=== PATIENT | female | born 1970 | race Caucasian/White ===

== ENCOUNTER → 2017-02-05 | Outpatient (CLI) | payer BC ==
[~2017-02-05] MED LIST: ABILIFY; ALPR0.5T PO; AMIT100T2 PO; DEXT1DRO OP; DICL75TA2 PO; FERROUS SULFATE; GEMF600T60 PO; HUMALOG; HYDR-762 PO; IBUP-1542 PO; METF500T4 PO; PROTONIX; ROSU20TA PO
[2017-02-05 17:20] LABS: ADD SCAN DIFF NO
[2017-02-05 17:22] LABS: BASOPHILS % 0.5 % (0.0-2.0); EOSINOPHILS # 0.2 10^3/ul (0.0-0.5); EOSINOPHILS % 2.4 % (0.0-7.0); HEMATOCRIT 28.9 % (37.0-47.0); HEMOGLOBIN 10.2 g/dl (12.0-16.0); LYMPHOCYTES # 2.2 10^3/ul (0.8-2.9); LYMPHOCYTES % 28.5 % (15.0-51.0); MEAN CORPUSCULAR HEMOGLOBIN 31.8 pg (29.0-33.0); MEAN CORPUSCULAR HGB CONC 35.3 g/dl (32.0-37.0); MEAN PLATELET VOLUME 10.7 fl (7.4-10.4); MONOCYTE # 0.4 10^3/ul (0.3-0.9); MONOCYTES % 5.8 % (0.0-11.0); NEUTROPHIL # 4.7 10^3/ul (1.6-7.5); NEUTROPHILS % 62.1 % (39.0-77.0); PLATELET COUNT 167 10^3/UL (140-415); RED BLOOD COUNT 3.21 10^6/ul (4.20-5.40); RED CELL DISTRIBUTION WIDTH 13.5 % (11.5-14.5); WHITE BLOOD COUNT 7.6 10^3/ul (4.8-10.8)
[2017-02-05 17:47] LABS: ALBUMIN 4.6 g/dl (3.3-4.9); ALBUMIN/GLOBULIN RATIO 1.76; BILIRUBIN,INDIRECT 0.1 mg/dl (0-1.1); BILIRUBIN,TOTAL 0.1 mg/dl (0.2-1.3); CALCIUM 9.3 mg/dl (8.4-10.2); CREATININE 1.25 mg/dl (0.44-1.00); POTASSIUM 4.2 mmol/L (3.5-5.1); TOTAL PROTEIN 7.2 g/dl (6.1-8.1)
[2017-02-05 18:14] LABS: ADD UMIC YES; UR BILIRUBIN (Dip) NEGATIVE (NEGATIVE); UR BLOOD (Dip) NEGATIVE (NEGATIVE); UR CLARITY CLEAR (CLEAR); UR COLOR LT. YELLOW (YELLOW); UR GLUCOSE (Dip) NEGATIVE (NEGATIVE); UR KETONES (Dip) NEGATIVE (NEGATIVE); UR LEUKOCYTE ESTERASE (Dip) NEGATIVE (NEGATIVE); UR NITRITE (Dip) NEGATIVE (NEGATIVE); UR TOTAL PROTEIN (Dip) 2+ (NEGATIVE); UR UROBILINOGEN (Dip) 0.2 E.U./dL (0.1-1.0)
[2017-02-05 19:32] LABS: UR BACTERIA FEW; UR SQUAMOUS EPITHELIAL CELL MODERATE; URINE RBCS 0-2 /HPF (0)
== END | disposition home or self-care (01) ==
LOC: LAB 02-02 17:15
PROVIDERS: ATTEND Internal Medicine Rheumatology
DX: M32.9 Systemic lupus erythematosus, unspecified (principal); D86.9 Sarcoidosis, unspecified
CPT/HCPCS: 80053; 81001; 85025; 85651; 86140; 86160

== ENCOUNTER 2017-03-12 05:41 | Inpatient (IN) | payer BC ==
--- NOTE | 2017-03-09 05:53 | CONS ---
DATE OF ADMISSION: 03/12/2017 DATE OF CONSULTATION: REASON FOR CONSULTATION: Consultation requested by Dr. Henry Lincoln for evaluation and clearance for this 47-year-old woman about to undergo surgery. HISTORY OF PRESENT ILLNESS: Yaneth Rehman is a 47-year-old with menometrorrhagia and heavy periods for quite a while now. She is currently being admitted for correction of the above problem. PRIOR SURGICAL HISTORY: She had sections x4, tonsil and adenoid surgery, carpal tunnel syndrome, as well as an ovarian cystectomy done. She does not remember which side. PAST MEDICAL HISTORY: She has had no medical hospitalizations, at least none that she can remember other than her pregnancies and they were all sections. She fractured her right tibia when she was younger. Other than that, she has had a variety of different medical issues which include diabetes, as well as a diagnosis of systemic lupus erythematosus, and severe genetic hyperlipidemia. MEDICATION: She is currently taking the following medications: 1. Crestor 20 mg daily. 2. Gemfibrozil 600 mg two times a day. 3. Metformin 1000 mg two times a day. 4. Abilify 20 mg daily. 5. Losartan 25 mg daily. 6. Protonix 40 mg daily. 7. Insulin both long and short-acting. Her diabetes has been under very good control with that. 8. Hydroxychloroquine 200 mg two times a day given to her by her sign carpenter and other medications. ALLERGIES: CEPHALOSPORINS. LATEX. SOCIAL HISTORY: The patient is and has four children, one grandchild and two on the way. She smokes about five cigarettes a day. Also, alcohol socially. She does not drink coffee. She has no difficulty sleeping at night. She is employed. FAMILY HISTORY: Noncontributory due to the fact that the patient is adopted and does not know much about her biological parents. REVIEW OF SYSTEMS: HEENT: Periodic tension headaches. CARDIORESPIRATORY: Denies any chest pain or shortness of breath. GI: No melena or hematemesis. : No urgency, occasional nocturia. PRESTRESSED CONCRETE LABORER: Menometrorrhagia or excessive bleeding with her periods. MUSCULOSKELETAL: Positive for arthritis and symptoms of her lupus. NEUROPSYCHIATRIC: Unremarkable. GENERAL HEALTH: As above. PHYSICAL EXAMINATION: VITAL SIGNS: Blood pressure was 148/78. Pulse was 72 and regular. Respirations were 18. Temperature 98.2. Height 5'6". Weight 201 pounds. GENERAL: The patient is noted to be a well-developed, well- nourished female, alert, cooperative in no apparent acute distress. Oriented to time, place and person. HEENT: Head is atraumatic. Eyes: Pupils are equal, reactive to light and accommodation. Fundi were benign. Tympanic membranes were unremarkable. Nose was negative. Mouth was unremarkable. Fair oral hygiene was present. NECK: Supple without any rigidity. Trachea was midline. Thyroid was unremarkable. Neck veins were flat. Carotid pulses were equal. No bruits were heard. BACK: Unremarkable. CHEST: Symmetrical. BREAST: Breast and axillary exam did not reveal any masses. LUNGS: Clear to percussion and auscultation. HEART: PMI is 5th intercostal space at the midclavicular line. Regular sinus rhythm was noted. No significant murmurs, rubs or gallops were elicited. ABDOMEN: Soft. Good bowel sounds were noted. No significant organomegaly, masses or tenderness. Scars from prior sections were noted. PRESTRESSED CONCRETE LABORER: Normal female external genitalia. Pelvic and rectal exam per literary writer, up to date. EXTREMITIES: No clubbing, cyanosis or edema. Peripheral pulses were physiologic. SKIN: Moist and warm without any eruptions. Multiple tattoos were noted. LYMPHATICS: No gross lymphadenopathy was noted. NEUROLOGIC: Grossly intact. IMPRESSION: 1. Menometrorrhagia. 2. Systemic lupus erythematosus. 3. Diabetes mellitus type 2. 4. Hyperlipidemia. 5. Degenerative joint disease. 6. Stable health. LABORATORY DATA: Review of laboratory and other data revealed the following: The patient's chemistry panel including electrolytes, glucose, BUN and creatinine were normal. Liver function tests revealed minimal elevation of SGPT and SGOT at 44 and 36, and alkaline phosphatase minimally elevated at 116. The patient's lipids revealed a cholesterol of 201 which is good for this patient. Triglycerides 883. This is far better than the 1000 plus to 3000 range the patient has had. The patient's thyroid function tests were normal. Magnesium was normal. Iron was low compatible with her bleeding history even though she takes vitamin supplementation. B12 was normal. Hemoglobin A1C was 6.4. Her CBC, urinalysis, PT and PTT were normal. Urinalysis, however, did show proteinuria compatible with her multiple problems. Her EKG was borderline with some nonspecific ST-T wave changes. Chest x-ray was within normal limits. DISCUSSION: Dr. Lincoln, I see no contraindication to this patient undergoing proposed surgery under desired form of anesthesia, and feel she is a suitable candidate at this particular point in time. We will be following her along with you during her stay at [facility] in terms of her diabetes and general medical management. Thank you again Dr. Lincoln, for allowing us to participate in the care of our patient. Dictated By: Gyu Russell MD /hiro/ortega /Document#: [id number]
[2017-03-09 15:04] VITALS: BMI 32.4
--- NOTE | 2017-03-11 21:52 | HP ---
Date/Time of Note Date/Time of Note DATE: 03/11/17 TIME: 21:06 Assessment/Plan VTE Prophylaxis VTE Prophylaxis Intervention: SCD's Lines/Catheters IV [facility]from [facility] Peripheral IV Assessment/Plan Chief Complaint/Hosp Course Menorrhagia unresponsive to medical management. Problems: Assessment/Plan Total abdominal hysterectomy, possible uni- or bilateral salpingoophorectomy. HPI/ROS Admit Date/Time Admit Date/Time March 12, 2017 Hx of Present Illness 47 y.o. with a spouse with a vasectomy admitted for a total abdominal hysterectomy for menorrhagia unresponsive to medical management for the last 2 years. Her periods have always been heavy but the amount of blood with clots has increased. An endometrial biopsy showed proliferative endometrium. She did not respond to progesterone therapy. She is not a candidate for a hydrothermal endometrial ablation as she has had 3 prior c-sections. Pt very adamantly wants a hysterectomy and does not want to try any other therapies. ROS Constitutional: no complaints Eyes: no complaints ENT: no complaints Respiratory: no complaints Cardiovascular: no complaints Gastrointestinal: no complaints Genitourinary: no complaints Musculoskeletal: no complaints Skin: no complaints Neurologic: no complaints Endocrine: no complaints Lymphatic: no complaints Psychological: no complaints Immunologic: no complaints PMH/Family/Social Past Medical History Medical History: diabetes (Type 2), other (Systemic lupus erythematosis, hyperlipidemia, bipolar disorder, sarcoid-in remission since 1996) Past Surgical History x 3, tonsillectomy, lithotripsy multiple times, right ovarian cystectomy-B9 2011. 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 BENJAMIN MORRISON MD Mar 11, 2017 21:37
[2017-03-12] VITALS (22 sets, daily range): BP systolic 121–145; BP diastolic 46–74; PULSE 78–100; RESP 15–22; Ht 167.6 cm; Wt 89.7 kg
[~2017-03-12] VITALS: Ht 167.6 cm; Wt 89.7 kg
[~2017-03-12 05:41] MED LIST changes: +CIPROFLOXACIN 400MG/D5W 200 ML IVPB ONE; +LACTATED RINGER'S 1,000 ML IV SCH; +metroNIDAZOLE 500 MG/NS (PMX) 100 ML IVPB ONE
[2017-03-12] MEDS ORDERED: PROPOFOL 1000 MG INJ ONE (07:00)
[2017-03-12] MEDS ORDERED: CLINDAMYCIN 900 MG/50 ML D5W IVPB IVPB ONE (07:00)
[2017-03-12] MEDS ORDERED: PANT40TA4 PO (07:12)
[2017-03-12] MEDS ORDERED: INSU300I SQ (07:12)
[2017-03-12] MEDS ORDERED: LOSA25TA5 PO (07:12)
[2017-03-12] MEDS ORDERED: HYDR200T39 PO (07:12)
[2017-03-12] MEDS ORDERED: NEOSTIGMINE 3 MG/3 ML SYRINGE ONE (07:30)
[2017-03-12] MEDS ORDERED: GLYCOPYRROLATE 0.4 MG INJ ONE (07:30)
[2017-03-12] MEDS ORDERED: ROCURONIUM 50 MG INJ ONE (07:30)
[2017-03-12] MEDS ORDERED: PROPOFOL 20 ML ONE (07:30)
[2017-03-12] MEDS ORDERED: CEFAZOLIN 1 GM INJ ONE (07:30)
[2017-03-12] MEDS ORDERED: FENTAnyl 50 MCG/ML VIAL ONE (07:32)
[2017-03-12] MEDS ORDERED: DEXAMETHASONE 4 MG/ML 1 ML INJ ONE (07:33)
[2017-03-12] MEDS ORDERED: MIDAZOLAM 1 MG/ML 2 ML INJ ONE (07:33)
[2017-03-12] MEDS ORDERED: ONDANSETRON 4 MG INJ ONE (07:33)
[2017-03-12] MEDS ORDERED: morphine SULFATE/PF (10 MG/10 ML) INJ ONE (07:34)
[2017-03-12] MEDS ORDERED: ALBUMIN HUMAN 5% 500 ML ONE (09:26)
[2017-03-12] MEDS ORDERED: DIPHENHYDRAMINE 50 MG INJ IV PRN ×2 (10:00)
[2017-03-12] MEDS ORDERED: MEPERIDINE 25 MG INJ IV PRN (10:00)
[2017-03-12] MEDS ORDERED: ONDANSETRON 4 MG INJ IV PRN (10:00)
[2017-03-12] MEDS ORDERED: EPHEDrine SULFATE 50 MG/5 ML SYG IV PRN (10:00)
[2017-03-12] MEDS ORDERED: FENTAnyl 50 MCG/ML VIAL IV PRN ×3 (10:00)
[2017-03-12] MEDS ORDERED: NALBUPHINE HCL (10 MG/1 ML) INJ IV PRN (10:00)
[2017-03-12] MEDS ORDERED: TRIMETHOBENZAMIDE 100 MG/ML VIAL IM PRN (10:00)
[2017-03-12] MEDS ORDERED: NALOXONE (0.4 MG/ML) INJ IV PRN (10:00)
[2017-03-12] MEDS ORDERED: hydrALAzine 20 MG INJ IV PRN (10:00)
[2017-03-12] MEDS ORDERED: MIDAZOLAM 1 MG/ML 2 ML INJ IV PRN (10:00)
[2017-03-12] MEDS ORDERED: HYDROmorphONE 1 MG/ML SYG IV PRN (10:00)
[2017-03-12] MEDS ORDERED: OXYCODONE/ACETAMINOPHEN (5/325) TAB PO PRN ×3 (10:00→14:00)
[2017-03-12] MEDS ORDERED: ZOLPIDEM 5 MG TAB PO PRN (10:00)
[2017-03-12] MEDS ORDERED: IPRATROPIUM (NEB) 0.5 MG/2.5 ML AMP HHN PRN (10:00)
[2017-03-12] MEDS ORDERED: LABETALOL HCL 20MG INJ IV PRN (10:00)
[2017-03-12] MEDS ORDERED: ALBUTEROL 0.083% (NEB) 2.5 MG/3 ML AMP HHN PRN (10:00)
[2017-03-12] MEDS ORDERED: HYDROmorphONE (0.2 MG/ML) 10ML SYG IV PRN ×2 (10:00)
[2017-03-12] MEDS ORDERED: KETOROLAC 30 MG INJ ONE (11:52)
[2017-03-12] MEDS: HYDROmorphONE (0.2 MG/ML) 10ML SYG IV PRN ×2 (12:11→12:36)
[2017-03-12] MEDS ORDERED: INSULIN ASPART [NOVOLOG] 3 ML PEN SC ONE (13:30)
--- NOTE | 2017-03-12 13:54 | OPR ---
Date/Time of Note Date/Time of Note DATE: 03/12/17 TIME: 13:51 Operative Report Preoperative Diagnosis Menorrhagia unresponsive to medical management Postoperative Diagnosis Same Operation/Procedure Performed Total abdominal hysterectomy with bilateral ovarian cystectomy. Surgeon: BENJAMIN MORRISON Co-Surgeon: KATY DOYLE MD Anesthesia: general, spinal Estimated Blood Loss: 250 - 300 ml's Specimens Uterus and both ovarian cysts. Complications: None BENJAMIN MORRISON MD Mar 12, 2017 13:54
[2017-03-12] MEDS: ONDANSETRON 4 MG INJ IV PRN ×2 (13:59→22:00)
[2017-03-12] MEDS ORDERED: IBUPROFEN 800 MG TAB PO PRN (14:00)
[2017-03-12] MEDS: LACTATED RINGER'S 1,000 ML IV SCH ×2 (14:12→22:00)
[2017-03-12] MEDS: HYDROmorphONE 1 MG/ML SYG IV PRN ×4 (14:23→22:00)
[2017-03-12] MEDS: GEMFIBROZIL 600 MG TAB PO SCH (17:25)
--- NOTE | 2017-03-12 17:31 | CONS ---
Date/Time of Note Date/Time of Note DATE: 03/12/17 TIME: 17:25 Consult Date/Type/Reason Admit Date/Time Mar 12, 2017 at 05:41 Initial Consult Date 03/06/2017 Type of Consultation: internal medicine-endo Reason for Consultation pre-op evaluation and clearance Ordering Provider: BENJAMIN MORRISON MD Subjective alert post op in recovery room Objective Vital Signs Date Time Temp Pulse Resp B/P Pulse Ox O2 Delivery O2 Flow Rate FiO2 03/12/17 12:50 98 16 124/52 95 Nasal Cannula 03/12/17 12:00 99.3 03/12/17 12:00 3.0 Exam heent-neg lungs clear heart regular rhythm abd soft Results/Medications Results 24 hrs Laboratory Tests Test 03/12/17 06:26 03/12/17 13:01 03/12/17 16:49 Bedside Glucose 151 223 H 165 Medications Current Medications Hydromorphone HCl (Dilaudid) 0.2 mg Q2H PRN IV PAIN LEVEL 1-5; Start 03/12/17 at 10:00; Stop 03/13/17 at 07:39 Hydromorphone HCl (Dilaudid) 0.4 mg Q2H PRN IV PAIN LEVEL 6-10 Last administered on 03/12/17 16:16; Admin Dose 0.4 MG; Start 03/12/17 at 10:00; Stop 03/13/17 at 07:39 Diphenhydramine HCl (Benadryl) 25 mg Q4H PRN IV PRURITUS; Start 03/12/17 at 10: 00; Stop 03/13/17 at 07:39 Nalbuphine HCl (Nubain) 10 mg Q4H PRN IV PRURITUS; Start 03/12/17 at 10:00; Stop 03/13/17 at 07:39 Ondansetron HCl (Zofran Inj) 4 mg Q6H PRN IV NAUSEA AND/OR VOMITING Last administered on 03/12/17 13:59; Admin Dose 4 MG; Start 03/12/17 at 10:00; Stop 03/13/17 at 07:39 Naloxone HCl (Narcan) 0.2 mg Q2M PRN IV FOR RESP RATE 8 OR LESS; Start at 10:00; Stop 03/13/17 at 07:39 Alprazolam (Xanax) 0.5 mg Q8H PRN PO ANXIETY; Start 03/12/17 at 13:00 Amitriptyline HCl (Elavil) 100 mg HS PO ; Start 03/12/17 at 21:00 Acetaminophen/ Hydrocodone Bitart ([place] (10/325)) 1 tab Q4H PRN PO PAIN; Start 03/12/17 at 13:00 Hydroxychloroquine Sulfate (Plaquenil) 200 mg BID PO ; Start 03/13/17 at 09:00 Losartan Potassium (Cozaar) 25 mg DAILY PO ; Start 03/13/17 at 09:00 Pantoprazole (Protonix Tab) 40 mg DAILY@06 PO ; Start 03/13/17 at 06:00 Miscellaneous Information 2 drop TID OP ; Start 03/12/17 at 13:00; Status UNV Atorvastatin Calcium 80 mg 80 mg HS PO ; Start 03/12/17 at 21:00 Lactated Ringer's (Lr) 1,000 ml @ 100 mls/hr Q10H IV Last administered on 03/12t 14:12; Admin Dose 100 MLS/HR; Start 03/12/17 at 13:42 Ibuprofen (Motrin) 800 mg Q8H PRN PO PAIN AND OR ELEVATED TEMP; Start 03/12/17 at 14:00 Oxycodone/ Acetaminophen (Percocet (5/ 325)) 1 tab Q4H PRN PO PAIN LEVEL 6-10; Start 03/12/17 at 14:00 Ketorolac Tromethamine (Toradol) 30 mg Q6H PRN IV PAIN; Start 03/12/17 at 14:00 ; Stop 03/15/17 at 13:59 Hydromorphone HCl (Dilaudid) 0.5 mg Q4H PRN IV PAIN; Start 03/12/17 at 14:00 Insulin Glargine (Lantus) 10 unit DAILY@20 SC ; Start 03/12/17 at 20:00; Status UNV Assessment/Plan Chief Complaint/Hosp Course post op headache and high blood sugar Problems: Additional Assessment/Plan plan:control dm,hypertension and hyperlipedemia and monitor general medical condition KEN GANT MD Mar 12, 2017 17:31
[2017-03-12] MEDS: INSULIN ASPART [NOVOLOG] 3 ML PEN SC SCH ×2 (18:00→21:00)
[2017-03-12] MEDS: KETOROLAC 30 MG INJ IV PRN (20:30)
[2017-03-12] MEDS: ATORVASTATIN 80 MG TAB PO SCH (21:00)
[2017-03-12] MEDS: AMITRIPTYLINE 50 MG TAB PO SCH (21:00)
[2017-03-12] MEDS: INSULIN GLARGINE [LANtus] 3 ML PEN SC SCH (21:45)
[2017-03-13] VITALS: BP 116/55; RESP 16
[2017-03-13] MEDS: HYDROmorphONE 1 MG/ML SYG IV PRN ×4 (01:25→20:17)
[2017-03-13] MEDS: ACCU-CHEK XX SCH (01:50)
[2017-03-13] MEDS ORDERED: ACCU-CHEK XX SCH (02:00)
[2017-03-13] MEDS: KETOROLAC 30 MG INJ IV PRN ×2 (04:52→11:50)
[2017-03-13 05:33] LABS: BASOPHILS % 0.2 % (0.0-2.0); EOSINOPHILS # 0.1 10^3/ul (0.0-0.5); EOSINOPHILS % 0.7 % (0.0-7.0); HEMATOCRIT 24.3 % (37.0-47.0); HEMOGLOBIN 8.1 g/dl (12.0-16.0); LYMPHOCYTES # 1.3 10^3/ul (0.8-2.9); LYMPHOCYTES % 15.5 % (15.0-51.0); MEAN CORPUSCULAR HEMOGLOBIN 30.7 pg (29.0-33.0); MEAN CORPUSCULAR HGB CONC 33.3 g/dl (32.0-37.0); MEAN PLATELET VOLUME 11.4 fl (7.4-10.4); MONOCYTE # 0.5 10^3/ul (0.3-0.9); MONOCYTES % 5.8 % (0.0-11.0); NEUTROPHIL # 6.3 10^3/ul (1.6-7.5); NEUTROPHILS % 77.1 % (39.0-77.0); PLATELET COUNT 118 10^3/UL (140-415); RED BLOOD COUNT 2.64 10^6/ul (4.20-5.40); RED CELL DISTRIBUTION WIDTH 13.4 % (11.5-14.5); WHITE BLOOD COUNT 8.1 10^3/ul (4.8-10.8)
[2017-03-13] MEDS: PANTOPRAZOLE (EC) 40 MG TAB PO SCH (05:35)
[2017-03-13 06:52] LABS: CALCIUM 8.1 mg/dl (8.4-10.2); CREATININE 0.82 mg/dl (0.44-1.00)
[2017-03-13] MEDS: LACTATED RINGER'S 1,000 ML IV SCH ×2 (07:05→16:20)
[2017-03-13] MEDS ORDERED: ARTIFICIAL TEARS 15 ML OPH BOTH EYES PRN (07:30)
--- NOTE | 2017-03-13 08:17 | CONS ---
Date/Time of Note Date/Time of Note DATE: 03/13/17 TIME: 08:13 Consult Date/Type/Reason Admit Date/Time Mar 12, 2017 at 05:41 Initial Consult Date 03/06/2017 Type of Consultation: internal medicine-endo Reason for Consultation internal medicine f/u re dm type2 and hypertension Ordering Provider: BENJAMIN MORRISON MD Subjective alert no major complaints glucose 150 this am Objective Vital Signs Date Time Temp Pulse Resp B/P Pulse Ox O2 Delivery O2 Flow Rate FiO2 03/13/17 00:00 98.3 83 16 116/55 97 03/12/17 20:00 Nasal Cannula 2.0 Intake and Output 03/12/17 03/12/17 03/13/17 15:00 23:00 07:00 Intake Total 3000 ml 1050 ml 800 ml Output Total 375 ml 1200 ml 1900 ml Balance 2625 ml -150 ml -1100 ml Exam heent neg chest clear heart regular rhythm abdomen soft Results/Medications Result Diagram: 03/13/17 0451 03/13/17 0451 Results 24 hrs Laboratory Tests Test 03/12/17 13:01 03/12/17 16:49 03/12/17 20:42 03/13/17 04:51 Bedside Glucose 223 H 165 153 White Blood Count 8.1 Red Blood Count 2.64 L Hemoglobin 8.1 #L Hematocrit 24.3 L Mean Corpuscular Volume 92.0 Mean Corpuscular Hemoglobin 30.7 Mean Corpuscular Hemoglobin Concent 33.3 Red Cell Distribution Width 13.4 Platelet Count 118 #L Mean Platelet Volume 11.4 H Neutrophils % 77.1 H Lymphocytes % 15.5 Monocytes % 5.8 Eosinophils % 0.7 Basophils % 0.2 Nucleated Red Blood Cells % 0.0 Neutrophils # 6.3 Lymphocytes # 1.3 Monocytes # 0.5 Eosinophils # 0.1 Basophils # 0.0 Nucleated Red Blood Cells # 0.0 Sodium Level 141 Potassium Level 4.0 Chloride Level 103 Carbon Dioxide Level 26 Anion Gap 16 Blood Urea Nitrogen 14 Creatinine 0.82 Glucose Level 121 Calcium Level 8.1 L Test 03/13/17 05:36 Lab Scanned Report LAB Medications Current Medications Alprazolam (Xanax) 0.5 mg Q8H PRN PO ANXIETY; Start 03/12/17 at 13:00 Amitriptyline HCl (Elavil) 100 mg HS PO ; Start 03/12/17 at 21:00 Acetaminophen/ Hydrocodone Bitart ([employer] (10/325)) 1 tab Q4H PRN PO PAIN; Start 03/12/17 at 13:00 Hydroxychloroquine Sulfate (Plaquenil) 200 mg BID PO ; Start 03/13/17 at 09:00 Losartan Potassium (Cozaar) 25 mg DAILY PO ; Start 03/13/17 at 09:00 Pantoprazole (Protonix Tab) 40 mg DAILY@06 PO Last administered on 03/13/17 05 :35; Admin Dose 40 MG; Start 03/13/17 at 06:00 Eye Lubricant (Artificial Tears Oph) 2 drop TID PRN BOTH EYES DRY EYES; Start 03/13/17 at 07:30 Atorvastatin Calcium 80 mg 80 mg HS PO ; Start 03/12/17 at 21:00 Lactated Ringer's (Lr) 1,000 ml @ 100 mls/hr Q10H IV Last administered on 03/13 07:05; Admin Dose 100 MLS/HR; Start 03/12/17 at 13:42 Ibuprofen (Motrin) 800 mg Q8H PRN PO PAIN AND OR ELEVATED TEMP; Start 03/12/17 at 14:00 Oxycodone/ Acetaminophen (Percocet (5/ 325)) 1 tab Q4H PRN PO PAIN LEVEL 6-10; Start 03/12/17 at 14:00 Ketorolac Tromethamine (Toradol) 30 mg Q6H PRN IV PAIN Last administered on 04:52; Admin Dose 30 MG; Start 03/12/17 at 14:00; Stop 03/15/17 at 13:59 Hydromorphone HCl (Dilaudid) 0.5 mg Q4H PRN IV PAIN Last administered on 05:38; Admin Dose 0.5 MG; Start 03/12/17 at 14:00 Insulin Glargine (Lantus) 10 unit DAILY@20 SC Last administered on 03/12/17 21 :45; Admin Dose 10 UNIT; Start 03/12/17 at 20:00 Diagnostic Test (Pha) (Accu-Chek) 1 ea 02 XX ; Start 03/13/17 at 02:00 Assessment/Plan Chief Complaint/Hosp Course post op headache and high blood sugar Problems: Additional Assessment/Plan patient anemic will watch h&h sugars under good control KEN GANT MD Mar 13, 2017 08:17
[2017-03-13] MEDS: HYDROCODONE/APAP (10/325) TAB PO PRN ×3 (08:47→20:57)
[2017-03-13] MEDS: GEMFIBROZIL 600 MG TAB PO SCH ×2 (08:50→17:43)
[2017-03-13] MEDS: HYDROXYCHLOROQUINE 200 MG TAB PO SCH ×2 (08:51→20:57)
[2017-03-13] MEDS: metFORMIN 500 MG TAB PO SCH (08:51)
[2017-03-13] MEDS: INSULIN ASPART [NOVOLOG] 3 ML PEN SC SCH ×4 (08:58→21:00)
[2017-03-13] MEDS ORDERED: LOSARTAN 25 MG TAB PO SCH (09:00)
[2017-03-13 09:02] VITALS: BP 144/65; RESP 18
[2017-03-13 13:04] VITALS: BP 154/69; RESP 18
[2017-03-13 14:00] VITALS: BP 150/68; RESP 18
[2017-03-13] MEDS ORDERED: GLUCOSE GEL 15 GRAM TUBE BUCCAL PRN (14:30)
[2017-03-13] MEDS ORDERED: GLUCOSE GEL 15 GRAM TUBE PO PRN ×2 (14:30)
[2017-03-13] MEDS ORDERED: GLUCAGON 1 MG INJ IM PRN (14:30)
[2017-03-13] MEDS ORDERED: DEXTROSE 50% 50 ML SYRINGE IV PRN ×2 (14:30)
[2017-03-13] MEDS: IBUPROFEN 800 MG TAB PO SCH (17:43)
[2017-03-13 20:39] VITALS: BP 178/74; RESP 18
[2017-03-13] MEDS: ATORVASTATIN 80 MG TAB PO SCH (20:56)
[2017-03-13] MEDS: AMITRIPTYLINE 50 MG TAB PO SCH (20:56)
[2017-03-13] MEDS ORDERED: AMITRIPTYLINE 25 MG TAB PO SCH (21:00)
[2017-03-13] MEDS: INSULIN GLARGINE [LANtus] 3 ML PEN SC SCH (21:14)
--- NOTE | 2017-03-13 21:25 | PN ---
Date/Time of Note Date/Time of Note DATE: 03/13/17 TIME: 21:04 Assessment/Plan VTE Prophylaxis VTE Prophylaxis Intervention: SCD's Lines/Catheters IV Catheter Type (from Nrsg): Peripheral IV Urinary Cath still in place: Yes Reason Cath still needed: other (indicate) (Pt request) Assessment/Plan Chief Complaint/Hosp Course Menorrhagia unresponsive to medical management. S/P MAAME, bilateral ovarian cystectomy; pathology reports adenomyosis in the uterus. Problems: Assessment/Plan A:Pt is stable.Vital signs are stable and without evidence of infection.White blood count is 8.1. Pain is appropriate to the surgery.Hgb prior to surgery was 12.2 and is now 8.1 so will recheck in the AM but am fairly confident that she is not having any additional bleeding and that the loss was incurred during surgery only. P: Will adjust the pain meds. Motrin 800 mg will be given q 6 hours around the clock. Will change the Percocet to q 3hours.Pt requesting that her next dose of pain meds be Dilaudid and this was relayed to the RN. Advance diet to ADA 2000 in the AM, as do not want the pt to get nauseous or vomit from the change in pain meds. Pt to dangle legs today and also try to get OOB to chair. Will D/C the emery in the AM. Repeat CBC in the AM. Blood sugars have been in the 140-150's and are being managed by Dr Russell. Blood pressures are a little high and are also being managed by Dr Russell. Subjective 24 Hr Interval Summary Free Text/Dictation Pt is generally doing well although her pain management was not great this AM. She reports that the Dilaudid wore off after about 2 hours and the Percocet wore off after about an hour when she was changed to oral meds. She says she has been up since 0400 because of that. Her pain is not increasing, just not adequately treated. Had some nausea last night but has been fine today and is tolerating clear liquids without a problem. No flatus but can feel her stomach rumbling and reports that she is a little hungry.Had not been out of bed yet at 1400. Does not want the emery catheter out yet. Reports her pain is mostly in the upper mid belly. Exam/Review of Systems Vital Signs Vitals Vital Signs Date Time Temp Pulse Resp B/P Pulse Ox O2 Delivery O2 Flow Rate FiO2 03/13/17 20:39 99.2 90 18 178/74 95 03/12/17 20:00 Nasal Cannula 2.0 Intake and Output 03/12/17 03/12/17 03/13/17 15:00 23:00 07:00 Intake Total 3000 ml 1050 ml 800 ml Output Total 375 ml 1200 ml 1900 ml Balance 2625 ml -150 ml -1100 ml Exam Constitutional: alert, oriented Respiratory: clear to auscultation Cardiovascular: regular rate and rhythm Gastrointestinal: bowel sounds, other (Dressing is clean dry and intact and the abdominal binder is present.), soft Genitourinary - Female: other (Good urine output today.) Results Result Diagram: 03/13/17 0451 03/13/17 0451 Results 24 hrs Laboratory Tests Test 03/13/17 04:51 03/13/17 05:36 03/13/17 08:56 03/13/17 12:34 White Blood Count 8.1 Red Blood Count 2.64 L Hemoglobin 8.1 #L Hematocrit 24.3 L Mean Corpuscular Volume 92.0 Mean Corpuscular Hemoglobin 30.7 Mean Corpuscular Hemoglobin Concent 33.3 Red Cell Distribution Width 13.4 Platelet Count 118 #L Mean Platelet Volume 11.4 H Neutrophils % 77.1 H Lymphocytes % 15.5 Monocytes % 5.8 Eosinophils % 0.7 Basophils % 0.2 Nucleated Red Blood Cells % 0.0 Neutrophils # 6.3 Lymphocytes # 1.3 Monocytes # 0.5 Eosinophils # 0.1 Basophils # 0.0 Nucleated Red Blood Cells # 0.0 Sodium Level 141 Potassium Level 4.0 Chloride Level 103 Carbon Dioxide Level 26 Anion Gap 16 Blood Urea Nitrogen 14 Creatinine 0.82 Glucose Level 121 Calcium Level 8.1 L Lab Scanned Report LAB Bedside Glucose 157 144 Test 03/13/17 17:45 Bedside Glucose 143 Medications Medications Current Medications Alprazolam (Xanax) 0.5 mg Q8H PRN PO ANXIETY; Start 03/12/17 at 13:00 Amitriptyline HCl (Elavil) 100 mg HS PO ; Start 03/12/17 at 21:00 Hydroxychloroquine Sulfate (Plaquenil) 200 mg BID PO Last administered on 08:51; Admin Dose 200 MG; Start 03/13/17 at 09:00 Losartan Potassium (Cozaar) 25 mg DAILY PO Last administered on 03/13/17 08:52 ; Admin Dose 25 MG; Start 03/13/17 at 09:00 Pantoprazole (Protonix Tab) 40 mg DAILY@06 PO Last administered on 03/13/17 05 :35; Admin Dose 40 MG; Start 03/13/17 at 06:00 Eye Lubricant (Artificial Tears Oph) 2 drop TID PRN BOTH EYES DRY EYES; Start 03/13/17 at 07:30 Atorvastatin Calcium 80 mg 80 mg HS PO ; Start 03/12/17 at 21:00 Lactated Ringer's (Lr) 1,000 ml @ 100 mls/hr Q10H IV Last administered on 03/13 16:20; Admin Dose 100 MLS/HR; Start 03/12/17 at 13:42 Oxycodone/ Acetaminophen (Percocet (5/ 325)) 1 tab Q4H PRN PO PAIN LEVEL 6-10; Start 03/12/17 at 14:00 Ketorolac Tromethamine (Toradol) 30 mg Q6H PRN IV PAIN Last administered on 11:50; Admin Dose 30 MG; Start 03/12/17 at 14:00; Stop 03/15/17 at 13:59 Hydromorphone HCl (Dilaudid) 0.5 mg Q4H PRN IV PAIN Last administered on 20:17; Admin Dose 0.5 MG; Start 03/12/17 at 14:00 Insulin Glargine (Lantus) 10 unit DAILY@20 SC Last administered on 03/12/17 21 :45; Admin Dose 10 UNIT; Start 03/12/17 at 20:00 Diagnostic Test (Pha) (Accu-Chek) 1 ea 02 XX ; Start 03/13/17 at 02:00 Acetaminophen/ Hydrocodone Bitart ([place] (10/325)) 1 tab Q3H PRN PO PAIN; Start 03/13/17 at 15:00 Ibuprofen (Motrin) 800 mg Q6 PO Last administered on 03/13/17 17:43; Admin Dose 800 MG; Start 03/13/17 at 18:00 Miscellaneous Information 1 ea NOTE XX ; Start 03/13/17 at 14:30 Glucose (Glutose) 15 gm Q15M PRN PO DECREASED GLUCOSE; Start 03/13/17 at 14:30 Glucose (Glutose) 22.5 gm Q15M PRN PO DECREASED GLUCOSE; Start 03/13/17 at 14: 30 Dextrose (D50w Syringe) 25 ml Q15M PRN IV DECREASED GLUCOSE; Start 03/13/17 at 14:30 Dextrose (D50w Syringe) 50 ml Q15M PRN IV DECREASED GLUCOSE; Start 03/13/17 at 14:30 Glucagon (Glucagen) 1 mg Q15M PRN IM DECREASED GLUCOSE; Start 03/13/17 at 14:30 Glucose (Glutose) 15 gm Q15M PRN BUCCAL DECREASED GLUCOSE; Start 03/13/17 at 14 :30 BENJAMIN MORRISON MD Mar 13, 2017 21:22
[2017-03-13 21:48] VITALS: BP 195/73; PULSE 81; RESP 17
--- NOTE | 2017-03-13 22:19 | OPR ---
Date/Time of Note Date/Time of Note DATE: 03/13/17 TIME: 21:25 Operative Report Procedure Date: Mar 12, 2017 Preoperative Diagnosis Menorrhagia unresponsive to medical management Postoperative Diagnosis Same Operation Performed Total abdominal hysterectomy with bilateral ovarian cystectomy. Surgeon: BENJAMIN MORRISON MD Paint Factory Worker: KATY DOYLE MD Anesthesia: general, spinal Anesthesiologist: Kwesi Perdomo M.D. Estimated Blood Loss: 250 - 300 ml's Specimens Uterus and both ovarian cysts. Complications: None Pt Condition Post Procedure: stable Disposition: PACU Procedure Description Pt was brought to the operating room and placed on the operating room table and was given a spinal block and then general anesthesia by the anesthesiologist. A emery catheter was placed and she was prepped and draped in the usual sterile fashion. A Pfannensteil incision was made at the site of her prior c-sections using a knife and bovey cautery as needed. The fascia was incised and extended bilaterally using scissors. The fascia was from the rectus muscles using bovie cautery and scissors as appropriate. This was repeated at the lower edge of the incision as well. The rectus muscles were and the anterior peritoneum was entered using a Rupali clamp. The opening was extended using a knife superficially, and then scissors and stretching with the surgeon' s hands. An abdominal retractor was then placed. Moist laps were placed anteriorly to push the bowel anteriorly and away from the surgery site.The top of the uterus was grasped with a double tooth tenaculum. A peon clamp was used to grasp each vascular pedicle including the tube and round ligament, cinched up close to the uterus. A separate peon clamp was used to grasp the round ligament and the ligament was cut and a stitch of 0 chromic was used to suture ligate the end. The bladder flap was developed then with scissors and blunt dissection using a moist sponge stick. A window was then made in the broad ligament on each side and a peon clamp was placed close to the ovaries, across the tubes and through the window. The tissue was cut and 0-chromic suture was used to suture ligate the pedicles with excellent hemostasis noted. Then proceeded to clamp, cut and suture ligate the uterine vessels on either side of the lower uterine segment with the same suture. The top of the uterus was then cut off using a knife. The remaining cervix was then grasped with the double tooth tenaculum. The bladder was pushed well free of the cervix, using scissors where needed to release adhesions. Additional bites of tissue were taken and ligated to get to the edge of the cervix. The anterior cul-de-sac was then entered using a knife and the cut edge was grasped with a jarek clamp. The cervix was then cut off using the Charlie scissors, grasping the exposed vaginal edges with clamps. The cuff was then closed with figure of eight sutures with 0 chromic, being sure to capture the angles including the uterosacral ligaments. Of note, this whole portion was challenging as the patient had a large amount of abdominal padding so the surgery occured in a tunnel. Additional sutures were placed until excellent hemostasis was obtained. There was a cyst on each ovary both with what appeared to be small bits of endometriosis so each cyst was cut off the the top of each ovary was oversewn with 0 chromic suture. The entire belly was irrigated with sterile water and some additional stitching was required but then excellent hemostasis was obtained. A piece of Surgicel was placed over the cuff. The packing was then removed. The edges of the peritoneum were grasped with peon clamps and 2-0 chromic was used to close this area. This became very difficult as the edges of the peritoneum were very, very tight in the upper part of the belly and did not want to be approximated. The bowel also was problematic during the entire case as it did not easily push out of the way as there did not seem as though there was any spare room inside the abdominal cavity, as there would normally be. Due to this it was felt that the patient would have a peritoneal hernia if the peritoneum was not closed. Eventually it was closed with great care taken to avoid the bowel as it constantly wanted to push out, even with use of malleable retractors. Then closed the fascia using 0 vicryl suture from each lateral edge to midline, with overlap at the midline.The subcutaneous layer was then irrigated well, cautery applied where needed for hemostasis and then closed with 2-0 chromic. The skin was then closed with 3-0 Monocryl in a subcuticular stitch. Steristrips with tincture of Benzoin were then placed. A pressure dressing was then applied. The patient was given an abdominal binder to help take away some of the pressure of the abdominal incision closure. The patient was awakened from general anesthesia and transported to the recovery room in excellent condition, having tolerated the procedure well. BENJAMIN MORRISON MD Mar 13, 2017 22:18
[2017-03-13] MEDS: ALPRAZOLAM 0.5 MG TAB PO PRN (22:35)
[2017-03-13] MEDS: METOPROLOL 50 MG TAB PO SCH (22:36)
[2017-03-14] VITALS: BP 171/70
[2017-03-14] MEDS: IBUPROFEN 800 MG TAB PO SCH ×4 (00:08→17:24)
[2017-03-14] MEDS: HYDROmorphONE 1 MG/ML SYG IV PRN ×5 (00:10→20:04)
[2017-03-14 00:51] VITALS: BP 159/72; PULSE 77; RESP 17
[2017-03-14] MEDS: HYDROCODONE/APAP (10/325) TAB PO PRN ×4 (00:51→21:15)
[2017-03-14] MEDS: ACCU-CHEK XX SCH (02:02)
[2017-03-14] MEDS: LACTATED RINGER'S 1,000 ML IV SCH ×2 (04:09→13:56)
[2017-03-14 04:18] VITALS: BP 151/68; RESP 17
[2017-03-14] MEDS: PANTOPRAZOLE (EC) 40 MG TAB PO SCH (06:05)
[2017-03-14] MEDS: GEMFIBROZIL 600 MG TAB PO SCH ×2 (06:06→17:24)
[2017-03-14 08:12] VITALS: BP 143/65; RESP 19
--- NOTE | 2017-03-14 08:16 | CONS ---
Date/Time of Note Date/Time of Note DATE: 03/14/17 TIME: 08:09 Consult Date/Type/Reason Admit Date/Time Mar 12, 2017 at 05:41 Initial Consult Date 03/06/2017 Type of Consultation: internal medicine-endo Reason for Consultation medical management and f/u Ordering Provider: BENJAMIN MORRISON MD Subjective doing better feels stronger and is comfortable at this time got out of bed last night/this am Objective Vital Signs Date Time Temp Pulse Resp B/P Pulse Ox O2 Delivery O2 Flow Rate FiO2 03/14/17 04:18 17 151/68 96 Room Air 03/14/17 00:51 98.6 77 03/12/17 20:00 2.0 Intake and Output 03/13/17 03/13/17 03/14/17 15:00 23:00 07:00 Intake Total 300 ml 2440 ml 1450 ml Output Total 1850 ml 1750 ml Balance 300 ml 590 ml -300 ml Exam vss stable this am -bp went up last night heent neg chest clear cor rsr abd soft bs present Results/Medications Result Diagram: 03/13/17 0451 03/13/17 0451 Results 24 hrs Laboratory Tests Test 03/13/17 08:56 03/13/17 12:34 03/13/17 17:45 03/13/17 21:03 Bedside Glucose 157 144 143 171 Medications Current Medications Alprazolam (Xanax) 0.5 mg Q8H PRN PO ANXIETY Last administered on 03/13/17 22: 35; Admin Dose 0.5 MG; Start 03/12/17 at 13:00 Amitriptyline HCl (Elavil) 100 mg HS PO Last administered on 03/13/17 20:56; Admin Dose 100 MG; Start 03/12/17 at 21:00 Hydroxychloroquine Sulfate (Plaquenil) 200 mg BID PO Last administered on 20:57; Admin Dose 200 MG; Start 03/13/17 at 09:00 Pantoprazole (Protonix Tab) 40 mg DAILY@06 PO Last administered on 03/14/17 06 :05; Admin Dose 40 MG; Start 03/13/17 at 06:00 Eye Lubricant (Artificial Tears Oph) 2 drop TID PRN BOTH EYES DRY EYES; Start 03/13/17 at 07:30 Atorvastatin Calcium 80 mg 80 mg HS PO Last administered on 03/13/17 20:56; Admin Dose 80 MG; Start 03/12/17 at 21:00 Lactated Ringer's (Lr) 1,000 ml @ 100 mls/hr Q10H IV Last administered on 03/14 04:09; Admin Dose 100 MLS/HR; Start 03/12/17 at 13:42 Oxycodone/ Acetaminophen (Percocet (5/ 325)) 1 tab Q4H PRN PO PAIN LEVEL 6-10; Start 03/12/17 at 14:00 Ketorolac Tromethamine (Toradol) 30 mg Q6H PRN IV PAIN Last administered on 11:50; Admin Dose 30 MG; Start 03/12/17 at 14:00; Stop 03/15/17 at 13:59 Hydromorphone HCl (Dilaudid) 0.5 mg Q4H PRN IV PAIN Last administered on 04:12; Admin Dose 0.5 MG; Start 03/12/17 at 14:00 Insulin Glargine (Lantus) 10 unit DAILY@20 SC Last administered on 03/13/17 21 :14; Admin Dose 10 UNIT; Start 03/12/17 at 20:00 Diagnostic Test (Pha) (Accu-Chek) 1 ea 02 XX ; Start 03/13/17 at 02:00 Acetaminophen/ Hydrocodone Bitart ([place] (10/325)) 1 tab Q3H PRN PO PAIN Last administered on 03/14/17 00:51; Admin Dose 1 TAB; Start 03/13/17 at 15:00 Ibuprofen (Motrin) 800 mg Q6 PO Last administered on 03/14/17 06:05; Admin Dose 800 MG; Start 03/13/17 at 18:00 Miscellaneous Information 1 ea NOTE XX ; Start 03/13/17 at 14:30 Glucose (Glutose) 15 gm Q15M PRN PO DECREASED GLUCOSE; Start 03/13/17 at 14:30 Glucose (Glutose) 22.5 gm Q15M PRN PO DECREASED GLUCOSE; Start 03/13/17 at 14: 30 Dextrose (D50w Syringe) 25 ml Q15M PRN IV DECREASED GLUCOSE; Start 7/25/17 at 14:30 Dextrose (D50w Syringe) 50 ml Q15M PRN IV DECREASED GLUCOSE; Start 03/13/17 at 14:30 Glucagon (Glucagen) 1 mg Q15M PRN IM DECREASED GLUCOSE; Start 03/13/17 at 14:30 Glucose (Glutose) 15 gm Q15M PRN BUCCAL DECREASED GLUCOSE; Start 03/13/17 at 14 :30 Losartan Potassium (Cozaar) 50 mg DAILY PO ; Start 03/14/17 at 09:00 Metoprolol Tartrate (Lopressor) 50 mg BID PO Last administered on 03/13/17t 22: 36; Admin Dose 50 MG; Start 03/13/17 at 22:00 Hydralazine HCl (Apresoline) 10 mg Q8H PRN PO ELEVATED SYSTOLIC BP > 170mmHg; Start 03/13/17 at 22:00 Assessment/Plan Chief Complaint/Hosp Course post op headache and high blood sugar Problems: Additional Assessment/Plan patient more anemic this am will start iron rx dm stable at point restof management per KEN Sy MD Mar 14, 2017 08:16
[2017-03-14 08:40] LABS: BASOPHILS % 0.3 % (0.0-2.0); EOSINOPHILS # 0.1 10^3/ul (0.0-0.5); EOSINOPHILS % 1.4 % (0.0-7.0); HEMATOCRIT 23.1 % (37.0-47.0); HEMOGLOBIN 7.7 g/dl (12.0-16.0); LYMPHOCYTES # 1.3 10^3/ul (0.8-2.9); LYMPHOCYTES % 16.1 % (15.0-51.0); MEAN CORPUSCULAR HEMOGLOBIN 30.8 pg (29.0-33.0); MEAN CORPUSCULAR HGB CONC 33.3 g/dl (32.0-37.0); MEAN CORPUSCULAR VOLUME 92.4 fl (82.0-101.0); MEAN PLATELET VOLUME 11.3 fl (7.4-10.4); MONOCYTE # 0.4 10^3/ul (0.3-0.9); MONOCYTES % 5.6 % (0.0-11.0); NEUTROPHIL # 5.9 10^3/ul (1.6-7.5); NEUTROPHILS % 75.8 % (39.0-77.0); PLATELET COUNT 113 10^3/UL (140-415); RED CELL DISTRIBUTION WIDTH 13.7 % (11.5-14.5); WHITE BLOOD COUNT 7.8 10^3/ul (4.8-10.8)
[2017-03-14] MEDS: LOSARTAN 50 MG TAB PO SCH (08:40)
[2017-03-14] MEDS: HYDROXYCHLOROQUINE 200 MG TAB PO SCH ×2 (08:42→21:14)
[2017-03-14] MEDS: metFORMIN 500 MG TAB PO SCH (08:44)
[2017-03-14] MEDS: FERROUS SULFATE (EC) 325 MG TAB PO SCH ×2 (08:44→21:15)
[2017-03-14] MEDS: METOPROLOL 50 MG TAB PO SCH ×2 (08:47→21:17)
[2017-03-14] MEDS: INSULIN ASPART [NOVOLOG] 3 ML PEN SC SCH ×4 (08:48→21:28)
--- NOTE | 2017-03-14 19:32 | PN ---
Date/Time of Note Date/Time of Note DATE: 03/14/17 TIME: 19:23 Assessment/Plan VTE Prophylaxis VTE Prophylaxis Intervention: SCD's Lines/Catheters IV Catheter Type (from [facility]): [facility] Urinary Cath still in place: No Assessment/Plan Chief Complaint/Hosp Course Menorrhagia unresponsive to medical management. S/P MAAME, bilateral ovarian cystectomy; pathology reports adenomyosis in the uterus. Problems: Assessment/Plan Will repeat CBC in AM. If the hgb is still low the patient may feel better with a blood transfusion as well as help her to heal, in light of her diabetes, etc. Pt encourage to try to ambulate a bit more than she has been as she will feel better if she does. Continue care. Subjective 24 Hr Interval Summary Free Text/Dictation Pt is needing very regular pain meds but they do work for her. Is tolerating a regular diet. Passed flatus today. Is not ambulating regularly but does get up to void, was sitting on the bed with the legs dangling when I came in.No nausea or vomiting. Pt reports that she feels better with the nasal cannula in place as otherwise she feels a little short of breath. She likes the feeling of the abdominal binder as it helps her move and get up. Exam/Review of Systems Vital Signs Vitals Vital Signs Date Time Temp Pulse Resp B/P Pulse Ox O2 Delivery O2 Flow Rate FiO2 03/14/17 08:15 Nasal Cannula 2.0 03/14/17 08:12 98.4 77 19 143/65 96 Intake and Output 03/13/17 03/13/17 03/14/17 15:00 23:00 07:00 Intake Total 300 ml 2440 ml 1450 ml Output Total 1850 ml 1750 ml Balance 300 ml 590 ml -300 ml Exam Constitutional: alert, oriented Gastrointestinal: other (dressing is clean, dry and intact.), soft Results Result Diagram: 03/14/17 0801 03/13/17 0451 Results 24 hrs Laboratory Tests Test 03/13/17 21:03 03/14/17 08:01 03/14/17 08:45 03/14/17 12:47 Bedside Glucose 171 145 161 White Blood Count 7.8 Red Blood Count 2.50 L Hemoglobin 7.7 L Hematocrit 23.1 L Mean Corpuscular Volume 92.4 Mean Corpuscular Hemoglobin 30.8 Mean Corpuscular Hemoglobin Concent 33.3 Red Cell Distribution Width 13.7 Platelet Count 113 L Mean Platelet Volume 11.3 H Neutrophils % 75.8 Lymphocytes % 16.1 Monocytes % 5.6 Eosinophils % 1.4 Basophils % 0.3 Nucleated Red Blood Cells % 0.0 Neutrophils # 5.9 Lymphocytes # 1.3 Monocytes # 0.4 Eosinophils # 0.1 Basophils # 0.0 Nucleated Red Blood Cells # 0.0 Test 03/14/17 17:27 Bedside Glucose 155 Medications Medications Current Medications Alprazolam (Xanax) 0.5 mg Q8H PRN PO ANXIETY Last administered on 03/13/17 22: 35; Admin Dose 0.5 MG; Start 03/12/17 at 13:00 Amitriptyline HCl (Elavil) 100 mg HS PO Last administered on 03/13/17 20:56; Admin Dose 100 MG; Start 03/12/17 at 21:00 Hydroxychloroquine Sulfate (Plaquenil) 200 mg BID PO Last administered on 08:42; Admin Dose 200 MG; Start 03/13/17 at 09:00 Pantoprazole (Protonix Tab) 40 mg DAILY@06 PO Last administered on 03/14/17 06 :05; Admin Dose 40 MG; Start 03/13/17 at 06:00 Eye Lubricant (Artificial Tears Oph) 2 drop TID PRN BOTH EYES DRY EYES; Start 03/13/17 at 07:30 Atorvastatin Calcium 80 mg 80 mg HS PO Last administered on 03/13/17 20:56; Admin Dose 80 MG; Start 03/12/17 at 21:00 Lactated Ringer's (Lr) 1,000 ml @ 100 mls/hr Q10H IV Last administered on 03/14 13:56; Admin Dose 100 MLS/HR; Start 03/12/17 at 13:42 Oxycodone/ Acetaminophen (Percocet (5/ 325)) 1 tab Q4H PRN PO PAIN LEVEL 6-10; Start 03/12/17 at 14:00 Ketorolac Tromethamine (Toradol) 30 mg Q6H PRN IV PAIN Last administered on 11:50; Admin Dose 30 MG; Start 03/12/17 at 14:00; Stop 03/15/17 at 13:59 Hydromorphone HCl (Dilaudid) 0.5 mg Q4H PRN IV PAIN Last administered on 16:03; Admin Dose 0.5 MG; Start 03/12/17 at 14:00 Insulin Glargine (Lantus) 10 unit DAILY@20 SC Last administered on 03/13/17 21 :14; Admin Dose 10 UNIT; Start 03/12/17 at 20:00 Diagnostic Test (Pha) (Accu-Chek) 1 ea 02 XX ; Start 03/13/17 at 02:00 Acetaminophen/ Hydrocodone Bitart ([place] ()) 1 tab Q3H PRN PO PAIN Last administered on 03/14/17 12:59; Admin Dose 1 TAB; Start 03/13/17 at 15:00 Ibuprofen (Motrin) 800 mg Q6 PO Last administered on 03/14/17 17:24; Admin Dose 800 MG; Start 03/13/17 at 18:00 Miscellaneous Information 1 ea NOTE XX ; Start 03/13/17 at 14:30 Glucose (Glutose) 15 gm Q15M PRN PO DECREASED GLUCOSE; Start 03/13/17 at 14:30 Glucose (Glutose) 22.5 gm Q15M PRN PO DECREASED GLUCOSE; Start 03/13/17 at 14: 30 Dextrose (D50w Syringe) 25 ml Q15M PRN IV DECREASED GLUCOSE; Start 03/13/17 at 14:30 Dextrose (D50w Syringe) 50 ml Q15M PRN IV DECREASED GLUCOSE; Start 03/13/17 at 14:30 Glucagon (Glucagen) 1 mg Q15M PRN IM DECREASED GLUCOSE; Start 03/13/17 at 14:30 Glucose (Glutose) 15 gm Q15M PRN BUCCAL DECREASED GLUCOSE; Start 03/13/17 at 14 :30 Losartan Potassium (Cozaar) 50 mg DAILY PO Last administered on 03/14/17 08:40 ; Admin Dose 50 MG; Start 03/14/17 at 09:00 Metoprolol Tartrate (Lopressor) 50 mg BID PO Last administered on 03/14/17 08: 47; Admin Dose 50 MG; Start 03/13/17 at 22:00 Hydralazine HCl (Apresoline) 10 mg Q8H PRN PO ELEVATED SYSTOLIC BP > 170mmHg; Start 03/13/17 at 22:00 Ferrous Sulfate (Ferrous Sulfate (Ec)) 325 mg BID PO Last administered on t 08:44; Admin Dose 325 MG; Start 03/14/17 at 09:00 BENJAMIN MORRISON MD Mar 14, 2017 19:32
[2017-03-14 20:00] VITALS: BP 139/59; RESP 19
[2017-03-14] MEDS: AMITRIPTYLINE 50 MG TAB PO SCH ×2 (21:00→22:37)
[2017-03-14] MEDS: ATORVASTATIN 80 MG TAB PO SCH (21:14)
[2017-03-14] MEDS: INSULIN GLARGINE [LANtus] 3 ML PEN SC SCH (21:30)
[2017-03-14] MEDS: ALPRAZOLAM 0.5 MG TAB PO PRN (22:37)
[2017-03-15] MEDS: IBUPROFEN 800 MG TAB PO SCH ×5 (00:14→23:35)
[2017-03-15] MEDS: LACTATED RINGER'S 1,000 ML IV SCH ×3 (01:42→21:42)
[2017-03-15 01:58] VITALS: BP 156/76; PULSE 74; RESP 19
[2017-03-15] MEDS: ACCU-CHEK XX SCH (02:00)
[2017-03-15] MEDS: HYDROmorphONE 1 MG/ML SYG IV PRN ×4 (02:26→19:47)
[2017-03-15] MEDS: PANTOPRAZOLE (EC) 40 MG TAB PO SCH (05:30)
[2017-03-15] MEDS: HYDROCODONE/APAP (10/325) TAB PO PRN ×3 (05:31→21:05)
[2017-03-15 05:33] LABS: BASOPHILS % 0.2 % (0.0-2.0); EOSINOPHILS # 0.2 10^3/ul (0.0-0.5); HEMATOCRIT 23.7 % (37.0-47.0); HEMOGLOBIN 7.9 g/dl (12.0-16.0); LYMPHOCYTES # 1.3 10^3/ul (0.8-2.9); LYMPHOCYTES % 15.7 % (15.0-51.0); MEAN CORPUSCULAR HEMOGLOBIN 30.2 pg (29.0-33.0); MEAN CORPUSCULAR HGB CONC 33.3 g/dl (32.0-37.0); MEAN CORPUSCULAR VOLUME 90.5 fl (82.0-101.0); MEAN PLATELET VOLUME 11.5 fl (7.4-10.4); MONOCYTE # 0.4 10^3/ul (0.3-0.9); MONOCYTES % 5.2 % (0.0-11.0); NEUTROPHIL # 6.4 10^3/ul (1.6-7.5); NEUTROPHILS % 76.1 % (39.0-77.0); PLATELET COUNT 142 10^3/UL (140-415); RED BLOOD COUNT 2.62 10^6/ul (4.20-5.40); RED CELL DISTRIBUTION WIDTH 13.6 % (11.5-14.5); WHITE BLOOD COUNT 8.4 10^3/ul (4.8-10.8)
[2017-03-15 06:30] LABS: ALBUMIN 3.3 g/dl (3.3-4.9); ALBUMIN/GLOBULIN RATIO 1.17; BILIRUBIN,INDIRECT 0.2 mg/dl (0-1.1); BILIRUBIN,TOTAL 0.2 mg/dl (0.2-1.3); CALCIUM 8.6 mg/dl (8.4-10.2); CREATININE 0.71 mg/dl (0.44-1.00); TOTAL PROTEIN 6.1 g/dl (6.1-8.1)
[2017-03-15 08:24] VITALS: BP 158/68; RESP 16
--- NOTE | 2017-03-15 08:52 | CONS ---
Date/Time of Note Date/Time of Note DATE: 03/15/17 TIME: 08:49 Consult Date/Type/Reason Admit Date/Time Mar 12, 2017 at 05:41 Initial Consult Date 03/06/2017 Type of Consultation: internal medicine-endo Reason for Consultation medical f/u and management of dm Ordering Provider: BENJAMIN MORRISON MD Subjective alert feeling better still has abdominal pain; sugars stable Objective Vital Signs Date Time Temp Pulse Resp B/P Pulse Ox O2 Delivery O2 Flow Rate FiO2 03/15/17 08:24 98.0 81 16 158/68 99 03/15/17 01:58 Nasal Cannula 2.0 Intake and Output 03/14/17 03/14/17 03/15/17 15:00 23:00 07:00 Intake Total 900 ml 200 ml 650 ml Output Total 1650 ml Balance 900 ml 200 ml -1000 ml Exam heent neg lungs clear cor rsr abd bs+ Results/Medications Result Diagram: 03/15/17 0417 03/15/17 0417 Results 24 hrs Laboratory Tests Test 03/14/17 12:47 03/14/17 17:27 03/14/17 21:22 03/15/17 02:09 Bedside Glucose 161 155 212 184 Test 03/15/17 04:17 03/15/17 08:43 White Blood Count 8.4 Red Blood Count 2.62 L Hemoglobin 7.9 L Hematocrit 23.7 L Mean Corpuscular Volume 90.5 Mean Corpuscular Hemoglobin 30.2 Mean Corpuscular Hemoglobin Concent 33.3 Red Cell Distribution Width 13.6 Platelet Count 142 # Mean Platelet Volume 11.5 H Neutrophils % 76.1 Lymphocytes % 15.7 Monocytes % 5.2 Eosinophils % 2.0 Basophils % 0.2 Nucleated Red Blood Cells % 0.0 Neutrophils # 6.4 Lymphocytes # 1.3 Monocytes # 0.4 Eosinophils # 0.2 Basophils # 0.0 Nucleated Red Blood Cells # 0.0 Sodium Level 142 Potassium Level 4.0 Chloride Level 100 Carbon Dioxide Level 29 Anion Gap 17 H Blood Urea Nitrogen 7 Creatinine 0.71 Glucose Level 156 Calcium Level 8.6 Total Bilirubin 0.2 Direct Bilirubin 0.00 Indirect Bilirubin 0.2 Aspartate Amino Transf (AST/SGOT) 51 H Alanine Aminotransferase (ALT/SGPT) 52 Alkaline Phosphatase 137 H Total Protein 6.1 Albumin 3.3 Globulin 2.80 Albumin/Globulin Ratio 1.17 Bedside Glucose 148 Medications Current Medications Alprazolam (Xanax) 0.5 mg Q8H PRN PO ANXIETY Last administered on 03/14/17 22: 37; Admin Dose 0.5 MG; Start 03/12/17 at 13:00 Amitriptyline HCl (Elavil) 100 mg HS PO Last administered on 03/14/17 22:37; Admin Dose 100 MG; Start 03/12/17 at 21:00 Hydroxychloroquine Sulfate (Plaquenil) 200 mg BID PO Last administered on 21:14; Admin Dose 200 MG; Start 03/13/17 at 09:00 Pantoprazole (Protonix Tab) 40 mg DAILY@06 PO Last administered on 03/15/17 05 :30; Admin Dose 40 MG; Start 03/13/17 at 06:00 Eye Lubricant (Artificial Tears Oph) 2 drop TID PRN BOTH EYES DRY EYES; Start 03/13/17 at 07:30 Atorvastatin Calcium 80 mg 80 mg HS PO Last administered on 03/14/17 21:14; Admin Dose 80 MG; Start 03/12/17 at 21:00 Lactated Ringer's (Lr) 1,000 ml @ 100 mls/hr Q10H IV Last administered on 03/14 13:56; Admin Dose 100 MLS/HR; Start 03/12/17 at 13:42 Oxycodone/ Acetaminophen (Percocet (5/ 325)) 1 tab Q4H PRN PO PAIN LEVEL 6-10; Start 03/12/17 at 14:00 Ketorolac Tromethamine (Toradol) 30 mg Q6H PRN IV PAIN Last administered on 11:50; Admin Dose 30 MG; Start 03/12/17 at 14:00; Stop 03/15/17 at 13:59 Hydromorphone HCl (Dilaudid) 0.5 mg Q4H PRN IV PAIN Last administered on 06:41; Admin Dose 0.5 MG; Start 03/12/17 at 14:00 Insulin Glargine (Lantus) 10 unit DAILY@20 SC Last administered on 03/14/17 21 :30; Admin Dose 10 UNIT; Start 03/12/17 at 20:00 Diagnostic Test (Pha) (Accu-Chek) 1 ea 02 XX ; Start 03/13/17 at 02:00 Acetaminophen/ Hydrocodone Bitart ([place] (10/325)) 1 tab Q3H PRN PO PAIN Last administered on 03/15/17 05:31; Admin Dose 1 TAB; Start 03/13/17 at 15:00 Ibuprofen (Motrin) 800 mg Q6 PO Last administered on 03/15/17 05:30; Admin Dose 800 MG; Start 03/13/17 at 18:00 Miscellaneous Information 1 ea NOTE XX ; Start 03/13/17 at 14:30 Glucose (Glutose) 15 gm Q15M PRN PO DECREASED GLUCOSE; Start 03/13/17 at 14:30 Glucose (Glutose) 22.5 gm Q15M PRN PO DECREASED GLUCOSE; Start 03/13/17 at 14: 30 Dextrose (D50w Syringe) 25 ml Q15M PRN IV DECREASED GLUCOSE; Start 03/13/17 at 14:30 Dextrose (D50w Syringe) 50 ml Q15M PRN IV DECREASED GLUCOSE; Start 03/13/17 at 14:30 Glucagon (Glucagen) 1 mg Q15M PRN IM DECREASED GLUCOSE; Start 03/13/17 at 14:30 Glucose (Glutose) 15 gm Q15M PRN BUCCAL DECREASED GLUCOSE; Start 03/13/17 at 14 :30 Losartan Potassium (Cozaar) 50 mg DAILY PO Last administered on 03/14/17 08:40 ; Admin Dose 50 MG; Start 03/14/17 at 09:00 Metoprolol Tartrate (Lopressor) 50 mg BID PO Last administered on 03/14/17 21: 17; Admin Dose 50 MG; Start 03/13/17 at 22:00 Hydralazine HCl (Apresoline) 10 mg Q8H PRN PO ELEVATED SYSTOLIC BP > 170mmHg; Start 03/13/17 at 22:00 Ferrous Sulfate (Ferrous Sulfate (Ec)) 325 mg BID PO Last administered on 21:15; Admin Dose 325 MG; Start 03/14/17 at 09:00 Assessment/Plan Chief Complaint/Hosp Course post op headache and high blood sugar Problems: Additional Assessment/Plan plan transfuse one unit packede cells hb remaiins below 8 KEN GANT MD Mar 15, 2017 08:52
[2017-03-15] MEDS: METOPROLOL 50 MG TAB PO SCH ×2 (08:57→21:06)
[2017-03-15] MEDS: GEMFIBROZIL 600 MG TAB PO SCH ×2 (08:57→17:52)
[2017-03-15] MEDS: FERROUS SULFATE (EC) 325 MG TAB PO SCH ×2 (08:58→21:04)
[2017-03-15] MEDS: metFORMIN 500 MG TAB PO SCH (08:58)
[2017-03-15] MEDS: LOSARTAN 50 MG TAB PO SCH (08:59)
[2017-03-15] MEDS: INSULIN ASPART [NOVOLOG] 3 ML PEN SC SCH ×4 (09:01→21:00)
[2017-03-15] MEDS: HYDROXYCHLOROQUINE 200 MG TAB PO SCH ×2 (09:04→21:04)
[2017-03-15] MEDS: DOCUSATE SODIUM 100 MG CAP PO SCH ×2 (13:12→21:04)
[2017-03-15 15:13] VITALS: BP 149/68; RESP 16
[2017-03-15 19:46] VITALS: BP 166/73; RESP 20
[2017-03-15] MEDS: INSULIN GLARGINE [LANtus] 3 ML PEN SC SCH (20:59)
[2017-03-15] MEDS: AMITRIPTYLINE 50 MG TAB PO SCH (21:04)
[2017-03-15] MEDS: ATORVASTATIN 80 MG TAB PO SCH (21:04)
--- NOTE | 2017-03-15 21:32 | PN ---
Date/Time of Note Date/Time of Note DATE: 03/15/17 TIME: 21:29 Assessment/Plan VTE Prophylaxis VTE Prophylaxis Intervention: ambulation Lines/Catheters IV [facility] [facility] Urinary Cath still in place: No Assessment/Plan Chief Complaint/Hosp Course Menorrhagia unresponsive to medical management. S/P MAAME, bilateral ovarian cystectomy; pathology reports adenomyosis in the uterus. Problems: Assessment/Plan A: Pt is very stable and greatly improved. Still pending a blood transfusion. P:Will add an additional unit to the blood order. Will expect the pt to be able to be discharged tomorrow. Subjective 24 Hr Interval Summary Free Text/Dictation Pt is feeling much better today. She is able to get up to ambulate and void w/o assist. Her need for pain meds has decreased substantially. No BM yet but still with passage of flatus. Dr Russell ordered one unit of blood to help her regain her energy level faster. Exam/Review of Systems Vital Signs Vitals Vital Signs Date Time Temp Pulse Resp B/P Pulse Ox O2 Delivery O2 Flow Rate FiO2 03/15/17 19:46 98.6 93 20 166/73 98 03/15/17 09:00 Nasal Cannula 2.0 Intake and Output 03/14/17 03/14/17 03/15/17 15:00 23:00 07:00 Intake Total 900 ml 200 ml 650 ml Output Total 1650 ml Balance 900 ml 200 ml -1000 ml Exam Constitutional: alert Gastrointestinal: non-tender (In the upper midline which had previously been very sensitive.), soft Results Result Diagram: 03/15/17 0417 03/15/17 0417 Results 24 hrs Laboratory Tests Test 03/15/17 02:09 03/15/17 04:17 03/15/17 08:43 03/15/17 12:58 Bedside Glucose 184 148 163 White Blood Count 8.4 Red Blood Count 2.62 L Hemoglobin 7.9 L Hematocrit 23.7 L Mean Corpuscular Volume 90.5 Mean Corpuscular Hemoglobin 30.2 Mean Corpuscular Hemoglobin Concent 33.3 Red Cell Distribution Width 13.6 Platelet Count 142 # Mean Platelet Volume 11.5 H Neutrophils % 76.1 Lymphocytes % 15.7 Monocytes % 5.2 Eosinophils % 2.0 Basophils % 0.2 Nucleated Red Blood Cells % 0.0 Neutrophils # 6.4 Lymphocytes # 1.3 Monocytes # 0.4 Eosinophils # 0.2 Basophils # 0.0 Nucleated Red Blood Cells # 0.0 Sodium Level 142 Potassium Level 4.0 Chloride Level 100 Carbon Dioxide Level 29 Anion Gap 17 H Blood Urea Nitrogen 7 Creatinine 0.71 Glucose Level 156 Calcium Level 8.6 Total Bilirubin 0.2 Direct Bilirubin 0.00 Indirect Bilirubin 0.2 Aspartate Amino Transf (AST/SGOT) 51 H Alanine Aminotransferase (ALT/SGPT) 52 Alkaline Phosphatase 137 H Total Protein 6.1 Albumin 3.3 Globulin 2.80 Albumin/Globulin Ratio 1.17 Test 03/15/17 17:25 03/15/17 20:56 Bedside Glucose 156 200 Medications Medications Current Medications Alprazolam (Xanax) 0.5 mg Q8H PRN PO ANXIETY Last administered on 03/14/17 22: 37; Admin Dose 0.5 MG; Start 03/12/17 at 13:00 Amitriptyline HCl (Elavil) 100 mg HS PO Last administered on 03/15/17 21:04; Admin Dose 100 MG; Start 03/12/17 at 21:00 Hydroxychloroquine Sulfate (Plaquenil) 200 mg BID PO Last administered on 21:04; Admin Dose 200 MG; Start 03/13/17 at 09:00 Pantoprazole (Protonix Tab) 40 mg DAILY@06 PO Last administered on 03/15/17 05 :30; Admin Dose 40 MG; Start 03/13/17 at 06:00 Eye Lubricant (Artificial Tears Oph) 2 drop TID PRN BOTH EYES DRY EYES; Start 03/13/17 at 07:30 Atorvastatin Calcium 80 mg 80 mg HS PO Last administered on 03/15/17 21:04; Admin Dose 80 MG; Start 03/12/17 at 21:00 Lactated Ringer's (Lr) 1,000 ml @ 100 mls/hr Q10H IV Last administered on 03/14 13:56; Admin Dose 100 MLS/HR; Start 03/12/17 at 13:42 Oxycodone/ Acetaminophen (Percocet (5/ 325)) 1 tab Q4H PRN PO PAIN LEVEL 6-10; Start 03/12/17 at 14:00 Hydromorphone HCl (Dilaudid) 0.5 mg Q4H PRN IV PAIN Last administered on 19:47; Admin Dose 0.5 MG; Start 03/12/17 at 14:00 Insulin Glargine (Lantus) 10 unit DAILY@20 SC Last administered on 03/15/17 20 :59; Admin Dose 10 UNIT; Start 03/12/17 at 20:00 Diagnostic Test (Pha) (Accu-Chek) 1 ea 02 XX ; Start 03/13/17 at 02:00 Acetaminophen/ Hydrocodone Bitart ([place] (10325)) 1 tab Q3H PRN PO PAIN Last administered on 03/15/17 21:05; Admin Dose 1 TAB; Start 03/13/17 at 15:00 Ibuprofen (Motrin) 800 mg Q6 PO Last administered on 03/15/17 17:52; Admin Dose 800 MG; Start 03/13/17 at 18:00 Miscellaneous Information 1 ea NOTE XX ; Start 03/13/17 at 14:30 Glucose (Glutose) 15 gm Q15M PRN PO DECREASED GLUCOSE; Start 03/13/17 at 14:30 Glucose (Glutose) 22.5 gm Q15M PRN PO DECREASED GLUCOSE; Start 03/13/17 at 14: 30 Dextrose (D50w Syringe) 25 ml Q15M PRN IV DECREASED GLUCOSE; Start 03/13/17 at 14:30 Dextrose (D50w Syringe) 50 ml Q15M PRN IV DECREASED GLUCOSE; Start 03/13/17 at 14:30 Glucagon (Glucagen) 1 mg Q15M PRN IM DECREASED GLUCOSE; Start 03/13/17 at 14:30 Glucose (Glutose) 15 gm Q15M PRN BUCCAL DECREASED GLUCOSE; Start 03/13/17 at 14 :30 Losartan Potassium (Cozaar) 50 mg DAILY PO Last administered on 03/15/17 08:59 ; Admin Dose 50 MG; Start 03/14/17 at 09:00 Metoprolol Tartrate (Lopressor) 50 mg BID PO Last administered on 03/15/17 21: 06; Admin Dose 50 MG; Start 03/13/17 at 22:00 Hydralazine HCl (Apresoline) 10 mg Q8H PRN PO ELEVATED SYSTOLIC BP > 170mmHg; Start 03/13/17 at 22:00 Ferrous Sulfate (Ferrous Sulfate (Ec)) 325 mg BID PO Last administered on 21:04; Admin Dose 325 MG; Start 03/14/17 at 09:00 Docusate Sodium (Colace) 100 mg BID PO Last administered on 03/15/17 21:04; Admin Dose 100 MG; Start 03/15/17 at 13:00 BENJAMIN MORRISON MD Mar 15, 2017 21:32
[2017-03-16] MEDS: HYDROCODONE/APAP (10/325) TAB PO PRN ×2 (01:50→08:20)
[2017-03-16] MEDS: ACCU-CHEK XX SCH (02:01)
[2017-03-16] MEDS: PANTOPRAZOLE (EC) 40 MG TAB PO SCH (05:35)
[2017-03-16] MEDS: IBUPROFEN 800 MG TAB PO SCH ×2 (05:35→12:13)
[2017-03-16 05:36] LABS: BASOPHILS % 0.3 % (0.0-2.0); EOSINOPHILS # 0.2 10^3/ul (0.0-0.5); EOSINOPHILS % 2.7 % (0.0-7.0); HEMATOCRIT 26.5 % (37.0-47.0); HEMOGLOBIN 8.6 g/dl (12.0-16.0); LYMPHOCYTES # 1.2 10^3/ul (0.8-2.9); LYMPHOCYTES % 18.3 % (15.0-51.0); MEAN CORPUSCULAR HEMOGLOBIN 29.3 pg (29.0-33.0); MEAN CORPUSCULAR HGB CONC 32.5 g/dl (32.0-37.0); MEAN CORPUSCULAR VOLUME 90.1 fl (82.0-101.0); MEAN PLATELET VOLUME 11.2 fl (7.4-10.4); MONOCYTE # 0.4 10^3/ul (0.3-0.9); MONOCYTES % 6.4 % (0.0-11.0); NEUTROPHIL # 4.8 10^3/ul (1.6-7.5); NEUTROPHILS % 71.1 % (39.0-77.0); PLATELET COUNT 141 10^3/UL (140-415); RED BLOOD COUNT 2.94 10^6/ul (4.20-5.40); RED CELL DISTRIBUTION WIDTH 13.8 % (11.5-14.5); WHITE BLOOD COUNT 6.8 10^3/ul (4.8-10.8)
[2017-03-16 06:20] LABS: IRON 28 ug/dl (35-150)
[2017-03-16 06:54] LABS: TOTAL IRON BINDING CAPACITY 227 ug/dl (241-421)
[2017-03-16 07:00] VITALS: BP 166/70; RESP 18
[2017-03-16 07:05] LABS: ALBUMIN 3.2 g/dl (3.3-4.9); ALBUMIN/GLOBULIN RATIO 1.18; BILIRUBIN,INDIRECT 0.3 mg/dl (0-1.1); BILIRUBIN,TOTAL 0.3 mg/dl (0.2-1.3); CALCIUM 8.4 mg/dl (8.4-10.2); CREATININE 0.79 mg/dl (0.44-1.00); POTASSIUM 3.8 mmol/L (3.5-5.1); TOTAL PROTEIN 5.9 g/dl (6.1-8.1)
[2017-03-16] MEDS: LACTATED RINGER'S 1,000 ML IV SCH (07:42)
--- NOTE | 2017-03-16 08:07 | CONS ---
Date/Time of Note Date/Time of Note DATE: 03/16/17 TIME: 08:01 Consult Date/Type/Reason Admit Date/Time Mar 12, 2017 at 05:41 Initial Consult Date 03/06/2017 Type of Consultation: internal medicine-endo Reason for Consultation medical f/u Ordering Provider: BENJAMIN MORRISON MD Subjective feeling better post transfusion.concerned re blood pressure however relatively well controlled Objective Vital Signs Date Time Temp Pulse Resp B/P Pulse Ox O2 Delivery O2 Flow Rate FiO2 03/16/17 07:00 98.3 79 18 166/70 95 03/15/17 09:00 Nasal Cannula 2.0 Intake and Output 03/15/17 03/15/17 03/16/17 15:00 23:00 07:00 Intake Total 2430 ml 500 ml Output Total 1800 ml 600 ml Balance 630 ml -100 ml Exam heent nrg lungs clear cor rsr abd.soft Results/Medications Result Diagram: 03/16/17 0449 03/16/17 0449 Results 24 hrs Laboratory Tests Test 03/15/17 08:43 03/15/17 12:58 03/15/17 17:25 03/15/17 20:56 Bedside Glucose 148 163 156 200 Test 03/16/17 01:52 03/16/17 04:49 03/16/17 05:42 Bedside Glucose 169 White Blood Count 6.8 Red Blood Count 2.94 L Hemoglobin 8.6 L Hematocrit 26.5 L Mean Corpuscular Volume 90.1 Mean Corpuscular Hemoglobin 29.3 Mean Corpuscular Hemoglobin Concent 32.5 Red Cell Distribution Width 13.8 Platelet Count 141 Mean Platelet Volume 11.2 H Neutrophils % 71.1 Lymphocytes % 18.3 Monocytes % 6.4 Eosinophils % 2.7 Basophils % 0.3 Nucleated Red Blood Cells % 0.0 Neutrophils # 4.8 Lymphocytes # 1.2 Monocytes # 0.4 Eosinophils # 0.2 Basophils # 0.0 Nucleated Red Blood Cells # 0.0 Sodium Level 143 Potassium Level 3.8 Chloride Level 102 Carbon Dioxide Level 28 Anion Gap 17 H Blood Urea Nitrogen 10 Creatinine 0.79 Glucose Level 149 Calcium Level 8.4 Iron Level 28 L Total Iron Binding Capacity 227 L Percent Iron Saturation 12 L Total Bilirubin 0.3 Direct Bilirubin 0.00 Indirect Bilirubin 0.3 Aspartate Amino Transf (AST/SGOT) 55 H Alanine Aminotransferase (ALT/SGPT) 55 Alkaline Phosphatase 145 H Total Protein 5.9 L Albumin 3.2 L Globulin 2.70 Albumin/Globulin Ratio 1.18 Lab Scanned Report BLOOD TRANSFUSION Medications Current Medications Alprazolam (Xanax) 0.5 mg Q8H PRN PO ANXIETY Last administered on 03/14/17 22: 37; Admin Dose 0.5 MG; Start 03/12/17 at 13:00 Amitriptyline HCl (Elavil) 100 mg HS PO Last administered on 03/15/17 21:04; Admin Dose 100 MG; Start 03/12/17 at 21:00 Hydroxychloroquine Sulfate (Plaquenil) 200 mg BID PO Last administered on 21:04; Admin Dose 200 MG; Start 03/13/17 at 09:00 Pantoprazole (Protonix Tab) 40 mg DAILY@06 PO Last administered on 03/16/17 05 :35; Admin Dose 40 MG; Start 03/13/17 at 06:00 Eye Lubricant (Artificial Tears Oph) 2 drop TID PRN BOTH EYES DRY EYES; Start 03/13/17 at 07:30 Atorvastatin Calcium 80 mg 80 mg HS PO Last administered on 03/15/17 21:04; Admin Dose 80 MG; Start 03/12/17 at 21:00 Lactated Ringer's (Lr) 1,000 ml @ 100 mls/hr Q10H IV Last administered on 03/14 13:56; Admin Dose 100 MLS/HR; Start 03/12/17 at 13:42 Oxycodone/ Acetaminophen (Percocet (5/ 325)) 1 tab Q4H PRN PO PAIN LEVEL 6-10; Start 03/12/17 at 14:00 Hydromorphone HCl (Dilaudid) 0.5 mg Q4H PRN IV PAIN Last administered on 19:47; Admin Dose 0.5 MG; Start 03/12/17 at 14:00 Insulin Glargine (Lantus) 10 unit DAILY@20 SC Last administered on 03/15/17 20 :59; Admin Dose 10 UNIT; Start 03/12/17 at 20:00 Diagnostic Test (Pha) (Accu-Chek) 1 ea 02 XX Last administered on 03/16/17 02: 01; Admin Dose 1 EA; Start 03/13/17 at 02:00 Acetaminophen/ Hydrocodone Bitart ([place] (10/325)) 1 tab Q3H PRN PO PAIN Last administered on 03/16/17 01:50; Admin Dose 1 TAB; Start 03/13/17 at 15:00 Ibuprofen (Motrin) 800 mg Q6 PO Last administered on 03/16/17 05:35; Admin Dose 800 MG; Start 03/13/17 at 18:00 Miscellaneous Information 1 ea NOTE XX ; Start 03/13/17 at 14:30 Glucose (Glutose) 15 gm Q15M PRN PO DECREASED GLUCOSE; Start 03/13/17 at 14:30 Glucose (Glutose) 22.5 gm Q15M PRN PO DECREASED GLUCOSE; Start 03/13/17 at 14: 30 Dextrose (D50w Syringe) 25 ml Q15M PRN IV DECREASED GLUCOSE; Start 03/13/17 at 14:30 Dextrose (D50w Syringe) 50 ml Q15M PRN IV DECREASED GLUCOSE; Start 03/13/17 at 14:30 Glucagon (Glucagen) 1 mg Q15M PRN IM DECREASED GLUCOSE; Start 03/13/17 at 14:30 Glucose (Glutose) 15 gm Q15M PRN BUCCAL DECREASED GLUCOSE; Start 03/13/17 at 14 :30 Losartan Potassium (Cozaar) 50 mg DAILY PO Last administered on 03/15/17 08:59 ; Admin Dose 50 MG; Start 03/14/17 at 09:00 Metoprolol Tartrate (Lopressor) 50 mg BID PO Last administered on 03/15/17 21: 06; Admin Dose 50 MG; Start 03/13/17 at 22:00 Hydralazine HCl (Apresoline) 10 mg Q8H PRN PO ELEVATED SYSTOLIC BP > 170mmHg; Start 03/13/17 at 22:00 Ferrous Sulfate (Ferrous Sulfate (Ec)) 325 mg BID PO Last administered on 21:04; Admin Dose 325 MG; Start 03/14/17 at 09:00 Docusate Sodium (Colace) 100 mg BID PO Last administered on 03/15/17 21:04; Admin Dose 100 MG; Start 03/15/17 at 13:00 Assessment/Plan Chief Complaint/Hosp Course post op headache and high blood sugar Problems: Additional Assessment/Plan hb and hct improved post transfusion will need iron and vits on discharge. diabetes stable and medically stable KEN GANT MD Mar 16, 2017 08:07
[2017-03-16] MEDS: INSULIN ASPART [NOVOLOG] 3 ML PEN SC SCH ×2 (09:15→13:06)
[2017-03-16] MEDS: LOSARTAN 50 MG TAB PO SCH (09:17)
[2017-03-16] MEDS: HYDROXYCHLOROQUINE 200 MG TAB PO SCH (09:19)
[2017-03-16] MEDS: DOCUSATE SODIUM 100 MG CAP PO SCH (09:19)
[2017-03-16] MEDS: GEMFIBROZIL 600 MG TAB PO SCH (09:20)
[2017-03-16] MEDS: metFORMIN 500 MG TAB PO SCH (09:20)
[2017-03-16] MEDS: FERROUS SULFATE (EC) 325 MG TAB PO SCH (09:20)
[2017-03-16] MEDS: METOPROLOL 50 MG TAB PO SCH (09:22)
[2017-03-16] MEDS: HYDROmorphONE 1 MG/ML SYG IV PRN (12:09)
[2017-03-16 14:00] VITALS: BP 197/80; RESP 20
--- NOTE | 2017-03-16 15:00 | PD.PPDC ---
[employer] Discharge Instruction Condition Patient Condition: Good Diet Diet: Resume Regular Diet Activity/Restrictions Activity: Bedrest May be up to bathroom May be up for meals May Shower Restrictions: No Exercising No Lifting No Driving Minimize Walking Minimize Stair-climbing No Sexual Activity Nothing in the Vagina No Dobbins No Tampons, douche Wound/Drain Care Instructions Wound/Drain Care Instructions: Remove Steri Strips in 2 weeks Keep clean and dry Follow-up Follow-up with Physician: 2, Week/Weeks Return to clinic for WIRE [employer] Instructions: Fever greater than 101 Chills Worsening abdominal pain Excessive Vaginal Bleeding Surgical Instructions: Incisional Drainage Incisional Redness BENJAMIN MORRISON MD Mar 16, 2017 15:00
[2017-03-16] MEDS ORDERED: Oxycodone/Acetamin (5/325) PO (15:03)
[2017-03-16] MEDS ORDERED: IBUP800T25 PO (15:03)
--- NOTE | 2017-03-16 15:12 | DS ---
Date/Time of Note Date/Time of Note DATE: 03/16/17 TIME: 15:05 Discharge Summary Admission/Discharge Info Admit Date/Time Mar 12, 2017 at 05:41 Discharge Date/Time March 16, 2017 Discharge Diagnosis S/P Total abdominal hysterectomy for menorrhagia. Patient Condition: Good Procedures Total abdominal hysterectomy. 2 units packed red blood cells. Hx of Present Illness 47 y.o. with a spouse with a vasectomy admitted for a total abdominal hysterectomy for menorrhagia unresponsive to medical management for the last 2 years. Her periods have always been heavy but the amount of blood with clots has increased. An endometrial biopsy showed proliferative endometrium. She did not respond to progesterone therapy. She is not a candidate for a hydrothermal endometrial ablation as she has had 3 prior c-sections. Pt very adamantly wants a hysterectomy and does not want to try any other therapies. Hospital Course Menorrhagia unresponsive to medical management. S/P MAAME, bilateral ovarian cystectomy; pathology reports adenomyosis in the uterus. Pt had a slow recovery with more pain than usual at first which improved greatly by the 3rd day, and especially by discharge. She felt extremely fatigued and was anemic so was transfused 2 units of packed cells and she felt much improved and slept much better. Pt passed gas on the first post-op day. She has not had a BM but was well cleaned out prior to surgery and has been eating but not a lot of food. Pt has ambulated w/o assistance and took a shower on the day of d/c. Her WBC was always normal and she was never febrile. Her hgb at its lowest was 7.7 and although her blood pressure and heart rate were fine she was very fatigued and feeling short of breath, both of which resolved after the blood transfusion. Home Meds Active Scripts Dextran 70/Hypromellose (Tears Naturale Free Drops) 32 Ea Droperette, 2 DROP OP TID, #1 BOTTLE Prov:SHIRLEY JIMENEZ MD 04/25/15 Ibuprofen* (Motrin*) 600 Mg Tab, 600 MG PO Q6 for PAIN AND/OR INFLAMMATION, #30 TAB Prov:SHIRLEY JIMENEZ MD 04/25/15 Reported Medications Insulin Glargine,Hum.rec.anlog (Rodrigo Solis) 300 Unit/1 Ml Insuln.pen, 300 UNIT SQ 03/12/17 Losartan Potassium* (Losartan Potassium*) 25 Mg Tablet, 25 MG PO DAILY, TAB 03/12/17 Hydroxychloroquine Sulfate* (Hydroxychloroquine Sulfate*) 200 Mg Tablet, 200 MG PO BID, TAB 03/12/17 Pantoprazole* (Pantoprazole*) 40 Mg Tablet.dr, 40 MG PO DAILY, TAB 03/12/17 [Abilify] No Conflict Check 03/14/16 [Ferrous Sulfate] No Conflict Check 03/14/16 [Protonix] No Conflict Check 03/14/16 [Humalog] No Conflict Check 03/14/16 Hydrocodone Bit-Acetaminophen* ([place]*) 10-325 Mg Tablet, 1 TAB PO Q4H Y for PAIN, TAB 04/25/15 Alprazolam* (Xanax*) 0.5 Mg Tab, 0.5 MG PO Q8H Y for ANXIETY, TAB 04/25/15 Rosuvastatin Calcium* (Crestor*) 20 Mg Tablet, 20 MG PO HS, TAB 04/25/15 Gemfibrozil* (Gemfibrozil*) 600 Mg Tablet, 600 MG PO BID, TAB 04/25/15 Amitriptyline Hcl* (Amitriptyline Hcl*) 100 Mg Tablet, 100 MG PO HS, TAB 04/25/15 Metformin Hcl* (Metformin Hcl*) 500 Mg Tablet, 500 MG PO DAILY, TAB 04/25/15 Diclofenac Sodium* (Diclofenac Sodium*) 75 Mg Tablet.dr, 75 MG PO BID, TAB 04/25/15 Follow-up Plan RTO in 2 weeks. Primary Care Provider Guy Russell MD Time spent on discharge: < 30 minutes Pending Labs Laboratory Tests Test 03/15/17 17:25 03/15/17 20:56 03/16/17 01:52 03/16/17 04:49 Bedside Glucose 156mg/dL (70-220) 200mg/dL (70-220) 169mg/dL (70-220) White Blood Count 6.810^3/ul (4.8-10.8) Red Blood Count 2.9410^6/ul (4.20-5.40) Hemoglobin 8.6g/dl (12.0-16.0) Hematocrit 26.5% (37.0-47.0) Mean Corpuscular Volume 90.1fl (82.0-101.0) Mean Corpuscular Hemoglobin 29.3pg (29.0-33.0) Mean Corpuscular Hemoglobin Concent 32.5g/dl (32.0-37.0) Red Cell Distribution Width 13.8% (11.5-14.5) Platelet Count 58802^3/UL (140-415) Mean Platelet Volume 11.2fl (7.4-10.4) Neutrophils % 71.1% (39.0-77.0) Lymphocytes % 18.3% (15.0-51.0) Monocytes % 6.4% (0.0-11.0) Eosinophils % 2.7% (0.0-7.0) Basophils % 0.3% (0.0-2.0) Nucleated Red Blood Cells % 0.0/100WBC (0.0-0.0) Neutrophils # 4.810^3/ul (1.6-7.5) Lymphocytes # 1.210^3/ul (0.8-2.9) Monocytes # 0.410^3/ul (0.3-0.9) Eosinophils # 0.210^3/ul (0.0-0.5) Basophils # 0.010^3/ul (0.0-0.1) Nucleated Red Blood Cells # 0.010^3/ul (0.0-0.0) Sodium Level 143mmol/L (135-144) Potassium Level 3.8mmol/L (3.5-5.1) Chloride Level 102mmol/L (97-110) Carbon Dioxide Level 28mmol/L (21-31) Anion Gap 17 (8-16) Blood Urea Nitrogen 10mg/dl (7-20) Creatinine 0.79mg/dl (0.44-1.00) Glucose Level 149mg/dl (70-220) Calcium Level 8.4mg/dl (8.4-10.2) Iron Level 28ug/dl (35-150) Total Iron Binding Capacity 227ug/dl (241-421) Percent Iron Saturation 12% SAT (22-52) Total Bilirubin 0.3mg/dl (0.2-1.3) Direct Bilirubin 0.00mg/dl (0.00-0.20) Indirect Bilirubin 0.3mg/dl (0-1.1) Aspartate Amino Transf (AST/SGOT) 55IU/L (15-46) Alanine Aminotransferase (ALT/SGPT) 55IU/L (13-69) Alkaline Phosphatase 145IU/L (42-121) Total Protein 5.9g/dl (6.1-8.1) Albumin 3.2g/dl (3.3-4.9) Globulin 2.70g/dl (1.3-3.2) Albumin/Globulin Ratio 1.18 Test 03/16/17 05:42 03/16/17 08:22 03/16/17 12:56 Lab Scanned Report BLOOD [id number] Bedside Glucose 173mg/dL (70-220) 158mg/dL (70-220) BENJAMIN MORRISON MD Mar 16, 2017 15:12
== END 2017-03-16 17:15 | disposition home or self-care (01) | DRG 743 ==
LOC: REC 05:41 → EDSTATUS 07:30 → MS1 13:23
PROVIDERS: ADMIT Obstetrics & Gynecology; ATTEND Obstetrics & Gynecology
PROC: 0UT90ZZ Resection of Uterus, Open Approach (ICD-10-PCS; principal; 2017-03-13)
PROC: 0UTC0ZZ Resection of Cervix, Open Approach (ICD-10-PCS; 2017-03-13)
PROC: 0UB20ZZ Excision of Bilateral Ovaries, Open Approach (ICD-10-PCS; 2017-03-13)
PROC: 30233N1 Transfusion of Nonautologous Red Blood Cells into Peripheral Vein, Percutaneous Approach (ICD-10-PCS; 2017-03-15)
DX: N92.1 Excessive and frequent menstruation with irregular cycle (principal); M32.9 Systemic lupus erythematosus, unspecified; E78.5 Hyperlipidemia, unspecified; E11.9 Type 2 diabetes mellitus without complications; D64.9 Anemia, unspecified; I10 Essential (primary) hypertension; F17.200 Nicotine dependence, unspecified, uncomplicated; M19.90 Unspecified osteoarthritis, unspecified site; R51 Headache; N80.0 Endometriosis of uterus
CPT/HCPCS: 36430; 80048; 80053; 82962; 83540; 85025; 86850; 86900; 86901; 86920; 87086; J0690; J1100; J1170; J1815; J1885; J2250; J2274; J2405; J2710; J3010; J7120; P9016; P9045

== ENCOUNTER 2017-04-10 17:20 | Emergency (ER) | payer SELFPAY ==
[~2017-04-10] VITALS: Ht 160 cm; Wt 78.0 kg
[~2017-04-10 17:20] MED LIST changes: +AMIT25TA9 PO; +BUPR-34 PO; -CIPROFLOXACIN 400MG/D5W 200 ML IVPB ONE; +FLUO20CA38 PO; +HYDR-1666 PO; +HYDR200T39 PO; +IBUP800T25 PO; +INSU300I SQ; -LACTATED RINGER'S 1,000 ML IV SCH; +LOSA25TA5 PO; +Oxycodone/Acetamin (5/325) PO; +PANT40TA4 PO; +PRED20TA PO; +ROSU40TA35 PO; +VALA100057 PO; +ZOLP10TA PO; -metroNIDAZOLE 500 MG/NS (PMX) 100 ML IVPB ONE
[2017-04-10 17:25] VITALS: Ht 160 cm; Wt 78.0 kg
--- NOTE | 2017-04-11 19:10 | CONS ---
DATE OF ADMISSION: 04/10/2017 DATE OF CONSULTATION: 04/11/2017 REQUESTING PHYSICIAN: Tapan Bhatti MD REASON FOR CONSULTATION: Patient has lupus. HISTORY OF PRESENT ILLNESS: This is a 47-year-old female known to me from private practice who had a total abdominal hysterectomy about 4 weeks ago for menorrhagia. Since then she was kept in the hospital for 4 days and sent home and around a few days after that she developed lethargy, sore throat, and this was found to be strep throat. She was treated for that, however, about 5 days prior to admission she felt extremely weak, worsening lethargy and she was seen by her PMD in the office, found to have a hemoglobin of 8. She was given a B12 injection, some labs were done and it was found that she had a creatinine of 5 which is new for her. She, subsequently, returned 1 day prior to admission and did a redraw of the blood and her creatinine was raised to 5.8. Since then she had a CT of her kidneys that showed a nonobstructing 8 mm stone. She has decreased urine output. So she was admitted yesterday and she also had an lower extremity ultrasound of her abdomen. She had severe abdominal pain and she was found to have multiple fluid collections that have developed recently that are concerning for an infection. Differential diagnosis, The pocket of fluid, it says, contain possible abscess. Patient currently complains of severe abdominal pain. Her normal creatinine is around 0.7. She has had a history of proteinuria which she was in the process of going for followup but, per history, it seems that she has had elevated creatinine before in the past and she was told to hold off on NSAIDs, however, per the patient's , patient was taking ibuprofen 800 mg after surgery up to 3 times a day, not clear how long the patient was doing this for. She denies any dysuria. Denies any chest pain, shortness of breath. She does, as stated above, a lot of nausea, vomiting and abdominal pain, a lot of anorexia. PAST MEDICAL HISTORY: Remarkable for systemic lupus erythematosus with no real organ involvement, however, she does have some proteinuria that is in the process of being worked up, type 2 diabetes since 2014, hyperlipidemia, and she has a distant history of sarcoidosis. PAST SURGICAL HISTORY: Multiple sections 1988, 1990, 1995; tonsillectomy 2006, ovarian cyst removal 2013, carpal tunnel release bilaterally in 2013. FAMILY HISTORY: Mother with heart disease. SOCIAL HISTORY: She is current smoker of 5 cigarettes a day, occasional alcohol, . She works in [employer]. ALLERGIES: CEPHALOSPORINS LATEX. PHYSICAL EXAMINATION: HEENT: Head normocephalic. Eyes: Extraocular muscles intact. Oropharynx normal. NECK: Supple. No neck vein distension. LUNGS: Clear to auscultation. HEART: Regular rate and rhythm. ABDOMEN: Diffusely tender with rebound tenderness. EXTREMITIES: No peripheral edema. No synovitis. NEUROLOGIC: Grossly intact. SKIN: No rashes. VITAL SIGNS: Currently, temperature 98.6, pulse 90, respirations 19, blood pressure 116/55, O2 sat 95 percent. LABORATORY: White blood count 21.8, hemoglobin 6.8, hematocrit 20.8, platelet count 225. Chemistry: Sodium 135, potassium 5.2, chloride 96, bicarb 13, BUN 92, creatinine 6.53, glucose 195, total bili 0, direct bili 0, AST 11, ALT 23, ALK phos 234, albumin 3.2, globulin 3.8, amylase 46. IMPRESSION AND PLAN: Basically, this is a 47-year-old female here with acute renal failure, history of lupus that has not affected the kidneys but a distant history of proteinuria. She also has profound anemia, history of diabetes type 2, hyperlipidemia. 1. Acute renal failure, seems to be secondary to possible infection given elevated white blood count and possible medications/nonsteroidal antiinflammatory drugs, some prerenal aspect. The plan has been to hydrate the patient and antibiotic which seems appropriate. 2. Severe abdominal pain, fluid collection to the abdomen concerning for a possible infection. Again, gynecology and general surgery are following on this. 3. Lupus that I do not feel is currently active at this time and checking an ESR and CRP would not be helpful given the fact that she likely has an infection, these would be elevated anyway. However, I do think that in the future she needs to have more evaluation for her proteinuria with Dr. Bhatti and possibly even renal biopsy once she has recovered from her current acute renal failure. I will continue to follow the patient through her stay. We can hold the Plaquenil at this time given the fact that it is not an urgent medication and it will not make a big difference to be held in the short term. I would like to thank Dr. Bhatti for having me participate in this patient's care. Please do not hesitate to call with further questions or concerns. Dictated By: Red Domínguez MD /hiro/deirdre /Document#: [id number]
== END 2017-04-10 18:02 | disposition left against medical advice (07) ==
LOC: E/R 17:20
DX: Z53.21 Procedure and treatment not carried out due to patient leaving prior to being seen by health care provider (principal)

== ENCOUNTER 2017-04-10 17:54 | Inpatient (IN) | payer BC ==
[~2017-04-10] VITALS: Ht 167.6 cm; Wt 78.5 kg
[~2017-04-10 17:54] MED LIST changes: -AMIT25TA9 PO; -BUPR-34 PO; -FERROUS SULFATE; -FLUO20CA38 PO; -HYDR-1666 PO; -HYDR-762 PO; -IBUP-1542 PO; -PRED20TA PO; -ROSU40TA35 PO; -VALA100057 PO; -ZOLP10TA PO
[2017-04-10 18:15] VITALS: BP 125/57; PULSE 89; RESP 20
[2017-04-10] MEDS ORDERED: GLUCAGON 1 MG INJ IM PRN (18:30)
[2017-04-10] MEDS ORDERED: GLUCOSE GEL 15 GRAM TUBE BUCCAL PRN (18:30)
[2017-04-10] MEDS ORDERED: GLUCOSE GEL 15 GRAM TUBE PO PRN ×2 (18:30)
[2017-04-10] MEDS ORDERED: DEXTROSE 50% 50 ML SYRINGE IV PRN ×2 (18:30)
[2017-04-10] MEDS ORDERED: ACETAMINOPHEN 325 MG TAB PO PRN (18:30)
[2017-04-10] MEDS ORDERED: BARIUM SULF 2% 450 ML BTL (BERRY SMOOTHIE) PO ONE (19:30)
[2017-04-10] MEDS ORDERED: SOD CHLORIDE 0.9% 1,000 ML IV SCH (19:30)
[2017-04-10] MEDS ORDERED: ONDANSETRON 4 MG INJ IV PRN (19:30)
[2017-04-10 19:32] LABS: ABNORMAL IP MESSAGE 1; BASOPHILS % 0.2 % (0.0-2.0); EOSINOPHILS # 0.1 10^3/ul (0.0-0.5); EOSINOPHILS % 0.3 % (0.0-7.0); HEMATOCRIT 21.5 % (37.0-47.0); HEMOGLOBIN 7.2 g/dl (12.0-16.0); LYMPHOCYTES # 0.6 10^3/ul (0.8-2.9); MEAN CORPUSCULAR HEMOGLOBIN 29.5 pg (29.0-33.0); MEAN CORPUSCULAR HGB CONC 33.5 g/dl (32.0-37.0); MEAN CORPUSCULAR VOLUME 88.1 fl (82.0-101.0); MEAN PLATELET VOLUME 10.5 fl (7.4-10.4); MONOCYTE # 0.8 10^3/ul (0.3-0.9); MONOCYTES % 4.2 % (0.0-11.0); NEUTROPHILS % 90.4 % (39.0-77.0); PLATELET COUNT 219 10^3/UL (140-415); RED BLOOD COUNT 2.44 10^6/ul (4.20-5.40); RED CELL DISTRIBUTION WIDTH 15.3 % (11.5-14.5); WHITE BLOOD COUNT 19.4 10^3/ul (4.8-10.8)
[2017-04-10 19:34] LABS: POSITIVE DIFF @See below
[2017-04-10 19:40] VITALS: Ht 167.6 cm; Wt 78.5 kg
[2017-04-10 19:49] LABS: ALBUMIN 3.6 g/dl (3.3-4.9); ALBUMIN/GLOBULIN RATIO 0.85; MAGNESIUM 1.4 mg/dl (1.7-2.5); PHOSPHORUS 6.8 mg/dl (2.5-4.9); POTASSIUM 5.7 mmol/L (3.5-5.1); TOTAL PROTEIN 7.8 g/dl (6.1-8.1)
[2017-04-10 19:56] LABS: CREATININE 6.3 mg/dl (0.44-1.00)
[2017-04-10 20:13] VITALS: BP 121/55; RESP 20
[2017-04-10] MEDS ORDERED: AMITRIPTYLINE 50 MG TAB PO SCH (21:00)
[2017-04-10] MEDS: INSULIN ASPART [NOVOLOG] 3 ML PEN SC SCH (21:00)
--- NOTE | 2017-04-10 21:30 | RADRPT ---
AMENDMENT: 04/21/2017 10:46:52 PM Irma Proctor M.D One or more of the following dose reduction techniques were used: - Automated exposure control. - Adjustment of the mA and/or kV according to patient size. - Use of iterative reconstruction technique. AMENDMENT: 04/11/2017 1:44:59 AM Irma Proctor M.D Findings were discussed with Dr. Nieves by Dr. Irma Proctor on April 11, 2017 at 1:40 AM. PROCEDURE: CT ABDOMEN AND PELVIS WITHOUT CONTRAST: CLINICAL INDICATION: 47 years of age, female , abdominal pain. Status post total hysterectomy 4 weeks ago.. COMPARISON: March 07, 2013 TECHNIQUE: CT of the abdomen and pelvis was performed without intravenous contrast. Oral contrast wa s not administered prior to the examination. Coronal and sagittal reformatted images were obtained from the axial source images. Images were revi ewed on a high-resolution PACS workstation. Dose information: Based on a 32 cm phantom, the estimated radiation dose (CTDI vol mGy) for each ser ies in this exam is 14.3. The estimated cumulative dose (DLP mGy-cm) is 885. FINDINGS: In the absence of intravenous contrast, the study constitutes a limited assessment of the solid orga ns, bowel and vessels. LUNG BASES: Bilateral dependent atelectasis. ABDOMEN/PELVIS: Liver: Hepatomegaly measuring 25 cm in length is similar to prior exam. Gallbladder: Normal noncontrast appearance. Bile ducts: No intrahepatic or extrahepatic biliary duct dilatation. Spleen: Splenomegaly measuring 14.8 cm in length is similar to prior exam. Pancreas: Normal noncontrast appearance. Adrenal glands: Normal noncontrast appearance. Kidneys and ureters: There is a 0.8 cm calculus in the proximal left ureter that is new from prior exam. Negative for le ft hydronephrosis. 0.8 cm nonobstructing calculus lower pole left kidney was also present on the pr ior exam. There are additional punctate nonobstructing calculi in the left kidney that are overall decreased in size and number. There is a 0.1 cm nonobstructing calculus in the lower pole of the right kidney that is unchanged. Negative for right hydronephrosis. Aorta and IVC: Mild atherosclerosis aorta. No aneurysm. There is a calcified phlebolith in the righ t gonadal vein. Lymph nodes: Normal noncontrast appearance. Gastrointestinal tract: There is likely a mobile cecum that point since superiorly. Negative for ev idence of volvulus. Bowel loops are decompressed. Appendix: Not identified . Bladder: Decompressed with Tran catheter. There is gas in the urinary bladder presumably from cath eter placement. Pelvic Organs: The uterus is absent. Ovaries are within normal limits for a patient who is premenop ausal. There is mild stranding in the extraperitoneal fat of the pelvis greatest deep to the anterio r abdominal wall in keeping with recent surgery. Peritoneal cavity: No free fluid or free intraperitoneal air. Abdominal wall: There are intermediate density fluid collections in the abdominal wall in the suprap ubic region. They measure 1.2 x 2.7 x 8.6 cm in the suprapubic abdominal wall musculature in the re ctus abdominis (3/155) and 1.1 x 4.3 x 6.2 cm in the subcutaneous fat. Negative for internal gas. BONES: Musculoskeletal: No suspicious bone lesions. IMPRESSION: Fluid collections in the suprapubic abdominal wall in the rectus abdominous musculature and in the o verlying subcutaneous fat are likely related to recent surgery. Differential diagnosis includes, bu t is not limited to, liquefied hematomas or postoperative seromas. The sterility of these collectio ns cannot be determined and if there is concern for infection recommend diagnostic aspiration. 0.8 cm calculus proximal left ureter without left hydronephrosis. This is a potential cause for lef t flank pain. There are bilateral nonobstructing renal calculi. Hepatosplenomegaly is similar to prior exam and may be seen with lymphoproliferative disorders, syst emic viral infection, anemias or liver disease. Mobile cecum without evidence of volvulus. Appendix is not identified. Findings were discussed with Lilia Peña RN on patient's floor by Dr. Irma Proctor on March at 9:40 PM. She was advised to make the provider aware of the results. RPTAT: HCTS Physician Aly Date Time Electronically viewed and signed by Physician Aly on 04/21/2017 22:48 CS/
--- NOTE | 2017-04-10 21:33 | RADRPT ---
PROCEDURE: PA and lateral chest x-ray. CLINICAL INDICATION: 47 years of age, female. All cough. TECHNIQUE: PA and lateral views of the chest. COMPARISON: CT abdomen pelvis from the same day and chest x-ray April 25, 2015 FINDINGS: Cardiomediastinal contours are normal. Bilateral lung base opacities correspond to atelectasis on the same day CT. Lungs are otherwise juliet ar. Negative for pleural effusion or pneumothorax. No acute bony abnormality. IMPRESSION: Bilateral lung base opacities correspond atelectasis on the same day CT. Negative for focal lung co nsolidation. RPTAT: HCTS Physician Aly Date Time Electronically viewed and signed by Chiara Proctor Physician on 04/10/2017 21:33 CS/
[2017-04-10] MEDS: HYDROmorphONE 1 MG/ML SYG IV PRN (21:55)
[2017-04-10] MEDS ORDERED: VANCOMYCIN IV PER PHARMACY XX SCH (22:30)
[2017-04-10] MEDS ORDERED: NA POLYST SULFON 15 GM/60 ML BTL PR ONE (23:00)
[2017-04-10] MEDS ORDERED: DEXTROSE 5% 1,000 ML IV SCH (23:00)
[2017-04-11] MEDS: PIPER-TAZO 2.25 GM (PMX) 50 ML IVPB SCH ×4 (00:04→21:10)
[2017-04-11 00:09] VITALS: BP 111/49; PULSE 88; RESP 18
[2017-04-11 00:16] LABS: ADD UMIC YES; UR ASCORBIC ACID NEGATIVE (NEGATIVE); UR BACTERIA FEW /HPF (NONE SEEN); UR BILIRUBIN (Dip) NEGATIVE (NEGATIVE); UR BLOOD (Dip) NEGATIVE (NEGATIVE); UR CLARITY CLOUDY (CLEAR); UR COLOR YELLOW (YELLOW); UR GLUCOSE (Dip) 1+ mg/dL (NEGATIVE); UR KETONES (Dip) NEGATIVE (NEGATIVE); UR LEUKOCYTE ESTERASE (Dip) TRACE Leu/ul (NEGATIVE); UR NITRITE (Dip) NEGATIVE (NEGATIVE); UR RBC 1 /HPF (0-5); UR SPECIFIC GRAVITY (Dip) 1.015 (1.003-1.030); UR SQUAMOUS EPITHELIAL CELL FEW /HPF (FEW); UR TOTAL PROTEIN (Dip) 2+ mg/dl (NEGATIVE); UR UROBILINOGEN (Dip) NEGATIVE (NEGATIVE); UR WBC CLUMPS FEW /HPF (NONE SEEN)
[2017-04-11] MEDS ORDERED: VANCOMYCIN 1.5 GM in SOD CHLORIDE 0.9% 250 ML IVPB ONE (00:30)
[2017-04-11] MEDS: SODIUM BICARBONATE (IV ADD) 150 MEQ in DEXTROSE 5% 850 ML IV SCH ×4 (00:48→20:23)
[2017-04-11] MEDS: ACCU-CHEK XX SCH (01:04)
[2017-04-11] MEDS ORDERED: ACCU-CHEK XX SCH (02:00)
[2017-04-11] MEDS: HYDROmorphONE 1 MG/ML SYG IV PRN ×5 (03:51→20:50)
[2017-04-11 03:55] VITALS: BP 128/58; PULSE 89; RESP 18
--- NOTE | 2017-04-11 04:04 | CONS ---
DATE OF ADMISSION: 04/10/2017 DATE OF CONSULTATION: 04/10/2017 REASON FOR CONSULTATION: This patient is being seen by me today for acute renal failure. HISTORY OF PRESENT ILLNESS: This 47-year-old female was sent in the ED today because of a sudden rise in her serum creatinine. The patient is under the primary care of Dr. Guy Russell. The patient was well until April 12, 2017, when she underwent a total abdominal hysterectomy at [facility] by Dr. Henry Lincoln. The patient was having menometrorrhagia and heavy vaginal bleeding, and it was decided that she should have a hysterectomy. The hysterectomy was done and the patient apparently felt well, although fatigued after the surgery. Then last week, she became more ill. She developed a sore throat and was seen by Dr. Ru Diaz, Dr. Russell's partner, in his office on April 06, 2017. The patient had a positive rapid strep test and was started on amoxicillin. The patient, over the weekend, has become more fatigued, with myalgias, nausea, vomiting, and abdominal pain. She had labs done on April [address] Diaz, which showed a BUN of 68 and a serum creatinine of 5.0. This is compared to labs she had done preoperatively by Dr. Russell, which showed a serum creatinine of 0.70. The patient, on labs done today, had a white blood count of 17,200 with a hemoglobin of 7.9, hematocrit 25.1. The patient had 1 day of fever last week up to 100. The patient says that her urine output has been very low. She describes it as just being able to tinkle a little bit. She denies dysuria. PAST MEDICAL HISTORY: Remarkable for systemic lupus erythematosus, which is currently in the process of being worked up. Type 2 diabetes mellitus since 2015. Hyperlipidemia. Degenerative joint disease. MEDICATION: Includes the followin. Metformin 750 mg twice a day. 2. Gemfibrozil 600 mg twice a day. 3. Crestor 20 mg a day. 4. Amitriptyline 200 mg at bedtime. 5. Abilify 20 mg once a day. 6. Pantoprazole 40 mg once a day. 7. Hydroxychloroquine 200 mg twice a day. 8. Losartan 25 mg orally once a day. 9. Humalog insulin sliding scale. 10. Toujeo 10 units daily. ALLERGIES: SHE IS ALLERGIC TO: CEPHALOSPORINS. LATEX. PAST SURGICAL HISTORY: x4, tonsillectomy and adenoidectomy as a child, carpal tunnel syndrome repair, ovarian cystectomy and then total abdominal hysterectomy, 04/12/2017, with some ovarian cysts removed. SOCIAL HISTORY: The patient smokes about 5 cigarettes a day. Drinks alcohol socially. 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 REVIEW OF SYSTEMS: CONSTITUTIONAL: No chills. She has had some fever and fatigue. OPHTHALMOLOGIC: Blurry vision. EARS, NOSE, AND THROAT: Sore throat. RESPIRATORY: Cough. CARDIOVASCULAR: No chest pain. GASTROINTESTINAL: Nausea, vomiting. No diarrhea. Abdominal pain diffusely. UROLOGIC: Low urine output. PHYSICAL EXAMINATION: VITAL SIGNS: Temperature 98.7, blood pressure 131/46, heart rate 91. HEENT: Head normocephalic. Eyes: Extraocular muscles intact. Nose and mouth are normal. NECK: Supple. No neck vein distention. LUNGS: Clear to auscultation. HEART: 1 to 2/6 systolic ejection murmur. No gallops or rubs. ABDOMEN: Diffusely tender with rebound tenderness. Pain is more intense over the suprapubic area, with some fullness. No other enlargement of spleen or liver detected. EXTREMITIES: No peripheral edema. NEUROLOGIC: Grossly intact. IMPRESSION: 1. This patient presents now with acute renal failure and abdominal pain. I am suspicious that she may have an obstruction in the urinary trac, specifically in the urinary bladder. She does have some diffuse abdominal tenderness. She has an elevated white blood count, which could indicate an infection. If she is not obstructed then she she could have ATN or acute glomerulonephritis due to a deep seeded infection or abscess . 2. History of type 2 diabetes mellitus on insulin. 3. Recent abdominal hysterectomy with ovarian cystectomy. 4. Anemia. 5. Possible systemic lupus erythematosus. 6. Hyperlipidemia. PLAN: 1. We will have the nurse place a Tran catheter to obtain residual urine amount and urinalysis and urine culture. I will start IV fluids and giv broad spectrum antibiotics . 2. Check stat labs, blood cultures, CBC, CMP, phosphorus, magnesium. 3. If the bladder does not show high residual, then we will get an abdominal CT scan without IV contrast. 4. Dr. Lincoln to be notified about patient's admission. 5. I will follow the patient along with you. Dictated By: Tapan Bhatti MD /hiro/greg /Document#: [id number] MTDD
[2017-04-11] MEDS: PANTOPRAZOLE (EC) 40 MG TAB PO SCH (05:09)
[2017-04-11 05:25] LABS: ABNORMAL IP MESSAGE 1; BASOPHIL # 0.1 10^3/ul (0.0-0.1); BASOPHILS % 0.2 % (0.0-2.0); EOSINOPHILS # 0.1 10^3/ul (0.0-0.5); EOSINOPHILS % 0.6 % (0.0-7.0); HEMATOCRIT 20.9 % (37.0-47.0); LYMPHOCYTES % 4.5 % (15.0-51.0); MEAN CORPUSCULAR HEMOGLOBIN 29.2 pg (29.0-33.0); MEAN CORPUSCULAR HGB CONC 32.5 g/dl (32.0-37.0); MEAN CORPUSCULAR VOLUME 89.7 fl (82.0-101.0); MEAN PLATELET VOLUME 10.9 fl (7.4-10.4); MONOCYTE # 1.2 10^3/ul (0.3-0.9); MONOCYTES % 5.4 % (0.0-11.0); NEUTROPHILS % 87.2 % (39.0-77.0); PLATELET COUNT 225 10^3/UL (140-415); RED BLOOD COUNT 2.33 10^6/ul (4.20-5.40); RED CELL DISTRIBUTION WIDTH 15.6 % (11.5-14.5); WHITE BLOOD COUNT 21.8 10^3/ul (4.8-10.8)
[2017-04-11 05:35] LABS: POSITIVE DIFF @See below
[2017-04-11 05:36] LABS: HEMOGLOBIN 6.8 g/dl (12.0-16.0)
[2017-04-11 06:03] LABS: INR 1.49; PROTIME 18.1 Sec (12.2-14.2); PT RATIO 1.4
[2017-04-11 06:04] LABS: PARTIAL THROMBOPLASTIN TIME 46.2 Sec (25.0-35.0)
[2017-04-11 07:16] LABS: RETICULOCYTE COUNT % 1.1 % (0.5-1.5)
--- NOTE | 2017-04-11 07:33 | CONS ---
Date/Time of Note Date/Time of Note DATE: 04/11/17 TIME: 07:16 Assessment/Plan Assessment/Plan Chief Complaint/Hosp Course 1) ARF no signs of obstruction but pt does have kidney stones u/a is not impressive urine cx is pending work-up per renal 2) fluid collection around prior surgical site will order u/s of area to see if this is a simple fluid collection in light of her fever, elevated WBC concern would be that this is infected this will likely need to be drained, if a simple fluid collection then via IR if a complex fluid collection she may need surgical I&D continue with vanco/zosyn get nasal swab for MRSA 3) abd pain this seems out of proportion to the fluid collection in suprapubic area she is anemic and maybe there is some vascular insufficiency contributing to this no diarrhea and no sign of bowel wall thickening so doubt infectious colitis will order lactic acid will check ESR, complement levels to verify no lupus flair (no other clinical signs to suggest this other than ARF) 4) leukocytosis likely due to infection doubt this is from a strep throat urine less likely the source given the fairly benign u/a abscess is high on my list blood cx have been done and pending 5) SLE no joint pains currently but has ARF and abd pain check complement levels and ESR and consider anti-DS dna Problems: Consultation Date/Type/Reason Admit Date/Time Apr 10, 2017 at 17:54 Date of Consultation: Apr 11, 2017 Type of Consultation: ID Hx of Present Illness pt had surgery for MAAME due to menorrhagia last month. Pt one one episode of vomiting soon after discharge but none since She noticed decrease in urine output since the surgery She also had abd pain that she thought was due to the binder she was wearing She developed F, sore throat about a week ago and was diagnosed with strep throat and given amoxicillin on sunday Her doctor called her on sunday to get admitted to the hospital based on the labs from sunday. She still has some fevers. The abd pain persists but no vomiting or diarrhea Off an on headaches but none currently no stiff neck when bending forward but it does hurt moving it from side to side. No dysuria, rashes, joint pains. She has some mild change in vision but saw the eye doctor a week ago and told everything was ok. no recent dental work or travel. Past Medical History DM, SLE, DJD, hyperlipidemia Past Surgical History ovarian cystectomy, MAAME, Social History Smoking Status: Never smoker Exam/Review of Systems Vital Signs Vitals Vital Signs Date Time Temp Pulse Resp B/P Pulse Ox O2 Delivery O2 Flow Rate FiO2 04/11/17 03:55 97.9 89 18 128/58 98 Room Air Intake and Output 04/10/17 04/10/17 04/11/17 15:00 23:00 07:00 Intake Total 0 ml 975 ml Output Total 130 ml Balance 0 ml 845 ml Exam Constitutional: alert, oriented Eyes: nl sclera ENMT: mucosa pink and moist Neck: supple Respiratory: clear to auscultation Cardiovascular: regular rate and rhythm Gastrointestinal: other (slight pinkness to mons pubis area, abd is diffusely tender), soft, tender Neurological: nl mental status, other (WNL) Results Result Diagram: 04/11/17 0433 04/10/17 1917 Results 24 hrs Laboratory Tests Test 04/10/17 19:17 04/10/17 21:39 04/10/17 23:20 04/11/17 04:32 White Blood Count 19.4 #H Red Blood Count 2.44 L Hemoglobin 7.2 L Hematocrit 21.5 L Mean Corpuscular Volume 88.1 Mean Corpuscular Hemoglobin 29.5 Mean Corpuscular Hemoglobin Concent 33.5 Red Cell Distribution Width 15.3 H Platelet Count 219 # Mean Platelet Volume 10.5 H Neutrophils % 90.4 H Lymphocytes % 3.0 L Monocytes % 4.2 Eosinophils % 0.3 Basophils % 0.2 Nucleated Red Blood Cells % 0.0 Neutrophils # (Manual) 18 H Lymphocytes # 0.6 L Monocytes # 0.8 Eosinophils # 0.1 Basophils # 0.0 Nucleated Red Blood Cells # 0.0 Sodium Level 135 Potassium Level 5.7 H Chloride Level 96 L Carbon Dioxide Level 11 L Anion Gap 34 H Blood Urea Nitrogen 87 H Creatinine 6.30 H Glucose Level 168 Calcium Level 10.0 Phosphorus Level 6.8 H Magnesium Level 1.4 L Total Bilirubin 0.0 L Direct Bilirubin 0.00 Indirect Bilirubin 0.0 Aspartate Amino Transf (AST/SGOT) 13 L Alanine Aminotransferase (ALT/SGPT) 25 Alkaline Phosphatase 253 H Total Protein 7.8 Albumin 3.6 Globulin 4.20 H Albumin/Globulin Ratio 0.85 Amylase Level 46 Bedside Glucose 167 Urine Color YELLOW Urine Clarity CLOUDY A Urine pH 5.0 Urine Specific [place] 1.015 Urine Ketones NEGATIVE Urine Nitrite NEGATIVE Urine Bilirubin NEGATIVE Urine Urobilinogen NEGATIVE Urine Leukocyte Esterase TRACE A Urine Microscopic RBC 1 Urine Microscopic WBC 14 H Urine Squamous Epithelial Cells FEW Urine Bacteria FEW A Urine Hemoglobin NEGATIVE Urine Random Sodium 17 L Urine Glucose 1+ H Urine Total Protein 2+ H Absolute Reticulocyte Count 0.025 Percent Reticulocyte Count 1.1 Test 04/11/17 04:33 White Blood Count 21.8 H Red Blood Count 2.33 L Hemoglobin 6.8 *L Hematocrit 20.9 L Mean Corpuscular Volume 89.7 Mean Corpuscular Hemoglobin 29.2 Mean Corpuscular Hemoglobin Concent 32.5 Red Cell Distribution Width 15.6 H Platelet Count 225 Mean Platelet Volume 10.9 H Neutrophils % 87.2 H Lymphocytes % 4.5 L Monocytes % 5.4 Eosinophils % 0.6 Basophils % 0.2 Nucleated Red Blood Cells % 0.0 Neutrophils # (Manual) 19 H Lymphocytes # 1.0 Monocytes # 1.2 H Eosinophils # 0.1 Basophils # 0.1 Nucleated Red Blood Cells # 0.0 Prothrombin Time 18.1 H Prothrombin Time Ratio 1.4 INR International Normalized Ratio 1.49 Activated Partial Thromboplast Time 46.2 H Medications Medications Current Medications Acetaminophen (Tylenol Tab) 650 mg Q6H PRN PO PAIN AND OR ELEVATED TEMP; Start 04/10/17 at 18:30 Diagnostic Test (Pha) (Accu-Chek) 1 ea 02 XX ; Start 04/11/17 at 02:00 Miscellaneous Information 1 ea NOTE XX ; Start 04/10/17 at 18:30 Glucose (Glutose) 15 gm Q15M PRN PO DECREASED GLUCOSE; Start 04/10/17 at 18:30 Glucose (Glutose) 22.5 gm Q15M PRN PO DECREASED GLUCOSE; Start 04/10/17 at 18: 30 Dextrose (D50w Syringe) 25 ml Q15M PRN IV DECREASED GLUCOSE; Start 04/10/17 at 18:30 Dextrose (D50w Syringe) 50 ml Q15M PRN IV DECREASED GLUCOSE; Start 04/10/17 at 18:30 Glucagon (Glucagen) 1 mg Q15M PRN IM DECREASED GLUCOSE; Start 04/10/17 at 18:30 Glucose (Glutose) 15 gm Q15M PRN BUCCAL DECREASED GLUCOSE; Start 04/10/17 at 18 :30 Ondansetron HCl (Zofran Inj) 4 mg Q6H PRN IV NAUSEA AND/OR VOMITING; Start at 19:30 Hydromorphone HCl (Dilaudid) 0.5 mg Q4H PRN IV PAIN Last administered on 03:51; Admin Dose 0.5 MG; Start 04/10/17 at 19:30 Alprazolam (Xanax) 0.5 mg Q8H PRN PO ANXIETY; Start 04/10/17 at 20:00 Amitriptyline HCl (Elavil) 100 mg HS PO Last administered on 04/10/17 21:40; Admin Dose 100 MG; Start 04/10/17 at 21:00 Pantoprazole (Protonix Tab) 40 mg DAILY@06 PO Last administered on 04/11/17 05 :09; Admin Dose 40 MG; Start 04/11/17 at 06:00 Eye Lubricant 2 drop 2 drop TID BOTH EYES ; Start 04/11/17 at 09:00 Piperacillin Sod/ Tazobactam Sod 50 ml @ 100 mls/hr Q8 IVPB Last administered on 04/11/17 05:09; Admin Dose 100 MLS/HR; Start 04/10/17 at 23:30 Sodium Bicarbonate/ Dextrose (Na Bicarb/D5W) 1,000 ml @ 150 mls/hr Q6H40M IV Last administered on 04/11/17 00:48; Admin Dose 125 MLS/HR; Start 04/10/17 at 23:45 DIMITRIS ALAMO MD Apr 11, 2017 07:32
[2017-04-11 08:00] VITALS: BP 114/54; RESP 18
[2017-04-11] MEDS: INSULIN ASPART [NOVOLOG] 3 ML PEN SC SCH ×4 (08:14→20:27)
--- NOTE | 2017-04-11 08:48 | CONS ---
Date/Time of Note Date/Time of Note DATE: 04/11/17 TIME: 08:37 Assessment/Plan Assessment/Plan Chief Complaint/Hosp Course #1. Acute renal failure. The CAT scan done last night does not show urinary obstruction. There is an 8 mm stone in the left ureter however there is no evidence of hydronephrosis. The clinical course of this patient seems to be most consistent with acute renal failure either acute tubular necrosis or less likely acute glomerulonephritis. This could be due to sepsis. The patient does have a fluid collection in the lower abdomen which could be an abscess. This will need to be drained either by a IR or Dr. Lincoln #2 abdominal pain. The patient has mostly lower quadrant abdominal pain. She does have a fluid collection in the lower abdomen which could be a hematoma and/ or abscess. She has been seen by Dr. 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 I will have a general surgeon evaluate the patient. #3 anemia she does not have evidence of GI bleeding. Will check stool for OB. Her hemoglobin and hematocrit are low I will order a 2 unit blood transfusion this morning. #4 status post recent total abdominal hysterectomy #5 Diabetes mellitus type 2 #6. Hyperlipidemia Problems: Consultation Date/Type/Reason Admit Date/Time Apr 10, 2017 at 17:54 Initial Consult Date 04/11/17 Type of Consultation: ID [id number] HR Interval Summary Free Text/Dictation She continues to have abdominal pain. The pain is mostly in the lower quadrants. She has had a bowel movement this morning. Her urine output has been low. Constitutional: poor po, requiring IVF Exam/Review of Systems Vital Signs Vitals Vital Signs Date Time Temp Pulse Resp B/P Pulse Ox O2 Delivery O2 Flow Rate FiO2 04/11/17 08:00 98.1 85 18 114/54 99 04/11/17 03:55 Room Air Intake and Output 04/10/17 04/10/17 04/11/17 15:00 23:00 07:00 Intake Total 0 ml 975 ml Output Total 130 ml Balance 0 ml 845 ml Exam Constitutional: alert, distress, oriented, well developed Respiratory: clear to auscultation, normal air movement Cardiovascular: murmurs/extra sounds, regular rate and rhythm Gastrointestinal: rebound or guarding, soft, tender Musculoskeletal: nl extremities to inspection Results Result Diagram: 04/11/17 0433 8/22/17 1917 Results 24 hrs Laboratory Tests Test 04/10/17 19:17 04/10/17 21:39 04/10/17 23:20 04/11/17 04:32 White Blood Count 19.4 #H Red Blood Count 2.44 L Hemoglobin 7.2 L Hematocrit 21.5 L Mean Corpuscular Volume 88.1 Mean Corpuscular Hemoglobin 29.5 Mean Corpuscular Hemoglobin Concent 33.5 Red Cell Distribution Width 15.3 H Platelet Count 219 # Mean Platelet Volume 10.5 H Neutrophils % 90.4 H Lymphocytes % 3.0 L Monocytes % 4.2 Eosinophils % 0.3 Basophils % 0.2 Nucleated Red Blood Cells % 0.0 Neutrophils # (Manual) 18 H Lymphocytes # 0.6 L Monocytes # 0.8 Eosinophils # 0.1 Basophils # 0.0 Nucleated Red Blood Cells # 0.0 Sodium Level 135 Potassium Level 5.7 H Chloride Level 96 L Carbon Dioxide Level 11 L Anion Gap 34 H Blood Urea Nitrogen 87 H Creatinine 6.30 H Glucose Level 168 Calcium Level 10.0 Phosphorus Level 6.8 H Magnesium Level 1.4 L Total Bilirubin 0.0 L Direct Bilirubin 0.00 Indirect Bilirubin 0.0 Aspartate Amino Transf (AST/SGOT) 13 L Alanine Aminotransferase (ALT/SGPT) 25 Alkaline Phosphatase 253 H Total Protein 7.8 Albumin 3.6 Globulin 4.20 H Albumin/Globulin Ratio 0.85 Amylase Level 46 Bedside Glucose 167 Urine Color YELLOW Urine Clarity CLOUDY A Urine pH 5.0 Urine Specific [place] 1.015 Urine Ketones NEGATIVE Urine Nitrite NEGATIVE Urine Bilirubin NEGATIVE Urine Urobilinogen NEGATIVE Urine Leukocyte Esterase TRACE A Urine Microscopic RBC 1 Urine Microscopic WBC 14 H Urine Squamous Epithelial Cells FEW Urine Bacteria FEW A Urine Hemoglobin NEGATIVE Urine Random Sodium 17 L Urine Glucose 1+ H Urine Total Protein 2+ H Absolute Reticulocyte Count 0.025 Percent Reticulocyte Count 1.1 Test 04/11/17 04:33 04/11/17 07:36 04/11/17 08:05 White Blood Count 21.8 H Red Blood Count 2.33 L Hemoglobin 6.8 *L Hematocrit 20.9 L Mean Corpuscular Volume 89.7 Mean Corpuscular Hemoglobin 29.2 Mean Corpuscular Hemoglobin Concent 32.5 Red Cell Distribution Width 15.6 H Platelet Count 225 Mean Platelet Volume 10.9 H Neutrophils % 87.2 H Lymphocytes % 4.5 L Monocytes % 5.4 Eosinophils % 0.6 Basophils % 0.2 Nucleated Red Blood Cells % 0.0 Neutrophils # (Manual) 19 H Lymphocytes # 1.0 Monocytes # 1.2 H Eosinophils # 0.1 Basophils # 0.1 Nucleated Red Blood Cells # 0.0 Prothrombin Time 18.1 H Prothrombin Time Ratio 1.4 INR International Normalized Ratio 1.49 Activated Partial Thromboplast Time 46.2 H Lactic Acid Level 0.9 Bedside Glucose 195 Medications Medications Current Medications Acetaminophen (Tylenol Tab) 650 mg Q6H PRN PO PAIN AND OR ELEVATED TEMP; Start 04/10/17 at 18:30 Diagnostic Test (Pha) (Accu-Chek) 1 ea 02 XX ; Start 04/11/17 at 02:00 Miscellaneous Information 1 ea NOTE XX ; Start 04/10/17 at 18:30 Glucose (Glutose) 15 gm Q15M PRN PO DECREASED GLUCOSE; Start 04/10/17 at 18:30 Glucose (Glutose) 22.5 gm Q15M PRN PO DECREASED GLUCOSE; Start 04/10/17 at 18: 30 Dextrose (D50w Syringe) 25 ml Q15M PRN IV DECREASED GLUCOSE; Start 04/10/17 at 18:30 Dextrose (D50w Syringe) 50 ml Q15M PRN IV DECREASED GLUCOSE; Start 04/10/17 at 18:30 Glucagon (Glucagen) 1 mg Q15M PRN IM DECREASED GLUCOSE; Start 04/10/17 at 18:30 Glucose (Glutose) 15 gm Q15M PRN BUCCAL DECREASED GLUCOSE; Start 04/10/17 at 18 :30 Ondansetron HCl (Zofran Inj) 4 mg Q6H PRN IV NAUSEA AND/OR VOMITING; Start at 19:30 Hydromorphone HCl (Dilaudid) 0.5 mg Q4H PRN IV PAIN Last administered on 07:58; Admin Dose 0.5 MG; Start 04/10/17 at 19:30 Alprazolam (Xanax) 0.5 mg Q8H PRN PO ANXIETY; Start 04/10/17 at 20:00 Amitriptyline HCl (Elavil) 100 mg HS PO Last administered on 04/10/17 21:40; Admin Dose 100 MG; Start 04/10/17 at 21:00 Pantoprazole (Protonix Tab) 40 mg DAILY@06 PO Last administered on 04/11/17 05 :09; Admin Dose 40 MG; Start 04/11/17 at 06:00 Eye Lubricant 2 drop 2 drop TID BOTH EYES ; Start 04/11/17 at 09:00 Piperacillin Sod/ Tazobactam Sod 50 ml @ 100 mls/hr Q8 IVPB Last administered on 04/11/17 05:09; Admin Dose 100 MLS/HR; Start 04/10/17 at 23:30 Sodium Bicarbonate/ Dextrose (Na Bicarb/D5W) 1,000 ml @ 150 mls/hr Q6H40M IV Last administered on 04/11/17 00:48; Admin Dose 125 MLS/HR; Start 04/10/17 at 23:45 NIA GAYTAN MD Apr 11, 2017 08:47
[2017-04-11 08:50] LABS: ALBUMIN 3.2 g/dl (3.3-4.9); ALBUMIN/GLOBULIN RATIO 0.84; CALCIUM 9.2 mg/dl (8.4-10.2)
[2017-04-11 08:58] LABS: CREATININE 6.53 mg/dl (0.44-1.00)
[2017-04-11 08:59] LABS: POTASSIUM 5.2 mmol/L (3.5-5.1)
[2017-04-11] MEDS: ARTIFICIAL TEARS 15 ML OPH BOTH EYES SCH ×3 (09:00→21:00)
--- NOTE | 2017-04-11 10:16 | HP ---
DATE OF ADMISSION: 04/10/2017 CHIEF COMPLAINT: [facility] Admissions for this 47-year-old woman admitted with a chief complaint of not feeling well. The patient had recently underwent an abdominal hysterectomy for gynecologic issues, menometrorrhagia, etc. and the patient was discharged about 4-5 days after her initial admission. The patient presented to our office Sunday stating that she was not feeling too well and evaluation at that time, revealed the following laboratory results. Her CBC revealed an anemia with a hemoglobin of 8.7, hematocrit of 27.7. However, she had a normal white count. However, her laboratory parameters revealed a BUN of 68, and a creatinine of 5. This was redone on the , at which time, her white count was up to 17.2, hemoglobin was 7.9, hematocrit 25.1, and her creatinine had gone higher again than the original one and the patient was admitted with the diagnosis of acute renal failure and anemia, etiology to be determined. The patient had not changed anything postoperatively and was taking the same medication that she normally takes and had not really done very much of anything since she really had not been feeling too terribly well. Her. MEDICATIONS: Included: 1. Crestor 20 mg a day. 2. Gemfibrozil 600 mg. b i.d. 3. Metformin 750 mg b.i.d. 4. Amitriptyline 200 mg at bedtime. 5. Abilify 20 mg a day. 6. Hydroxychloroquine 200 mg b.i.d. 7. Losartan 25 mg daily. 8. Toujeo insulin 10 units daily. 9. Humalog with a sliding scale before meals. ALLERGIES: SHE IS ALLERGIC TO CEPHALOSPORIN. INDICATIONS: In view of the fact the patient was not feeling well, we briefly saw her on the . The patient was referred for admission to [facility] with a renal consult by Dr. Tapan Bhatti. PAST MEDICAL HISTORY: In terms of this patient's past medical history, it was well reviewed in my dictation of March 07, 2017, which defines all her prior surgical procedures adding a hysterectomy to the list that was done there, and all her medical hospitalizations, as well. SOCIAL HISTORY/FAMILY HISTORY: Social history and family history has not changed. REVIEW OF SYSTEMS: She currently does get some mild headaches, however denies any chest pain or shortness of breath. GASTROINTESTINAL: No melena or hematemesis. GENITOURINARY: Possibly some dysuria. LOGISTICIAN: Post hysterectomy. MUSCULOSKELETAL: Positive for arthritis, for which she is being treated by a land measurer. PHYSICAL EXAMINATION: VITAL SIGNS: Blood pressure of 126/58, pulse 80 and regular, respirations 20, temperature 98.7 degrees, O2 saturation 96 percent on room air. HEENT: Head was atraumatic. The eyes, pupils were equal, reactive to light and accommodation. Fundi were not visualized. Nose was negative. Mouth was unremarkable, albeit the patient did get diagnosed with a strep on the prior office visit of April 06 and was treated with amoxicillin. NECK: Supple without any rigidity. Trachea was midline. Thyroid was unremarkable. Neck veins were flat. Carotid pulses were palpable. Chest was symmetrical. Breast and axillary exam did not reveal any masses. LUNGS: Clear to percussion and auscultation. CARDIAC: Heart revealed the PMI to be 5th intercostal space, midclavicular line. Regular sinus rhythm was noted. No significant murmurs, rubs, or gallops. ABDOMEN: Abdomen as soft, however it appeared to be somewhat distended with questionably diminished bowel sounds being present. Scar from prior surgery was noted. GENITALIA: Per diamond cleaver. RECTAL EXAM: Per diamond cleaver. EXTREMITIES: Revealed no clubbing, edema, or cyanosis. Peripheral pulses were physiologic. NEUROLOGIC EXAM: Grossly intact. IMPRESSION: 1. Acute renal failure. 2. Profound anemia. Etiology to be determined. 3. Diabetes mellitus type 2. 4. Hyperlipidemia. 5. Systemic lupus. 6. Degenerative joint disease. DISCUSSION: The plan was to admit the patient. The patient has been seen by Dr. Bhatti, who will be following her during her stay at the hospital. She was also seen by the Infectious Disease, consultation for potential infections and will be followed by Dr. Henry Lincoln. Condition on admission is stable. However, prognosis dependent upon what the ultimate diagnosis is. LABORATORY: Her current laboratory revealed the following: Her hemoglobin was 6.8 with a hematocrit of 20.9. The patient probably should be transfused at this point. Her chemistries revealed a creatinine of 6.53 and BUN of 92, random glucose of 192. ALT was normal, alkaline phosphatase was somewhat elevated. Plan again is renal function and renal status per Nephrology, potential infection per Infectious Disease consult. Patient's white count was 21.8 on January 10, 2016 up from 19.4 on 04/10. IMAGING STUDIES: A variety of different imaging studies have been done, including CAT scans and those will be reviewed. Patient's chest x-ray revealed some atelectasis, but is otherwise unremarkable. ASSESSMENT: Condition on admission is guarded in view of the patient's worsening at this particular point in time. Dictated By: Guy Russell MD /hiro/noah /Document#: [id number]
--- NOTE | 2017-04-11 10:35 | RADRPT ---
PROCEDURE: Ultrasound of the soft tissues of the suprapubic region. CLINICAL INDICATION: Palpable lesion in the suprapubic region. TECHNIQUE: High-resolution sonography of the suprapubic region at the site of the palpable lesion was performed in the axial and sagittal planes. COMPARISON: CT scan of the abdomen and pelvis dated 04/10/2017 which demonstrated a fluid collecti on in the suprapubic abdominal wall. FINDINGS: As seen on prior CT scan, there is a fluid collection in the suprapubic region measuring approximate ly 7.9 x 3.6 x 11.4 cm. There are internal echoes. There is no other cystic or solid mass. IMPRESSION: 1. Fluid collection in the suprapubic region measuring 7.9 x 3.6 x 11.4 cm. Internal echoes are pr esent indicating the fluid contains blood products, debris, or pus. Clinical correlation is advised 2. Any further management should be based on clinical grounds. RPTAT: QQ .Wing Ewing MD, MD Date Time Electronically viewed and signed by .Wing Ewing MD, on 04/11/2017 10:34 .R/
[2017-04-11 13:38] VITALS: BP 116/55; RESP 19
--- NOTE | 2017-04-11 17:37 | CONS ---
Date/Time of Note Date/Time of Note DATE: 04/11/17 TIME: 17:33 Assessment/Plan Assessment/Plan Chief Complaint/Hosp Course 1. Abdominal wall collection probable abscess (most probable) vs hematoma vs seroma. -ivf -iv abx -I&D per [employer] 2. Sepsis, encephalopathy, leukocytosis 2nd above -as above -supportive 3. Acute renal failure 2nd above -as above -aggressive fluid management -correct lytes -avoid nephrotoxic agents 4. Hyperkalemia -correct aggressively with insulin/bicarb/fluids/kayexalate -if not improving may need HD 5. Anemia, asymptomatic, multifactorial, hx of vag bleed requiring sx, sepsis, ? acute bleed (doubt) -tx prn -fluids 6. DM -diet/med control -encourage weight optimization 7. BMI 28 -diet/exercise optimization 8. ?SLE -medical management 9. Hyperlipidemia -diet/med optimization 10. DJD -medical optimization 11. Hypoalbuminemia, multifactorial -eventual diet optimization 12. Hepatosplenomegaly ? etiology -w/u per medical/heme 13. Mild coagulopathy -correct prn Thank you very much for consulting me in this patient's care, Problems: Consultation Date/Type/Reason Admit Date/Time Apr 10, 2017 at 17:54 Date of Consultation: Apr 11, 2017 Type of Consultation: Gen Surgical Reason for Consultation Abdominal pain Abdominal wall fluid collection 1 month following abdominal hysterectomy BMI 28 DM ?SLE Referring Provider: NIA GAYTAN MD Hx of Present Illness Yaneth Rehman is a 47yo female with multiple comorbidities underwent abdominal hysterectomy by Dr. Platt 03/13/17. Since surgery she had developed generalized pains and sorethroat with occasional nausea and vomiting. She reports subjective fevers and chills. She was placed on abx for strep throat recently but symptoms did not improved. She presented to the hospital today for further w/u and treatment. She is found to have significant leukocytosis, electrolyte abnormality and renal failure. CT is noted to have a subcutaneous fluid collection. Surgical consult is obtained for further evaluation and treatment. I was unable to access records till recently since the emr systems were down earlier. Constitutional: chills, diaphoresis, poor po, requiring IVF Eyes: No pain, No redness ENT: congestion, dysphagia, sore throat, No bleeding, No discharge Respiratory: No cough, No shortness of breath Cardiovascular: No chest pain, No lightheadedness, No orthopenea Gastrointestinal: constipation, nausea, pain, No vomiting Genitourinary: No bleeding, No dysuria Musculoskeletal: back pain, No neck pain Skin: No bruising, No erythema Neurologic: confusion, dizziness Endocrine: No polydypsia, No polyuria Lymphatic: No adenopathy, No tender nodes Psychological: nl mood/affect, No anxiety Immunologic: No pruritis Past Medical History DM BMI 28 ?SLE Anemia Hyperlipidemia DJD Acute renal failure Acute sepsis Encephalopathy 2nd sepsis Hyperkalemia, acute Significant leukocytosis Hypoalbuminemia Hx of menometrorrhagia 0.8 cm calculus proximal left ureter Hepatosplenomegaly Coagulopathy, acute Past Surgical History Total abdominal hysterectomy with bilateral ovarian cystectomy by Dr. Platt 03/13 C/S x 4 Tonsillectomy and adenoidectomy as a child Carpal tunnel syndrome repair Family History Significant Family History: no pertinent family hx Social History Alcohol Use: occasionally Smoking Status: Former smoker (quit last month. used to drink pack/2 days) Drug Use: none Exam/Review of Systems Vital Signs Vitals Vital Signs Date Time Temp Pulse Resp B/P Pulse Ox O2 Delivery O2 Flow Rate FiO2 04/11/17 13:38 98.6 90 19 116/55 95 04/11/17 03:55 Room Air Intake and Output 04/10/17 04/10/17 04/11/17 15:00 23:00 07:00 Intake Total 0 ml 975 ml Output Total 130 ml Balance 0 ml 845 ml Exam Constitutional: No distress, No oriented (not oriented to date) Psych: anxiety, confusion Head: atraumatic, normocephalic Eyes: EOMI, PERRL, nl conjunctiva, No icteric ENMT: nl external ears & nose, nl lips & teeth, No mucosa pink and moist Neck: non-tender, No jvd Respiratory: normal air movement, No congested cough, No labored breathing Cardiovascular: regular rate and rhythm, No edema Gastrointestinal: distended, soft, surgical scars, tender (with induration at the scar), No rebound or guarding Musculoskeletal: nl extremities to inspection, No joint tenderness Extremities: normal pulses, No calf tenderness, No cyanosis Neurological: nl mental status, nl speech, nl strength Skin: nl turgor, No diaphoresis, No rash or lesions Lymph: nl lymph nodes, nontender Results CT: Fluid collections in the suprapubic abdominal wall in the rectus abdominous musculature and in the overlying subcutaneous fat are likely related to recent surgery. Differential diagnosis includes, but is not limited to, liquefied hematomas or postoperative seromas. The sterility of these collections cannot be determined and if there is concern for infection recommend diagnostic aspiration. 0.8 cm calculus proximal left ureter without left hydronephrosis. This is a potential cause for left flank pain. There are bilateral nonobstructing renal calculi. Hepatosplenomegaly is similar to prior exam and may be seen with lymphoproliferative disorders, systemic viral infection, anemias or liver disease. Mobile cecum without evidence of volvulus. Appendix is not identified. Result Diagram: 04/11/17 0433 04/11/17 0736 Results 24 hrs Laboratory Tests Test 04/10/17 19:17 04/10/17 21:39 04/10/17 23:20 04/11/17 04:32 White Blood Count 19.4 #H Red Blood Count 2.44 L Hemoglobin 7.2 L Hematocrit 21.5 L Mean Corpuscular Volume 88.1 Mean Corpuscular Hemoglobin 29.5 Mean Corpuscular Hemoglobin Concent 33.5 Red Cell Distribution Width 15.3 H Platelet Count 219 # Mean Platelet Volume 10.5 H Neutrophils % 90.4 H Lymphocytes % 3.0 L Monocytes % 4.2 Eosinophils % 0.3 Basophils % 0.2 Nucleated Red Blood Cells % 0.0 Neutrophils # (Manual) 18 H Lymphocytes # 0.6 L Monocytes # 0.8 Eosinophils # 0.1 Basophils # 0.0 Nucleated Red Blood Cells # 0.0 Sodium Level 135 Potassium Level 5.7 H Chloride Level 96 L Carbon Dioxide Level 11 L Anion Gap 34 H Blood Urea Nitrogen 87 H Creatinine 6.30 H Glucose Level 168 Calcium Level 10.0 Phosphorus Level 6.8 H Magnesium Level 1.4 L Total Bilirubin 0.0 L Direct Bilirubin 0.00 Indirect Bilirubin 0.0 Aspartate Amino Transf (AST/SGOT) 13 L Alanine Aminotransferase (ALT/SGPT) 25 Alkaline Phosphatase 253 H Total Protein 7.8 Albumin 3.6 Globulin 4.20 H Albumin/Globulin Ratio 0.85 Amylase Level 46 Bedside Glucose 167 Urine Color YELLOW Urine Clarity CLOUDY A Urine pH 5.0 Urine Specific [place] 1.015 Urine Ketones NEGATIVE Urine Nitrite NEGATIVE Urine Bilirubin NEGATIVE Urine Urobilinogen NEGATIVE Urine Leukocyte Esterase TRACE A Urine Microscopic RBC 1 Urine Microscopic WBC 14 H Urine Squamous Epithelial Cells FEW Urine Bacteria FEW A Urine Hemoglobin NEGATIVE Urine Random Sodium 17 L Urine Glucose 1+ H Urine Total Protein 2+ H Absolute Reticulocyte Count 0.025 Percent Reticulocyte Count 1.1 Test 04/11/17 04:33 04/11/17 07:10 04/11/17 07:36 04/11/17 08:05 White Blood Count 21.8 H Red Blood Count 2.33 L Hemoglobin 6.8 *L Hematocrit 20.9 L Mean Corpuscular Volume 89.7 Mean Corpuscular Hemoglobin 29.2 Mean Corpuscular Hemoglobin Concent 32.5 Red Cell Distribution Width 15.6 H Platelet Count 225 Mean Platelet Volume 10.9 H Neutrophils % 87.2 H Lymphocytes % 4.5 L Monocytes % 5.4 Eosinophils % 0.6 Basophils % 0.2 Nucleated Red Blood Cells % 0.0 Neutrophils # (Manual) 19 H Lymphocytes # 1.0 Monocytes # 1.2 H Eosinophils # 0.1 Basophils # 0.1 Nucleated Red Blood Cells # 0.0 Prothrombin Time 18.1 H Prothrombin Time Ratio 1.4 INR International Normalized Ratio 1.49 Activated Partial Thromboplast Time 46.2 H Urine Random Creatinine 165.03 Urine Random Sodium 19 L Sodium Level 135 Potassium Level 5.2 H Chloride Level 96 L Carbon Dioxide Level 13 L Anion Gap 31 H Blood Urea Nitrogen 92 H Creatinine 6.53 H Glucose Level 192 Lactic Acid Level 0.9 Calcium Level 9.2 Total Bilirubin 0.0 L Direct Bilirubin 0.00 Indirect Bilirubin 0.0 Aspartate Amino Transf (AST/SGOT) 11 L Alanine Aminotransferase (ALT/SGPT) 23 Alkaline Phosphatase 234 H Total Protein 7.0 Albumin 3.2 L Globulin 3.80 H Albumin/Globulin Ratio 0.84 Bedside Glucose 195 Test 04/11/17 12:12 Bedside Glucose 180 Medications Medications Current Medications Acetaminophen (Tylenol Tab) 650 mg Q6H PRN PO PAIN AND OR ELEVATED TEMP; Start 04/10/17 at 18:30 Diagnostic Test (Pha) (Accu-Chek) 1 ea 02 XX ; Start 04/11/17 at 02:00 Miscellaneous Information 1 ea NOTE XX ; Start 04/10/17 at 18:30 Glucose (Glutose) 15 gm Q15M PRN PO DECREASED GLUCOSE; Start 04/10/17 at 18:30 Glucose (Glutose) 22.5 gm Q15M PRN PO DECREASED GLUCOSE; Start 04/10/17 at 18: 30 Dextrose (D50w Syringe) 25 ml Q15M PRN IV DECREASED GLUCOSE; Start 04/10/17 at 18:30 Dextrose (D50w Syringe) 50 ml Q15M PRN IV DECREASED GLUCOSE; Start 04/10/17 at 18:30 Glucagon (Glucagen) 1 mg Q15M PRN IM DECREASED GLUCOSE; Start 04/10/17 at 18:30 Glucose (Glutose) 15 gm Q15M PRN BUCCAL DECREASED GLUCOSE; Start 04/10/17 at 18 :30 Ondansetron HCl (Zofran Inj) 4 mg Q6H PRN IV NAUSEA AND/OR VOMITING; Start at 19:30 Hydromorphone HCl (Dilaudid) 0.5 mg Q4H PRN IV PAIN Last administered on 15:48; Admin Dose 0.5 MG; Start 04/10/17 at 19:30 Alprazolam (Xanax) 0.5 mg Q8H PRN PO ANXIETY; Start 04/10/17 at 20:00 Amitriptyline HCl (Elavil) 100 mg HS PO Last administered on 04/10/17 21:40; Admin Dose 100 MG; Start 04/10/17 at 21:00 Pantoprazole (Protonix Tab) 40 mg DAILY@06 PO Last administered on 04/11/17 05 :09; Admin Dose 40 MG; Start 04/11/17 at 06:00 Eye Lubricant 2 drop 2 drop TID BOTH EYES Last administered on 04/11/17 13:34 ; Admin Dose 2 DROP; Start 04/11/17 at 09:00 Piperacillin Sod/ Tazobactam Sod 50 ml @ 100 mls/hr Q8 IVPB Last administered on 04/11/17 15:11; Admin Dose 100 MLS/HR; Start 04/10/17 at 23:30 Sodium Bicarbonate/ Dextrose (Na Bicarb/D5W) 1,000 ml @ 150 mls/hr Q6H40M IV Last administered on 04/11/17 15:11; Admin Dose 150 MLS/HR; Start 04/10/17 at 23:45 Insulin Glargine (Lantus) 8 unit DAILY@20 SC ; Start 04/11/17 at 20:00 MERT CHATMAN MD Apr 11, 2017 17:37
[2017-04-11] MEDS ORDERED: HYDROmorphONE 1 MG/ML SYG IV STA (18:23)
[2017-04-11] MEDS: PHYTONADIONE (1 MG/ML PO SYG) PO SCH ×2 (20:00→23:57)
[2017-04-11 20:14] VITALS: BP 95/49; RESP 20
[2017-04-11] MEDS: AMITRIPTYLINE 50 MG TAB PO SCH (20:22)
[2017-04-11] MEDS: INSULIN GLARGINE [LANtus] 3 ML PEN SC SCH (20:28)
[2017-04-11 21:17] LABS: ABNORMAL IP MESSAGE 1; BASOPHIL # 0.1 10^3/ul (0.0-0.1); BASOPHILS % 0.3 % (0.0-2.0); EOSINOPHILS # 0.2 10^3/ul (0.0-0.5); EOSINOPHILS % 1.1 % (0.0-7.0); HEMATOCRIT 20.2 % (37.0-47.0); LYMPHOCYTES # 0.7 10^3/ul (0.8-2.9); LYMPHOCYTES % 4.2 % (15.0-51.0); MEAN CORPUSCULAR HEMOGLOBIN 29.2 pg (29.0-33.0); MEAN CORPUSCULAR HGB CONC 34.2 g/dl (32.0-37.0); MEAN CORPUSCULAR VOLUME 85.6 fl (82.0-101.0); MEAN PLATELET VOLUME 10.2 fl (7.4-10.4); MONOCYTE # 0.9 10^3/ul (0.3-0.9); MONOCYTES % 5.3 % (0.0-11.0); NEUTROPHILS % 87.3 % (39.0-77.0); PLATELET COUNT 193 10^3/UL (140-415); RED BLOOD COUNT 2.36 10^6/ul (4.20-5.40); RED CELL DISTRIBUTION WIDTH 15.3 % (11.5-14.5)
[2017-04-11 21:37] LABS: CREATININE 7.18 mg/dl (0.44-1.00); POTASSIUM 3.8 mmol/L (3.5-5.1)
[2017-04-11 21:43] LABS: HEMOGLOBIN 6.9 g/dl (12.0-16.0); POSITIVE DIFF @See below
--- NOTE | 2017-04-11 22:01 | CONS ---
Date/Time of Note Date/Time of Note DATE: 04/11/17 TIME: 21:38 Assessment/Plan Assessment/Plan Chief Complaint/Hosp Course Renal failure, etiology either due to sepsis with a very muted presenting picture, or medication induced. Sepsis. Diabetes. SLE. Problems: Additional Assessment/Plan Will drain the fluid from the easily accessible area on the mons. Pt declined drainage on the night of admit as she needed pain meds first so planned for tomorrow AM, at bedside. IV antibiotics per Dr Nieves. Care of medications and diabetes per Dr Nieves. Overall will stop all the meds affecting renal function. Reviewed the CT with the radiologist and the findings and labwork with Dr Nieves. Consultation Date/Type/Reason Admit Date/Time Apr 10, 2017 at 17:54 Date of Consultation: Apr 10, 2017 Type of Consultation: TOWN CLERK Reason for Consultation Surgical wound infection in my postoperative pt. Hx of Present Illness 47 y.o. s/p MAAME 03/12 for menorrhagia unresponsive to medical management with adenomyosis on pathology. Pt did well postoperatively except did receive 2 units PRBC's post-op. She was seen at 2 weeks post-op and was doing well without complaints. Her incision was healing well and was minimally, appropriately, tender. Pt was not needing any more narcotics and was occasionally taking Motrin only. It was noted that she had lost weight (15#) but she had reported her appetite as being suppressed and we had spoken about her 50# weight gain over the last 5 years which made her surgery much more difficult as the weight was all put on abdominally and the pt stated that she had taken that to heart. Apparently the pt continued to have a low appetite and started to feel some fatigue and then got strep throat 04/06 and went to see Dr Nieves who gave her Amoxicillin and nate some labwork. The results came back on 04/09 showing a normal white count but the pt was in renal failure with an elevated creatinine of over 6. She was called back for a repeat test and it was revealed to be a real value and was admitted to the hospital. Pt reports that on the day of admission, in the morning, she suddenly had a very tender lump below the left half of the incision. She was afebrile. She also then reported that her urine output was somewhat less than normal but not dark in color. She was drinking at least 2 quarts of water /day ever since the surgery, which is normal for her. Constitutional: chills, diaphoresis, disoriented, poor po, requiring IVF Eyes: No pain, No redness ENT: sore throat, No bleeding, No discharge Respiratory: No cough, No shortness of breath Cardiovascular: No chest pain, No lightheadedness, No orthopenea Gastrointestinal: pain, No vomiting Genitourinary: No bleeding, No dysuria Musculoskeletal: back pain, No neck pain Skin: other (swelling left lower edge of incision), No bruising, No erythema Neurologic: confusion, dizziness Endocrine: No polydypsia, No polyuria Lymphatic: No adenopathy, No tender nodes Psychological: anxiety, confusion Immunologic: No pruritis Past Medical History PMHx: Type 2 DM. Systemic lupus erythematosis. Hyperlipidemia. Bipolar disorder. Sarcoid- in remission since 1996. ALL: Cephalosporins. Latex. Past Surgical History PSHx: MAAME 03/12/17. x 3. Tonsillectomy. Multiple lithotripsies. B9 right ovarian cystectomy 2011. Social History Alcohol Use: occasionally Smoking Status: Former smoker (quit last month. used to drink pack/2 days) Drug Use: none Exam/Review of Systems Vital Signs Vitals Vital Signs Date Time Temp Pulse Resp B/P Pulse Ox O2 Delivery O2 Flow Rate FiO2 04/11/17 20:14 98.5 89 20 95/49 98 04/11/17 03:55 Room Air Intake and Output 04/10/17 04/10/17 04/11/17 15:00 23:00 07:00 Intake Total 0 ml 975 ml Output Total 130 ml Balance 0 ml 845 ml Exam Constitutional: alert, other (somewhat disoriented), well developed Psych: nl mood/affect, no complaints Head: normocephalic Eyes: nl conjunctiva Neck: non-tender, supple Respiratory: clear to auscultation, normal air movement Cardiovascular: nl pulses, regular rate and rhythm Gastrointestinal: non-tender, soft Genitourinary - Female: CVA tenderness (Bilaterally) Skin: other (swelling left lower edge of incision that is tender to touch with a faint redness; no drainage) Results Result Diagram: 04/11/17 0433 04/11/17 0736 Results 24 hrs Laboratory Tests Test 04/10/17 21:39 04/10/17 23:20 04/11/17 04:32 04/11/17 04:33 Bedside Glucose 167 Urine Color YELLOW Urine Clarity CLOUDY A Urine pH 5.0 Urine Specific [place] 1.015 Urine Ketones NEGATIVE Urine Nitrite NEGATIVE Urine Bilirubin NEGATIVE Urine Urobilinogen NEGATIVE Urine Leukocyte Esterase TRACE A Urine Microscopic RBC 1 Urine Microscopic WBC 14 H Urine Squamous Epithelial Cells FEW Urine Bacteria FEW A Urine Hemoglobin NEGATIVE Urine Random Sodium 17 L Urine Glucose 1+ H Urine Total Protein 2+ H Absolute Reticulocyte Count 0.025 Percent Reticulocyte Count 1.1 White Blood Count 21.8 H Red Blood Count 2.33 L Hemoglobin 6.8 *L Hematocrit 20.9 L Mean Corpuscular Volume 89.7 Mean Corpuscular Hemoglobin 29.2 Mean Corpuscular Hemoglobin Concent 32.5 Red Cell Distribution Width 15.6 H Platelet Count 225 Mean Platelet Volume 10.9 H Neutrophils % 87.2 H Lymphocytes % 4.5 L Monocytes % 5.4 Eosinophils % 0.6 Basophils % 0.2 Nucleated Red Blood Cells % 0.0 Neutrophils # (Manual) 19 H Lymphocytes # 1.0 Monocytes # 1.2 H Eosinophils # 0.1 Basophils # 0.1 Nucleated Red Blood Cells # 0.0 Prothrombin Time 18.1 H Prothrombin Time Ratio 1.4 INR International Normalized Ratio 1.49 Activated Partial Thromboplast Time 46.2 H Test 04/11/17 07:10 04/11/17 07:36 04/11/17 08:05 04/11/17 12:12 Urine Random Creatinine 165.03 Urine Random Sodium 19 L Sodium Level 135 Potassium Level 5.2 H Chloride Level 96 L Carbon Dioxide Level 13 L Anion Gap 31 H Blood Urea Nitrogen 92 H Creatinine 6.53 H Glucose Level 192 Lactic Acid Level 0.9 Calcium Level 9.2 Total Bilirubin 0.0 L Direct Bilirubin 0.00 Indirect Bilirubin 0.0 Aspartate Amino Transf (AST/SGOT) 11 L Alanine Aminotransferase (ALT/SGPT) 23 Alkaline Phosphatase 234 H Total Protein 7.0 Albumin 3.2 L Globulin 3.80 H Albumin/Globulin Ratio 0.84 Bedside Glucose 195 180 Test 04/11/17 17:49 04/11/17 20:21 04/11/17 21:09 Bedside Glucose 242 H 194 White Blood Count Pending Red Blood Count Pending Hemoglobin Pending Hematocrit Pending Mean Corpuscular Volume Pending Mean Corpuscular Hemoglobin Pending Mean Corpuscular Hemoglobin Concent Pending Red Cell Distribution Width Pending Platelet Count Pending Mean Platelet Volume Pending Medications Medications Current Medications Acetaminophen (Tylenol Tab) 650 mg Q6H PRN PO PAIN AND OR ELEVATED TEMP; Start 04/10/17 at 18:30 Diagnostic Test (Pha) (Accu-Chek) 1 ea 02 XX ; Start 04/11/17 at 02:00 Miscellaneous Information 1 ea NOTE XX ; Start 04/10/17 at 18:30 Glucose (Glutose) 15 gm Q15M PRN PO DECREASED GLUCOSE; Start 04/10/17 at 18:30 Glucose (Glutose) 22.5 gm Q15M PRN PO DECREASED GLUCOSE; Start 04/10/17 at 18: 30 Dextrose (D50w Syringe) 25 ml Q15M PRN IV DECREASED GLUCOSE; Start 04/10/17 at 18:30 Dextrose (D50w Syringe) 50 ml Q15M PRN IV DECREASED GLUCOSE; Start 04/10/17 at 18:30 Glucagon (Glucagen) 1 mg Q15M PRN IM DECREASED GLUCOSE; Start 04/10/17 at 18:30 Glucose (Glutose) 15 gm Q15M PRN BUCCAL DECREASED GLUCOSE; Start 04/10/17 at 18 :30 Ondansetron HCl (Zofran Inj) 4 mg Q6H PRN IV NAUSEA AND/OR VOMITING; Start at 19:30 Hydromorphone HCl (Dilaudid) 0.5 mg Q4H PRN IV PAIN Last administered on 20:50; Admin Dose 0.5 MG; Start 04/10/17 at 19:30 Alprazolam (Xanax) 0.5 mg Q8H PRN PO ANXIETY; Start 04/10/17 at 20:00 Pantoprazole (Protonix Tab) 40 mg DAILY@06 PO Last administered on 04/11/17 05 :09; Admin Dose 40 MG; Start 04/11/17 at 06:00 Eye Lubricant 2 drop 2 drop TID BOTH EYES Last administered on 04/11/17 13:34 ; Admin Dose 2 DROP; Start 04/11/17 at 09:00 Piperacillin Sod/ Tazobactam Sod 50 ml @ 100 mls/hr Q8 IVPB Last administered on 04/11/17 21:10; Admin Dose 100 MLS/HR; Start 04/10/17 at 23:30 Sodium Bicarbonate/ Dextrose (Na Bicarb/D5W) 1,000 ml @ 150 mls/hr Q6H40M IV Last administered on 04/11/17 15:11; Admin Dose 150 MLS/HR; Start 04/10/17 at 23:45 Insulin Glargine (Lantus) 8 unit DAILY@20 SC Last administered on 04/11/17 20: 28; Admin Dose 8 UNIT; Start 04/11/17 at 20:00 Phytonadione (Vitamin K Soln) 10 mg ONCE PO ; Start 04/11/17 at 20:00; Stop at 23:00 Amitriptyline HCl (Elavil) 200 mg HS PO Last administered on 04/11/17 20:22; Admin Dose 200 MG; Start 04/11/17 at 21:00 Aripiprazole (Abilify) 20 mg DAILY PO ; Start 04/12/17 at 09:[address] done showing a fluid collection in the pubic area and another one in the rectus muscle both without gas. B/l kidneys w/o hydronephrosis but there is a kidney stone in the left kidney on the lower pole and there is another, non- obstructing one, of the same size in the left ureter. BENJAMIN MORRISON MD Apr 11, 2017 21:49
--- NOTE | 2017-04-11 22:11 | QN ---
Documentation Comment Came to drain the incision and Dr Preciado had been prior and manipulated the area in question and shortly thereafter when the pt got up to go to the bathroom the incision drained a very large amount of pus. Per the RN who witnessed the event she said the amount that drained could easily be 700-900 ml. I cleaned the area with betadine, then probed the opening with a sterile Q- tip and gently scrubbed all the mckeon of the pocket. I could not feel a gap in the fascia. I then irrigated the incision several times until the water that came out ran clear. The area was cleaned again with betadine and then irrigated. A sterile pad was then placed over the opening with tape. Reviewed all with Dr Preciado and Dr Nieves. WBC 21K today. K+ 5.2. Creatine 6.53. Pt receiving 2 units PRBC's. On Zosyn. BENJAMIN MORRISON MD Apr 11, 2017 22:10
[2017-04-11 22:25] LABS: IRON 19 ug/dl (35-150)
[2017-04-11 22:35] LABS: TOTAL IRON BINDING CAPACITY 192 ug/dl (241-421)
[2017-04-12] MEDS: SODIUM BICARBONATE (IV ADD) 150 MEQ in DEXTROSE 5% 850 ML IV SCH ×2 (00:51→03:16)
[2017-04-12] MEDS: ACCU-CHEK XX SCH (02:00)
[2017-04-12 02:05] VITALS: BP 104/50; RESP 18
[2017-04-12] MEDS: HYDROmorphONE 1 MG/ML SYG IV PRN ×3 (02:24→19:51)
[2017-04-12 05:39] LABS: BASOPHILS % 0.2 % (0.0-2.0); EOSINOPHILS # 0.2 10^3/ul (0.0-0.5); EOSINOPHILS % 1.9 % (0.0-7.0); HEMATOCRIT 21.5 % (37.0-47.0); HEMOGLOBIN 7.5 g/dl (12.0-16.0); LYMPHOCYTES # 0.8 10^3/ul (0.8-2.9); LYMPHOCYTES % 6.4 % (15.0-51.0); MEAN CORPUSCULAR HEMOGLOBIN 30.2 pg (29.0-33.0); MEAN CORPUSCULAR HGB CONC 34.9 g/dl (32.0-37.0); MEAN CORPUSCULAR VOLUME 86.7 fl (82.0-101.0); MONOCYTE # 0.6 10^3/ul (0.3-0.9); MONOCYTES % 5.3 % (0.0-11.0); NEUTROPHILS % 84.4 % (39.0-77.0); PLATELET COUNT 181 10^3/UL (140-415); RED BLOOD COUNT 2.48 10^6/ul (4.20-5.40); WHITE BLOOD COUNT 12.2 10^3/ul (4.8-10.8)
[2017-04-12] MEDS: PIPER-TAZO 2.25 GM (PMX) 50 ML IVPB SCH ×3 (05:54→22:14)
[2017-04-12] MEDS: PANTOPRAZOLE (EC) 40 MG TAB PO SCH (05:54)
[2017-04-12 06:19] LABS: POTASSIUM 3.3 mmol/L (3.5-5.1)
[2017-04-12 06:20] LABS: ALBUMIN 2.6 g/dl (3.3-4.9); ALBUMIN/GLOBULIN RATIO 0.96; CALCIUM 7.3 mg/dl (8.4-10.2); CREATININE 6.31 mg/dl (0.44-1.00); TOTAL PROTEIN 5.3 g/dl (6.1-8.1)
[2017-04-12 07:44] VITALS: BP 106/54; RESP 18
--- NOTE | 2017-04-12 08:13 | PN ---
Date/Time of Note Date/Time of Note DATE: 04/12/17 TIME: 08:01 Assessment/Plan VTE Prophylaxis VTE Prophylaxis Intervention: SCD's Lines/Catheters Urinary Cath still in place: Yes Reason Cath still needed: skin wounds contaminated by urine Assessment/Plan Chief Complaint/Hosp Course feels better however bun and creatine still elevated K low .wbc down to 13,000 however hemoglobin down to 7.5 will defer to renal for management of these problems Problems: Assessment/Plan continue present rx per nephrology id and patient day coordinator will increase dose of insulin looks better today Subjective 24 Hr Interval Summary Free Text/Dictation patient feels much better since wound opened draining purulent material from prior surgical site. Exam/Review of Systems Vital Signs Vitals Vital Signs Date Time Temp Pulse Resp B/P Pulse Ox O2 Delivery O2 Flow Rate FiO2 04/12/17 07:44 97.9 74 18 106/54 92 04/11/17 03:55 Room Air Intake and Output 04/11/17 04/11/17 04/12/17 15:00 23:00 07:00 Intake Total 1150 ml 2215 ml Output Total 100 ml 300 ml Balance 1050 ml 1915 ml Exam vss heent negative lungs clear heart regular rhythm abdomen dressing lower abdomen less swelling. extremities no edema Results Result Diagram: 04/12/17 0446 04/12/17 0446 Results 24 hrs Laboratory Tests Test 04/11/17 08:05 04/11/17 12:12 04/11/17 17:49 04/11/17 20:21 Bedside Glucose 195 180 242 H 194 Test 04/11/17 21:09 04/12/17 02:14 04/12/17 04:46 04/12/17 07:18 White Blood Count 16.0 #H 12.2 #H Red Blood Count 2.36 L 2.48 L Hemoglobin 6.9 *L 7.5 L Hematocrit 20.2 L 21.5 L Mean Corpuscular Volume 85.6 86.7 Mean Corpuscular Hemoglobin 29.2 30.2 Mean Corpuscular Hemoglobin Concent 34.2 34.9 Red Cell Distribution Width 15.3 H 15.0 H Platelet Count 193 181 Mean Platelet Volume 10.2 11.0 H Neutrophils % 87.3 H 84.4 H Lymphocytes % 4.2 L 6.4 L Monocytes % 5.3 5.3 Eosinophils % 1.1 1.9 Basophils % 0.3 0.2 Nucleated Red Blood Cells % 0.0 0.0 Neutrophils # (Manual) 14 H 10 H Lymphocytes # 0.7 L 0.8 Monocytes # 0.9 0.6 Eosinophils # 0.2 0.2 Basophils # 0.1 0.0 Nucleated Red Blood Cells # 0.0 0.0 Sodium Level 132 L 133 L Potassium Level 3.8 3.3 L Chloride Level 92 L 90 L Carbon Dioxide Level 21 24 Anion Gap 23 #H 22 H Blood Urea Nitrogen 93 H 94 H Creatinine 7.18 H 6.31 H Glucose Level 179 182 Calcium Level 8.0 L 7.3 L Iron Level 19 L Total Iron Binding Capacity 192 L Percent Iron Saturation 10 L Ferritin 417.0 H Bedside Glucose 184 Erythrocyte Sedimentation Rate 140 H Lactic Acid Level 0.8 Total Bilirubin 0.0 L Direct Bilirubin 0.00 Indirect Bilirubin 0.0 Aspartate Amino Transf (AST/SGOT) 17 Alanine Aminotransferase (ALT/SGPT) 35 Alkaline Phosphatase 248 H Total Protein 5.3 #L Albumin 2.6 L Globulin 2.70 Albumin/Globulin Ratio 0.96 Complement C3 Pending Complement C4 Pending Lab Scanned Report BLOOD TRANSFUSION Medications Medications Current Medications Acetaminophen (Tylenol Tab) 650 mg Q6H PRN PO PAIN AND OR ELEVATED TEMP; Start 04/10/17 at 18:30 Diagnostic Test (Pha) (Accu-Chek) 1 ea 02 XX ; Start 04/11/17 at 02:00 Miscellaneous Information 1 ea NOTE XX ; Start 04/10/17 at 18:30 Glucose (Glutose) 15 gm Q15M PRN PO DECREASED GLUCOSE; Start 04/10/17 at 18:30 Glucose (Glutose) 22.5 gm Q15M PRN PO DECREASED GLUCOSE; Start 04/10/17 at 18: 30 Dextrose (D50w Syringe) 25 ml Q15M PRN IV DECREASED GLUCOSE; Start 04/10/17 at 18:30 Dextrose (D50w Syringe) 50 ml Q15M PRN IV DECREASED GLUCOSE; Start 04/10/17 at 18:30 Glucagon (Glucagen) 1 mg Q15M PRN IM DECREASED GLUCOSE; Start 04/10/17 at 18:30 Glucose (Glutose) 15 gm Q15M PRN BUCCAL DECREASED GLUCOSE; Start 04/10/17 at 18 :30 Ondansetron HCl (Zofran Inj) 4 mg Q6H PRN IV NAUSEA AND/OR VOMITING; Start at 19:30 Hydromorphone HCl (Dilaudid) 0.5 mg Q4H PRN IV PAIN Last administered on 02:24; Admin Dose 0.5 MG; Start 04/10/17 at 19:30 Alprazolam (Xanax) 0.5 mg Q8H PRN PO ANXIETY; Start 04/10/17 at 20:00 Pantoprazole (Protonix Tab) 40 mg DAILY@06 PO Last administered on 04/12/17 05 :54; Admin Dose 40 MG; Start 04/11/17 at 06:00 Eye Lubricant 2 drop 2 drop TID BOTH EYES Last administered on 04/11/17 13:34 ; Admin Dose 2 DROP; Start 04/11/17 at 09:00 Piperacillin Sod/ Tazobactam Sod 50 ml @ 100 mls/hr Q8 IVPB Last administered on 04/12/17 05:54; Admin Dose 100 MLS/HR; Start 04/10/17 at 23:30 Sodium Bicarbonate/ Dextrose (Na Bicarb/D5W) 1,000 ml @ 150 mls/hr Q6H40M IV Last administered on 04/12/17 00:51; Admin Dose 150 MLS/HR; Start 04/10/17 at 23:45 Insulin Glargine (Lantus) 8 unit DAILY@20 SC Last administered on 04/11/17 20: 28; Admin Dose 8 UNIT; Start 04/11/17 at 20:00 Amitriptyline HCl (Elavil) 200 mg HS PO Last administered on 04/11/17 20:22; Admin Dose 200 MG; Start 04/11/17 at 21:00 Aripiprazole (Abilify) 20 mg DAILY PO ; Start 04/12/17 at 09:00 KEN GANT MD Apr 12, 2017 08:13
[2017-04-12] MEDS: ARIPIPRAZOLE 10 MG TAB PO SCH (08:43)
[2017-04-12] MEDS: ARTIFICIAL TEARS 15 ML OPH BOTH EYES SCH ×3 (08:44→21:00)
[2017-04-12] MEDS: INSULIN ASPART [NOVOLOG] 3 ML PEN SC SCH ×4 (08:49→21:00)
[2017-04-12] MEDS ORDERED: POTASSIUM CHLORIDE (SR) 20 MEQ TAB PO STA (09:15)
--- NOTE | 2017-04-12 09:38 | CONS ---
Date/Time of Note Date/Time of Note DATE: 04/12/17 TIME: 09:29 Assessment/Plan Assessment/Plan Chief Complaint/Hosp Course #1. Acute renal failure. Most likely due to ATN from sepsis . Her renal function is better and urine output is increasing . #2 Abdominal pain. Due to post op abscess that has drained . She is afebrile with decreasing WBC #3 Anemia , she does not have evidence of GI bleeding. She is iron deficient . Will order IV iron and Epogen #4 Status post recent total abdominal hysterectomy #5 Diabetes mellitus type 2 #6. Hyperlipidemia Problems: Consultation Date/Type/Reason Admit Date/Time Apr 10, 2017 at 17:54 Initial Consult Date 04/11/17 Type of Consultation: renal Referring Provider: NIA GAYTAN MD 24 HR Interval Summary Free Text/Dictation She is awake and responsive . She is feeling better with less abdominal pain . Appetite is improving . Constitutional: improved Exam/Review of Systems Vital Signs Vitals Vital Signs Date Time Temp Pulse Resp B/P Pulse Ox O2 Delivery O2 Flow Rate FiO2 04/12/17 07:44 97.9 74 18 106/54 92 04/11/17 03:55 Room Air Intake and Output 04/11/17 04/11/17 04/12/17 15:00 23:00 07:00 Intake Total 1150 ml 2215 ml Output Total 100 ml 300 ml Balance 1050 ml 1915 ml Exam Constitutional: alert, oriented, well developed ENMT: nl external ears & nose, nl lips & teeth, nl nasal mucosa & septum Respiratory: clear to auscultation, normal air movement Cardiovascular: regular rate and rhythm Gastrointestinal: bowel sounds, soft, tender Musculoskeletal: nl extremities to inspection Results Result Diagram: 04/12/17 0446 04/12/17 0446 Results 24 hrs Laboratory Tests Test 04/11/17 12:12 04/11/17 17:49 04/11/17 20:21 04/11/17 21:09 Bedside Glucose 180 242 H 194 White Blood Count 16.0 #H Red Blood Count 2.36 L Hemoglobin 6.9 *L Hematocrit 20.2 L Mean Corpuscular Volume 85.6 Mean Corpuscular Hemoglobin 29.2 Mean Corpuscular Hemoglobin Concent 34.2 Red Cell Distribution Width 15.3 H Platelet Count 193 Mean Platelet Volume 10.2 Neutrophils % 87.3 H Lymphocytes % 4.2 L Monocytes % 5.3 Eosinophils % 1.1 Basophils % 0.3 Nucleated Red Blood Cells % 0.0 Neutrophils # (Manual) 14 H Lymphocytes # 0.7 L Monocytes # 0.9 Eosinophils # 0.2 Basophils # 0.1 Nucleated Red Blood Cells # 0.0 Sodium Level 132 L Potassium Level 3.8 Chloride Level 92 L Carbon Dioxide Level 21 Anion Gap 23 #H Blood Urea Nitrogen 93 H Creatinine 7.18 H Glucose Level 179 Calcium Level 8.0 L Iron Level 19 L Total Iron Binding Capacity 192 L Percent Iron Saturation 10 L Ferritin 417.0 H Test 04/12/17 02:14 04/12/17 04:46 04/12/17 07:18 04/12/17 08:41 Bedside Glucose 184 189 White Blood Count 12.2 #H Red Blood Count 2.48 L Hemoglobin 7.5 L Hematocrit 21.5 L Mean Corpuscular Volume 86.7 Mean Corpuscular Hemoglobin 30.2 Mean Corpuscular Hemoglobin Concent 34.9 Red Cell Distribution Width 15.0 H Platelet Count 181 Mean Platelet Volume 11.0 H Neutrophils % 84.4 H Lymphocytes % 6.4 L Monocytes % 5.3 Eosinophils % 1.9 Basophils % 0.2 Nucleated Red Blood Cells % 0.0 Neutrophils # (Manual) 10 H Lymphocytes # 0.8 Monocytes # 0.6 Eosinophils # 0.2 Basophils # 0.0 Nucleated Red Blood Cells # 0.0 Erythrocyte Sedimentation Rate 140 H Sodium Level 133 L Potassium Level 3.3 L Chloride Level 90 L Carbon Dioxide Level 24 Anion Gap 22 H Blood Urea Nitrogen 94 H Creatinine 6.31 H Glucose Level 182 Lactic Acid Level 0.8 Calcium Level 7.3 L Total Bilirubin 0.0 L Direct Bilirubin 0.00 Indirect Bilirubin 0.0 Aspartate Amino Transf (AST/SGOT) 17 Alanine Aminotransferase (ALT/SGPT) 35 Alkaline Phosphatase 248 H Total Protein 5.3 #L Albumin 2.6 L Globulin 2.70 Albumin/Globulin Ratio 0.96 Complement C3 Pending Complement C4 Pending Lab Scanned Report BLOOD TRANSFUSION Medications Medications Current Medications Acetaminophen (Tylenol Tab) 650 mg Q6H PRN PO PAIN AND OR ELEVATED TEMP; Start 04/10/17 at 18:30 Diagnostic Test (Pha) (Accu-Chek) 1 ea 02 XX ; Start 04/11/17 at 02:00 Miscellaneous Information 1 ea NOTE XX ; Start 04/10/17 at 18:30 Glucose (Glutose) 15 gm Q15M PRN PO DECREASED GLUCOSE; Start 04/10/17 at 18:30 Glucose (Glutose) 22.5 gm Q15M PRN PO DECREASED GLUCOSE; Start 04/10/17 at 18: 30 Dextrose (D50w Syringe) 25 ml Q15M PRN IV DECREASED GLUCOSE; Start 04/10/17 at 18:30 Dextrose (D50w Syringe) 50 ml Q15M PRN IV DECREASED GLUCOSE; Start 04/10/17 at 18:30 Glucagon (Glucagen) 1 mg Q15M PRN IM DECREASED GLUCOSE; Start 04/10/17 at 18:30 Glucose (Glutose) 15 gm Q15M PRN BUCCAL DECREASED GLUCOSE; Start 04/10/17 at 18 :30 Ondansetron HCl (Zofran Inj) 4 mg Q6H PRN IV NAUSEA AND/OR VOMITING; Start at 19:30 Hydromorphone HCl (Dilaudid) 0.5 mg Q4H PRN IV PAIN Last administered on 08:44; Admin Dose 0.5 MG; Start 04/10/17 at 19:30 Alprazolam (Xanax) 0.5 mg Q8H PRN PO ANXIETY; Start 04/10/17 at 20:00 Pantoprazole (Protonix Tab) 40 mg DAILY@06 PO Last administered on 04/12/17 05 :54; Admin Dose 40 MG; Start 04/11/17 at 06:00 Eye Lubricant 2 drop 2 drop TID BOTH EYES Last administered on 04/12/17 08:44 ; Admin Dose 2 DROP; Start 04/11/17 at 09:00 Piperacillin Sod/ Tazobactam Sod (Zosyn 2.25gm/ 50ml (Pmx)) 50 ml @ 100 mls/hr Q8 IVPB Last administered on 04/12/17 05:54; Admin Dose 100 MLS/HR; Start at 23:30 Insulin Glargine (Lantus) 8 unit DAILY@20 SC Last administered on 04/11/17 20: 28; Admin Dose 8 UNIT; Start 04/11/17 at 20:00 Amitriptyline HCl (Elavil) 200 mg HS PO Last administered on 04/11/17 20:22; Admin Dose 200 MG; Start 04/11/17 at 21:00 Aripiprazole (Abilify) 20 mg DAILY PO Last administered on 04/12/17 08:43; Admin Dose 20 MG; Start 04/12/17 at 09:00 Acetaminophen/ Hydrocodone Bitart 1 tab 1 tab Q4H PRN PO PAIN; Start 04/12/17 at 09:30; Status UNV Ferric Sodium Gluconate Complex 125 mg/Sodium Chloride 110 ml @ 110 mls/hr Q24H IVPB ; Start 04/12/17 at 09:30; Stop 04/16/17 at 10:29; Status UNV Potassium Chloride/Sodium Chloride (NS-KCl 20 Meq) 1,000 ml @ 125 mls/hr Q8H IV ; Start 04/12/17 at 09:30; Status UNV Epoetin [place] (Epogen (Esrd)) 10,000 units TuThSa@17 SC ; Start 04/12/17 at 17:00 ; Status UNV NIA GAYTAN MD Apr 12, 2017 09:37
--- NOTE | 2017-04-12 10:43 | CONS ---
Date/Time of Note Date/Time of Note DATE: 04/12/17 TIME: 10:37 Assessment/Plan Assessment/Plan Chief Complaint/Hosp Course 1) ARF no signs of obstruction but pt does have kidney stones u/a is not impressive urine cx is pending work-up per renal 04/12 - urine cx is NGTD urine output a bit improved creatinine slightly decreased 2) fluid collection around prior surgical site (ABSCESS) will order u/s of area to see if this is a simple fluid collection in light of her fever, elevated WBC concern would be that this is infected this will likely need to be drained, if a simple fluid collection then via IR if a complex fluid collection she may need surgical I&D continue with vanco/zosyn get nasal swab for MRSA 04/12 - pt spontaneously drained pus from around prior surgical site GNR is growing so far continue with vanco/zosyn but if only GNR will d/c vanco 3) abd pain this seems out of proportion to the fluid collection in suprapubic area she is anemic and maybe there is some vascular insufficiency contributing to this no diarrhea and no sign of bowel wall thickening so doubt infectious colitis will order lactic acid will check ESR, complement levels to verify no lupus flair (no other clinical signs to suggest this other than ARF) 04/12 - improved ESR is very high, await complement levels but will check anti DS DNA 4) leukocytosis likely due to infection doubt this is from a strep throat urine less likely the source given the fairly benign u/a abscess is high on my list blood cx have been done and pending 04/12 - improving on current antibiotics await ID from abscess site 5) SLE no joint pains currently but has ARF and abd pain check complement levels and ESR and consider anti-DS dna 04/12 - will check anti DS DNA Problems: Consultation Date/Type/Reason Admit Date/Time Apr 10, 2017 at 17:54 Initial Consult Date 04/10/17 Type of Consultation: ID Referring Provider: NIA GAYTAN MD 24 HR Interval Summary Free Text/Dictation pt has less pain since the abscess spontaneously drained no V, D no SOB Exam/Review of Systems Vital Signs Vitals Vital Signs Date Time Temp Pulse Resp B/P Pulse Ox O2 Delivery O2 Flow Rate FiO2 04/12/17 07:44 97.9 74 18 106/54 92 04/11/17 03:55 Room Air Intake and Output 04/11/17 04/11/17 04/12/17 15:00 23:00 07:00 Intake Total 1150 ml 2215 ml Output Total 100 ml 300 ml Balance 1050 ml 1915 ml Exam Constitutional: alert, oriented Head: normocephalic Eyes: nl sclera ENMT: mucosa pink and moist Respiratory: clear to auscultation Cardiovascular: regular rate and rhythm Gastrointestinal: soft, tender (tender to lower abd, pinkness of mons pubis is resolved, area is still draing pus like material) Results Result Diagram: 04/12/17 0446 04/12/17 0446 Results 24 hrs Laboratory Tests Test 04/11/17 12:12 04/11/17 17:49 04/11/17 20:21 04/11/17 21:09 Bedside Glucose 180 242 H 194 White Blood Count 16.0 #H Red Blood Count 2.36 L Hemoglobin 6.9 *L Hematocrit 20.2 L Mean Corpuscular Volume 85.6 Mean Corpuscular Hemoglobin 29.2 Mean Corpuscular Hemoglobin Concent 34.2 Red Cell Distribution Width 15.3 H Platelet Count 193 Mean Platelet Volume 10.2 Neutrophils % 87.3 H Lymphocytes % 4.2 L Monocytes % 5.3 Eosinophils % 1.1 Basophils % 0.3 Nucleated Red Blood Cells % 0.0 Neutrophils # (Manual) 14 H Lymphocytes # 0.7 L Monocytes # 0.9 Eosinophils # 0.2 Basophils # 0.1 Nucleated Red Blood Cells # 0.0 Sodium Level 132 L Potassium Level 3.8 Chloride Level 92 L Carbon Dioxide Level 21 Anion Gap 23 #H Blood Urea Nitrogen 93 H Creatinine 7.18 H Glucose Level 179 Calcium Level 8.0 L Iron Level 19 L Total Iron Binding Capacity 192 L Percent Iron Saturation 10 L Ferritin 417.0 H Test 04/12/17 02:14 04/12/17 04:46 04/12/17 07:18 04/12/17 08:41 Bedside Glucose 184 189 White Blood Count 12.2 #H Red Blood Count 2.48 L Hemoglobin 7.5 L Hematocrit 21.5 L Mean Corpuscular Volume 86.7 Mean Corpuscular Hemoglobin 30.2 Mean Corpuscular Hemoglobin Concent 34.9 Red Cell Distribution Width 15.0 H Platelet Count 181 Mean Platelet Volume 11.0 H Neutrophils % 84.4 H Lymphocytes % 6.4 L Monocytes % 5.3 Eosinophils % 1.9 Basophils % 0.2 Nucleated Red Blood Cells % 0.0 Neutrophils # (Manual) 10 H Lymphocytes # 0.8 Monocytes # 0.6 Eosinophils # 0.2 Basophils # 0.0 Nucleated Red Blood Cells # 0.0 Erythrocyte Sedimentation Rate 140 H Sodium Level 133 L Potassium Level 3.3 L Chloride Level 90 L Carbon Dioxide Level 24 Anion Gap 22 H Blood Urea Nitrogen 94 H Creatinine 6.31 H Glucose Level 182 Lactic Acid Level 0.8 Calcium Level 7.3 L Total Bilirubin 0.0 L Direct Bilirubin 0.00 Indirect Bilirubin 0.0 Aspartate Amino Transf (AST/SGOT) 17 Alanine Aminotransferase (ALT/SGPT) 35 Alkaline Phosphatase 248 H Total Protein 5.3 #L Albumin 2.6 L Globulin 2.70 Albumin/Globulin Ratio 0.96 Complement C3 Pending Complement C4 Pending Lab Scanned Report BLOOD TRANSFUSION Medications Medications Current Medications Acetaminophen (Tylenol Tab) 650 mg Q6H PRN PO PAIN AND OR ELEVATED TEMP; Start 04/10/17 at 18:30 Diagnostic Test (Pha) (Accu-Chek) 1 ea 02 XX ; Start 04/11/17 at 02:00 Miscellaneous Information 1 ea NOTE XX ; Start 04/10/17 at 18:30 Glucose (Glutose) 15 gm Q15M PRN PO DECREASED GLUCOSE; Start 04/10/17 at 18:30 Glucose (Glutose) 22.5 gm Q15M PRN PO DECREASED GLUCOSE; Start 04/10/17 at 18: 30 Dextrose (D50w Syringe) 25 ml Q15M PRN IV DECREASED GLUCOSE; Start 04/10/17 at 18:30 Dextrose (D50w Syringe) 50 ml Q15M PRN IV DECREASED GLUCOSE; Start 04/10/17 at 18:30 Glucagon (Glucagen) 1 mg Q15M PRN IM DECREASED GLUCOSE; Start 04/10/17 at 18:30 Glucose (Glutose) 15 gm Q15M PRN BUCCAL DECREASED GLUCOSE; Start 04/10/17 at 18 :30 Ondansetron HCl (Zofran Inj) 4 mg Q6H PRN IV NAUSEA AND/OR VOMITING; Start at 19:30 Hydromorphone HCl (Dilaudid) 0.5 mg Q4H PRN IV PAIN Last administered on 08:44; Admin Dose 0.5 MG; Start 04/10/17 at 19:30 Alprazolam (Xanax) 0.5 mg Q8H PRN PO ANXIETY; Start 04/10/17 at 20:00 Pantoprazole (Protonix Tab) 40 mg DAILY@06 PO Last administered on 04/12/17 05 :54; Admin Dose 40 MG; Start 04/11/17 at 06:00 Eye Lubricant 2 drop 2 drop TID BOTH EYES Last administered on 04/12/17 08:44 ; Admin Dose 2 DROP; Start 04/11/17 at 09:00 Piperacillin Sod/ Tazobactam Sod (Zosyn 2.25gm/ 50ml (Pmx)) 50 ml @ 100 mls/hr Q8 IVPB Last administered on 04/12/17 05:54; Admin Dose 100 MLS/HR; Start at 23:30 Insulin Glargine (Lantus) 8 unit DAILY@20 SC Last administered on 04/11/17 20: 28; Admin Dose 8 UNIT; Start 04/11/17 at 20:00 Amitriptyline HCl (Elavil) 200 mg HS PO Last administered on 04/11/17 20:22; Admin Dose 200 MG; Start 04/11/17 at 21:00 Aripiprazole (Abilify) 20 mg DAILY PO Last administered on 04/12/17 08:43; Admin Dose 20 MG; Start 04/12/17 at 09:00 Acetaminophen/ Hydrocodone Bitart 1 tab 1 tab Q4H PRN PO PAIN; Start 04/12/17 at 09:30 Ferric Sodium Gluconate Complex 125 mg/Sodium Chloride 110 ml @ 110 mls/hr Q24H IVPB ; Start 04/12/17 at 11:00; Stop 04/16/17 at 11:59 Potassium Chloride/Sodium Chloride (NS-KCl 20 Meq) 1,000 ml @ 125 mls/hr Q8H IV ; Start 04/12/17 at 09:30 Epoetin Jean Pierre (Epogen (Esrd)) 10,000 units TuThSa@17 SC ; Start 04/12/17 at 17:00 DIMITRIS ALAMO MD Apr 12, 2017 10:43
[2017-04-12] MEDS: NS + KCL 20 MEQ 1,000 ML IV SCH ×3 (11:05→22:14)
[2017-04-12] MEDS: SOD FERRIC GLUC COMPLX 125 MG in SOD CHLORIDE 0.9% 100 ML IVPB SCH (12:31)
[2017-04-12] MEDS: HYDROCODONE/APAP (10/325) TAB PO PRN ×3 (12:31→23:47)
[2017-04-12 14:30] VITALS: BP 114/54; RESP 18
[2017-04-12] MEDS: EPOETIN 10000 UNITS/1 ML INJ (ESRD) SC SCH (18:33)
[2017-04-12] MEDS: AMITRIPTYLINE 50 MG TAB PO SCH (21:23)
[2017-04-12] MEDS: INSULIN GLARGINE [LANtus] 3 ML PEN SC SCH (21:25)
--- NOTE | 2017-04-12 21:31 | PN ---
Date/Time of Note Date/Time of Note DATE: 04/12/17 TIME: 21:06 Assessment/Plan Lines/Catheters IV Catheter Type (from [facility]): Saline Lock Tran in Place (from [facility]): Yes Assessment/Plan Chief Complaint/Hosp Course 1. Abdominal wall collection abscess: draining copious amounts of pink, creamy drainage; cultures noted -ivf -iv abx -I&D per Hand Washer 2. Sepsis, encephalopathy, leukocytosis 2nd above; improving -as above -supportive 3. Acute renal failure 2nd above -as above -aggressive fluid management -correct lytes -avoid nephrotoxic agents 4. Hyperkalemia: now with hypokalemia 5. Anemia: multifactorial, hx of vag bleed requiring sx, sepsis, no overt bleed -tx prn -fluids 6. DM -diet/med control -encourage weight optimization 7. BMI 28 -diet/exercise optimization 8. ?SLE -medical management 9. Hyperlipidemia -diet/med optimization 10. DJD -medical optimization 11. Hypoalbuminemia, multifactorial -eventual diet optimization 12. Hepatosplenomegaly ? etiology -w/u per medical/heme 13. Mild coagulopathy -correct prn Thank you. Patient seen and examined in collaboration with Dr. Guillermo Preciado. Problems: Subjective 24 Hr Interval Summary Feeling better. Abdomen draining copious amounts of fluid when moving. No fevers , chills, abdominal pain, sob, congested cough, n/v/d/dysuria. Exam/Review of Systems Vital Signs Vitals Vital Signs Date Time Temp Pulse Resp B/P Pulse Ox O2 Delivery O2 Flow Rate FiO2 04/12/17 14:30 98.1 89 18 114/54 95 04/11/17 03:55 Room Air Intake and Output 04/11/17 04/11/17 04/12/17 15:00 23:00 07:00 Intake Total 1150 ml 2215 ml Output Total 100 ml 300 ml Balance 1050 ml 1915 ml Exam Free Text/Dictation Constitutional: No distress Psych: confusion but answers simple questions Head: atraumatic, normocephalic Eyes: EOMI, PERRL, nl conjunctiva, No icteric ENMT: nl external ears & nose, nl lips & teeth, No mucosa pink and moist Neck: non-tender, No jvd Respiratory: normal air movement, No congested cough, No labored breathing Cardiovascular: regular rate and rhythm, No edema Gastrointestinal: distended, soft, surgical scars, tender (with induration at the scar), No rebound or guarding Musculoskeletal: nl extremities to inspection, No joint tenderness Extremities: normal pulses, No calf tenderness, No cyanosis Neurological: nl mental status, nl speech, nl strength Skin: nl turgor, Left lower abdomen with small open area with copious creamy pink drainage No diaphoresis, No rash or lesions Lymph: nl lymph nodes, nontender Results Result Diagram: 04/12/17 0446 04/12/17 0446 TEJAL KAT NP Apr 12, 2017 21:17
[2017-04-12 21:35] VITALS: BP 118/60; RESP 20
[2017-04-12] MEDS: ALPRAZOLAM 0.5 MG TAB PO PRN (22:14)
--- NOTE | 2017-04-12 23:02 | QN ---
Documentation Comment Progress Note HD #2 Wound infection. Pt is feeling much better today. Her pain level is less. Pt is more conversant and coherent today. Started draining more fluid again from the incision in the afternoon. +BM. T=98.3 BP 118/60 HR 80 Urine output was 130 from admit to 0700 yesterday (about 10 hours), then 400 in next 24 hours, and then 1000 ml in the first 12 hours today. Wound culture growing gram negative rods and gram positive cocci in pairs. Urine and blood cultures are negative so far. WBC 12.2 Hgb 7.5 Plts 181K K+ 3.3 Cr 6.31 in the AM. Incision: Left side still with a faint pinkness above and below the incision. The fullness below the incision has completely subsided but is still cleaner. Dark blood-tinged cloudy fluid flows if area is pressed. The skin was cleaned with betadine. A sterile Q-tip was used to probe the incision and the mckeon of the abscess area were scrubbed with the probe. The fascial closure still feels intact. Sterile water was then used to irrigate the inside multiple times until the water flowed out fairly clear. The skin was then washed and wiped clean and a new abdominal pad was taped into place. A: Wound infection with sepsis/renal failure. Improving renal function. DM. SLE. P: Continue IV antibiotics and daily irrigations. Recheck labs in the AM. Pt encouraged to ambulate to encourage flow of the abscess from the inside. Pt may/should take a shower to clean the incision area with soap and water gently. BENJAMIN MORRISON MD Apr 12, 2017 23:01
[2017-04-13] MEDS: NS + KCL 20 MEQ 1,000 ML IV SCH ×5 (01:30→19:33)
[2017-04-13] MEDS: ACCU-CHEK XX SCH (02:00)
[2017-04-13 02:39] VITALS: BP 98/52; RESP 20
[2017-04-13] MEDS: PIPER-TAZO 2.25 GM (PMX) 50 ML IVPB SCH (05:17)
[2017-04-13] MEDS: PANTOPRAZOLE (EC) 40 MG TAB PO SCH (05:17)
[2017-04-13] MEDS: HYDROCODONE/APAP (10/325) TAB PO PRN ×4 (05:17→19:47)
[2017-04-13 05:26] LABS: BASOPHILS % 0.3 % (0.0-2.0); EOSINOPHILS # 0.2 10^3/ul (0.0-0.5); EOSINOPHILS % 3.4 % (0.0-7.0); HEMOGLOBIN 7.2 g/dl (12.0-16.0); LYMPHOCYTES % 14.6 % (15.0-51.0); MEAN CORPUSCULAR HEMOGLOBIN 29.1 pg (29.0-33.0); MEAN CORPUSCULAR HGB CONC 32.7 g/dl (32.0-37.0); MEAN CORPUSCULAR VOLUME 89.1 fl (82.0-101.0); MEAN PLATELET VOLUME 10.7 fl (7.4-10.4); MONOCYTE # 0.6 10^3/ul (0.3-0.9); MONOCYTES % 8.8 % (0.0-11.0); NEUTROPHILS % 69.1 % (39.0-77.0); PLATELET COUNT 186 10^3/UL (140-415); RED BLOOD COUNT 2.47 10^6/ul (4.20-5.40); RED CELL DISTRIBUTION WIDTH 15.1 % (11.5-14.5); WHITE BLOOD COUNT 6.8 10^3/ul (4.8-10.8)
[2017-04-13 05:47] LABS: ALBUMIN 2.8 g/dl (3.3-4.9); ALBUMIN/GLOBULIN RATIO 0.87; CALCIUM 7.5 mg/dl (8.4-10.2); CREATININE 5.06 mg/dl (0.44-1.00); MAGNESIUM 1.3 mg/dl (1.7-2.5); PHOSPHORUS 5.1 mg/dl (2.5-4.9); POTASSIUM 3.7 mmol/L (3.5-5.1)
[2017-04-13] MEDS: INSULIN ASPART [NOVOLOG] 3 ML PEN SC SCH ×4 (07:50→20:48)
--- NOTE | 2017-04-13 08:11 | PN ---
Date/Time of Note Date/Time of Note DATE: 04/13/17 TIME: 08:05 Assessment/Plan VTE Prophylaxis VTE Prophylaxis Intervention: anti-embolic stocking Lines/Catheters IV Catheter Type (from Nrsg): Saline Lock Urinary Cath still in place: Yes Reason Cath still needed: pres ulcer contaminated by urine Assessment/Plan Chief Complaint/Hosp Course feels better however bun and creatine still elevated K low .wbc down to 13,000 however hemoglobin down to 7.5 will defer to renal for management of these problems Problems: Assessment/Plan patients hemoglobin in the sevens again will transfuse 2nd unit packed cells. bun and creatinine not improving rx per nephrology'wound management per paper sealer, clinically look better however has a long way to go Cont'd Hospitalization Reason: still not stable medically Subjective 24 Hr Interval Summary Free Text/Dictation patient feeling better but still quite weak Exam/Review of Systems Vital Signs Vitals Vital Signs Date Time Temp Pulse Resp B/P Pulse Ox O2 Delivery O2 Flow Rate FiO2 04/13/17 02:39 97.6 81 20 98/52 98 04/11/17 03:55 Room Air Intake and Output 04/12/17 04/12/17 04/13/17 15:00 23:00 07:00 Intake Total 1900 ml 1165 ml Output Total 1000 ml 1300 ml Balance 900 ml -135 ml Exam vss heent negative lungs clear heart regular rhythm abd. soft Results Result Diagram: 04/13/17 0445 04/13/17 0445 Results 24 hrs Laboratory Tests Test 04/12/17 08:41 04/12/17 12:30 04/12/17 17:51 04/12/17 21:12 Bedside Glucose 189 172 139 150 Test 04/13/17 04:45 White Blood Count 6.8 # Red Blood Count 2.47 L Hemoglobin 7.2 L Hematocrit 22.0 L Mean Corpuscular Volume 89.1 Mean Corpuscular Hemoglobin 29.1 Mean Corpuscular Hemoglobin Concent 32.7 Red Cell Distribution Width 15.1 H Platelet Count 186 Mean Platelet Volume 10.7 H Neutrophils % 69.1 Lymphocytes % 14.6 L Monocytes % 8.8 Eosinophils % 3.4 Basophils % 0.3 Nucleated Red Blood Cells % 0.0 Neutrophils # (Manual) 4.7 Lymphocytes # 1.0 Monocytes # 0.6 Eosinophils # 0.2 Basophils # 0.0 Nucleated Red Blood Cells # 0.0 Sodium Level 143 Potassium Level 3.7 Chloride Level 98 Carbon Dioxide Level 27 Anion Gap 22 H Blood Urea Nitrogen 81 H Creatinine 5.06 H Glucose Level 138 # Calcium Level 7.5 L Phosphorus Level 5.1 H Magnesium Level 1.3 L Total Bilirubin 0.0 L Direct Bilirubin 0.00 Indirect Bilirubin 0.0 Aspartate Amino Transf (AST/SGOT) 18 Alanine Aminotransferase (ALT/SGPT) 31 Alkaline Phosphatase 226 H Total Protein 6.0 L Albumin 2.8 L Globulin 3.20 Albumin/Globulin Ratio 0.87 Random Vancomycin Level 12.0 Medications Medications Current Medications Acetaminophen (Tylenol Tab) 650 mg Q6H PRN PO PAIN AND OR ELEVATED TEMP; Start 04/10/17 at 18:30 Diagnostic Test (Pha) (Accu-Chek) 1 ea 02 XX ; Start 04/11/17 at 02:00 Miscellaneous Information 1 ea NOTE XX ; Start 04/10/17 at 18:30 Glucose (Glutose) 15 gm Q15M PRN PO DECREASED GLUCOSE; Start 04/10/17 at 18:30 Glucose (Glutose) 22.5 gm Q15M PRN PO DECREASED GLUCOSE; Start 04/10/17 at 18: 30 Dextrose (D50w Syringe) 25 ml Q15M PRN IV DECREASED GLUCOSE; Start 04/10/17 at 18:30 Dextrose (D50w Syringe) 50 ml Q15M PRN IV DECREASED GLUCOSE; Start 04/10/17 at 18:30 Glucagon (Glucagen) 1 mg Q15M PRN IM DECREASED GLUCOSE; Start 04/10/17 at 18:30 Glucose (Glutose) 15 gm Q15M PRN BUCCAL DECREASED GLUCOSE; Start 04/10/17 at 18 :30 Ondansetron HCl (Zofran Inj) 4 mg Q6H PRN IV NAUSEA AND/OR VOMITING; Start at 19:30 Hydromorphone HCl (Dilaudid) 0.5 mg Q4H PRN IV PAIN Last administered on 19:51; Admin Dose 0.5 MG; Start 04/10/17 at 19:30 Alprazolam (Xanax) 0.5 mg Q8H PRN PO ANXIETY Last administered on 04/12/17 22: 14; Admin Dose 0.5 MG; Start 04/10/17 at 20:00 Pantoprazole (Protonix Tab) 40 mg DAILY@06 PO Last administered on 04/13/17 05 :17; Admin Dose 40 MG; Start 04/11/17 at 06:00 Eye Lubricant 2 drop 2 drop TID BOTH EYES Last administered on 04/12/17 08:44 ; Admin Dose 2 DROP; Start 04/11/17 at 09:00 Piperacillin Sod/ Tazobactam Sod (Zosyn 2.25gm/ 50ml (Pmx)) 50 ml @ 100 mls/hr Q8 IVPB Last administered on 04/13/17 05:17; Admin Dose 100 MLS/HR; Start at 23:30 Insulin Glargine (Lantus) 8 unit DAILY@20 SC Last administered on 04/12/17 21: 25; Admin Dose 8 UNIT; Start 04/11/17 at 20:00 Amitriptyline HCl (Elavil) 200 mg HS PO Last administered on 04/12/17 21:23; Admin Dose 200 MG; Start 04/11/17 at 21:00 Aripiprazole (Abilify) 20 mg DAILY PO Last administered on 04/12/17 08:43; Admin Dose 20 MG; Start 04/12/17 at 09:00 Acetaminophen/ Hydrocodone Bitart 1 tab 1 tab Q4H PRN PO PAIN Last administered on 04/13/17 05:17; Admin Dose 1 TAB; Start 04/12/17 at 09:30 Ferric Sodium Gluconate Complex 125 mg/Sodium Chloride 110 ml @ 110 mls/hr Q24H IVPB Last administered on 04/12/17 12:31; Admin Dose 110 MLS/HR; Start at 11:00; Stop 04/16/17 at 11:59 Potassium Chloride/Sodium Chloride (NS-KCl 20 Meq) 1,000 ml @ 125 mls/hr Q8H IV Last administered on 04/13/17 07:52; Admin Dose 125 MLS/HR; Start 04/12/17 at 09:30 Epoetin Jean Pierre (Epogen (Esrd)) 10,000 units TuThSa@17 SC Last administered on 18:33; Admin Dose 10,000 UNITS; Start 04/12/17 at 17:00 KEN GANT MD Apr 13, 2017 08:10
[2017-04-13 08:27] VITALS: BP 102/54; RESP 18
[2017-04-13] MEDS: ARTIFICIAL TEARS 15 ML OPH BOTH EYES SCH ×3 (09:00→20:46)
[2017-04-13] MEDS: ARIPIPRAZOLE 10 MG TAB PO SCH (09:03)
--- NOTE | 2017-04-13 09:21 | CONS ---
Date/Time of Note Date/Time of Note DATE: 04/13/17 TIME: 09:18 Assessment/Plan Assessment/Plan Chief Complaint/Hosp Course #1. Acute renal failure. Most likely due to ATN from sepsis . Her renal function is better and urine output is increasing .She is now in diuretic phase of ATN . #2 Abdominal pain. Due to post op abscess that has drained . She is afebrile with decreasing WBC #3 Anemia , she does not have evidence of GI bleeding. She is iron deficient . Will order IV iron and Epogen . she will be given a 1 unit Blood transfusion today #4 Status post recent total abdominal hysterectomy #5 Diabetes mellitus type 2 #6. Hyperlipidemia Problems: Consultation Date/Type/Reason Admit Date/Time Apr 10, 2017 at 17:54 Initial Consult Date 04/11/17 Type of Consultation: renal Referring Provider: NIA GAYTAN MD 24 HR Interval Summary Constitutional: improved, no complaints Exam/Review of Systems Vital Signs Vitals Vital Signs Date Time Temp Pulse Resp B/P Pulse Ox O2 Delivery O2 Flow Rate FiO2 04/13/17 08:27 97.9 71 18 102/54 99 04/11/17 03:55 Room Air Intake and Output 04/12/17 04/12/17 04/13/17 14:59 22:59 06:59 Intake Total 1900 ml 1165 ml Output Total 1000 ml 1300 ml Balance 900 ml -135 ml Exam Constitutional: alert, oriented, well developed Psych: no complaints Respiratory: clear to auscultation, normal air movement Cardiovascular: regular rate and rhythm Gastrointestinal: soft, tender Musculoskeletal: nl extremities to inspection Results Result Diagram: 04/13/17 0445 04/13/17 0445 Results 24 hrs Laboratory Tests Test 04/12/17 12:30 04/12/17 17:51 04/12/17 21:12 04/13/17 04:45 Bedside Glucose 172 139 150 White Blood Count 6.8 # Red Blood Count 2.47 L Hemoglobin 7.2 L Hematocrit 22.0 L Mean Corpuscular Volume 89.1 Mean Corpuscular Hemoglobin 29.1 Mean Corpuscular Hemoglobin Concent 32.7 Red Cell Distribution Width 15.1 H Platelet Count 186 Mean Platelet Volume 10.7 H Neutrophils % 69.1 Lymphocytes % 14.6 L Monocytes % 8.8 Eosinophils % 3.4 Basophils % 0.3 Nucleated Red Blood Cells % 0.0 Neutrophils # (Manual) 4.7 Lymphocytes # 1.0 Monocytes # 0.6 Eosinophils # 0.2 Basophils # 0.0 Nucleated Red Blood Cells # 0.0 Sodium Level 143 Potassium Level 3.7 Chloride Level 98 Carbon Dioxide Level 27 Anion Gap 22 H Blood Urea Nitrogen 81 H Creatinine 5.06 H Glucose Level 138 # Calcium Level 7.5 L Phosphorus Level 5.1 H Magnesium Level 1.3 L Total Bilirubin 0.0 L Direct Bilirubin 0.00 Indirect Bilirubin 0.0 Aspartate Amino Transf (AST/SGOT) 18 Alanine Aminotransferase (ALT/SGPT) 31 Alkaline Phosphatase 226 H Total Protein 6.0 L Albumin 2.8 L Globulin 3.20 Albumin/Globulin Ratio 0.87 Random Vancomycin Level 12.0 Test 04/13/17 08:31 Bedside Glucose 136 Medications Medications Current Medications Acetaminophen (Tylenol Tab) 650 mg Q6H PRN PO PAIN AND OR ELEVATED TEMP; Start 04/10/17 at 18:30 Diagnostic Test (Pha) (Accu-Chek) 1 ea 02 XX ; Start 04/11/17 at 02:00 Miscellaneous Information 1 ea NOTE XX ; Start 04/10/17 at 18:30 Glucose (Glutose) 15 gm Q15M PRN PO DECREASED GLUCOSE; Start 04/10/17 at 18:30 Glucose (Glutose) 22.5 gm Q15M PRN PO DECREASED GLUCOSE; Start 04/10/17 at 18: 30 Dextrose (D50w Syringe) 25 ml Q15M PRN IV DECREASED GLUCOSE; Start 04/10/17 at 18:30 Dextrose (D50w Syringe) 50 ml Q15M PRN IV DECREASED GLUCOSE; Start 04/10/17 at 18:30 Glucagon (Glucagen) 1 mg Q15M PRN IM DECREASED GLUCOSE; Start 04/10/17 at 18:30 Glucose (Glutose) 15 gm Q15M PRN BUCCAL DECREASED GLUCOSE; Start 04/10/17 at 18 :30 Ondansetron HCl (Zofran Inj) 4 mg Q6H PRN IV NAUSEA AND/OR VOMITING; Start at 19:30 Hydromorphone HCl (Dilaudid) 0.5 mg Q4H PRN IV PAIN Last administered on t 19:51; Admin Dose 0.5 MG; Start 04/10/17 at 19:30 Alprazolam (Xanax) 0.5 mg Q8H PRN PO ANXIETY Last administered on 04/12/17 22: 14; Admin Dose 0.5 MG; Start 04/10/17 at 20:00 Pantoprazole (Protonix Tab) 40 mg DAILY@06 PO Last administered on 04/13/17 05 :17; Admin Dose 40 MG; Start 04/11/17 at 06:00 Eye Lubricant 2 drop 2 drop TID BOTH EYES Last administered on 04/12/17 08:44 ; Admin Dose 2 DROP; Start 04/11/17 at 09:00 Piperacillin Sod/ Tazobactam Sod (Zosyn 2.25gm/ 50ml (Pmx)) 50 ml @ 100 mls/hr Q8 IVPB Last administered on 04/13/17 05:17; Admin Dose 100 MLS/HR; Start at 23:30 Insulin Glargine (Lantus) 8 unit DAILY@20 SC Last administered on 04/12/17 21: 25; Admin Dose 8 UNIT; Start 04/11/17 at 20:00 Amitriptyline HCl (Elavil) 200 mg HS PO Last administered on 04/12/17 21:23; Admin Dose 200 MG; Start 04/11/17 at 21:00 Aripiprazole (Abilify) 20 mg DAILY PO Last administered on 04/13/17 09:03; Admin Dose 20 MG; Start 04/12/17 at 09:00 Acetaminophen/ Hydrocodone Bitart 1 tab 1 tab Q4H PRN PO PAIN Last administered on 04/13/17 09:03; Admin Dose 1 TAB; Start 04/12/17 at 09:30 Ferric Sodium Gluconate Complex 125 mg/Sodium Chloride 110 ml @ 110 mls/hr Q24H IVPB Last administered on 04/12/17 12:31; Admin Dose 110 MLS/HR; Start at 11:00; Stop 04/16/17 at 11:59 Potassium Chloride/Sodium Chloride (NS-KCl 20 Meq) 1,000 ml @ 100 mls/hr Q10H IV Last administered on 04/13/17 07:52; Admin Dose 125 MLS/HR; Start 8/24/17 at 09:30 Epoetin Jean Pierre 36655 units 10,000 units TuThSa@17 SC Last administered on t 18:33; Admin Dose 10,000 UNITS; Start 04/12/17 at 17:00 Magnesium Sulfate/ Sodium Chloride (Magnesium Sulfate/NS) 106 ml @ 35.333 mls/ hr ONCE IVPB ; Start 04/13/17 at 10:30; Stop 04/13/17 at 13:29 NIA GAYTAN MD Apr 13, 2017 09:21
--- NOTE | 2017-04-13 09:57 | CONS ---
Date/Time of Note Date/Time of Note DATE: 04/13/17 TIME: 09:55 Assessment/Plan Assessment/Plan Chief Complaint/Hosp Course 1) ARF no signs of obstruction but pt does have kidney stones u/a is not impressive urine cx is pending work-up per renal 04/12 - urine cx is NGTD urine output a bit improved creatinine slightly decreased 04/13 - good improvement in renal function 2) fluid collection around prior surgical site (ABSCESS) will order u/s of area to see if this is a simple fluid collection in light of her fever, elevated WBC concern would be that this is infected this will likely need to be drained, if a simple fluid collection then via IR if a complex fluid collection she may need surgical I&D continue with vanco/zosyn get nasal swab for MRSA 04/12 - pt spontaneously drained pus from around prior surgical site GNR is growing so far continue with vanco/zosyn but if only GNR will d/c vanco 04/13 - kleb and CoNS in wound cx, CoNS may not be significant, will await sensi' s on CoNS change antibiotics to vanco/unasyn 3) abd pain this seems out of proportion to the fluid collection in suprapubic area she is anemic and maybe there is some vascular insufficiency contributing to this no diarrhea and no sign of bowel wall thickening so doubt infectious colitis will order lactic acid will check ESR, complement levels to verify no lupus flair (no other clinical signs to suggest this other than ARF) 04/12 - improved ESR is very high, await complement levels but will check anti DS DNA 4) leukocytosis likely due to infection doubt this is from a strep throat urine less likely the source given the fairly benign u/a abscess is high on my list blood cx have been done and pending 04/12 - improving on current antibiotics await ID from abscess site 04/13 - resolved 5) SLE no joint pains currently but has ARF and abd pain check complement levels and ESR and consider anti-DS dna 04/12 - will check anti DS DNA Problems: Consultation Date/Type/Reason Admit Date/Time Apr 10, 2017 at 17:54 Initial Consult Date 04/10/17 Type of Consultation: ID Referring Provider: NIA GAYTAN MD 24 HR Interval Summary Free Text/Dictation pt doing better, less abd pain no SOB, V, D Exam/Review of Systems Vital Signs Vitals Vital Signs Date Time Temp Pulse Resp B/P Pulse Ox O2 Delivery O2 Flow Rate FiO2 04/13/17 08:27 97.9 71 18 102/54 99 04/11/17 03:55 Room Air Intake and Output 04/12/17 04/12/17 04/13/17 15:00 23:00 07:00 Intake Total 1900 ml 1165 ml Output Total 1000 ml 1300 ml Balance 900 ml -135 ml Exam Constitutional: alert, oriented Eyes: nl sclera ENMT: mucosa pink and moist Respiratory: clear to auscultation Cardiovascular: regular rate and rhythm Gastrointestinal: other (tenderness mostly in lower quadrats), soft Results Result Diagram: 04/13/1744404/13/17444 Results 24 hrs Laboratory Tests Test 04/12/17 12:30 04/12/17 17:51 04/12/17 21:12 04/13/17 04:45 Bedside Glucose 172 139 150 White Blood Count 6.8 # Red Blood Count 2.47 L Hemoglobin 7.2 L Hematocrit 22.0 L Mean Corpuscular Volume 89.1 Mean Corpuscular Hemoglobin 29.1 Mean Corpuscular Hemoglobin Concent 32.7 Red Cell Distribution Width 15.1 H Platelet Count 186 Mean Platelet Volume 10.7 H Neutrophils % 69.1 Lymphocytes % 14.6 L Monocytes % 8.8 Eosinophils % 3.4 Basophils % 0.3 Nucleated Red Blood Cells % 0.0 Neutrophils # (Manual) 4.7 Lymphocytes # 1.0 Monocytes # 0.6 Eosinophils # 0.2 Basophils # 0.0 Nucleated Red Blood Cells # 0.0 Sodium Level 143 Potassium Level 3.7 Chloride Level 98 Carbon Dioxide Level 27 Anion Gap 22 H Blood Urea Nitrogen 81 H Creatinine 5.06 H Glucose Level 138 # Calcium Level 7.5 L Phosphorus Level 5.1 H Magnesium Level 1.3 L Total Bilirubin 0.0 L Direct Bilirubin 0.00 Indirect Bilirubin 0.0 Aspartate Amino Transf (AST/SGOT) 18 Alanine Aminotransferase (ALT/SGPT) 31 Alkaline Phosphatase 226 H Total Protein 6.0 L Albumin 2.8 L Globulin 3.20 Albumin/Globulin Ratio 0.87 Random Vancomycin Level 12.0 Test 04/13/17 08:31 Bedside Glucose 136 Medications Medications Current Medications Acetaminophen (Tylenol Tab) 650 mg Q6H PRN PO PAIN AND OR ELEVATED TEMP; Start 8/22/17 at 18:30 Diagnostic Test (Pha) (Accu-Chek) 1 ea 02 XX ; Start 04/11/17 at 02:00 Miscellaneous Information 1 ea NOTE XX ; Start 04/10/17 at 18:30 Glucose (Glutose) 15 gm Q15M PRN PO DECREASED GLUCOSE; Start 04/10/17 at 18:30 Glucose (Glutose) 22.5 gm Q15M PRN PO DECREASED GLUCOSE; Start 04/10/17 at 18: 30 Dextrose (D50w Syringe) 25 ml Q15M PRN IV DECREASED GLUCOSE; Start 04/10/17 at 18:30 Dextrose (D50w Syringe) 50 ml Q15M PRN IV DECREASED GLUCOSE; Start 04/10/17 at 18:30 Glucagon (Glucagen) 1 mg Q15M PRN IM DECREASED GLUCOSE; Start 04/10/17 at 18:30 Glucose (Glutose) 15 gm Q15M PRN BUCCAL DECREASED GLUCOSE; Start 04/10/17 at 18 :30 Ondansetron HCl (Zofran Inj) 4 mg Q6H PRN IV NAUSEA AND/OR VOMITING; Start at 19:30 Hydromorphone HCl (Dilaudid) 0.5 mg Q4H PRN IV PAIN Last administered on 19:51; Admin Dose 0.5 MG; Start 04/10/17 at 19:30 Alprazolam (Xanax) 0.5 mg Q8H PRN PO ANXIETY Last administered on 04/12/17 22: 14; Admin Dose 0.5 MG; Start 04/10/17 at 20:00 Pantoprazole (Protonix Tab) 40 mg DAILY@06 PO Last administered on 04/13/17 05 :17; Admin Dose 40 MG; Start 04/11/17 at 06:00 Eye Lubricant 2 drop 2 drop TID BOTH EYES Last administered on 04/12/17 08:44 ; Admin Dose 2 DROP; Start 04/11/17 at 09:00 Piperacillin Sod/ Tazobactam Sod (Zosyn 2.25gm/ 50ml (Pmx)) 50 ml @ 100 mls/hr Q8 IVPB Last administered on 04/13/17 05:17; Admin Dose 100 MLS/HR; Start at 23:30 Insulin Glargine (Lantus) 8 unit DAILY@20 SC Last administered on 04/12/17 21: 25; Admin Dose 8 UNIT; Start 04/11/17 at 20:00 Amitriptyline HCl (Elavil) 200 mg HS PO Last administered on 04/12/17 21:23; Admin Dose 200 MG; Start 04/11/17 at 21:00 Aripiprazole (Abilify) 20 mg DAILY PO Last administered on 04/13/17 09:03; Admin Dose 20 MG; Start 04/12/17 at 09:00 Acetaminophen/ Hydrocodone Bitart 1 tab 1 tab Q4H PRN PO PAIN Last administered on 04/13/17 09:03; Admin Dose 1 TAB; Start 04/12/17 at 09:30 Ferric Sodium Gluconate Complex 125 mg/Sodium Chloride 110 ml @ 110 mls/hr Q24H IVPB Last administered on 04/12/17 12:31; Admin Dose 110 MLS/HR; Start at 11:00; Stop 04/16/17 at 11:59 Potassium Chloride/Sodium Chloride (NS-KCl 20 Meq) 1,000 ml @ 100 mls/hr Q10H IV Last administered on 04/13/17 07:52; Admin Dose 125 MLS/HR; Start 04/12/17 at 09:30 Epoetin [place] [address] units 10,000 units TuThSa@17 SC Last administered on 18:33; Admin Dose 10,000 UNITS; Start 04/12/17 at 17:00 Magnesium Sulfate/ Sodium Chloride (Magnesium Sulfate/NS) 106 ml @ 35.333 mls/ hr ONCE IVPB ; Start 04/13/17 at 10:30; Stop 04/13/17 at 13:29 DIMITRIS ALAMO MD Apr 13, 2017 09:57
[2017-04-13] MEDS ORDERED: MAGNESIUM SULFATE 3 GM in SOD CHLORIDE 0.9% 100 ML IVPB SCH (10:30)
--- NOTE | 2017-04-13 10:31 | PN ---
Date/Time of Note Date/Time of Note DATE: 04/13/17 TIME: 10:22 Assessment/Plan Lines/Catheters IV Catheter Type (from [facility]): Saline Lock Tran in Place (from [facility]): Yes Assessment/Plan Chief Complaint/Hosp Course 1. Abdominal wall collection abscess: draining copious amounts of pink, creamy drainage; cultures noted; s/p washout by diffuser operator -ivf -iv abx -per diffuser operator 2. Sepsis, encephalopathy, leukocytosis 2nd above; normalized -as above -supportive 3. Acute renal failure 2nd above; cr improving -as above -aggressive fluid management -correct lytes -avoid nephrotoxic agents 4. Hyperkalemia: now with hypokalemia 5. Anemia: multifactorial, hx of vag bleed requiring sx, sepsis, no overt bleed ; h/h stable -tx prn -fluids 6. DM -diet/med control -encourage weight optimization 7. BMI 28 -diet/exercise optimization 8. ?SLE -medical management 9. Hyperlipidemia -diet/med optimization 10. DJD -medical optimization 11. Hypoalbuminemia, multifactorial -eventual diet optimization 12. Hepatosplenomegaly ? etiology -w/u per medical/heme 13. Mild coagulopathy -correct prn Thank you. Patient seen and examined in collaboration with Dr. Guillermo Preciado. Problems: Subjective 24 Hr Interval Summary Feels much better. Continues to have large amount of drainage from abdomen. Leukocytosis normalized. S/p washout by diffuser operator. No fevers, chills, cp, palpitations , n/v/d/dysuria, wooten, dizziness. Exam/Review of Systems Vital Signs Vitals Vital Signs Date Time Temp Pulse Resp B/P Pulse Ox O2 Delivery O2 Flow Rate FiO2 04/13/17 08:27 97.9 71 18 102/54 99 04/11/17 03:55 Room Air Intake and Output 04/12/17 04/12/17 04/13/17 15:00 23:00 07:00 Intake Total 1900 ml 1165 ml Output Total 1000 ml 1300 ml Balance 900 ml -135 ml Exam Free Text/Dictation Constitutional: No distress Psych: nl; no anxiety Head: atraumatic, normocephalic Eyes: EOMI, PERRL, nl conjunctiva, No icteric ENMT: nl external ears & nose, nl lips & teeth, No mucosa pink and moist Neck: non-tender, No jvd Respiratory: normal air movement, No congested cough, No labored breathing Cardiovascular: regular rate and rhythm, No edema Gastrointestinal: distended, soft, surgical scars, tender (with induration at the scar), No rebound or guarding Musculoskeletal: nl extremities to inspection, No joint tenderness Extremities: normal pulses, No calf tenderness, No cyanosis Neurological: nl mental status, nl speech, nl strength Skin: nl turgor, Left lower abdomen with small open area with copious creamy pink drainage No diaphoresis, No rash or lesions Lymph: nl lymph nodes, nontender Results Result Diagram: 04/13/17 0445 04/13/17 0445 TEJAL KAT NP Apr 13, 2017 10:31
[2017-04-13] MEDS ORDERED: VANCOMYCIN 1 GM (PMX) 250 ML IVPB SCH (11:00)
[2017-04-13] MEDS: SOD FERRIC GLUC COMPLX 125 MG in SOD CHLORIDE 0.9% 100 ML IVPB SCH (11:04)
[2017-04-13] MEDS: AMPICILLIN/SULB 3 GM/NS (PMX) 100 ML IVPB SCH ×2 (12:08→20:48)
[2017-04-13 15:37] VITALS: BP 124/58; PULSE 75; RESP 18
--- NOTE | 2017-04-13 17:09 | RADRPT ---
Vent Rate: 84 bpm RR Interval: 0 msec [place] Interval: 192 msec QRS Duration: 108 msec QT Interval: 406 msec QTC Interval: 479 msec P-R-T [place]: 43 - 19 - 43 degrees Normal sinus rhythm Prolonged QT Abnormal ECG Electronically Signed By: Gordon Gunter [id number]
[2017-04-13 18:10] VITALS: BP 138/65; PULSE 68; RESP 20
[2017-04-13 18:25] VITALS: BP 142/65; PULSE 78; RESP 20
--- NOTE | 2017-04-13 18:44 | QN ---
Documentation Comment Progress Note HD #3 Wound infection. Pt is, again, feeling much better today. Her pain level is less. +BM. T=98.4 BP 124/58 HR 80 Urine output was 130 from admit to 0700 yesterday (about 10 hours), then 400 in next 24 hours, and then 2300 ml in the next 24 hours and she has 1240 so far today at less than 12 hours. Wound culture growing Klebsiella and staph. MRSA test is negative. Both sensitive to many things. On Vancomycin. Urine and blood cultures are negative so far. WBC 6.8 Hgb 7.2 Plts 186K K+ 3.7 Cr 5.06 in the AM. Incision: Left side still with no pinkness above and below the incision. The fullness below the incision has completely subsided but is tungsten tender. Dark blood-tinged cloudy fluid flows if area is pressed. The skin was cleaned with betadine. A sterile Q-tip was used to probe the incision and the mckeon of the abscess area were scrubbed with the probe. The fascial closure still feels intact. Sterile water was then used to irrigate the inside multiple times until the water flowed out fairly clear. The skin was then washed and wiped clean and a new abdominal pad was taped into place. A: Wound infection with sepsis/renal failure. Improving renal function. DM. SLE. P: Continue IV antibiotics and daily irrigations. Recheck labs in the AM. Pt encouraged to ambulate to encourage flow of the abscess from the inside. Pt may/should take a shower to clean the incision area with soap and water gently.She took one last night. BENJAMIN MORRISON MD Apr 13, 2017 18:43
[2017-04-13] MEDS: AMITRIPTYLINE 50 MG TAB PO SCH (20:30)
[2017-04-13] MEDS: INSULIN GLARGINE [LANtus] 3 ML PEN SC SCH (20:44)
[2017-04-13 21:04] VITALS: BP 139/64; RESP 20
[2017-04-14 02:00] VITALS: BP 146/70; PULSE 71; RESP 19
[2017-04-14] MEDS: ACCU-CHEK XX SCH (02:00)
[2017-04-14] MEDS: NS + KCL 20 MEQ 1,000 ML IV SCH ×2 (05:33→18:10)
[2017-04-14 05:37] LABS: ABNORMAL IP MESSAGE 1; HEMATOCRIT 24.2 % (37.0-47.0); HEMOGLOBIN 7.8 g/dl (12.0-16.0); MEAN CORPUSCULAR HEMOGLOBIN 29.2 pg (29.0-33.0); MEAN CORPUSCULAR HGB CONC 32.2 g/dl (32.0-37.0); MEAN CORPUSCULAR VOLUME 90.6 fl (82.0-101.0); MEAN PLATELET VOLUME 10.6 fl (7.4-10.4); PLATELET COUNT 191 10^3/UL (140-415); RED BLOOD COUNT 2.67 10^6/ul (4.20-5.40); RED CELL DISTRIBUTION WIDTH 14.9 % (11.5-14.5); WHITE BLOOD COUNT 6.2 10^3/ul (4.8-10.8)
[2017-04-14 05:45] LABS: ALBUMIN 2.8 g/dl (3.3-4.9); ALBUMIN/GLOBULIN RATIO 0.87; CALCIUM 8.5 mg/dl (8.4-10.2); CREATININE 3.27 mg/dl (0.44-1.00); POTASSIUM 3.7 mmol/L (3.5-5.1)
[2017-04-14 05:54] LABS: MAGNESIUM 2.1 mg/dl (1.7-2.5); PHOSPHORUS 5.1 mg/dl (2.5-4.9)
[2017-04-14] MEDS: PANTOPRAZOLE (EC) 40 MG TAB PO SCH (06:00)
[2017-04-14] MEDS: HYDROCODONE/APAP (10/325) TAB PO PRN ×2 (06:52→18:40)
[2017-04-14] MEDS: INSULIN ASPART [NOVOLOG] 3 ML PEN SC SCH ×4 (07:50→21:00)
[2017-04-14] MEDS: ARTIFICIAL TEARS 15 ML OPH BOTH EYES SCH ×3 (08:13→21:00)
[2017-04-14] MEDS: AMPICILLIN/SULB 3 GM/NS (PMX) 100 ML IVPB SCH ×2 (08:15→20:50)
[2017-04-14] MEDS: ARIPIPRAZOLE 10 MG TAB PO SCH (08:16)
[2017-04-14 09:33] VITALS: BP 145/65; RESP 18
--- NOTE | 2017-04-14 09:47 | CONS ---
Date/Time of Note Date/Time of Note DATE: 04/14/17 TIME: 09:46 Assessment/Plan Assessment/Plan Additional Assessment/Plan 1. Renal fx is improving. 2. Anemia noted, stable, receiving iron iv and procrit 3. Emery cath will be dc 4. Wound abscess, abx per ID Consultation Date/Type/Reason Admit Date/Time Apr 10, 2017 at 17:54 Initial Consult Date 04/10/17 Type of Consultation: ID Referring Provider: NIA GAYTAN MD Detailed Summary Respiratory: No cough, No shortness of breath Cardiovascular: No chest pain Gastrointestinal: no complaints Genitourinary: other (emery in place) Exam/Review of Systems Vital Signs Vitals Vital Signs Date Time Temp Pulse Resp B/P Pulse Ox O2 Delivery O2 Flow Rate FiO2 04/14/17 09:33 98.0 78 18 145/65 98 04/14/17 02:00 Room Air Intake and Output 04/13/17 04/13/17 04/14/17 15:00 23:00 07:00 Intake Total 210 ml 1656 ml 800 ml Output Total 1240 ml 1750 ml Balance 210 ml 416 ml -950 ml Exam Neck: No jvd Respiratory: clear to auscultation Cardiovascular: regular rate and rhythm Gastrointestinal: soft Extremities: No edema (and no calf tend) Results Result Diagram: 04/14/17 0415 04/14/17 0410 Results 24 hrs Laboratory Tests Test 04/13/17 20:28 04/14/17 04:10 04/14/17 04:15 04/14/17 08:32 Bedside Glucose 143 Sodium Level 141 Potassium Level 3.7 Chloride Level 103 Carbon Dioxide Level 25 Anion Gap 17 H Blood Urea Nitrogen 61 H Creatinine 3.27 #H Glucose Level 116 Calcium Level 8.5 Phosphorus Level 5.1 H Magnesium Level 2.1 Total Bilirubin 0.0 L Direct Bilirubin 0.00 Indirect Bilirubin 0.0 Aspartate Amino Transf (AST/SGOT) 20 Alanine Aminotransferase (ALT/SGPT) 35 Alkaline Phosphatase 226 H Total Protein 6.0 L Albumin 2.8 L Globulin 3.20 Albumin/Globulin Ratio 0.87 White Blood Count 6.2 Red Blood Count 2.67 L Hemoglobin 7.8 L Hematocrit 24.2 L Mean Corpuscular Volume 90.6 Mean Corpuscular Hemoglobin 29.2 Mean Corpuscular Hemoglobin Concent 32.2 Red Cell Distribution Width 14.9 H Platelet Count 191 Mean Platelet Volume 10.6 H Neutrophils % Lymphocytes % Monocytes % Eosinophils % Basophils % Nucleated Red Blood Cells % 0.0 Neutrophils # (Manual) 4.0 Lymphocytes # Monocytes # Eosinophils # Basophils # Nucleated Red Blood Cells # Lab Scanned Report BLOOD TRANSFUSION Medications Medications Current Medications Acetaminophen (Tylenol Tab) 650 mg Q6H PRN PO PAIN AND OR ELEVATED TEMP; Start 04/10/17 at 18:30 Diagnostic Test (Pha) (Accu-Chek) 1 ea 02 XX ; Start 04/11/17 at 02:00 Miscellaneous Information 1 ea NOTE XX ; Start 04/10/17 at 18:30 Glucose (Glutose) 15 gm Q15M PRN PO DECREASED GLUCOSE; Start 04/10/17 at 18:30 Glucose (Glutose) 22.5 gm Q15M PRN PO DECREASED GLUCOSE; Start 04/10/17 at 18: 30 Dextrose (D50w Syringe) 25 ml Q15M PRN IV DECREASED GLUCOSE; Start 04/10/17 at 18:30 Dextrose (D50w Syringe) 50 ml Q15M PRN IV DECREASED GLUCOSE; Start 04/10/17 at 18:30 Glucagon (Glucagen) 1 mg Q15M PRN IM DECREASED GLUCOSE; Start 04/10/17 at 18:30 Glucose (Glutose) 15 gm Q15M PRN BUCCAL DECREASED GLUCOSE; Start 04/10/17 at 18 :30 Ondansetron HCl (Zofran Inj) 4 mg Q6H PRN IV NAUSEA AND/OR VOMITING; Start at 19:30 Hydromorphone HCl (Dilaudid) 0.5 mg Q4H PRN IV PAIN Last administered on 19:51; Admin Dose 0.5 MG; Start 04/10/17 at 19:30 Alprazolam (Xanax) 0.5 mg Q8H PRN PO ANXIETY Last administered on 04/12/17 22: 14; Admin Dose 0.5 MG; Start 04/10/17 at 20:00 Pantoprazole (Protonix Tab) 40 mg DAILY@06 PO Last administered on 04/14/17 06 :00; Admin Dose 40 MG; Start 04/11/17 at 06:00 Eye Lubricant (Artificial Tears Oph) 2 drop TID BOTH EYES Last administered on 04/12/17 08:44; Admin Dose 2 DROP; Start 04/11/17 at 09:00 Insulin Glargine (Lantus) 8 unit DAILY@20 SC Last administered on 04/13/17 20: 44; Admin Dose 8 UNIT; Start 04/11/17 at 20:00 Amitriptyline HCl (Elavil) 200 mg HS PO Last administered on 04/13/17 20:30; Admin Dose 200 MG; Start 04/11/17 at 21:00 Aripiprazole (Abilify) 20 mg DAILY PO Last administered on 04/14/17 08:16; Admin Dose 20 MG; Start 04/12/17 at 09:00 Acetaminophen/ Hydrocodone Bitart 1 tab 1 tab Q4H PRN PO PAIN Last administered on 04/14/17 06:52; Admin Dose 1 TAB; Start 04/12/17 at 09:30 Ferric Sodium Gluconate Complex 125 mg/Sodium Chloride 110 ml @ 110 mls/hr Q24H IVPB Last administered on 04/13/17 11:04; Admin Dose 110 MLS/HR; Start at 11:00; Stop 04/16/17 at 11:59 Potassium Chloride/Sodium Chloride (NS-KCl 20 Meq) 1,000 ml @ 100 mls/hr Q10H IV Last administered on 04/14/17 05:33; Admin Dose 100 MLS/HR; Start 04/12/17 at 09:30 Epoetin [place] 56885 units 10,000 units TuThSa@17 SC Last administered on 18:33; Admin Dose 10,000 UNITS; Start 04/12/17 at 17:00 Ampicillin Sodium/ Sulbactam Sodium (Unasyn 3gm/NS (Pmx)) 100 ml @ 100 mls/hr Q12 IVPB Last administered on 04/14/17 08:15; Admin Dose 100 MLS/HR; Start at 11:00 MAXINE HANSEN MD Apr 14, 2017 09:47
[2017-04-14 09:48] VITALS: BP 132/58; PULSE 65; RESP 19
[2017-04-14] MEDS: SOD FERRIC GLUC COMPLX 125 MG in SOD CHLORIDE 0.9% 100 ML IVPB SCH (10:34)
[2017-04-14 10:55] LABS: EOSINOPHILS # 0.1 10^3/ul (0.0-0.5); EOSINOPHILS % (M) 1 % (0.0-7.0); METAMYELOCYTES %M 2 % (0-0); MONOCYTE # 0.6 10^3/ul (0.3-0.9); MONOCYTES % (M) 9 % (0-11); MYELOCYTES % (M) 2 % (0-0)
--- NOTE | 2017-04-14 11:33 | PN ---
Date/Time of Note Date/Time of Note DATE: 04/14/17 TIME: 11:27 Assessment/Plan VTE Prophylaxis VTE Prophylaxis Intervention: ambulation, SCD's Lines/Catheters IV Catheter Type (from Nrsg): Peripheral IV Urinary Cath still in place: Yes Reason Cath still needed: other (indicate) (being d/c'ed today) Assessment/Plan Problems: (1) Acute kidney failure with tubular necrosis Status: Acute Comment: Significant improvement in renal function today. Will monitor and follow. Defer to nephrology. (2) Abscess of postoperative wound of abdominal wall Status: Acute Comment: Continue IV antibiotics. Cont. surgical monitoring from both G-surg and [facility]. Defer to these teams and ID for management of this (3) Anemia Status: Acute Comment: Stable. Likely due to chronic illness and unlikely to fully recover until renal function recovers. Monitor. (4) Leukocytosis Status: Resolved (5) Right upper quadrant pain Status: Acute Comment: New RUQ pain for pt. Likely related to her internal infections. Defer to G-surg but doubt pt. requires any further imaging of her RUQ. (6) Type 2 diabetes mellitus without complications Status: Chronic Comment: Excellent glycemic control. Cont. current insulin regimen. (7) Essential (primary) hypertension Status: Chronic Comment: BP well-controlled. Cont. current BP regimen. Subjective 24 Hr Interval Summary Constitutional: improved, no complaints Respiratory: no complaints Cardiovascular: no complaints Gastrointestinal: pain (RUQ, but managable ) Genitourinary: no complaints (emery to come out today) Musculoskeletal: no complaints Neurologic: no complaints Exam/Review of Systems Vital Signs Vitals VS - Last 72 Hours, by Label Date Time Temp Pulse Resp B/P Pulse Ox O2 Delivery O2 Flow Rate FiO2 04/14/17 09:48 98.1 65 19 132/58 99 Room Air 04/14/17 09:33 98.0 78 18 145/65 98 04/14/17 02:00 97.6 71 19 146/70 100 Room Air 04/13/17 21:04 98.5 75 20 139/64 95 04/13/17 18:25 98.2 78 20 142/65 98 Room Air 04/13/17 18:10 98.1 68 20 138/65 98 Room Air 04/13/17 15:37 98.4 75 18 124/58 Room Air 04/13/17 08:27 97.9 71 18 102/54 99 04/13/17 02:39 97.6 81 20 98/52 98 04/12/17 21:35 98.3 80 20 118/60 97 04/12/17 14:30 98.1 89 18 114/54 95 04/12/17 07:44 97.9 74 18 106/54 92 04/12/17 02:05 97.9 84 18 104/50 97 04/11/17 20:14 98.5 89 20 95/49 98 04/11/17 13:38 98.6 90 19 116/55 95 Vital Signs Date Time Temp Pulse Resp B/P Pulse Ox O2 Delivery O2 Flow Rate FiO2 04/14/17 09:48 98.1 65 19 132/58 99 Room Air Intake and Output 04/13/17 04/13/17 04/14/17 15:00 23:00 07:00 Intake Total 210 ml 1656 ml 800 ml Output Total 1240 ml 1750 ml Balance 210 ml 416 ml -950 ml Exam Constitutional: alert, obese, oriented Psych: nl mood/affect, no complaints Respiratory: clear to auscultation, normal air movement Cardiovascular: nl pulses, regular rate and rhythm, No edema, No murmurs/extra sounds, No rub Gastrointestinal: nl liver, spleen, soft, tender (tender to palpation RUQ/RLQ, tender to percussion RUQ), No non-tender Musculoskeletal: nl extremities to inspection Extremities: normal pulses, No clubbing, No cyanosis, No edema Neurological: BUSINESS PROPOSAL REP II-XII intact, nl mental status, nl speech, nl strength Additional Comments Bedside Glucose - 72 Hours Test 04/11/17 12:12 04/11/17 17:49 04/11/17 20:21 04/12/17 02:14 Bedside Glucose 180mg/dL (70-220) 242mg/dL (70-220) H 194mg/dL (70-220) 184mg/dL (70-220) Test 04/12/17 08:41 04/12/17 12:30 04/12/17 17:51 04/12/17 21:12 Bedside Glucose 189mg/dL (70-220) 172mg/dL (70-220) 139mg/dL (70-220) 150mg/dL (70-220) Test 04/13/17 08:31 04/13/17 20:28 Bedside Glucose 136mg/dL (70-220) 143mg/dL (70-220) Results Result Diagram: 04/14/17 0415 04/14/17 0410 Results 24 hrs Laboratory Tests Test 04/13/17 20:28 04/14/17 04:10 04/14/17 04:15 04/14/17 08:32 Bedside Glucose 143 Sodium Level 141 Potassium Level 3.7 Chloride Level 103 Carbon Dioxide Level 25 Anion Gap 17 H Blood Urea Nitrogen 61 H Creatinine 3.27 #H Glucose Level 116 Calcium Level 8.5 Phosphorus Level 5.1 H Magnesium Level 2.1 Total Bilirubin 0.0 L Direct Bilirubin 0.00 Indirect Bilirubin 0.0 Aspartate Amino Transf (AST/SGOT) 20 Alanine Aminotransferase (ALT/SGPT) 35 Alkaline Phosphatase 226 H Total Protein 6.0 L Albumin 2.8 L Globulin 3.20 Albumin/Globulin Ratio 0.87 White Blood Count 6.2 Red Blood Count 2.67 L Hemoglobin 7.8 L Hematocrit 24.2 L Mean Corpuscular Volume 90.6 Mean Corpuscular Hemoglobin 29.2 Mean Corpuscular Hemoglobin Concent 32.2 Red Cell Distribution Width 14.9 H Platelet Count 191 Mean Platelet Volume 10.6 H Neutrophils % Segmented Neutrophils % (Manual) 69 Band Neutrophils % (Manual) 1 Lymphocytes % Lymphocytes % (Manual) 16 Monocytes % Monocytes % (Manual) 9 Eosinophils % Eosinophils % (Manual) 1 Basophils % Metamyelocytes % (manual) 2 H Myelocytes % (Manual) 2 H Nucleated Red Blood Cells % 0.0 Neutrophils # (Manual) 4.3 Band Neutrophils # 0.0 Absolute Lymphocytes (Manual) 0.9 Lymphocytes # 1.0 Monocytes # 0.6 Absolute Monocytes (Manual) 0.5 Eosinophils # 0.1 Basophils # Metamyelocytes # 0.1 H Myelocytes # 0.1 H Nucleated Red Blood Cells # Toxic Granulation Lab Scanned Report BLOOD TRANSFUSION Medications Medications Current Medications Acetaminophen (Tylenol Tab) 650 mg Q6H PRN PO PAIN AND OR ELEVATED TEMP; Start 04/10/17 at 18:30 Diagnostic Test (Pha) (Accu-Chek) 1 ea 02 XX ; Start 04/11/17 at 02:00 Miscellaneous Information 1 ea NOTE XX ; Start 04/10/17 at 18:30 Glucose (Glutose) 15 gm Q15M PRN PO DECREASED GLUCOSE; Start 04/10/17 at 18:30 Glucose (Glutose) 22.5 gm Q15M PRN PO DECREASED GLUCOSE; Start 04/10/17 at 18: 30 Dextrose (D50w Syringe) 25 ml Q15M PRN IV DECREASED GLUCOSE; Start 04/10/17 at 18:30 Dextrose (D50w Syringe) 50 ml Q15M PRN IV DECREASED GLUCOSE; Start 04/10/17 at 18:30 Glucagon (Glucagen) 1 mg Q15M PRN IM DECREASED GLUCOSE; Start 04/10/17 at 18:30 Glucose (Glutose) 15 gm Q15M PRN BUCCAL DECREASED GLUCOSE; Start 04/10/17 at 18 :30 Ondansetron HCl (Zofran Inj) 4 mg Q6H PRN IV NAUSEA AND/OR VOMITING; Start at 19:30 Hydromorphone HCl (Dilaudid) 0.5 mg Q4H PRN IV PAIN Last administered on 19:51; Admin Dose 0.5 MG; Start 04/10/17 at 19:30 Alprazolam (Xanax) 0.5 mg Q8H PRN PO ANXIETY Last administered on 04/12/17 22: 14; Admin Dose 0.5 MG; Start 04/10/17 at 20:00 Pantoprazole (Protonix Tab) 40 mg DAILY@06 PO Last administered on 04/14/17 06 :00; Admin Dose 40 MG; Start 04/11/17 at 06:00 Eye Lubricant (Artificial Tears Oph) 2 drop TID BOTH EYES Last administered on 04/12/17 08:44; Admin Dose 2 DROP; Start 04/11/17 at 09:00 Insulin Glargine (Lantus) 8 unit DAILY@20 SC Last administered on 04/13/17 20: 44; Admin Dose 8 UNIT; Start 04/11/17 at 20:00 Amitriptyline HCl (Elavil) 200 mg HS PO Last administered on 04/13/17 20:30; Admin Dose 200 MG; Start 04/11/17 at 21:00 Aripiprazole (Abilify) 20 mg DAILY PO Last administered on 04/14/17 08:16; Admin Dose 20 MG; Start 04/12/17 at 09:00 Acetaminophen/ Hydrocodone Bitart 1 tab 1 tab Q4H PRN PO PAIN Last administered on 04/14/17 06:52; Admin Dose 1 TAB; Start 04/12/17 at 09:30 Ferric Sodium Gluconate Complex 125 mg/Sodium Chloride 110 ml @ 110 mls/hr Q24H IVPB Last administered on 04/14/17 10:34; Admin Dose 110 MLS/HR; Start at 11:00; Stop 04/16/17 at 11:59 Potassium Chloride/Sodium Chloride (NS-KCl 20 Meq) 1,000 ml @ 100 mls/hr Q10H IV Last administered on 04/14/17 05:33; Admin Dose 100 MLS/HR; Start 04/12/17 at 09:30 Epoetin [place] [address] units 10,000 units TuThSa@17 SC Last administered on 18:33; Admin Dose 10,000 UNITS; Start 04/12/17 at 17:00 Ampicillin Sodium/ Sulbactam Sodium (Unasyn 3gm/NS (Pmx)) 100 ml @ 100 mls/hr Q12 IVPB Last administered on 04/14/17 08:15; Admin Dose 100 MLS/HR; Start at 11:00 KINJAL BERMUDEZ MD Apr 14, 2017 11:33
[2017-04-14 14:00] VITALS: BP 159/82; RESP 20
[2017-04-14] MEDS: HYDROmorphONE 1 MG/ML SYG IV PRN (17:25)
--- NOTE | 2017-04-14 18:06 | QN ---
Documentation Comment HD#4 [employer] Pt is improving greatly but says she has 3 points of pain in the area of drainage. She also reports some right flank pain today that wasn't present yesterday. Amount of drainage is decreasing and the fluid is progressively becoming clearer. Pt still does not have an appetite. Urine output back to normal and emery catheter was d/c'ed today. Pt received another unit of blood. T=97.8 BP 159/82 Urine output for 24 hrs ending this AM was 3000. WBC 6.2 Hgb 7.8 Plts 191K K+ 3.7 Cr 3.27 Incision: Left side below incision has no pinkness above and below the incision. The fullness below the incision has completely subsided but is cow tender and pt points to a few points that are tender. Dark blood-tinged mostly clear fluid flows if area is pressed but greatly decreased from before. The skin was cleaned with betadine. A sterile Q-tip was used to probe the incision and the mckeon of the abscess area were scrubbed with the probe. The fascial closure still feels intact. Sterile water was then used to irrigate the inside multiple times until the water flowed out fairly clear. The skin was then washed and wiped clean and a new abdominal pad was taped into place. A: Wound infection with sepsis and renal failure, all improving. Great improvement in renal function. On Vanco/Unasyn. DM. SLE. P: Continue wound care and antibiotics. If open the incision further would not consider closure until there is no more fluid coming out. Will close on the inside eventually by secondary intention as a possibility. Consider repeat US or CT to ensure the fluid pockets have resolved. Pt still does not have an appetite so based on that I would continue hospital care until that hallmark has been resolved as it seems to be a sign for her that she is still not completely better. Will go home on oral antibiotics. BP has increased somewhat. For internal medicine to address. BENJAMIN MORRISON MD Apr 14, 2017 18:06 BENJAMIN MORRISON MD Apr 14, 2017 18:06
[2017-04-14] MEDS: EPOETIN 10000 UNITS/1 ML INJ (ESRD) SC SCH (18:12)
[2017-04-14 20:00] VITALS: BP 162/76; RESP 19
[2017-04-14] MEDS: AMITRIPTYLINE 50 MG TAB PO SCH (20:41)
[2017-04-14] MEDS: INSULIN GLARGINE [LANtus] 3 ML PEN SC SCH (20:44)
--- NOTE | 2017-04-14 22:35 | PN ---
Date/Time of Note Date/Time of Note DATE: 04/14/17 TIME: 22:28 Assessment/Plan Lines/Catheters IV Catheter Type (from [facility]): Peripheral IV Tran in Place (from [facility]): Yes Assessment/Plan Chief Complaint/Hosp Course 1. 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 Sepsis, encephalopathy, leukocytosis 2nd above; normalized -as above -supportive 3. Acute renal failure 2nd above; cr continuing to improve -as above -fluid management -correct lytes -avoid nephrotoxic agents 4. Anemia: multifactorial, hx of vag bleed requiring sx, sepsis, no overt bleed ; h/h stable -tx prn -fluids 5. DM -diet/med control -encourage weight optimization 6. BMI 28 -diet/exercise optimization 7. Hyperlipidemia -diet/med optimization 8. DJD -medical optimization 9. Hypoalbuminemia, multifactorial -eventual diet optimization 10. Hepatosplenomegaly ? etiology -w/u per medical/heme 11. Mild coagulopathy -correct prn Thank you. Patient seen and examined in collaboration with Dr. Guillermo Preciado. Problems: Subjective 24 Hr Interval Summary Feeling better. Continues to have large amount of drainage from abdominal wound. No fevers, chills, tachycardia, cp, palpitations, sob, cough, n/v/d/ dysuria. +uop Exam/Review of Systems Vital Signs Vitals Vital Signs Date Time Temp Pulse Resp B/P Pulse Ox O2 Delivery O2 Flow Rate FiO2 04/14/17 20:00 99.0 59 19 162/76 94 04/14/17 09:48 Room Air Intake and Output 04/13/17 04/13/17 04/14/17 15:00 23:00 07:00 Intake Total 210 ml 1656 ml 800 ml Output Total 1240 ml 1750 ml Balance 210 ml 416 ml -950 ml Exam Free Text/Dictation Constitutional: No distress Psych: nl; no anxiety Head: atraumatic, normocephalic Eyes: EOMI, PERRL, nl conjunctiva, No icteric ENMT: nl external ears & nose, nl lips & teeth, No mucosa pink and moist Neck: non-tender, No jvd Respiratory: normal air movement, No congested cough, No labored breathing Cardiovascular: regular rate and rhythm, No edema Gastrointestinal: distended, soft, surgical scars, tender (with induration at the scar), No rebound or guarding Musculoskeletal: nl extremities to inspection, No joint tenderness Extremities: normal pulses, No calf tenderness, No cyanosis Neurological: nl mental status, nl speech, nl strength Skin: nl turgor, Left lower abdomen with small open area with large creamy pink drainage, multiple tattoos No diaphoresis, No rash or lesions Lymph: nl lymph nodes, nontender Results Result Diagram: 04/14/17 0415 04/14/17 0410 TEJAL KAT NP Apr 14, 2017 22:35
[2017-04-15] MEDS: HYDROmorphONE 1 MG/ML SYG IV PRN ×2 (00:46→17:53)
[2017-04-15] MEDS: NS + KCL 20 MEQ 1,000 ML IV SCH ×3 (01:33→23:06)
[2017-04-15 02:00] VITALS: BP 160/69; RESP 19
[2017-04-15] MEDS: ACCU-CHEK XX SCH (02:00)
[2017-04-15 05:33] LABS: ABNORMAL IP MESSAGE 1; BASOPHILS % 0.7 % (0.0-2.0); EOSINOPHILS # 0.1 10^3/ul (0.0-0.5); EOSINOPHILS % 2.5 % (0.0-7.0); HEMATOCRIT 24.9 % (37.0-47.0); HEMOGLOBIN 8.1 g/dl (12.0-16.0); LYMPHOCYTES # 1.2 10^3/ul (0.8-2.9); LYMPHOCYTES % 20.9 % (15.0-51.0); MEAN CORPUSCULAR HGB CONC 32.5 g/dl (32.0-37.0); MEAN CORPUSCULAR VOLUME 92.2 fl (82.0-101.0); MEAN PLATELET VOLUME 10.3 fl (7.4-10.4); MONOCYTE # 0.4 10^3/ul (0.3-0.9); MONOCYTES % 7.9 % (0.0-11.0); NEUTROPHILS % 61.2 % (39.0-77.0); PLATELET COUNT 172 10^3/UL (140-415); RED CELL DISTRIBUTION WIDTH 14.6 % (11.5-14.5); WHITE BLOOD COUNT 5.6 10^3/ul (4.8-10.8)
[2017-04-15 05:40] LABS: POSITIVE DIFF @See below
[2017-04-15] MEDS: PANTOPRAZOLE (EC) 40 MG TAB PO SCH (06:00)
[2017-04-15 06:08] LABS: CALCIUM 8.6 mg/dl (8.4-10.2); CREATININE 2.03 mg/dl (0.44-1.00); MAGNESIUM 1.4 mg/dl (1.7-2.5); PHOSPHORUS 4.1 mg/dl (2.5-4.9)
[2017-04-15 08:07] VITALS: BP 166/79; RESP 18
[2017-04-15] MEDS: ARIPIPRAZOLE 10 MG TAB PO SCH (08:25)
[2017-04-15] MEDS: ARTIFICIAL TEARS 15 ML OPH BOTH EYES SCH ×3 (08:25→20:01)
[2017-04-15] MEDS: AMPICILLIN/SULB 3 GM/NS (PMX) 100 ML IVPB SCH ×4 (08:25→23:06)
[2017-04-15] MEDS: HYDROCODONE/APAP (10/325) TAB PO PRN ×3 (08:37→20:10)
[2017-04-15] MEDS: INSULIN ASPART [NOVOLOG] 3 ML PEN SC SCH ×4 (08:58→20:00)
--- NOTE | 2017-04-15 10:20 | CONS ---
Date/Time of Note Date/Time of Note DATE: 04/15/17 TIME: 10:15 Assessment/Plan Assessment/Plan Chief Complaint/Hosp Course 1) ARF no signs of obstruction but pt does have kidney stones u/a is not impressive urine cx is pending work-up per renal 04/12 - urine cx is NGTD urine output a bit improved creatinine slightly decreased 04/13 - good improvement in renal function 04/15 - pt has some R flank pain check u/a and urine cx creatinine is coming down nicely 2) fluid collection around prior surgical site (ABSCESS) will order u/s of area to see if this is a simple fluid collection in light of her fever, elevated WBC concern would be that this is infected this will likely need to be drained, if a simple fluid collection then via IR if a complex fluid collection she may need surgical I&D continue with vanco/zosyn get nasal swab for MRSA 04/12 - pt spontaneously drained pus from around prior surgical site GNR is growing so far continue with vanco/zosyn but if only GNR will d/c vanco 04/13 - kleb and CoNS in wound cx, CoNS may not be significant, will await sensi' s on CoNS change antibiotics to vanco/unasyn 04/15 - doing well, d/c vanco when pt ready for discharge can change unasyn to po bactrim or levaquin or augmentin 3) abd pain this seems out of proportion to the fluid collection in suprapubic area she is anemic and maybe there is some vascular insufficiency contributing to this no diarrhea and no sign of bowel wall thickening so doubt infectious colitis will order lactic acid will check ESR, complement levels to verify no lupus flair (no other clinical signs to suggest this other than ARF) 04/12 - improved ESR is very high, await complement levels but will check anti DS DNA 4) leukocytosis likely due to infection doubt this is from a strep throat urine less likely the source given the fairly benign u/a abscess is high on my list blood cx have been done and pending 04/12 - improving on current antibiotics await ID from abscess site 04/13 - resolved 5) SLE no joint pains currently but has ARF and abd pain check complement levels and ESR and consider anti-DS dna 04/12 - will check anti DS DNA 6) thrush 04/15 - start nystatin suspension Problems: Consultation Date/Type/Reason Admit Date/Time Apr 10, 2017 at 17:54 Initial Consult Date 04/10/17 Type of Consultation: ID Referring Provider: NIA GAYTAN MD 24 HR Interval Summary Free Text/Dictation pt has some R flank pain, no dysuria or change in color of urine no N, V, D no SOB Exam/Review of Systems Vital Signs Vitals Vital Signs Date Time Temp Pulse Resp B/P Pulse Ox O2 Delivery O2 Flow Rate FiO2 04/15/17 08:07 99.2 65 18 166/79 94 04/14/17 09:48 Room Air Intake and Output 04/14/17 04/14/17 04/15/17 15:00 23:00 07:00 Intake Total 210 ml 2200 ml Output Total 1350 ml Balance 210 ml 850 ml Exam Constitutional: alert, oriented Eyes: nl sclera ENMT: other (small patch of white exudate on tongue) Respiratory: clear to auscultation Cardiovascular: regular rate and rhythm Gastrointestinal: other (R CVAT, surgical wound has minimal bloody drainage), soft Results Result Diagram: 04/15/17 0438 04/15/17 0438 Results 24 hrs Laboratory Tests Test 04/14/17 12:43 04/14/17 17:56 04/14/17 20:38 04/15/17 04:38 Bedside Glucose 167 146 134 White Blood Count 5.6 Red Blood Count 2.70 L Hemoglobin 8.1 L Hematocrit 24.9 L Mean Corpuscular Volume 92.2 Mean Corpuscular Hemoglobin 30.0 Mean Corpuscular Hemoglobin Concent 32.5 Red Cell Distribution Width 14.6 H Platelet Count 172 Mean Platelet Volume 10.3 Neutrophils % 61.2 Lymphocytes % 20.9 Monocytes % 7.9 Eosinophils % 2.5 Basophils % 0.7 Nucleated Red Blood Cells % 0.0 Neutrophils # (Manual) 3.4 Lymphocytes # 1.2 Monocytes # 0.4 Eosinophils # 0.1 Basophils # 0.0 Nucleated Red Blood Cells # 0.0 Sodium Level 144 Potassium Level 4.0 Chloride Level 108 Carbon Dioxide Level 26 Anion Gap 14 Blood Urea Nitrogen 41 #H Creatinine 2.03 #H Glucose Level 152 Calcium Level 8.6 Phosphorus Level 4.1 Magnesium Level 1.4 L Random Vancomycin Level 8.1 Test 04/15/17 08:33 Bedside Glucose 154 Medications Medications Current Medications Acetaminophen (Tylenol Tab) 650 mg Q6H PRN PO PAIN AND OR ELEVATED TEMP; Start 04/10/17 at 18:30 Diagnostic Test (Pha) (Accu-Chek) 1 ea 02 XX Last administered on 04/15/17 02: 00; Admin Dose 1 EA; Start 04/11/17 at 02:00 Miscellaneous Information 1 ea NOTE XX ; Start 04/10/17 at 18:30 Glucose (Glutose) 15 gm Q15M PRN PO DECREASED GLUCOSE; Start 04/10/17 at 18:30 Glucose (Glutose) 22.5 gm Q15M PRN PO DECREASED GLUCOSE; Start 04/10/17 at 18: 30 Dextrose (D50w Syringe) 25 ml Q15M PRN IV DECREASED GLUCOSE; Start 04/10/17 at 18:30 Dextrose (D50w Syringe) 50 ml Q15M PRN IV DECREASED GLUCOSE; Start 04/10/17 at 18:30 Glucagon (Glucagen) 1 mg Q15M PRN IM DECREASED GLUCOSE; Start 04/10/17 at 18:30 Glucose (Glutose) 15 gm Q15M PRN BUCCAL DECREASED GLUCOSE; Start 04/10/17 at 18 :30 Ondansetron HCl (Zofran Inj) 4 mg Q6H PRN IV NAUSEA AND/OR VOMITING; Start at 19:30 Hydromorphone HCl (Dilaudid) 0.5 mg Q4H PRN IV PAIN Last administered on 00:46; Admin Dose 0.5 MG; Start 04/10/17 at 19:30 Alprazolam (Xanax) 0.5 mg Q8H PRN PO ANXIETY Last administered on 04/12/17 22: 14; Admin Dose 0.5 MG; Start 04/10/17 at 20:00 Pantoprazole (Protonix Tab) 40 mg DAILY@06 PO Last administered on 04/15/17 06 :00; Admin Dose 40 MG; Start 04/11/17 at 06:00 Eye Lubricant (Artificial Tears Oph) 2 drop TID BOTH EYES Last administered on 04/12/17 08:44; Admin Dose 2 DROP; Start 04/11/17 at 09:00 Insulin Glargine (Lantus) 8 unit DAILY@20 SC Last administered on 04/14/17 20: 44; Admin Dose 8 UNIT; Start 04/11/17 at 20:00 Amitriptyline HCl (Elavil) 200 mg HS PO Last administered on 04/14/17 20:41; Admin Dose 200 MG; Start 04/11/17 at 21:00 Aripiprazole (Abilify) 20 mg DAILY PO Last administered on 04/15/17 08:25; Admin Dose 20 MG; Start 04/12/17 at 09:00 Acetaminophen/ Hydrocodone Bitart 1 tab 1 tab Q4H PRN PO PAIN Last administered on 04/15/17 08:37; Admin Dose 1 TAB; Start 04/12/17 at 09:30 Ferric Sodium Gluconate Complex 125 mg/Sodium Chloride 110 ml @ 110 mls/hr Q24H IVPB Last administered on 04/14/17 10:34; Admin Dose 110 MLS/HR; Start at 11:00; Stop 04/16/17 at 11:59 Potassium Chloride/Sodium Chloride (NS-KCl 20 Meq) 1,000 ml @ 100 mls/hr Q10H IV Last administered on 04/15/17 01:33; Admin Dose 100 MLS/HR; Start 04/12/17 at 09:30 Epoetin [place] [address] units 10,000 units TuThSa@17 SC Last administered on 18:12; Admin Dose 10,000 UNITS; Start 04/12/17 at 17:00 Ampicillin Sodium/ Sulbactam Sodium (Unasyn 3gm/NS (Pmx)) 100 ml @ 100 mls/hr Q6 IVPB ; Start 04/15/17 at 14:00 Nystatin (Nystatin Susp) 5 ml QID PO ; Start 04/15/17 at 13:00; Status DIMITRIS CANALES MD Apr 15, 2017 10:20
--- NOTE | 2017-04-15 10:37 | PN ---
Date/Time of Note Date/Time of Note DATE: 04/15/17 TIME: 10:30 Assessment/Plan VTE Prophylaxis VTE Prophylaxis Intervention: ambulation, SCD's Lines/Catheters IV Catheter Type (from Nrsg): Peripheral IV Urinary Cath still in place: No Assessment/Plan Problems: (1) Acute kidney failure with tubular necrosis Status: Acute Comment: Improving daily. Should be normalized in the next 48 hours (2) Abscess of postoperative wound of abdominal wall Status: Acute Comment: Cont. antibiotics per ID and wound care per Client Relations Specialist/G-surg (3) Anemia Status: Acute Comment: Improving (4) Right upper quadrant pain Status: Acute Comment: Away from site of wound. Will obtain ultrasound of site. (5) Hypomagnesemia Status: Acute Comment: Replace (6) Type 2 diabetes mellitus without complications Status: Chronic Comment: Controlled. Cont. current insulin regimen (7) Essential (primary) hypertension Status: Chronic Comment: BP mildly elevated. Monitor for now. Subjective 24 Hr Interval Summary Constitutional: improved, no complaints Respiratory: no complaints Cardiovascular: no complaints Gastrointestinal: pain (RUQ/RLQ), No decreased appetite, No nausea Genitourinary: no complaints Musculoskeletal: no complaints Neurologic: no complaints Exam/Review of Systems Vital Signs Vitals VS - Last 72 Hours, by Label Date Time Temp Pulse Resp B/P Pulse Ox O2 Delivery O2 Flow Rate FiO2 04/15/17 08:07 99.2 65 18 166/79 94 04/15/17 02:00 98.6 64 19 160/69 97 04/14/17 20:00 99.0 59 19 162/76 94 04/14/17 14:00 97.8 62 20 159/82 96 04/14/17 09:48 98.1 65 19 132/58 99 Room Air 04/14/17 09:33 98.0 78 18 145/65 98 04/14/17 02:00 97.6 71 19 146/70 100 Room Air 04/13/17 21:04 98.5 75 20 139/64 95 04/13/17 18:25 98.2 78 20 142/65 98 Room Air 04/13/17 18:10 98.1 68 20 138/65 98 Room Air 04/13/17 15:37 98.4 75 18 124/58 Room Air 04/13/17 08:27 97.9 71 18 102/54 99 04/13/17 02:39 97.6 81 20 98/52 98 04/12/17 21:35 98.3 80 20 118/60 97 04/12/17 14:30 98.1 89 18 114/54 95 Vital Signs Date Time Temp Pulse Resp B/P Pulse Ox O2 Delivery O2 Flow Rate FiO2 04/15/17 08:07 99.2 65 18 166/79 94 04/14/17 09:48 Room Air Intake and Output 04/14/17 04/14/17 04/15/17 15:00 23:00 07:00 Intake Total 210 ml 2200 ml Output Total 1350 ml Balance 210 ml 850 ml Exam Constitutional: alert, obese, oriented Psych: nl mood/affect, no complaints Respiratory: clear to auscultation, normal air movement Cardiovascular: nl pulses, regular rate and rhythm, No edema, No murmurs/extra sounds, No rub Gastrointestinal: bowel sounds, nl liver, spleen, soft, tender (RUQ/RLQ, non- tender to percussion today), No mass, No non-tender, No rebound or guarding Extremities: normal pulses, No clubbing, No cyanosis, No edema Neurological: TICKET WRITER II-XII intact, nl mental status, nl speech, nl strength Additional Comments Bedside Glucose - 72 Hours Test 04/12/17 12:30 04/12/17 17:51 04/12/17 21:12 04/13/17 08:31 Bedside Glucose 172mg/dL (70-220) 139mg/dL (70-220) 150mg/dL (70-220) 136mg/dL (70-220) Test 04/13/17 20:28 04/14/17 08:24 04/14/17 12:43 04/14/17 17:56 Bedside Glucose 143mg/dL (70-220) 136mg/dL (70-220) 167mg/dL (70-220) 146mg/dL (70-220) Test 04/14/17 20:38 04/15/17 08:33 Bedside Glucose 134mg/dL (70-220) 154mg/dL (70-220) Results Result Diagram: 04/15/17 0438 04/15/17 0438 Results 24 hrs Laboratory Tests Test 04/14/17 12:43 04/14/17 17:56 04/14/17 20:38 04/15/17 04:38 Bedside Glucose 167 146 134 White Blood Count 5.6 Red Blood Count 2.70 L Hemoglobin 8.1 L Hematocrit 24.9 L Mean Corpuscular Volume 92.2 Mean Corpuscular Hemoglobin 30.0 Mean Corpuscular Hemoglobin Concent 32.5 Red Cell Distribution Width 14.6 H Platelet Count 172 Mean Platelet Volume 10.3 Neutrophils % 61.2 Lymphocytes % 20.9 Monocytes % 7.9 Eosinophils % 2.5 Basophils % 0.7 Nucleated Red Blood Cells % 0.0 Neutrophils # (Manual) 3.4 Lymphocytes # 1.2 Monocytes # 0.4 Eosinophils # 0.1 Basophils # 0.0 Nucleated Red Blood Cells # 0.0 Sodium Level 144 Potassium Level 4.0 Chloride Level 108 Carbon Dioxide Level 26 Anion Gap 14 Blood Urea Nitrogen 41 #H Creatinine 2.03 #H Glucose Level 152 Calcium Level 8.6 Phosphorus Level 4.1 Magnesium Level 1.4 L Random Vancomycin Level 8.1 Test 04/15/17 08:33 Bedside Glucose 154 Medications Medications Current Medications Acetaminophen (Tylenol Tab) 650 mg Q6H PRN PO PAIN AND OR ELEVATED TEMP; Start 04/10/17 at 18:30 Diagnostic Test (Pha) (Accu-Chek) 1 ea 02 XX Last administered on 04/15/17t 02: 00; Admin Dose 1 EA; Start 04/11/17 at 02:00 Miscellaneous Information 1 ea NOTE XX ; Start 04/10/17 at 18:30 Glucose (Glutose) 15 gm Q15M PRN PO DECREASED GLUCOSE; Start 04/10/17 at 18:30 Glucose (Glutose) 22.5 gm Q15M PRN PO DECREASED GLUCOSE; Start 04/10/17 at 18: 30 Dextrose (D50w Syringe) 25 ml Q15M PRN IV DECREASED GLUCOSE; Start 04/10/17 at 18:30 Dextrose (D50w Syringe) 50 ml Q15M PRN IV DECREASED GLUCOSE; Start 04/10/17 at 18:30 Glucagon (Glucagen) 1 mg Q15M PRN IM DECREASED GLUCOSE; Start 04/10/17 at 18:30 Glucose (Glutose) 15 gm Q15M PRN BUCCAL DECREASED GLUCOSE; Start 04/10/17 at 18 :30 Ondansetron HCl (Zofran Inj) 4 mg Q6H PRN IV NAUSEA AND/OR VOMITING; Start at 19:30 Hydromorphone HCl (Dilaudid) 0.5 mg Q4H PRN IV PAIN Last administered on 00:46; Admin Dose 0.5 MG; Start 04/10/17 at 19:30 Alprazolam (Xanax) 0.5 mg Q8H PRN PO ANXIETY Last administered on 04/12/17 22: 14; Admin Dose 0.5 MG; Start 04/10/17 at 20:00 Pantoprazole (Protonix Tab) 40 mg DAILY@06 PO Last administered on 04/15/17 06 :00; Admin Dose 40 MG; Start 04/11/17 at 06:00 Eye Lubricant (Artificial Tears Oph) 2 drop TID BOTH EYES Last administered on 04/12/17 08:44; Admin Dose 2 DROP; Start 04/11/17 at 09:00 Insulin Glargine (Lantus) 8 unit DAILY@20 SC Last administered on 04/14/17 20: 44; Admin Dose 8 UNIT; Start 04/11/17 at 20:00 Amitriptyline HCl (Elavil) 200 mg HS PO Last administered on 04/14/17 20:41; Admin Dose 200 MG; Start 04/11/17 at 21:00 Aripiprazole (Abilify) 20 mg DAILY PO Last administered on 04/15/17 08:25; Admin Dose 20 MG; Start 04/12/17 at 09:00 Acetaminophen/ Hydrocodone Bitart 1 tab 1 tab Q4H PRN PO PAIN Last administered on 04/15/17 08:37; Admin Dose 1 TAB; Start 04/12/17 at 09:30 Ferric Sodium Gluconate Complex 125 mg/Sodium Chloride 110 ml @ 110 mls/hr Q24H IVPB Last administered on 04/14/17 10:34; Admin Dose 110 MLS/HR; Start at 11:00; Stop 04/16/17 at 11:59 Potassium Chloride/Sodium Chloride (NS-KCl 20 Meq) 1,000 ml @ 100 mls/hr Q10H IV Last administered on 04/15/17 01:33; Admin Dose 100 MLS/HR; Start 04/12/17 at 09:30 Epoetin [place] [address] units 10,000 units TuThSa@17 SC Last administered on t 18:12; Admin Dose 10,000 UNITS; Start 04/12/17 at 17:00 Ampicillin Sodium/ Sulbactam Sodium (Unasyn 3gm/NS (Pmx)) 100 ml @ 100 mls/hr Q6 IVPB ; Start 04/15/17 at 14:00 Nystatin (Nystatin Susp) 5 ml QID PO ; Start 04/15/17 at 13:00 KINJAL BERMUDEZ MD Apr 15, 2017 10:37
--- NOTE | 2017-04-15 10:46 | CONS ---
Date/Time of Note Date/Time of Note DATE: 04/15/17 TIME: 10:43 Assessment/Plan Assessment/Plan Additional Assessment/Plan 1. Acute renal failure resolving. 2. Wound infection, resolving 3. Hypomag, will replete 4. Abd pain, rev with id and im--abd ultz ordered and will add liver tests and lipase 5. Anemia is stable Consultation Date/Type/Reason Admit Date/Time Apr 10, 2017 at 17:54 Initial Consult Date 04/10/17 Type of Consultation: ID Referring Provider: NIA GAYTAN MD Detailed Summary Respiratory: No cough, No shortness of breath Cardiovascular: No chest pain Gastrointestinal: constipation, other (right lat flank pain and sl right upper quad disc, not pleuritic, no chg with chg in body position), No nausea, No vomiting Genitourinary: no complaints Exam/Review of Systems Vital Signs Vitals Vital Signs Date Time Temp Pulse Resp B/P Pulse Ox O2 Delivery O2 Flow Rate FiO2 04/15/17 08:07 99.2 65 18 166/79 94 04/14/17 09:48 Room Air Intake and Output 04/14/17 04/14/17 04/15/17 15:00 23:00 07:00 Intake Total 210 ml 2200 ml Output Total 1350 ml Balance 210 ml 850 ml Exam Neck: No jvd Respiratory: clear to auscultation Cardiovascular: regular rate and rhythm Gastrointestinal: soft, tender (1+ right upper quad tend, no inc liver or spleen, no mass) Extremities: No edema (and no calf tend) Results Result Diagram: 04/15/17 0438 04/15/17 0438 Results 24 hrs Laboratory Tests Test 04/14/17 12:43 04/14/17 17:56 04/14/17 20:38 04/15/17 04:38 Bedside Glucose 167 146 134 White Blood Count 5.6 Red Blood Count 2.70 L Hemoglobin 8.1 L Hematocrit 24.9 L Mean Corpuscular Volume 92.2 Mean Corpuscular Hemoglobin 30.0 Mean Corpuscular Hemoglobin Concent 32.5 Red Cell Distribution Width 14.6 H Platelet Count 172 Mean Platelet Volume 10.3 Neutrophils % 61.2 Lymphocytes % 20.9 Monocytes % 7.9 Eosinophils % 2.5 Basophils % 0.7 Nucleated Red Blood Cells % 0.0 Neutrophils # (Manual) 3.4 Lymphocytes # 1.2 Monocytes # 0.4 Eosinophils # 0.1 Basophils # 0.0 Nucleated Red Blood Cells # 0.0 Sodium Level 144 Potassium Level 4.0 Chloride Level 108 Carbon Dioxide Level 26 Anion Gap 14 Blood Urea Nitrogen 41 #H Creatinine 2.03 #H Glucose Level 152 Calcium Level 8.6 Phosphorus Level 4.1 Magnesium Level 1.4 L Random Vancomycin Level 8.1 Test 04/15/17 08:33 Bedside Glucose 154 Medications Medications Current Medications Acetaminophen (Tylenol Tab) 650 mg Q6H PRN PO PAIN AND OR ELEVATED TEMP; Start 04/10/17 at 18:30 Diagnostic Test (Pha) (Accu-Chek) 1 ea 02 XX Last administered on 04/15/17 02: 00; Admin Dose 1 EA; Start 04/11/17 at 02:00 Miscellaneous Information 1 ea NOTE XX ; Start 04/10/17 at 18:30 Glucose (Glutose) 15 gm Q15M PRN PO DECREASED GLUCOSE; Start 04/10/17 at 18:30 Glucose (Glutose) 22.5 gm Q15M PRN PO DECREASED GLUCOSE; Start 04/10/17 at 18: 30 Dextrose (D50w Syringe) 25 ml Q15M PRN IV DECREASED GLUCOSE; Start 04/10/17 at 18:30 Dextrose (D50w Syringe) 50 ml Q15M PRN IV DECREASED GLUCOSE; Start 04/10/17 at 18:30 Glucagon (Glucagen) 1 mg Q15M PRN IM DECREASED GLUCOSE; Start 04/10/17 at 18:30 Glucose (Glutose) 15 gm Q15M PRN BUCCAL DECREASED GLUCOSE; Start 04/10/17 at 18 :30 Ondansetron HCl (Zofran Inj) 4 mg Q6H PRN IV NAUSEA AND/OR VOMITING; Start at 19:30 Hydromorphone HCl (Dilaudid) 0.5 mg Q4H PRN IV PAIN Last administered on 00:46; Admin Dose 0.5 MG; Start 04/10/17 at 19:30 Alprazolam (Xanax) 0.5 mg Q8H PRN PO ANXIETY Last administered on 04/12/17 22: 14; Admin Dose 0.5 MG; Start 04/10/17 at 20:00 Pantoprazole (Protonix Tab) 40 mg DAILY@06 PO Last administered on 04/15/17 06 :00; Admin Dose 40 MG; Start 04/11/17 at 06:00 Eye Lubricant (Artificial Tears Oph) 2 drop TID BOTH EYES Last administered on 04/12/17 08:44; Admin Dose 2 DROP; Start 04/11/17 at 09:00 Insulin Glargine (Lantus) 8 unit DAILY@20 SC Last administered on 04/14/17 20: 44; Admin Dose 8 UNIT; Start 04/11/17 at 20:00 Amitriptyline HCl (Elavil) 200 mg HS PO Last administered on 04/14/17 20:41; Admin Dose 200 MG; Start 04/11/17 at 21:00 Aripiprazole (Abilify) 20 mg DAILY PO Last administered on 04/15/17 08:25; Admin Dose 20 MG; Start 04/12/17 at 09:00 Acetaminophen/ Hydrocodone Bitart 1 tab 1 tab Q4H PRN PO PAIN Last administered on 04/15/17 08:37; Admin Dose 1 TAB; Start 04/12/17 at 09:30 Ferric Sodium Gluconate Complex 125 mg/Sodium Chloride 110 ml @ 110 mls/hr Q24H IVPB Last administered on 04/14/17 10:34; Admin Dose 110 MLS/HR; Start at 11:00; Stop 04/16/17 at 11:59 Potassium Chloride/Sodium Chloride (NS-KCl 20 Meq) 1,000 ml @ 100 mls/hr Q10H IV Last administered on 04/15/17 01:33; Admin Dose 100 MLS/HR; Start 04/12/17 at 09:30 Epoetin [place] [address]28 units 10,000 units TuThSa@17 SC Last administered on 18:12; Admin Dose 10,000 UNITS; Start 04/12/17 at 17:00 Ampicillin Sodium/ Sulbactam Sodium (Unasyn 3gm/NS (Pmx)) 100 ml @ 100 mls/hr Q6 IVPB ; Start 04/15/17 at 14:00 Nystatin 5 ml 5 ml QID PO ; Start 04/15/17 at 13:00 Magnesium Sulfate (Magnesium Sulfate 4 Gm/100 ml) 100 ml @ 25 mls/hr ONCE ONCE IVPB ; Start 04/15/17 at 11:00; Stop 04/15/17 at 14:59 MAXINE HANSEN MD Apr 15, 2017 10:46
[2017-04-15] MEDS ORDERED: VANCOMYCIN 750 MG in SOD CHLORIDE 0.9% 150 ML IVPB SCH (11:00)
[2017-04-15] MEDS ORDERED: MAGNESIUM SULFATE 3 GM in SOD CHLORIDE 0.9% 100 ML IVPB ONE (11:00)
[2017-04-15] MEDS ORDERED: MAGNESIUM SULFATE 4 GM/100 ML 100 ML IVPB ONE (11:00)
[2017-04-15] MEDS: SOD FERRIC GLUC COMPLX 125 MG in SOD CHLORIDE 0.9% 100 ML IVPB SCH (11:20)
[2017-04-15 11:21] LABS: ALBUMIN 2.5 g/dl (3.3-4.9); TOTAL PROTEIN 5.1 g/dl (6.1-8.1)
[2017-04-15] MEDS: AMLODIPINE 2.5 MG TAB PO SCH ×2 (11:21→20:06)
[2017-04-15 12:15] LABS: ADD UMIC YES; UR ASCORBIC ACID NEGATIVE (NEGATIVE); UR BACTERIA FEW /HPF (NONE SEEN); UR BILIRUBIN (Dip) NEGATIVE (NEGATIVE); UR BLOOD (Dip) NEGATIVE (NEGATIVE); UR CLARITY SLIGHTLY CLOUDY (CLEAR); UR COLOR YELLOW (YELLOW); UR GLUCOSE (Dip) NEGATIVE (NEGATIVE); UR KETONES (Dip) NEGATIVE (NEGATIVE); UR LEUKOCYTE ESTERASE (Dip) 2+ Leu/ul (NEGATIVE); UR NITRITE (Dip) NEGATIVE (NEGATIVE); UR NONSQUAMOUS EPITHELIAL CELL 1 /HPF (NONE SEEN); UR RBC 1 /HPF (0-5); UR SPECIFIC GRAVITY (Dip) 1.011 (1.003-1.030); UR SQUAMOUS EPITHELIAL CELL FEW /HPF (FEW); UR TOTAL PROTEIN (Dip) 1+ mg/dl (NEGATIVE); UR UROBILINOGEN (Dip) NEGATIVE (NEGATIVE)
[2017-04-15 14:00] VITALS: BP 161/74; RESP 18
--- NOTE | 2017-04-15 14:05 | PN ---
Date/Time of Note Date/Time of Note DATE: 04/15/17 TIME: 14:00 Assessment/Plan Lines/Catheters IV Catheter Type (from [facility]): Peripheral IV Tran in Place (from [facility]): No Assessment/Plan Chief Complaint/Hosp Course 1. Abdominal wall collection abscess: draining small amounts of pink, creamy drainage; cultures noted; s/p washout by pacu nurse -ivf -abx per sensitivities -per pacu nurse 2. Sepsis, encephalopathy, leukocytosis 2nd above; normalized -as above -supportive 3. Acute renal failure 2nd above; cr continuing to improve; right flank/ abdominal pain; abd US pending -as above -fluid management -correct lytes -avoid nephrotoxic agents 4. Anemia: multifactorial, hx of vag bleed requiring sx, sepsis, no overt bleed ; h/h stable -tx prn -fluids 5. DM -diet/med control -encourage weight optimization 6. BMI 28 -diet/exercise optimization 7. Hyperlipidemia -diet/med optimization 8. DJD -medical optimization 9. Hypoalbuminemia, multifactorial -eventual diet optimization 10. Hepatosplenomegaly ? etiology -w/u per medical/heme 11. Mild coagulopathy -correct prn Thank you. Patient seen and examined in collaboration with Dr. Guillermo Preciado. Problems: Subjective 24 Hr Interval Summary Feels well. Right flank/abdominal pain. No n/v/d/dysuria. Tran out, +uop. Abdominal wound with less drainage. Slightly tender. No fevers, chills, cp, palpitations, sob, cough. Exam/Review of Systems Vital Signs Vitals Vital Signs Date Time Temp Pulse Resp B/P Pulse Ox O2 Delivery O2 Flow Rate FiO2 04/15/17 08:07 99.2 65 18 166/79 94 04/14/17 09:48 Room Air Intake and Output 04/14/17 04/14/17 04/15/17 15:00 23:00 07:00 Intake Total 210 ml 2200 ml Output Total 1350 ml Balance 210 ml 850 ml Exam Free Text/Dictation Constitutional: No distress Psych: nl; no anxiety Head: atraumatic, normocephalic Eyes: EOMI, PERRL, nl conjunctiva, No icteric ENMT: nl external ears & nose, nl lips & teeth, No mucosa pink and moist Neck: non-tender, No jvd Respiratory: normal air movement, No congested cough, No labored breathing Cardiovascular: regular rate and rhythm, No edema Gastrointestinal: distended, soft, surgical scars, tender periwound No rebound or guarding Musculoskeletal: nl extremities to inspection, No joint tenderness Extremities: normal pulses, No calf tenderness, No cyanosis Neurological: nl mental status, nl speech, nl strength Skin: nl turgor, Left lower abdomen with small open area with min creamy pink drainage, multiple tattoos No diaphoresis, No rash or lesions Lymph: nl lymph nodes, nontender Results Result Diagram: 04/15/17 0438 04/15/17 0438 TEJAL KAT NP Apr 15, 2017 14:05
[2017-04-15] MEDS: NYSTATIN SUSP 5 ML CUP PO SCH ×3 (14:56→20:02)
--- NOTE | 2017-04-15 17:50 | RADRPT ---
PROCEDURE: US Abdomen and Retroperitoneum. CLINICAL INDICATION: Abdominal pain. TECHNIQUE: Multiple real-time longitudinal and transverse images were acquired of the patient's ab domen and retroperitoneum utilizing a curved array transducer. COMPARISON: No prior studies are available for comparison. FINDINGS: The liver is enlarged and normal in echogenicity. The liver has a normal smooth surface. There is n o focal hepatic lesion. Color Doppler and pulsed Doppler sonography demonstrate normal antegrade sheila w in the portal vein. There is sludge in the gallbladder. There are no gallstones and there is no gallbladder wall thicke susy. There is no fluid around the gallbladder. The bile ducts are normal with the common bile duct measuring 4.0 mm in diameter. The spleen is normal in size. There is no focal splenic lesion. The pancreas is partially seen and is unremarkable. There is no free fluid in the abdomen. There is a small right pleural effusion. The right kidney measures 13.0 x 6.3 x 6.5 cm and the left kidney measures 13.7 x 7.1 x 5.3 cm. There is no renal mass or calculus. There is no hydronephrosis. There is mild dilatation of the left ureter. The abdominal aorta is not dilated. The inferior vena cava is unremarkable. IMPRESSION: 1. Mildly dilated left ureter. 2. Sludge in the gallbladder. No gallstones or evidence of cholecystitis. 3. Small right pleural effusion. 4. Otherwise unremarkable study. RPTAT: QQ .Wing Ewing MD, Date Time Electronically viewed and signed by .Wing Ewing MD, on 04/15/2017 17:50 .R/
--- NOTE | 2017-04-15 18:23 | QN ---
Documentation Comment omment HD#5 [employer] Pt is improving greatly and says incisional area only with pain now when pressed. She alsostill has some right flank pain but not increased. Amount of drainage is minimal and the fluid is now clear. WBC 5.6 Hgb 8.1 Plts 172K Cr 2.03 Incision: Left incisional has no pinkness above or below the incision. There is no drainage noted. The area to the right of the opening is now non-tender. The left side is still a little tender. The skin was cleaned with chlorhexadine. A sterile Q-tip was used to probe the incision and the mckeon of the abscess area were scrubbed with the probe. The fascial closure still feels intact. Sterile water was then used to irrigate the inside multiple times until the water flowed out fairly clear. The skin was then washed and wiped clean a new abdominal pad will be taped into place after the pt takes a shower. A: Wound infection with sepsis and renal failure, all improving. Great improvement in renal function. DM. SLE. P: D/C home tomorrow would be reasonable. The pt will be able to come to my office for wound care f/u. Oral antibiotics, per ID. BENJAMIN MORRISON MD Apr 15, 2017 18:23
[2017-04-15 19:25] VITALS: BP 183/81; RESP 18
[2017-04-15] MEDS: AMITRIPTYLINE 50 MG TAB PO SCH (20:02)
[2017-04-15] MEDS: INSULIN GLARGINE [LANtus] 3 ML PEN SC SCH (20:04)
[2017-04-15 20:53] VITALS: BP 178/74; PULSE 75
[2017-04-15 23:10] VITALS: BP 168/74; PULSE 71
[2017-04-16] VITALS (11 sets, daily range): BP systolic 159–187; BP diastolic 74–81; PULSE 65–87; RESP 16–20
[2017-04-16] MEDS: ACCU-CHEK XX SCH (02:00)
[2017-04-16] MEDS: HYDROCODONE/APAP (10/325) TAB PO PRN ×3 (02:29→20:54)
[2017-04-16] MEDS: HYDROmorphONE 1 MG/ML SYG IV PRN (04:52)
[2017-04-16] MEDS: AMPICILLIN/SULB 3 GM/NS (PMX) 100 ML IVPB SCH (04:52)
[2017-04-16] MEDS: PANTOPRAZOLE (EC) 40 MG TAB PO SCH (04:52)
[2017-04-16 05:33] LABS: ABNORMAL IP MESSAGE 1; BASOPHILS % 0.3 % (0.0-2.0); EOSINOPHILS # 0.2 10^3/ul (0.0-0.5); EOSINOPHILS % 2.8 % (0.0-7.0); HEMATOCRIT 25.4 % (37.0-47.0); LYMPHOCYTES # 1.2 10^3/ul (0.8-2.9); LYMPHOCYTES % 16.8 % (15.0-51.0); MEAN CORPUSCULAR HEMOGLOBIN 28.9 pg (29.0-33.0); MEAN CORPUSCULAR HGB CONC 31.5 g/dl (32.0-37.0); MEAN CORPUSCULAR VOLUME 91.7 fl (82.0-101.0); MONOCYTE # 0.4 10^3/ul (0.3-0.9); MONOCYTES % 6.4 % (0.0-11.0); NEUTROPHILS % 67.3 % (39.0-77.0); PLATELET COUNT 179 10^3/UL (140-415); RED BLOOD COUNT 2.77 10^6/ul (4.20-5.40); RED CELL DISTRIBUTION WIDTH 14.6 % (11.5-14.5); WHITE BLOOD COUNT 6.9 10^3/ul (4.8-10.8)
[2017-04-16 05:42] LABS: POSITIVE DIFF @See below
[2017-04-16 06:26] LABS: CALCIUM 8.5 mg/dl (8.4-10.2); CREATININE 1.48 mg/dl (0.44-1.00)
--- NOTE | 2017-04-16 08:30 | CONS ---
Date/Time of Note Date/Time of Note DATE: 04/16/17 TIME: 08:24 Assessment/Plan Assessment/Plan Chief Complaint/Hosp Course #1. Acute renal failure. Most likely due to ATN from sepsis . Her renal function is better and urine output is increasing .She is now in diuretic phase of ATN . Her renal function is close to normal. #2 Abdominal pain. Due to post op abscess that has drained . She is afebrile with decreasing WBC . She has no abdominal pain at this time. #3 Anemia , she does not have evidence of GI bleeding. She is iron deficient . She is getting iron intravenously and Epogen. Her blood count is increasing slowly. #4 Status post recent total abdominal hysterectomy #5 Diabetes mellitus type 2 #6. Hyperlipidemia #7 Hypertension, blood pressure is elevated will DC IV fluids and increase amlodipine. 8. Hypernatremia. Problems: Consultation Date/Type/Reason Admit Date/Time Apr 10, 2017 at 17:54 Initial Consult Date 04/11/17 Type of Consultation: ID Referring Provider: NIA GAYTAN MD 24 HR Interval Summary Free Text/Dictation She feels well today. She is not having any abdominal pain. Pressure is high. Constitutional: improved, no complaints Exam/Review of Systems Vital Signs Vitals Vital Signs Date Time Temp Pulse Resp B/P Pulse Ox O2 Delivery O2 Flow Rate FiO2 04/16/17 05:10 166/74 04/16/17 02:33 98.7 66 18 94 Room Air Intake and Output 04/15/17 04/15/17 04/16/17 15:00 23:00 07:00 Intake Total 210 ml 880 ml 1280 ml Output Total 500 ml 2000 ml Balance 210 ml 380 ml -720 ml Exam Constitutional: alert, oriented, well developed Respiratory: clear to auscultation, normal air movement Cardiovascular: regular rate and rhythm Gastrointestinal: non-tender, soft Musculoskeletal: nl extremities to inspection Results Result Diagram: 04/16/170 04/16/17439 Results 24 hrs Laboratory Tests Test 04/15/17 08:33 04/15/17 11:45 04/15/17 12:36 04/15/17 17:42 Bedside Glucose 154 166 125 Urine Color YELLOW Urine Clarity SLIGHTLY CLOUDY A Urine pH 6.0 Urine Specific [place] 1.011 Urine Ketones NEGATIVE Urine Nitrite NEGATIVE Urine Bilirubin NEGATIVE Urine Urobilinogen NEGATIVE Urine Leukocyte Esterase 2+ H Urine Microscopic RBC 1 Urine Microscopic WBC 26 H Urine Squamous Epithelial Cells FEW Urine Bacteria FEW A Urine Hemoglobin NEGATIVE Urine Glucose NEGATIVE Urine Total Protein 1+ H Test 04/15/17 20:00 04/16/17 02:22 04/16/17 04:40 Bedside Glucose 178 140 White Blood Count 6.9 # Red Blood Count 2.77 L Hemoglobin 8.0 L Hematocrit 25.4 L Mean Corpuscular Volume 91.7 Mean Corpuscular Hemoglobin 28.9 L Mean Corpuscular Hemoglobin Concent 31.5 L Red Cell Distribution Width 14.6 H Platelet Count 179 Mean Platelet Volume 10.0 Neutrophils % 67.3 Lymphocytes % 16.8 Monocytes % 6.4 Eosinophils % 2.8 Basophils % 0.3 Nucleated Red Blood Cells % 0.0 Neutrophils # (Manual) 4.6 Lymphocytes # 1.2 Monocytes # 0.4 Eosinophils # 0.2 Basophils # 0.0 Nucleated Red Blood Cells # 0.0 Sodium Level 149 H Potassium Level 4.0 Chloride Level 110 Carbon Dioxide Level 24 Anion Gap 19 H Blood Urea Nitrogen 25 #H Creatinine 1.48 H Glucose Level 126 Calcium Level 8.5 Magnesium Level 1.6 L Medications Medications Current Medications Acetaminophen (Tylenol Tab) 650 mg Q6H PRN PO PAIN AND OR ELEVATED TEMP; Start 04/10/17 at 18:30 Diagnostic Test (Pha) (Accu-Chek) 1 ea 02 XX Last administered on 04/15/17t 02: 00; Admin Dose 1 EA; Start 04/11/17 at 02:00 Miscellaneous Information 1 ea NOTE XX ; Start 04/10/17 at 18:30 Glucose (Glutose) 15 gm Q15M PRN PO DECREASED GLUCOSE; Start 04/10/17 at 18:30 Glucose (Glutose) 22.5 gm Q15M PRN PO DECREASED GLUCOSE; Start 04/10/17 at 18: 30 Dextrose (D50w Syringe) 25 ml Q15M PRN IV DECREASED GLUCOSE; Start 04/10/17 at 18:30 Dextrose (D50w Syringe) 50 ml Q15M PRN IV DECREASED GLUCOSE; Start 04/10/17 at 18:30 Glucagon (Glucagen) 1 mg Q15M PRN IM DECREASED GLUCOSE; Start 04/10/17 at 18:30 Glucose (Glutose) 15 gm Q15M PRN BUCCAL DECREASED GLUCOSE; Start 04/10/17 at 18 :30 Ondansetron HCl (Zofran Inj) 4 mg Q6H PRN IV NAUSEA AND/OR VOMITING; Start at 19:30 Hydromorphone HCl (Dilaudid) 0.5 mg Q4H PRN IV PAIN Last administered on 04:52; Admin Dose 0.5 MG; Start 04/10/17 at 19:30 Alprazolam (Xanax) 0.5 mg Q8H PRN PO ANXIETY Last administered on 04/12/17 22: 14; Admin Dose 0.5 MG; Start 04/10/17 at 20:00 Pantoprazole (Protonix Tab) 40 mg DAILY@06 PO Last administered on 04/16/17 04 :52; Admin Dose 40 MG; Start 04/11/17 at 06:00 Eye Lubricant (Artificial Tears Oph) 2 drop TID BOTH EYES Last administered on 04/12/17 08:44; Admin Dose 2 DROP; Start 04/11/17 at 09:00 Insulin Glargine (Lantus) 8 unit DAILY@20 SC Last administered on 04/15/17 20: 04; Admin Dose 8 UNIT; Start 04/11/17 at 20:00 Amitriptyline HCl (Elavil) 200 mg HS PO Last administered on 04/15/17 20:02; Admin Dose 200 MG; Start 04/11/17 at 21:00 Aripiprazole (Abilify) 20 mg DAILY PO Last administered on 04/15/17 08:25; Admin Dose 20 MG; Start 04/12/17 at 09:00 Acetaminophen/ Hydrocodone Bitart 1 tab 1 tab Q4H PRN PO PAIN Last administered on 04/16/17 02:29; Admin Dose 1 TAB; Start 04/12/17 at 09:30 Ferric Sodium Gluconate Complex 125 mg/Sodium Chloride 110 ml @ 110 mls/hr Q24H IVPB Last administered on 04/15/17 11:20; Admin Dose 110 MLS/HR; Start at 11:00; Stop 04/16/17 at 11:59 Potassium Chloride/Sodium Chloride (NS-KCl 20 Meq) 1,000 ml @ 70 mls/hr [id number] IV Last administered on 04/15/17 23:06; Admin Dose 70 MLS/HR; Start at 09:30 Epoetin [place] [address] units 10,000 units TuThSa@17 SC Last administered on 18:12; Admin Dose 10,000 UNITS; Start 04/12/17 at 17:00 Ampicillin Sodium/ Sulbactam Sodium (Unasyn 3gm/NS (Pmx)) 100 ml @ 100 mls/hr Q6 IVPB Last administered on 04/16/17 04:52; Admin Dose 100 MLS/HR; Start at 14:00 Nystatin (Nystatin Susp) 5 ml QID PO Last administered on 04/15/17 20:02; Admin Dose 5 ML; Start 04/15/17 at 13:00 Hydralazine HCl (Apresoline) 25 mg Q6H PRN PO PRN Last administered on 04:55; Admin Dose 25 MG; Start 04/15/17 at 23:30 Amlodipine Besylate 5 mg 5 mg BID PO ; Start 04/16/17 at 09:00 Magnesium Sulfate (Magnesium Sulfate 2 Gm/50 ml) 50 ml @ 25 mls/hr ONCE ONCE IVPB ; Start 04/16/17 at 09:30; Stop 04/16/17 at 11:29 NIA GAYTAN MD Apr 16, 2017 08:30
[2017-04-16] MEDS: AMLODIPINE 2.5 MG TAB PO SCH ×2 (08:43→20:54)
[2017-04-16] MEDS: ARIPIPRAZOLE 10 MG TAB PO SCH (08:44)
[2017-04-16] MEDS: ARTIFICIAL TEARS 15 ML OPH BOTH EYES SCH ×3 (08:45→20:52)
--- NOTE | 2017-04-16 08:46 | CONS ---
Date/Time of Note Date/Time of Note DATE: 04/16/17 TIME: 08:42 Assessment/Plan Assessment/Plan Chief Complaint/Hosp Course 1) ARF no signs of obstruction but pt does have kidney stones u/a is not impressive urine cx is pending work-up per renal 04/12 - urine cx is NGTD urine output a bit improved creatinine slightly decreased 04/13 - good improvement in renal function 04/15 - pt has some R flank pain check u/a and urine cx creatinine is coming down nicely 04/16 - still has some R flank pain u/a had mild-mod pyuria, await urine cx 2) fluid collection around prior surgical site (ABSCESS) will order u/s of area to see if this is a simple fluid collection in light of her fever, elevated WBC concern would be that this is infected this will likely need to be drained, if a simple fluid collection then via IR if a complex fluid collection she may need surgical I&D continue with vanco/zosyn get nasal swab for MRSA 04/12 - pt spontaneously drained pus from around prior surgical site GNR is growing so far continue with vanco/zosyn but if only GNR will d/c vanco 04/13 - kleb and CoNS in wound cx, CoNS may not be significant, will await sensi' s on CoNS change antibiotics to vanco/unasyn 04/15 - doing well, d/c vanco when pt ready for discharge can change unasyn to po bactrim or levaquin or augmentin 04/16 - will change to po augmentin today I would prefer that wound would get packed to prevent premature closure of it and potentially re-initating an abscess 3) abd pain this seems out of proportion to the fluid collection in suprapubic area she is anemic and maybe there is some vascular insufficiency contributing to this no diarrhea and no sign of bowel wall thickening so doubt infectious colitis will order lactic acid will check ESR, complement levels to verify no lupus flair (no other clinical signs to suggest this other than ARF) 04/12 - improved ESR is very high, await complement levels but will check anti DS DNA 4) leukocytosis likely due to infection doubt this is from a strep throat urine less likely the source given the fairly benign u/a abscess is high on my list blood cx have been done and pending 04/12 - improving on current antibiotics await ID from abscess site 04/13 - resolved 5) SLE no joint pains currently but has ARF and abd pain check complement levels and ESR and consider anti-DS dna 04/12 - will check anti DS DNA 6) thrush 04/15 - start nystatin suspension 04/16 - improved Problems: Consultation Date/Type/Reason Admit Date/Time Apr 10, 2017 at 17:54 Initial Consult Date 04/10/17 Type of Consultation: ID Referring Provider: NIA GAYTAN MD 24 HR Interval Summary Free Text/Dictation pt is doing well no N, V, D has some serous drainage from wound Exam/Review of Systems Vital Signs Vitals Vital Signs Date Time Temp Pulse Resp B/P Pulse Ox O2 Delivery O2 Flow Rate FiO2 04/16/17 05:10 166/74 04/16/17 02:33 98.7 66 18 94 Room Air Intake and Output 04/15/17 04/15/17 04/16/17 15:00 23:00 07:00 Intake Total 210 ml 880 ml 1280 ml Output Total 500 ml 2000 ml Balance 210 ml 380 ml -720 ml Exam Constitutional: alert, oriented Eyes: nl sclera ENMT: mucosa pink and moist Respiratory: clear to auscultation Cardiovascular: regular rate and rhythm Gastrointestinal: non-tender, other (clear serous drainage from 1mm wound, slight tenderness to L mons pubis), soft Results Result Diagram: 04/16/17 0440 04/16/17 0440 Results 24 hrs Laboratory Tests Test 04/15/17 11:45 04/15/17 12:36 04/15/17 17:42 04/15/17 20:00 Urine Color YELLOW Urine Clarity SLIGHTLY CLOUDY A Urine pH 6.0 Urine Specific [place] 1.011 Urine Ketones NEGATIVE Urine Nitrite NEGATIVE Urine Bilirubin NEGATIVE Urine Urobilinogen NEGATIVE Urine Leukocyte Esterase 2+ H Urine Microscopic RBC 1 Urine Microscopic WBC 26 H Urine Squamous Epithelial Cells FEW Urine Bacteria FEW A Urine Hemoglobin NEGATIVE Urine Glucose NEGATIVE Urine Total Protein 1+ H Bedside Glucose 166 125 178 Test 04/16/17 02:22 04/16/17 04:40 Bedside Glucose 140 White Blood Count 6.9 # Red Blood Count 2.77 L Hemoglobin 8.0 L Hematocrit 25.4 L Mean Corpuscular Volume 91.7 Mean Corpuscular Hemoglobin 28.9 L Mean Corpuscular Hemoglobin Concent 31.5 L Red Cell Distribution Width 14.6 H Platelet Count 179 Mean Platelet Volume 10.0 Neutrophils % 67.3 Lymphocytes % 16.8 Monocytes % 6.4 Eosinophils % 2.8 Basophils % 0.3 Nucleated Red Blood Cells % 0.0 Neutrophils # (Manual) 4.6 Lymphocytes # 1.2 Monocytes # 0.4 Eosinophils # 0.2 Basophils # 0.0 Nucleated Red Blood Cells # 0.0 Sodium Level 149 H Potassium Level 4.0 Chloride Level 110 Carbon Dioxide Level 24 Anion Gap 19 H Blood Urea Nitrogen 25 #H Creatinine 1.48 H Glucose Level 126 Calcium Level 8.5 Magnesium Level 1.6 L Medications Medications Current Medications Acetaminophen (Tylenol Tab) 650 mg Q6H PRN PO PAIN AND OR ELEVATED TEMP; Start 04/10/17 at 18:30 Diagnostic Test (Pha) (Accu-Chek) 1 ea 02 XX Last administered on 04/15/17 02: 00; Admin Dose 1 EA; Start 04/11/17 at 02:00 Miscellaneous Information 1 ea NOTE XX ; Start 04/10/17 at 18:30 Glucose (Glutose) 15 gm Q15M PRN PO DECREASED GLUCOSE; Start 04/10/17 at 18:30 Glucose (Glutose) 22.5 gm Q15M PRN PO DECREASED GLUCOSE; Start 04/10/17 at 18: 30 Dextrose (D50w Syringe) 25 ml Q15M PRN IV DECREASED GLUCOSE; Start 04/10/17 at 18:30 Dextrose (D50w Syringe) 50 ml Q15M PRN IV DECREASED GLUCOSE; Start 04/10/17 at 18:30 Glucagon (Glucagen) 1 mg Q15M PRN IM DECREASED GLUCOSE; Start 04/10/17 at 18:30 Glucose (Glutose) 15 gm Q15M PRN BUCCAL DECREASED GLUCOSE; Start 04/10/17 at 18 :30 Ondansetron HCl (Zofran Inj) 4 mg Q6H PRN IV NAUSEA AND/OR VOMITING; Start at 19:30 Hydromorphone HCl (Dilaudid) 0.5 mg Q4H PRN IV PAIN Last administered on 04:52; Admin Dose 0.5 MG; Start 04/10/17 at 19:30 Alprazolam (Xanax) 0.5 mg Q8H PRN PO ANXIETY Last administered on 04/12/17 22: 14; Admin Dose 0.5 MG; Start 04/10/17 at 20:00 Pantoprazole (Protonix Tab) 40 mg DAILY@06 PO Last administered on 04/16/17 04 :52; Admin Dose 40 MG; Start 04/11/17 at 06:00 Eye Lubricant (Artificial Tears Oph) 2 drop TID BOTH EYES Last administered on 04/12/17 08:44; Admin Dose 2 DROP; Start 04/11/17 at 09:00 Insulin Glargine (Lantus) 8 unit DAILY@20 SC Last administered on 04/15/17 20: 04; Admin Dose 8 UNIT; Start 04/11/17 at 20:00 Amitriptyline HCl (Elavil) 200 mg HS PO Last administered on 04/15/17 20:02; Admin Dose 200 MG; Start 04/11/17 at 21:00 Aripiprazole (Abilify) 20 mg DAILY PO Last administered on 04/15/17 08:25; Admin Dose 20 MG; Start 04/12/17 at 09:00 Acetaminophen/ Hydrocodone Bitart 1 tab 1 tab Q4H PRN PO PAIN Last administered on 04/16/17 02:29; Admin Dose 1 TAB; Start 04/12/17 at 09:30 Ferric Sodium Gluconate Complex/ Sodium Chloride (Ferrlecit/NS) 110 ml @ 110 mls/hr Q24H IVPB Last administered on 04/15/17 11:20; Admin Dose 110 MLS/HR; Start 04/12/17 at 11:00; Stop 04/16/17 at 11:59 Epoetin [place] [address] units 10,000 units TuThSa@17 SC Last administered on 18:12; Admin Dose 10,000 UNITS; Start 04/12/17 at 17:00 Ampicillin Sodium/ Sulbactam Sodium (Unasyn 3gm/NS (Pmx)) 100 ml @ 100 mls/hr Q6 IVPB Last administered on 04/16/17 04:52; Admin Dose 100 MLS/HR; Start at 14:00 Nystatin (Nystatin Susp) 5 ml QID PO Last administered on 04/15/17 20:02; Admin Dose 5 ML; Start 04/15/17 at 13:00 Hydralazine HCl (Apresoline) 25 mg Q6H PRN PO PRN Last administered on t 04:55; Admin Dose 25 MG; Start 04/15/17 at 23:30 Amlodipine Besylate 5 mg 5 mg BID PO ; Start 04/16/17 at 09:00 Magnesium Sulfate (Magnesium Sulfate 2 Gm/50 ml) 50 ml @ 25 mls/hr ONCE ONCE IVPB ; Start 04/16/17 at 09:30; Stop 04/16/17 at 11:29 DIMITRIS ALAMO MD Apr 16, 2017 08:46
[2017-04-16] MEDS: INSULIN ASPART [NOVOLOG] 3 ML PEN SC SCH ×4 (08:50→20:55)
[2017-04-16] MEDS: NYSTATIN SUSP 5 ML CUP PO SCH ×4 (09:00→20:55)
--- NOTE | 2017-04-16 09:24 | PN ---
Date/Time of Note Date/Time of Note DATE: 04/16/17 TIME: 09:16 Assessment/Plan VTE Prophylaxis VTE Prophylaxis Intervention: ambulation, anti-embolic stocking, SCD's Lines/Catheters IV Catheter Type (from Nrsg): Peripheral IV Urinary Cath still in place: No Assessment/Plan Chief Complaint/Hosp Course feels better however bun and creatine still elevated K low .wbc down to 13,000 however hemoglobin down to 7.5 will defer to renal for management of these problems Problems: Assessment/Plan still anemic however creatinine down to 1.48 and hb still low at 8 will evaluate re pleural effusion await ent surgeon re wound care id and nephrology Subjective 24 Hr Interval Summary Free Text/Dictation patient alert feels better complaining of right sided pleuritic type pain possibly 2nd to small pleural effusion seen on ultrasound etiology?? Exam/Review of Systems Vital Signs Vitals Vital Signs Date Time Temp Pulse Resp B/P Pulse Ox O2 Delivery O2 Flow Rate FiO2 04/16/17 05:10 166/74 04/16/17 02:33 98.7 66 18 94 Room Air Intake and Output 04/15/17 04/15/17 04/16/17 15:00 23:00 07:00 Intake Total 210 ml 880 ml 1280 ml Output Total 500 ml 2000 ml Balance 210 ml 380 ml -720 ml Exam Constitutional: alert Psych: no complaints Head: normocephalic ENMT: nl external ears & nose Neck: supple Respiratory: clear to auscultation Cardiovascular: regular rate and rhythm Musculoskeletal: nl extremities to inspection Skin: nl turgor Results Result Diagram: 04/16/170 04/16/17 0440 Results 24 hrs Laboratory Tests Test 04/15/17 11:45 04/15/17 12:36 04/15/17 17:42 04/15/17 20:00 Urine Color YELLOW Urine Clarity SLIGHTLY CLOUDY A Urine pH 6.0 Urine Specific [place] 1.011 Urine Ketones NEGATIVE Urine Nitrite NEGATIVE Urine Bilirubin NEGATIVE Urine Urobilinogen NEGATIVE Urine Leukocyte Esterase 2+ H Urine Microscopic RBC 1 Urine Microscopic WBC 26 H Urine Squamous Epithelial Cells FEW Urine Bacteria FEW A Urine Hemoglobin NEGATIVE Urine Glucose NEGATIVE Urine Total Protein 1+ H Bedside Glucose 166 125 178 Test 04/16/17 02:22 04/16/17 04:40 04/16/17 08:42 Bedside Glucose 140 144 White Blood Count 6.9 # Red Blood Count 2.77 L Hemoglobin 8.0 L Hematocrit 25.4 L Mean Corpuscular Volume 91.7 Mean Corpuscular Hemoglobin 28.9 L Mean Corpuscular Hemoglobin Concent 31.5 L Red Cell Distribution Width 14.6 H Platelet Count 179 Mean Platelet Volume 10.0 Neutrophils % 67.3 Lymphocytes % 16.8 Monocytes % 6.4 Eosinophils % 2.8 Basophils % 0.3 Nucleated Red Blood Cells % 0.0 Neutrophils # (Manual) 4.6 Lymphocytes # 1.2 Monocytes # 0.4 Eosinophils # 0.2 Basophils # 0.0 Nucleated Red Blood Cells # 0.0 Sodium Level 149 H Potassium Level 4.0 Chloride Level 110 Carbon Dioxide Level 24 Anion Gap 19 H Blood Urea Nitrogen 25 #H Creatinine 1.48 H Glucose Level 126 Calcium Level 8.5 Magnesium Level 1.6 L Medications Medications Current Medications Acetaminophen (Tylenol Tab) 650 mg Q6H PRN PO PAIN AND OR ELEVATED TEMP; Start 04/10/17 at 18:30 Diagnostic Test (Pha) (Accu-Chek) 1 ea 02 XX Last administered on 04/15/17t 02: 00; Admin Dose 1 EA; Start 04/11/17 at 02:00 Miscellaneous Information 1 ea NOTE XX ; Start 04/10/17 at 18:30 Glucose (Glutose) 15 gm Q15M PRN PO DECREASED GLUCOSE; Start 04/10/17 at 18:30 Glucose (Glutose) 22.5 gm Q15M PRN PO DECREASED GLUCOSE; Start 04/10/17 at 18: 30 Dextrose (D50w Syringe) 25 ml Q15M PRN IV DECREASED GLUCOSE; Start 04/10/17 at 18:30 Dextrose (D50w Syringe) 50 ml Q15M PRN IV DECREASED GLUCOSE; Start 04/10/17 at 18:30 Glucagon (Glucagen) 1 mg Q15M PRN IM DECREASED GLUCOSE; Start 04/10/17 at 18:30 Glucose (Glutose) 15 gm Q15M PRN BUCCAL DECREASED GLUCOSE; Start 04/10/17 at 18 :30 Ondansetron HCl (Zofran Inj) 4 mg Q6H PRN IV NAUSEA AND/OR VOMITING; Start at 19:30 Hydromorphone HCl (Dilaudid) 0.5 mg Q4H PRN IV PAIN Last administered on 04:52; Admin Dose 0.5 MG; Start 04/10/17 at 19:30 Alprazolam (Xanax) 0.5 mg Q8H PRN PO ANXIETY Last administered on 04/12/17 22: 14; Admin Dose 0.5 MG; Start 04/10/17 at 20:00 Pantoprazole (Protonix Tab) 40 mg DAILY@06 PO Last administered on 04/16/17 04 :52; Admin Dose 40 MG; Start 04/11/17 at 06:00 Eye Lubricant (Artificial Tears Oph) 2 drop TID BOTH EYES Last administered on 04/16/17 08:45; Admin Dose 2 DROP; Start 04/11/17 at 09:00 Insulin Glargine (Lantus) 8 unit DAILY@20 SC Last administered on 04/15/17 20: 04; Admin Dose 8 UNIT; Start 04/11/17 at 20:00 Amitriptyline HCl (Elavil) 200 mg HS PO Last administered on 04/15/17 20:02; Admin Dose 200 MG; Start 04/11/17 at 21:00 Aripiprazole (Abilify) 20 mg DAILY PO Last administered on 04/16/17 08:44; Admin Dose 20 MG; Start 04/12/17 at 09:00 Acetaminophen/ Hydrocodone Bitart 1 tab 1 tab Q4H PRN PO PAIN Last administered on 04/16/17 02:29; Admin Dose 1 TAB; Start 04/12/17 at 09:30 Ferric Sodium Gluconate Complex/ Sodium Chloride (Ferrlecit/NS) 110 ml @ 110 mls/hr Q24H IVPB Last administered on 04/15/17 11:20; Admin Dose 110 MLS/HR; Start 04/12/17 at 11:00; Stop 04/16/17 at 11:59 Epoetin [place] (Epogen (Esrd)) 10,000 units TuThSa@17 SC Last administered on 18:12; Admin Dose 10,000 UNITS; Start 04/12/17 at 17:00 Nystatin (Nystatin Susp) 5 ml QID PO Last administered on 04/15/17 20:02; Admin Dose 5 ML; Start 04/15/17 at 13:00 Hydralazine HCl (Apresoline) 25 mg Q6H PRN PO PRN Last administered on 04:55; Admin Dose 25 MG; Start 04/15/17 at 23:30 Amlodipine Besylate 5 mg 5 mg BID PO Last administered on 04/16/17 08:43; Admin Dose 5 MG; Start 04/16/17 at 09:00 Magnesium Sulfate (Magnesium Sulfate 2 Gm/50 ml) 50 ml @ 25 mls/hr ONCE ONCE IVPB ; Start 04/16/17 at 09:30; Stop 04/16/17 at 11:29 Amoxicillin/ Clavulanate Potassium (Augmentin) 875 mg BID PO ; Start 04/16/17 at 09:00 KEN GANT MD Apr 16, 2017 09:24
[2017-04-16] MEDS ORDERED: MAGNESIUM SULFATE 2 GM/50 ML 50 ML IVPB ONE (09:30)
[2017-04-16] MEDS: AMOXICILLIN/CLAV 875 MG TAB PO SCH ×2 (09:48→20:52)
--- NOTE | 2017-04-16 10:43 | PN ---
Date/Time of Note Date/Time of Note DATE: 04/16/17 TIME: 10:37 Assessment/Plan Lines/Catheters IV Catheter Type (from [facility]): Peripheral IV Tran in Place (from [facility]): No Assessment/Plan Chief Complaint/Hosp Course 1. Abdominal wall collection abscess: draining large amounts of pink, creamy drainage; cultures noted; s/p washout by asl interpreter -ivf -abx per sensitivities-per ID, transitioned to PO -per asl interpreter 2. Sepsis, encephalopathy, leukocytosis 2nd above; normalized -as above -supportive 3. Acute renal failure 2nd above; cr continuing to improve; right flank/ abdominal pain; abd US noted -as above -fluid management -correct lytes -avoid nephrotoxic agents 4. Anemia: multifactorial, hx of vag bleed requiring sx, sepsis, no overt bleed ; h/h stable -tx prn -fluids 5. DM -diet/med control -encourage weight optimization 6. BMI 28 -diet/exercise optimization 7. Hyperlipidemia -diet/med optimization 8. DJD -medical optimization 9. Hypoalbuminemia, multifactorial -eventual diet optimization 10. Hepatosplenomegaly ? etiology -w/u per medical/heme 11. Mild coagulopathy -correct prn 12. SLE: -medical management 13. Hypertension -weight loss -medical management Thank you. Patient seen and examined in collaboration with Dr. Guillermo Preciado. Problems: Subjective 24 Hr Interval Summary Feeling well. Today with large amount of drainage from wound. Min discomfort, No current flank pain. No fevers, chills, sob, congested cough, n/v/d/dysuria. Exam/Review of Systems Vital Signs Vitals Vital Signs Date Time Temp Pulse Resp B/P Pulse Ox O2 Delivery O2 Flow Rate FiO2 04/16/17 05:10 166/74 04/16/17 02:33 98.7 66 18 94 Room Air Intake and Output 04/15/17 04/15/17 04/16/17 15:00 23:00 07:00 Intake Total 210 ml 880 ml 1280 ml Output Total 500 ml 2000 ml Balance 210 ml 380 ml -720 ml Exam Free Text/Dictation Constitutional: No distress Psych: nl; no anxiety Head: atraumatic, normocephalic Eyes: EOMI, PERRL, nl conjunctiva, No icteric ENMT: nl external ears & nose, nl lips & teeth, No mucosa pink and moist Neck: non-tender, No jvd Respiratory: normal air movement, No congested cough, No labored breathing Cardiovascular: regular rate and rhythm, No edema Gastrointestinal: distended, soft, surgical scars, tender periwound No rebound or guarding Musculoskeletal: nl extremities to inspection, No joint tenderness Extremities: normal pulses, No calf tenderness, No cyanosis Neurological: nl mental status, nl speech, nl strength Skin: nl turgor, Left lower abdomen with small open area with large creamy pink drainage, multiple tattoos No diaphoresis, No rash or lesions Lymph: nl lymph nodes, nontender Results Result Diagram: 04/16/1743904/16/17439 TEJAL KAT NP Apr 16, 2017 10:43
--- NOTE | 2017-04-16 13:01 | CONS ---
Date/Time of Note Date/Time of Note DATE: 04/16/17 TIME: 13:00 Consult Date/Type/Reason Admit Date/Time Apr 10, 2017 at 17:54 Initial Consult Date 04/10/17 Type of Consultation: Rheumatology Reason for Consultation Lupus Ordering Provider: NIA GAYTAN MD Subjective Feels much better. Tolerating PO and ambulating. Objective Vital Signs Date Time Temp Pulse Resp B/P Pulse Ox O2 Delivery O2 Flow Rate FiO2 04/16/17 12:06 98.1 74 20 182/76 96 04/16/17 02:33 Room Air Intake and Output 04/15/17 04/15/17 04/16/17 15:00 23:00 07:00 Intake Total 210 ml 880 ml 1280 ml Output Total 500 ml 2000 ml Balance 210 ml 380 ml -720 ml Exam Constitutional: alert, obese, oriented Psych: nl mood/affect, no complaints Respiratory: clear to auscultation, normal air movement Cardiovascular: nl pulses, regular rate and rhythm, No edema, No murmurs/extra sounds, No rub Gastrointestinal: bowel sounds, nl liver, spleen, soft, tender (RUQ/RLQ, non- tender to percussion today), No mass, No non-tender, No rebound or guarding Extremities: normal pulses, No clubbing, No cyanosis, No edema Musculoskeletal: No joint effusion/synovitis Neurological: 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, nl mental status, nl speech, nl strength Skin: No rash Results/Medications Result Diagram: 04/16/170 04/16/17 0440 Results 24 hrs Laboratory Tests Test 04/15/17 17:42 04/15/17 20:00 04/16/17 02:22 04/16/17 04:40 Bedside Glucose 125 178 140 White Blood Count 6.9 # Red Blood Count 2.77 L Hemoglobin 8.0 L Hematocrit 25.4 L Mean Corpuscular Volume 91.7 Mean Corpuscular Hemoglobin 28.9 L Mean Corpuscular Hemoglobin Concent 31.5 L Red Cell Distribution Width 14.6 H Platelet Count 179 Mean Platelet Volume 10.0 Neutrophils % 67.3 Lymphocytes % 16.8 Monocytes % 6.4 Eosinophils % 2.8 Basophils % 0.3 Nucleated Red Blood Cells % 0.0 Neutrophils # (Manual) 4.6 Lymphocytes # 1.2 Monocytes # 0.4 Eosinophils # 0.2 Basophils # 0.0 Nucleated Red Blood Cells # 0.0 Sodium Level 149 H Potassium Level 4.0 Chloride Level 110 Carbon Dioxide Level 24 Anion Gap 19 H Blood Urea Nitrogen 25 #H Creatinine 1.48 H Glucose Level 126 Calcium Level 8.5 Magnesium Level 1.6 L Test 04/16/17 08:42 04/16/17 12:49 Bedside Glucose 144 143 Medications Current Medications Acetaminophen (Tylenol Tab) 650 mg Q6H PRN PO PAIN AND OR ELEVATED TEMP; Start 04/10/17 at 18:30 Diagnostic Test (Pha) (Accu-Chek) 1 ea 02 XX Last administered on 04/15/17 02: 00; Admin Dose 1 EA; Start 04/11/17 at 02:00 Miscellaneous Information 1 ea NOTE XX ; Start 04/10/17 at 18:30 Glucose (Glutose) 15 gm Q15M PRN PO DECREASED GLUCOSE; Start 04/10/17 at 18:30 Glucose (Glutose) 22.5 gm Q15M PRN PO DECREASED GLUCOSE; Start 04/10/17 at 18: 30 Dextrose (D50w Syringe) 25 ml Q15M PRN IV DECREASED GLUCOSE; Start 04/10/17 at 18:30 Dextrose (D50w Syringe) 50 ml Q15M PRN IV DECREASED GLUCOSE; Start 04/10/17 at 18:30 Glucagon (Glucagen) 1 mg Q15M PRN IM DECREASED GLUCOSE; Start 04/10/17 at 18:30 Glucose (Glutose) 15 gm Q15M PRN BUCCAL DECREASED GLUCOSE; Start 04/10/17 at 18 :30 Ondansetron HCl (Zofran Inj) 4 mg Q6H PRN IV NAUSEA AND/OR VOMITING; Start at 19:30 Hydromorphone HCl (Dilaudid) 0.5 mg Q4H PRN IV PAIN Last administered on 04:52; Admin Dose 0.5 MG; Start 04/10/17 at 19:30 Alprazolam (Xanax) 0.5 mg Q8H PRN PO ANXIETY Last administered on 04/12/17 22: 14; Admin Dose 0.5 MG; Start 04/10/17 at 20:00 Pantoprazole (Protonix Tab) 40 mg DAILY@06 PO Last administered on 04/16/17 04 :52; Admin Dose 40 MG; Start 04/11/17 at 06:00 Eye Lubricant (Artificial Tears Oph) 2 drop TID BOTH EYES Last administered on 04/16/17 08:45; Admin Dose 2 DROP; Start 04/11/17 at 09:00 Insulin Glargine (Lantus) 8 unit DAILY@20 SC Last administered on 04/15/17 20: 04; Admin Dose 8 UNIT; Start 04/11/17 at 20:00 Amitriptyline HCl (Elavil) 200 mg HS PO Last administered on 04/15/17 20:02; Admin Dose 200 MG; Start 04/11/17 at 21:00 Aripiprazole (Abilify) 20 mg DAILY PO Last administered on 04/16/17 08:44; Admin Dose 20 MG; Start 04/12/17 at 09:00 Acetaminophen/ Hydrocodone Bitart ([place] (10/325)) 1 tab Q4H PRN PO PAIN Last administered on 04/16/17 02:29; Admin Dose 1 TAB; Start 04/12/17 at 09:30 Epoetin [place] (Epogen (Esrd)) 10,000 units TuThSa@17 SC Last administered on 18:12; Admin Dose 10,000 UNITS; Start 04/12/17 at 17:00 Nystatin (Nystatin Susp) 5 ml QID PO Last administered on 04/15/17 20:02; Admin Dose 5 ML; Start 04/15/17 at 13:00 Hydralazine HCl (Apresoline) 25 mg Q6H PRN PO PRN Last administered on 09:48; Admin Dose 25 MG; Start 04/15/17 at 23:30 Amlodipine Besylate (Norvasc) 5 mg BID PO Last administered on 04/16/17 08:43 ; Admin Dose 5 MG; Start 04/16/17 at 09:00 Amoxicillin/ Clavulanate Potassium (Augmentin) 875 mg BID PO Last administered on 04/16/17 09:48; Admin Dose 875 MG; Start 04/16/17 at 09:00 Clonidine (Catapres) 0.1 mg Q6H PRN PO ELEVATED BLOOD PRESSURE Last administered on 8/28/17at 12:36; Admin Dose 0.1 MG; Start 04/16/17 at 11:30 Assessment/Plan Chief Complaint/Hosp Course Problems: (1) Acute kidney failure with tubular necrosis Status: Acute Comment: Improving daily. Nephrology following (2) Abscess of postoperative wound of abdominal wall Status: Acute Comment: Cont. antibiotics per ID and wound care per Accounting Representative/G-surg. Now on PO antibiotics (3) Anemia Status: Acute Comment: Improving (4) Right upper quadrant pain Status: Acute Comment: Away from site of wound. Ultrasound and CT show no pathology. May be musculoskeletal 5) SLE- appears to be inactive. Stay off of all immunosuppressants for now. (6) Type 2 diabetes mellitus without complications Status: Chronic Comment: Controlled. Cont. current insulin regimen (7) Essential (primary) hypertension Status: Chronic Comment: BP mildly elevated. Monitor for now. Problems: MICHAEL FRIAS MD Apr 16, 2017 13:01
[2017-04-16] MEDS: SOD FERRIC GLUC COMPLX 125 MG in SOD CHLORIDE 0.9% 100 ML IVPB SCH (13:08)
[2017-04-16] MEDS: ALPRAZOLAM 0.5 MG TAB PO PRN ×2 (13:09→22:43)
--- NOTE | 2017-04-16 13:58 | RADRPT ---
PROCEDURE: CT Chest without contrast. CLINICAL INDICATION: Pleuritic chest pain TECHNIQUE: CT of the chest was performed on a multi-detector scanner without IV contrast. Coronal and sagittal images were reformatted from the axial data set. One or more of the following dose re duction techniques were used: automated exposure control, adjustment of the mA and/or kV according t o patient size, use of iterative reconstruction technique. CTDI = 12.33 mGy. DLP = 470.46 mGy-cm. COMPARISON: CT abdomen, 04/10/2017 FINDINGS: There are mild bilateral pleural effusions, with associated bibasilar atelectasis. Areas of septal thickening are seen bilaterally, suggestive of interstitial pulmonary edema. No pneumothorax is justa ntified. The central tracheobronchial tree is clear. No pulmonary nodule or mass lesion is ident ified. There is mild cardiomegaly without pericardial effusion. Coronary arterial and aortic atheroscler otic calcifications are present. There is no thoracic aortic aneurysm. No mediastinal, hilar, axil walter or supraclavicular lymphadenopathy is identified. Splenomegaly is noted measuring at least 19 cm. Small amount of upper abdominal ascites is present. The surrounding osseous structures are remarkable for degenerative enthesopathy of the spine. No o steolytic or osteoblastic lesion is detected. IMPRESSION: 1. Mild cardiomegaly. Coronary arterial and aortic atherosclerotic calcifications. 2. Findings suggestive of interstitial pulmonary edema, as above. Mild bilateral pleural effusions , with associated bibasilar atelectasis, new when compared to the prior CT. 3. Splenomegaly, measuring at least 19 cm, similar to the prior CT. 4. Small amount of upper abdominal ascites, also new. 5. No mass or lymphadenopathy is identified. RPTAT: HH .Adriano Solorio MD, MD Date Time Electronically viewed and signed by .Adriano Solorio MD, MD on 04/16/2017 13:58 .R/
[2017-04-16] MEDS ORDERED: FUROSEMIDE 40 MG INJ IV ONE (16:00)
[2017-04-16] MEDS ORDERED: FUROSEMIDE 40 MG INJ IV SCH (17:00)
[2017-04-16] MEDS: INSULIN GLARGINE [LANtus] 3 ML PEN SC SCH (20:51)
[2017-04-16] MEDS: AMITRIPTYLINE 50 MG TAB PO SCH (20:53)
[2017-04-17] MEDS: ACCU-CHEK XX SCH (02:00)
[2017-04-17] MEDS: PANTOPRAZOLE (EC) 40 MG TAB PO SCH (05:28)
[2017-04-17] MEDS: HYDROCODONE/APAP (10/325) TAB PO PRN ×2 (05:29→20:41)
[2017-04-17 05:33] LABS: ABNORMAL IP MESSAGE 1; BASOPHIL # 0.1 10^3/ul (0.0-0.1); BASOPHILS % 0.7 % (0.0-2.0); EOSINOPHILS # 0.2 10^3/ul (0.0-0.5); EOSINOPHILS % 2.8 % (0.0-7.0); HEMOGLOBIN 8.9 g/dl (12.0-16.0); LYMPHOCYTES # 1.4 10^3/ul (0.8-2.9); LYMPHOCYTES % 19.1 % (15.0-51.0); MEAN CORPUSCULAR HEMOGLOBIN 29.8 pg (29.0-33.0); MEAN CORPUSCULAR VOLUME 90.3 fl (82.0-101.0); MEAN PLATELET VOLUME 9.8 fl (7.4-10.4); MONOCYTE # 0.4 10^3/ul (0.3-0.9); MONOCYTES % 6.1 % (0.0-11.0); NEUTROPHILS % 64.6 % (39.0-77.0); PLATELET COUNT 183 10^3/UL (140-415); RED BLOOD COUNT 2.99 10^6/ul (4.20-5.40); RED CELL DISTRIBUTION WIDTH 14.2 % (11.5-14.5); WHITE BLOOD COUNT 7.2 10^3/ul (4.8-10.8)
[2017-04-17 05:37] LABS: POSITIVE DIFF @See below
[2017-04-17 06:01] LABS: ALBUMIN 3.1 g/dl (3.3-4.9); ALBUMIN/GLOBULIN RATIO 0.93; BILIRUBIN,INDIRECT 0.1 mg/dl (0-1.1); BILIRUBIN,TOTAL 0.1 mg/dl (0.2-1.3); CALCIUM 8.9 mg/dl (8.4-10.2); CREATININE 1.37 mg/dl (0.44-1.00); MAGNESIUM 1.2 mg/dl (1.7-2.5); POTASSIUM 3.4 mmol/L (3.5-5.1); TOTAL PROTEIN 6.4 g/dl (6.1-8.1)
[2017-04-17 07:00] VITALS: BP 169/75; RESP 18
[2017-04-17] MEDS: INSULIN ASPART [NOVOLOG] 3 ML PEN SC SCH ×4 (07:50→20:35)
[2017-04-17] MEDS ORDERED: POTASSIUM CHLORIDE (SR) 20 MEQ TAB PO STA (08:02)
--- NOTE | 2017-04-17 08:12 | CONS ---
Date/Time of Note Date/Time of Note DATE: 04/17/17 TIME: 08:09 Assessment/Plan Assessment/Plan Chief Complaint/Hosp Course #1. Acute renal failure. Most likely due to ATN from sepsis . Her renal function is better and urine output is increasing .She is now in diuretic phase of ATN . Her renal function is close to normal. #2 Abdominal pain. Due to post op abscess that has drained . She is afebrile with decreasing WBC . She has no abdominal pain at this time. She is now on oral antibiotics. #3 Anemia , she does not have evidence of GI bleeding. She is iron deficient . She is getting iron intravenously and Epogen. Her blood count is increasing slowly. #4 Status post recent total abdominal hysterectomy #5 Diabetes mellitus type 2 #6. Hyperlipidemia #7 Hypertension, blood pressure is elevated . The CAT scan done yesterday showed some pulmonary vascular congestion. Consistent with pulmonary edema. I will add a reticulocyte's. She received a dose yesterday I will give her another dose today after she gets potassium supplement and magnesium supplement. 8. Hypernatremia. Correcting Problems: Consultation Date/Type/Reason Admit Date/Time Apr 10, 2017 at 17:54 Initial Consult Date 04/11/17 Type of Consultation: renal Referring Provider: NIA GAYTAN MD 24 HR Interval Summary Free Text/Dictation She is feeling better today. She does have some shortness of breath. Her blood pressure has been elevated. Constitutional: no complaints Exam/Review of Systems Vital Signs Vitals Vital Signs Date Time Temp Pulse Resp B/P Pulse Ox O2 Delivery O2 Flow Rate FiO2 04/17/17 07:00 98.8 61 18 169/75 95 04/16/17 22:45 Room Air Intake and Output 04/16/17 04/16/17 04/17/17 15:00 23:00 07:00 Intake Total 110 ml 940 ml 1000 ml Output Total 600 ml 920 ml Balance 110 ml 340 ml 80 ml Exam Constitutional: alert, oriented, well developed Respiratory: clear to auscultation, normal air movement Cardiovascular: regular rate and rhythm Gastrointestinal: non-tender, soft Musculoskeletal: nl extremities to inspection Results Result Diagram: 04/17/17 0446 04/17/17 0446 Results 24 hrs Laboratory Tests Test 04/16/17 08:42 04/16/17 12:49 04/16/17 17:54 04/16/17 20:48 Bedside Glucose 144 143 204 153 Test 04/17/17 01:55 04/17/17 04:46 Bedside Glucose 133 White Blood Count 7.2 Red Blood Count 2.99 L Hemoglobin 8.9 L Hematocrit 27.0 L Mean Corpuscular Volume 90.3 Mean Corpuscular Hemoglobin 29.8 Mean Corpuscular Hemoglobin Concent 33.0 Red Cell Distribution Width 14.2 Platelet Count 183 Mean Platelet Volume 9.8 Neutrophils % 64.6 Lymphocytes % 19.1 Monocytes % 6.1 Eosinophils % 2.8 Basophils % 0.7 Nucleated Red Blood Cells % 0.0 Neutrophils # (Manual) 4.6 Lymphocytes # 1.4 Monocytes # 0.4 Eosinophils # 0.2 Basophils # 0.1 Nucleated Red Blood Cells # 0.0 Sodium Level 146 H Potassium Level 3.4 L Chloride Level 105 Carbon Dioxide Level 25 Anion Gap 19 H Blood Urea Nitrogen 17 Creatinine 1.37 H Glucose Level 135 Calcium Level 8.9 Magnesium Level 1.2 L Total Bilirubin 0.1 L Direct Bilirubin 0.00 Indirect Bilirubin 0.1 Aspartate Amino Transf (AST/SGOT) 20 Alanine Aminotransferase (ALT/SGPT) 34 Alkaline Phosphatase 162 H Total Protein 6.4 Albumin 3.1 L Globulin 3.30 H Albumin/Globulin Ratio 0.93 Medications Medications Current Medications Acetaminophen (Tylenol Tab) 650 mg Q6H PRN PO PAIN AND OR ELEVATED TEMP; Start 04/10/17 at 18:30 Diagnostic Test (Pha) (Accu-Chek) 1 ea 02 XX Last administered on 04/15/17t 02: 00; Admin Dose 1 EA; Start 04/11/17 at 02:00 Miscellaneous Information 1 ea NOTE XX ; Start 04/10/17 at 18:30 Glucose (Glutose) 15 gm Q15M PRN PO DECREASED GLUCOSE; Start 04/10/17 at 18:30 Glucose (Glutose) 22.5 gm Q15M PRN PO DECREASED GLUCOSE; Start 04/10/17 at 18: 30 Dextrose (D50w Syringe) 25 ml Q15M PRN IV DECREASED GLUCOSE; Start 04/10/17 at 18:30 Dextrose (D50w Syringe) 50 ml Q15M PRN IV DECREASED GLUCOSE; Start 04/10/17 at 18:30 Glucagon (Glucagen) 1 mg Q15M PRN IM DECREASED GLUCOSE; Start 04/10/17 at 18:30 Glucose (Glutose) 15 gm Q15M PRN BUCCAL DECREASED GLUCOSE; Start 04/10/17 at 18 :30 Ondansetron HCl (Zofran Inj) 4 mg Q6H PRN IV NAUSEA AND/OR VOMITING; Start at 19:30 Hydromorphone HCl (Dilaudid) 0.5 mg Q4H PRN IV PAIN Last administered on 04:52; Admin Dose 0.5 MG; Start 04/10/17 at 19:30 Alprazolam (Xanax) 0.5 mg Q8H PRN PO ANXIETY Last administered on 04/16/17 22: 43; Admin Dose 0.5 MG; Start 04/10/17 at 20:00 Pantoprazole (Protonix Tab) 40 mg DAILY@06 PO Last administered on 04/17/17 05 :28; Admin Dose 40 MG; Start 04/11/17 at 06:00 Eye Lubricant (Artificial Tears Oph) 2 drop TID BOTH EYES Last administered on 04/16/17 08:45; Admin Dose 2 DROP; Start 04/11/17 at 09:00 Insulin Glargine (Lantus) 8 unit DAILY@20 SC Last administered on 04/16/17 20: 51; Admin Dose 8 UNIT; Start 04/11/17 at 20:00 Amitriptyline HCl (Elavil) 200 mg HS PO Last administered on 04/16/17 20:53; Admin Dose 200 MG; Start 04/11/17 at 21:00 Aripiprazole (Abilify) 20 mg DAILY PO Last administered on 04/16/17 08:44; Admin Dose 20 MG; Start 04/12/17 at 09:00 Acetaminophen/ Hydrocodone Bitart ([place] (10/325)) 1 tab Q4H PRN PO PAIN Last administered on 04/17/17 05:29; Admin Dose 1 TAB; Start 04/12/17 at 09:30 Epoetin [place] (Epogen (Esrd)) 10,000 units TuThSa@17 SC Last administered on 18:12; Admin Dose 10,000 UNITS; Start 04/12/17 at 17:00 Nystatin (Nystatin Susp) 5 ml QID PO Last administered on 04/16/17 20:55; Admin Dose 5 ML; Start 04/15/17 at 13:00 Hydralazine HCl (Apresoline) 25 mg Q6H PRN PO PRN Last administered on 20:53; Admin Dose 25 MG; Start 04/15/17 at 23:30 Amlodipine Besylate (Norvasc) 5 mg BID PO Last administered on 04/16/17 20:54 ; Admin Dose 5 MG; Start 04/16/17 at 09:00 Amoxicillin/ Clavulanate Potassium (Augmentin) 875 mg BID PO Last administered on 04/16/17 20:52; Admin Dose 875 MG; Start 04/16/17 at 09:00 Clonidine 0.1 mg 0.1 mg Q6H PRN PO ELEVATED BLOOD PRESSURE Last administered on 04/16/17 12:36; Admin Dose 0.1 MG; Start 04/16/17 at 11:30 Magnesium Sulfate/ Sodium Chloride (Magnesium Sulfate/NS) 106 ml @ 35.333 mls/ hr ONCE ONCE IVPB ; Start 04/17/17 at 08:30; Stop 04/17/17 at 11:29; Status UNV Furosemide (Lasix) 40 mg ONCE ONCE IV ; Start 04/17/17 at 08:30; Stop 04/17/17 at 08:31; Status UNV NIA GAYTAN MD Apr 17, 2017 08:12
--- NOTE | 2017-04-17 08:17 | PN ---
Date/Time of Note Date/Time of Note DATE: 04/17/17 TIME: 08:11 Assessment/Plan VTE Prophylaxis VTE Prophylaxis Intervention: SCD's Lines/Catheters IV Catheter Type (from Nrs): Saline Lock Urinary Cath still in place: No Assessment/Plan Chief Complaint/Hosp Course feels better however bun and creatine still elevated K low .wbc down to 13,000 however hemoglobin down to 7.5 will defer to renal for management of these problems Problems: Assessment/Plan patient doing much bbetter creatinine down to 1.37 hoever k down 2nd to diuretic ,blood presswure also an issue will discuss with ester bui as to best drug rx will consider discharge today if all agree Subjective 24 Hr Interval Summary Constitutional: no complaints Eyes: no complaints ENT: no complaints Respiratory: no complaints Cardiovascular: no complaints Gastrointestinal: no complaints Genitourinary: no complaints Musculoskeletal: no complaints Skin: no complaints Neurologic: no complaints Psychological: no complaints Additional Comments patient feeling much better would like to go home if all agree Exam/Review of Systems Vital Signs Vitals Vital Signs Date Time Temp Pulse Resp B/P Pulse Ox O2 Delivery O2 Flow Rate FiO2 04/17/17 07:00 98.8 61 18 169/75 95 04/16/17 22:45 Room Air Intake and Output 04/16/17 04/16/17 04/17/17 15:00 23:00 07:00 Intake Total 110 ml 940 ml 1000 ml Output Total 600 ml 920 ml Balance 110 ml 340 ml 80 ml Exam Constitutional: alert Psych: no complaints Head: normocephalic ENMT: nl external ears & nose Respiratory: clear to auscultation Cardiovascular: regular rate and rhythm Gastrointestinal: soft Results Result Diagram: 04/17/17 0446 04/17/17 0446 Results 24 hrs Laboratory Tests Test 04/16/17 08:42 04/16/17 12:49 04/16/17 17:54 04/16/17 20:48 Bedside Glucose 144 143 204 153 Test 04/17/17 01:55 04/17/17 04:46 Bedside Glucose 133 White Blood Count 7.2 Red Blood Count 2.99 L Hemoglobin 8.9 L Hematocrit 27.0 L Mean Corpuscular Volume 90.3 Mean Corpuscular Hemoglobin 29.8 Mean Corpuscular Hemoglobin Concent 33.0 Red Cell Distribution Width 14.2 Platelet Count 183 Mean Platelet Volume 9.8 Neutrophils % 64.6 Lymphocytes % 19.1 Monocytes % 6.1 Eosinophils % 2.8 Basophils % 0.7 Nucleated Red Blood Cells % 0.0 Neutrophils # (Manual) 4.6 Lymphocytes # 1.4 Monocytes # 0.4 Eosinophils # 0.2 Basophils # 0.1 Nucleated Red Blood Cells # 0.0 Sodium Level 146 H Potassium Level 3.4 L Chloride Level 105 Carbon Dioxide Level 25 Anion Gap 19 H Blood Urea Nitrogen 17 Creatinine 1.37 H Glucose Level 135 Calcium Level 8.9 Magnesium Level 1.2 L Total Bilirubin 0.1 L Direct Bilirubin 0.00 Indirect Bilirubin 0.1 Aspartate Amino Transf (AST/SGOT) 20 Alanine Aminotransferase (ALT/SGPT) 34 Alkaline Phosphatase 162 H Total Protein 6.4 Albumin 3.1 L Globulin 3.30 H Albumin/Globulin Ratio 0.93 Medications Medications Current Medications Acetaminophen (Tylenol Tab) 650 mg Q6H PRN PO PAIN AND OR ELEVATED TEMP; Start 04/10/17 at 18:30 Diagnostic Test (Pha) (Accu-Chek) 1 ea 02 XX Last administered on 04/15/17 02: 00; Admin Dose 1 EA; Start 04/11/17 at 02:00 Miscellaneous Information 1 ea NOTE XX ; Start 04/10/17 at 18:30 Glucose (Glutose) 15 gm Q15M PRN PO DECREASED GLUCOSE; Start 04/10/17 at 18:30 Glucose (Glutose) 22.5 gm Q15M PRN PO DECREASED GLUCOSE; Start 04/10/17 at 18: 30 Dextrose (D50w Syringe) 25 ml Q15M PRN IV DECREASED GLUCOSE; Start 04/10/17 at 18:30 Dextrose (D50w Syringe) 50 ml Q15M PRN IV DECREASED GLUCOSE; Start 04/10/17 at 18:30 Glucagon (Glucagen) 1 mg Q15M PRN IM DECREASED GLUCOSE; Start 04/10/17 at 18:30 Glucose (Glutose) 15 gm Q15M PRN BUCCAL DECREASED GLUCOSE; Start 04/10/17 at 18 :30 Ondansetron HCl (Zofran Inj) 4 mg Q6H PRN IV NAUSEA AND/OR VOMITING; Start at 19:30 Hydromorphone HCl (Dilaudid) 0.5 mg Q4H PRN IV PAIN Last administered on 04:52; Admin Dose 0.5 MG; Start 04/10/17 at 19:30 Alprazolam (Xanax) 0.5 mg Q8H PRN PO ANXIETY Last administered on 04/16/17 22: 43; Admin Dose 0.5 MG; Start 04/10/17 at 20:00 Pantoprazole (Protonix Tab) 40 mg DAILY@06 PO Last administered on 04/17/17 05 :28; Admin Dose 40 MG; Start 04/11/17 at 06:00 Eye Lubricant (Artificial Tears Oph) 2 drop TID BOTH EYES Last administered on 04/16/17 08:45; Admin Dose 2 DROP; Start 04/11/17 at 09:00 Insulin Glargine (Lantus) 8 unit DAILY@20 SC Last administered on 04/16/17 20: 51; Admin Dose 8 UNIT; Start 04/11/17 at 20:00 Amitriptyline HCl (Elavil) 200 mg HS PO Last administered on 04/16/17 20:53; Admin Dose 200 MG; Start 04/11/17 at 21:00 Aripiprazole (Abilify) 20 mg DAILY PO Last administered on 04/16/17 08:44; Admin Dose 20 MG; Start 04/12/17 at 09:00 Acetaminophen/ Hydrocodone Bitart ([place] (10/325)) 1 tab Q4H PRN PO PAIN Last administered on 04/17/17 05:29; Admin Dose 1 TAB; Start 04/12/17 at 09:30 Epoetin Jean Pierre (Epogen (Esrd)) 10,000 units TuThSa@17 SC Last administered on 18:12; Admin Dose 10,000 UNITS; Start 04/12/17 at 17:00 Nystatin (Nystatin Susp) 5 ml QID PO Last administered on 04/16/17 20:55; Admin Dose 5 ML; Start 04/15/17 at 13:00 Hydralazine HCl (Apresoline) 25 mg Q6H PRN PO PRN Last administered on 20:53; Admin Dose 25 MG; Start 04/15/17 at 23:30 Amlodipine Besylate (Norvasc) 5 mg BID PO Last administered on 04/16/17 20:54 ; Admin Dose 5 MG; Start 04/16/17 at 09:00 Amoxicillin/ Clavulanate Potassium (Augmentin) 875 mg BID PO Last administered on 04/16/17 20:52; Admin Dose 875 MG; Start 04/16/17 at 09:00 Clonidine 0.1 mg 0.1 mg Q6H PRN PO ELEVATED BLOOD PRESSURE Last administered on 04/16/17 12:36; Admin Dose 0.1 MG; Start 04/16/17 at 11:30 Magnesium Sulfate/ Sodium Chloride (Magnesium Sulfate/NS) 106 ml @ 35.333 mls/ hr ONCE ONCE IVPB ; Start 04/17/17 at 08:30; Stop 04/17/17 at 11:29; Status UNV Furosemide (Lasix) 40 mg ONCE ONCE IV ; Start 04/17/17 at 08:30; Stop 04/17/17 at 08:31; Status UNV KEN GANT MD Apr 17, 2017 08:17
[2017-04-17] MEDS ORDERED: FUROSEMIDE 40 MG INJ IV ONE (08:30)
[2017-04-17] MEDS: ARTIFICIAL TEARS 15 ML OPH BOTH EYES SCH ×3 (08:48→20:35)
[2017-04-17] MEDS: AMOXICILLIN/CLAV 875 MG TAB PO SCH ×2 (08:48→20:34)
[2017-04-17] MEDS: ARIPIPRAZOLE 10 MG TAB PO SCH (08:48)
[2017-04-17] MEDS: NYSTATIN SUSP 5 ML CUP PO SCH ×4 (08:50→20:35)
[2017-04-17] MEDS: AMLODIPINE 2.5 MG TAB PO SCH ×2 (08:50→20:34)
--- NOTE | 2017-04-17 09:48 | PN ---
Date/Time of Note Date/Time of Note DATE: 04/17/17 TIME: 09:36 Assessment/Plan Lines/Catheters IV Catheter Type (from [facility]): Saline Lock Tran in Place (from [facility]): No Assessment/Plan Chief Complaint/Hosp Course 1. Abdominal wall collection abscess: draining small amount of pink, creamy drainage; cultures noted; s/p daily washout by second cook and baker -ivf -abx per sensitivities-per ID, transitioned to PO -per second cook and baker 2. Sepsis, encephalopathy, leukocytosis 2nd above; normalized -as above -supportive 3. Acute renal failure 2nd above; cr improving; right flank/abdominal pain improved; abd US noted -as above -fluid management -correct lytes -avoid nephrotoxic agents 4. Anemia: multifactorial, hx of vag bleed requiring sx, sepsis, no overt bleed ; h/h stable -tx prn -fluids 5. DM -diet/med control -encourage weight optimization 6. BMI 28 -diet/exercise optimization 7. Hyperlipidemia -diet/med optimization 8. DJD -medical optimization 9. Hypoalbuminemia, multifactorial -eventual diet optimization 10. Hepatosplenomegaly ? etiology -w/u per medical/heme 11. Mild coagulopathy -correct prn 12. SLE: -medical management 13. Hypertension -weight loss -medical management 14. Interstitial pulmonary edema with ascites; breathing comfortably -further workup by medical team -gentle diuresis Thank you. Patient seen and examined in collaboration with Dr. Guillermo Preciado. Problems: Subjective 24 Hr Interval Summary Feels well. Wound from lower abdominal wound with less drainage. Min temp but no fevers, chills. No sob, cough, n/v/d/dysuria, abdominal pain, cp, palpitations, sz. Exam/Review of Systems Vital Signs Vitals Vital Signs Date Time Temp Pulse Resp B/P Pulse Ox O2 Delivery O2 Flow Rate FiO2 04/17/17 07:00 98.8 61 18 169/75 95 04/16/17 22:45 Room Air Intake and Output 04/16/17 04/16/17 04/17/17 15:00 23:00 07:00 Intake Total 110 ml 940 ml 1000 ml Output Total 600 ml 920 ml Balance 110 ml 340 ml 80 ml Exam Free Text/Dictation Constitutional: No distress Psych: nl; no anxiety Head: atraumatic, normocephalic Eyes: EOMI, PERRL, nl conjunctiva, No icteric ENMT: nl external ears & nose, nl lips & teeth, No mucosa pink and moist Neck: non-tender, No jvd Respiratory: normal air movement, No congested cough, No labored breathing Cardiovascular: regular rate and rhythm, No edema Gastrointestinal: nondistended, soft, surgical scars, tender periwound, rotund No rebound or guarding Musculoskeletal: nl extremities to inspection, No joint tenderness Extremities: normal pulses, No calf tenderness, No cyanosis Neurological: nl mental status, nl speech, nl strength Skin: nl turgor, Left lower abdomen with small open area with small creamy pink drainage, multiple tattoos No diaphoresis, No rash or lesions Lymph: nl lymph nodes, nontender Results Result Diagram: 04/17/17 0446 04/17/17 0446 TEJAL KAT NP Apr 17, 2017 09:48
[2017-04-17] MEDS ORDERED: MAGNESIUM SULFATE 3 GM in SOD CHLORIDE 0.9% 100 ML IVPB ONE (10:00)
[2017-04-17 10:15] VITALS: BP 170/78; PULSE 78; RESP 18
[2017-04-17 12:00] VITALS: BP 165/73
[2017-04-17] MEDS: ALPRAZOLAM 0.5 MG TAB PO PRN (12:50)
[2017-04-17 13:00] VITALS: BP 154/72
[2017-04-17 14:00] VITALS: BP 145/70; RESP 18
[2017-04-17] MEDS: EPOETIN 10000 UNITS/1 ML INJ (ESRD) SC SCH (16:30)
--- NOTE | 2017-04-17 20:01 | QN ---
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 She reports that the right flank pain has improved. Amount of drainage is minimal. WBC 7.2 Hgb 8.9 Plts 183K Cr 1.37 BP this AM 169/75 but the latest was 145/70 and has received a dose of Lasix, and some other antihypertensives. Incision: Left incisional area has no evidence of infection. There is no drainage noted. The skin was cleaned with betadine. A sterile Q-tip was used to probe the incision and the mckeon of the abscess area were scrubbed with the probe and a small sterile 2x2. The fascial closure still feels intact. Sterile water was then used to irrigate the inside multiple times until the water flowed out fairly clear. The skin was then washed and wiped clean a new abdominal pad taped into place. A: Wound infection with sepsis and renal failure, all improving. Great improvement in renal function. DM. SLE. P: D/C home tomorrow would be reasonable if BP is stabilized. The pt will be able to come to my office for wound care f/u. Oral antibiotics, per ID. BENJAMIN MORRISON MD Apr 17, 2017 20:01
[2017-04-17 20:19] VITALS: BP 157/73; RESP 20
[2017-04-17] MEDS: AMITRIPTYLINE 50 MG TAB PO SCH (20:34)
[2017-04-17] MEDS: INSULIN GLARGINE [LANtus] 3 ML PEN SC SCH (20:39)
[2017-04-17] MEDS ORDERED: ZOLPIDEM 5 MG TAB PO ONE (21:00)
--- NOTE | 2017-04-17 21:32 | RADRPT ---
PROCEDURE: XR Chest. CLINICAL INDICATION: Cough. TECHNIQUE: Two views. Frontal and lateral. COMPARISON: 04/10/2017. FINDINGS: There is mild atelectasis at the lung bases. The lungs are otherwise clear. The heart size is normal. There are small bilateral pleural effusions. There is no pneumothorax. IMPRESSION: 1. Mild atelectasis at the lung bases. 2. Small bilateral pleural effusions. 3. Otherwise normal chest x-ray. RPTAT: QQ .Wing Ewing MD, MD Date Time Electronically viewed and signed by .Wing Ewing MD, on 04/17/2017 21:32 .R/
[2017-04-18] MEDS: ACCU-CHEK XX SCH (02:00)
[2017-04-18 05:31] LABS: ABNORMAL IP MESSAGE 1; BASOPHILS % 0.6 % (0.0-2.0); EOSINOPHILS # 0.2 10^3/ul (0.0-0.5); EOSINOPHILS % 2.5 % (0.0-7.0); HEMATOCRIT 26.9 % (37.0-47.0); HEMOGLOBIN 8.7 g/dl (12.0-16.0); LYMPHOCYTES # 1.5 10^3/ul (0.8-2.9); MEAN CORPUSCULAR HEMOGLOBIN 29.1 pg (29.0-33.0); MEAN CORPUSCULAR HGB CONC 32.3 g/dl (32.0-37.0); MEAN PLATELET VOLUME 9.9 fl (7.4-10.4); MONOCYTE # 0.5 10^3/ul (0.3-0.9); MONOCYTES % 6.5 % (0.0-11.0); NEUTROPHILS % 64.2 % (39.0-77.0); PLATELET COUNT 181 10^3/UL (140-415); RED BLOOD COUNT 2.99 10^6/ul (4.20-5.40); RED CELL DISTRIBUTION WIDTH 14.3 % (11.5-14.5); WHITE BLOOD COUNT 7.3 10^3/ul (4.8-10.8)
[2017-04-18 05:54] LABS: ALBUMIN 3.3 g/dl (3.3-4.9); ALBUMIN/GLOBULIN RATIO 1.03; BILIRUBIN,INDIRECT 0.1 mg/dl (0-1.1); BILIRUBIN,TOTAL 0.1 mg/dl (0.2-1.3); CALCIUM 8.8 mg/dl (8.4-10.2); CREATININE 1.48 mg/dl (0.44-1.00); MAGNESIUM 1.3 mg/dl (1.7-2.5); POTASSIUM 3.3 mmol/L (3.5-5.1); TOTAL PROTEIN 6.5 g/dl (6.1-8.1)
[2017-04-18 05:55] LABS: POSITIVE DIFF @See below
[2017-04-18] MEDS: PANTOPRAZOLE (EC) 40 MG TAB PO SCH (06:26)
[2017-04-18] MEDS: HYDROCODONE/APAP (10/325) TAB PO PRN ×3 (06:26→22:46)
[2017-04-18 08:00] VITALS: BP 144/70; RESP 20
--- NOTE | 2017-04-18 08:24 | PN ---
Date/Time of Note Date/Time of Note DATE: 04/18/17 TIME: 08:20 Assessment/Plan VTE Prophylaxis VTE Prophylaxis Intervention: SCD's Lines/Catheters IV Catheter Type (from Nrs): Saline Lock Urinary Cath still in place: No Assessment/Plan Chief Complaint/Hosp Course feels better however bun and creatine still elevated K low .wbc down to 13,000 however hemoglobin down to 7.5 will defer to renal for management of these problems Problems: Assessment/Plan plan at this point per dr spivey improving slowly at this point Subjective 24 Hr Interval Summary Constitutional: improved, no complaints Eyes: no complaints ENT: no complaints Respiratory: pleuritic pain Cardiovascular: no complaints Gastrointestinal: no complaints Genitourinary: no complaints Musculoskeletal: no complaints Endocrine: no complaints Psychological: no complaints Exam/Review of Systems Vital Signs Vitals Vital Signs Date Time Temp Pulse Resp B/P Pulse Ox O2 Delivery O2 Flow Rate FiO2 04/18/17 08:00 98.9 77 20 144/70 94 04/17/17 10:15 Room Air Intake and Output 04/17/17 04/17/17 04/18/17 15:00 23:00 07:00 Intake Total 106 ml 1380 ml 1000 ml Output Total 1200 ml Balance 106 ml 180 ml 1000 ml Exam Constitutional: alert Psych: no complaints Head: normocephalic ENMT: nl external ears & nose Neck: supple Cardiovascular: regular rate and rhythm Gastrointestinal: soft Musculoskeletal: nl extremities to inspection Results Result Diagram: 04/18/17 0444 04/18/17 0444 Results 24 hrs Laboratory Tests Test 04/17/17 08:45 04/17/17 12:40 04/17/17 17:44 04/17/17 20:33 Bedside Glucose 139 182 145 151 Test 04/18/17 02:29 04/18/17 04:44 Bedside Glucose 172 White Blood Count 7.3 Red Blood Count 2.99 L Hemoglobin 8.7 L Hematocrit 26.9 L Mean Corpuscular Volume 90.0 Mean Corpuscular Hemoglobin 29.1 Mean Corpuscular Hemoglobin Concent 32.3 Red Cell Distribution Width 14.3 Platelet Count 181 Mean Platelet Volume 9.9 Neutrophils % 64.2 Lymphocytes % 20.0 Monocytes % 6.5 Eosinophils % 2.5 Basophils % 0.6 Nucleated Red Blood Cells % 0.0 Neutrophils # (Manual) 4.7 Lymphocytes # 1.5 Monocytes # 0.5 Eosinophils # 0.2 Basophils # 0.0 Nucleated Red Blood Cells # 0.0 Sodium Level 145 H Potassium Level 3.3 L Chloride Level 101 Carbon Dioxide Level 27 Anion Gap 20 H Blood Urea Nitrogen 16 Creatinine 1.48 H Glucose Level 160 Calcium Level 8.8 Magnesium Level 1.3 L Total Bilirubin 0.1 L Direct Bilirubin 0.00 Indirect Bilirubin 0.1 Aspartate Amino Transf (AST/SGOT) 21 Alanine Aminotransferase (ALT/SGPT) 37 Alkaline Phosphatase 145 H Total Protein 6.5 Albumin 3.3 Globulin 3.20 Albumin/Globulin Ratio 1.03 Medications Medications Current Medications Acetaminophen (Tylenol Tab) 650 mg Q6H PRN PO PAIN AND OR ELEVATED TEMP; Start 04/10/17 at 18:30 Diagnostic Test (Pha) (Accu-Chek) 1 ea 02 XX Last administered on 04/15/17 02: 00; Admin Dose 1 EA; Start 04/11/17 at 02:00 Miscellaneous Information 1 ea NOTE XX ; Start 04/10/17 at 18:30 Glucose (Glutose) 15 gm Q15M PRN PO DECREASED GLUCOSE; Start 04/10/17 at 18:30 Glucose (Glutose) 22.5 gm Q15M PRN PO DECREASED GLUCOSE; Start 04/10/17 at 18: 30 Dextrose (D50w Syringe) 25 ml Q15M PRN IV DECREASED GLUCOSE; Start 04/10/17 at 18:30 Dextrose (D50w Syringe) 50 ml Q15M PRN IV DECREASED GLUCOSE; Start 04/10/17 at 18:30 Glucagon (Glucagen) 1 mg Q15M PRN IM DECREASED GLUCOSE; Start 04/10/17 at 18:30 Glucose (Glutose) 15 gm Q15M PRN BUCCAL DECREASED GLUCOSE; Start 04/10/17 at 18 :30 Ondansetron HCl (Zofran Inj) 4 mg Q6H PRN IV NAUSEA AND/OR VOMITING; Start at 19:30 Hydromorphone HCl (Dilaudid) 0.5 mg Q4H PRN IV PAIN Last administered on 04:52; Admin Dose 0.5 MG; Start 04/10/17 at 19:30 Alprazolam (Xanax) 0.5 mg Q8H PRN PO ANXIETY Last administered on 04/17/17 12: 50; Admin Dose 0.5 MG; Start 04/10/17 at 20:00 Pantoprazole (Protonix Tab) 40 mg DAILY@06 PO Last administered on 04/18/17 06 :26; Admin Dose 40 MG; Start 04/11/17 at 06:00 Eye Lubricant (Artificial Tears Oph) 2 drop TID BOTH EYES Last administered on 04/16/17 08:45; Admin Dose 2 DROP; Start 04/11/17 at 09:00 Insulin Glargine (Lantus) 8 unit DAILY@20 SC Last administered on 04/17/17 20: 39; Admin Dose 8 UNIT; Start 04/11/17 at 20:00 Amitriptyline HCl (Elavil) 200 mg HS PO Last administered on 04/17/17 20:34; Admin Dose 200 MG; Start 04/11/17 at 21:00 Aripiprazole (Abilify) 20 mg DAILY PO Last administered on 04/17/17 08:48; Admin Dose 20 MG; Start 04/12/17 at 09:00 Acetaminophen/ Hydrocodone Bitart ([place] (10/325)) 1 tab Q4H PRN PO PAIN Last administered on 04/18/17 06:26; Admin Dose 1 TAB; Start 04/12/17 at 09:30 Epoetin [place] (Epogen (Esrd)) 10,000 units TuThSa@17 SC Last administered on 16:30; Admin Dose 10,000 UNITS; Start 04/12/17 at 17:00 Nystatin (Nystatin Susp) 5 ml QID PO Last administered on 04/17/17 12:01; Admin Dose 5 ML; Start 04/15/17 at 13:00 Hydralazine HCl (Apresoline) 25 mg Q6H PRN PO PRN Last administered on 08:51; Admin Dose 25 MG; Start 04/15/17 at 23:30 Amlodipine Besylate (Norvasc) 5 mg BID PO Last administered on 04/17/17 20:34 ; Admin Dose 5 MG; Start 04/16/17 at 09:00 Amoxicillin/ Clavulanate Potassium (Augmentin) 875 mg BID PO Last administered on 04/17/17 20:34; Admin Dose 875 MG; Start 04/16/17 at 09:00 Clonidine (Catapres) 0.1 mg Q6H PRN PO ELEVATED BLOOD PRESSURE Last administered on 04/16/17t 12:36; Admin Dose 0.1 MG; Start 04/16/17 at 11:30 Potassium Chloride 40 meq 40 meq BID PO ; Start 04/18/17 at 09:00; Status UNV Magnesium Sulfate/ Sodium Chloride (Magnesium Sulfate/NS) 106 ml @ 35.333 mls/ hr ONCE ONCE IVPB ; Start 04/18/17 at 08:30; Stop 04/18/17 at 11:29; Status UNV KEN GANT MD Apr 18, 2017 08:24
--- NOTE | 2017-04-18 08:34 | CONS ---
Date/Time of Note Date/Time of Note DATE: 04/18/17 TIME: 08:24 Assessment/Plan Assessment/Plan Chief Complaint/Hosp Course #1. Acute renal failure. Resolving ATN from sepsis . Her renal function continues to improve . Her potassium and magnesium are low . will replace . #2 Abdominal pain. Due to post op abscess that has drained . She is afebrile with decreasing WBC . She has slight abdominal pain at this time. She is now on oral antibiotics. #3 Anemia , she does not have evidence of GI bleeding. She is iron deficient . She is getting iron intravenously and Epogen. Her blood count is increasing slowly. #4 Status post recent total abdominal hysterectomy #5 Diabetes mellitus type 2 #6. Hyperlipidemia #7 Hypertension, blood pressure is lower after getting furosemide . Chest X ray done yesterday is clear . 8. Hypernatremia. Correcting Hopefully will be able to go home tomorrow if labs are corrected . Problems: Consultation Date/Type/Reason Admit Date/Time Apr 10, 2017 at 17:54 Initial Consult Date 04/11/17 Type of Consultation: renal Referring Provider: NIA GAYTAN MD 24 HR Interval Summary Free Text/Dictation She continues to feel better , less abdominal pain . eating better . Constitutional: improved, no complaints Exam/Review of Systems Vital Signs Vitals Vital Signs Date Time Temp Pulse Resp B/P Pulse Ox O2 Delivery O2 Flow Rate FiO2 04/18/17 08:00 98.9 77 20 144/70 94 04/17/17 10:15 Room Air Intake and Output 04/17/17 04/17/17 04/18/17 15:00 23:00 07:00 Intake Total 106 ml 1380 ml 1000 ml Output Total 1200 ml Balance 106 ml 180 ml 1000 ml Exam Constitutional: alert, oriented, well developed Neck: non-tender, supple Respiratory: clear to auscultation, normal air movement Cardiovascular: regular rate and rhythm Gastrointestinal: soft, tender Musculoskeletal: nl extremities to inspection Results Result Diagram: 04/18/17 0444 04/18/17 0444 Results 24 hrs Laboratory Tests Test 04/17/17 08:45 04/17/17 12:40 04/17/17 17:44 04/17/17 20:33 Bedside Glucose 139 182 145 151 Test 04/18/17 02:29 04/18/17 04:44 Bedside Glucose 172 White Blood Count 7.3 Red Blood Count 2.99 L Hemoglobin 8.7 L Hematocrit 26.9 L Mean Corpuscular Volume 90.0 Mean Corpuscular Hemoglobin 29.1 Mean Corpuscular Hemoglobin Concent 32.3 Red Cell Distribution Width 14.3 Platelet Count 181 Mean Platelet Volume 9.9 Neutrophils % 64.2 Lymphocytes % 20.0 Monocytes % 6.5 Eosinophils % 2.5 Basophils % 0.6 Nucleated Red Blood Cells % 0.0 Neutrophils # (Manual) 4.7 Lymphocytes # 1.5 Monocytes # 0.5 Eosinophils # 0.2 Basophils # 0.0 Nucleated Red Blood Cells # 0.0 Sodium Level 145 H Potassium Level 3.3 L Chloride Level 101 Carbon Dioxide Level 27 Anion Gap 20 H Blood Urea Nitrogen 16 Creatinine 1.48 H Glucose Level 160 Calcium Level 8.8 Magnesium Level 1.3 L Total Bilirubin 0.1 L Direct Bilirubin 0.00 Indirect Bilirubin 0.1 Aspartate Amino Transf (AST/SGOT) 21 Alanine Aminotransferase (ALT/SGPT) 37 Alkaline Phosphatase 145 H Total Protein 6.5 Albumin 3.3 Globulin 3.20 Albumin/Globulin Ratio 1.03 Medications Medications Current Medications Acetaminophen (Tylenol Tab) 650 mg Q6H PRN PO PAIN AND OR ELEVATED TEMP; Start 04/10/17 at 18:30 Diagnostic Test (Pha) (Accu-Chek) 1 ea 02 XX Last administered on 04/15/17t 02: 00; Admin Dose 1 EA; Start 04/11/17 at 02:00 Miscellaneous Information 1 ea NOTE XX ; Start 04/10/17 at 18:30 Glucose (Glutose) 15 gm Q15M PRN PO DECREASED GLUCOSE; Start 04/10/17 at 18:30 Glucose (Glutose) 22.5 gm Q15M PRN PO DECREASED GLUCOSE; Start 04/10/17 at 18: 30 Dextrose (D50w Syringe) 25 ml Q15M PRN IV DECREASED GLUCOSE; Start 04/10/17 at 18:30 Dextrose (D50w Syringe) 50 ml Q15M PRN IV DECREASED GLUCOSE; Start 04/10/17 at 18:30 Glucagon (Glucagen) 1 mg Q15M PRN IM DECREASED GLUCOSE; Start 04/10/17 at 18:30 Glucose (Glutose) 15 gm Q15M PRN BUCCAL DECREASED GLUCOSE; Start 04/10/17 at 18 :30 Ondansetron HCl (Zofran Inj) 4 mg Q6H PRN IV NAUSEA AND/OR VOMITING; Start at 19:30 Hydromorphone HCl (Dilaudid) 0.5 mg Q4H PRN IV PAIN Last administered on 04:52; Admin Dose 0.5 MG; Start 04/10/17 at 19:30 Alprazolam (Xanax) 0.5 mg Q8H PRN PO ANXIETY Last administered on 04/17/17 12: 50; Admin Dose 0.5 MG; Start 04/10/17 at 20:00 Pantoprazole (Protonix Tab) 40 mg DAILY@06 PO Last administered on 04/18/17 06 :26; Admin Dose 40 MG; Start 04/11/17 at 06:00 Eye Lubricant (Artificial Tears Oph) 2 drop TID BOTH EYES Last administered on 04/16/17 08:45; Admin Dose 2 DROP; Start 04/11/17 at 09:00 Insulin Glargine (Lantus) 8 unit DAILY@20 SC Last administered on 04/17/17 20: 39; Admin Dose 8 UNIT; Start 04/11/17 at 20:00 Amitriptyline HCl (Elavil) 200 mg HS PO Last administered on 04/17/17 20:34; Admin Dose 200 MG; Start 04/11/17 at 21:00 Aripiprazole (Abilify) 20 mg DAILY PO Last administered on 04/17/17 08:48; Admin Dose 20 MG; Start 04/12/17 at 09:00 Acetaminophen/ Hydrocodone Bitart ([place] (10/325)) 1 tab Q4H PRN PO PAIN Last administered on 04/18/17 06:26; Admin Dose 1 TAB; Start 04/12/17 at 09:30 Epoetin [place] (Epogen (Esrd)) 10,000 units TuThSa@17 SC Last administered on 16:30; Admin Dose 10,000 UNITS; Start 04/12/17 at 17:00 Nystatin (Nystatin Susp) 5 ml QID PO Last administered on 04/17/17 12:01; Admin Dose 5 ML; Start 04/15/17 at 13:00 Hydralazine HCl (Apresoline) 25 mg Q6H PRN PO PRN Last administered on 08:51; Admin Dose 25 MG; Start 04/15/17 at 23:30 Amlodipine Besylate (Norvasc) 5 mg BID PO Last administered on 04/17/17 20:34 ; Admin Dose 5 MG; Start 04/16/17 at 09:00 Amoxicillin/ Clavulanate Potassium (Augmentin) 875 mg BID PO Last administered on 04/17/17 20:34; Admin Dose 875 MG; Start 04/16/17 at 09:00 Clonidine (Catapres) 0.1 mg Q6H PRN PO ELEVATED BLOOD PRESSURE Last administered on 04/16/17 12:36; Admin Dose 0.1 MG; Start 04/16/17 at 11:30 Potassium Chloride 40 meq 40 meq BID PO ; Start 04/18/17 at 09:00; Status UNV Magnesium Sulfate/ Sodium Chloride (Magnesium Sulfate/NS) 106 ml @ 35.333 mls/ hr ONCE ONCE IVPB ; Start 04/18/17 at 08:30; Stop 04/18/17 at 11:29; Status UNV NIA GAYTAN MD Apr 18, 2017 08:34
[2017-04-18] MEDS: ARTIFICIAL TEARS 15 ML OPH BOTH EYES SCH ×3 (08:39→20:54)
[2017-04-18] MEDS: POTASSIUM CHLORIDE (SR) 20 MEQ TAB PO SCH ×2 (08:39→20:52)
[2017-04-18] MEDS: ARIPIPRAZOLE 10 MG TAB PO SCH (08:39)
[2017-04-18] MEDS: AMOXICILLIN/CLAV 875 MG TAB PO SCH ×2 (08:39→20:52)
[2017-04-18] MEDS: AMLODIPINE 2.5 MG TAB PO SCH ×2 (08:40→20:53)
[2017-04-18] MEDS: NYSTATIN SUSP 5 ML CUP PO SCH ×4 (08:40→20:52)
[2017-04-18] MEDS: INSULIN ASPART [NOVOLOG] 3 ML PEN SC SCH ×5 (08:46→21:00)
[2017-04-18] MEDS ORDERED: MAGNESIUM SULFATE 3 GM in SOD CHLORIDE 0.9% 100 ML IVPB ONE (10:00)
[2017-04-18 14:00] VITALS: BP 137/77; RESP 18
--- NOTE | 2017-04-18 14:45 | PN ---
Date/Time of Note Date/Time of Note DATE: 04/18/17 TIME: 14:45 Assessment/Plan Lines/Catheters IV Catheter Type (from Nrs): Saline Lock Tran in Place (from Nrs): No Assessment/Plan Chief Complaint/Hosp Course 1. Abdominal wall collection abscess: draining small amount of pink, creamy drainage; cultures noted; s/p daily washout by maths tutor -ivf -abx per sensitivities-per ID, transitioned to PO -per maths tutor 2. Sepsis, encephalopathy, leukocytosis 2nd above; normalized; sepsis resolved; wbc improving 3. Acute renal failure 2nd above; cr improving; abd US noted -as above -fluid management -correct lytes -avoid nephrotoxic agents 4. Anemia: multifactorial, hx of vag bleed requiring sx, sepsis, no overt bleed ; h/h stable -tx prn -fluids 5. DM -diet/med control -encourage weight optimization 6. BMI 28 -diet/exercise optimization 7. Hyperlipidemia -diet/med optimization 8. DJD -medical optimization 9. Hypoalbuminemia, multifactorial -eventual diet optimization 10. Hepatosplenomegaly ? etiology -w/u per medical/heme 11. Mild coagulopathy -correct prn 12. SLE: asymptomatic -medical management 13. Hypertension -weight loss -medical management 14. Interstitial pulmonary edema with ascites; breathing comfortably -further workup by medical team -gentle diuresis 15. Electrolyte imbalance (hypokalemia, hypomagnesemia) -optimize lytes 16. Positive urine culture: insignificant and no need for treatment per ID, asymptomatic Thank you. Patient seen and examined in collaboration with Dr. Guillermo Preciado. Problems: Subjective 24 Hr Interval Summary Tearful, upset that she has a urine infection. No c/o dysuria or frequency. + UOP Abdominal discomfort improved. Small drainage from wound. No fevers, chills , sob, congested cough, cp, palpitations, n/v/d/dysuria. Ambulating without difficulty. Right flank pain resolved. Exam/Review of Systems Vital Signs Vitals Vital Signs Date Time Temp Pulse Resp B/P Pulse Ox O2 Delivery O2 Flow Rate FiO2 04/19/17 02:53 98.6 70 18 148/72 99 04/17/17 10:15 Room Air Intake and Output 04/18/17 04/18/17 04/19/17 15:00 23:00 07:00 Intake Total 106 ml 1360 ml 720 ml Output Total 1500 ml Balance 106 ml -140 ml 720 ml Exam Free Text/Dictation Constitutional: No distress Psych: nl; no anxiety Head: atraumatic, normocephalic Eyes: EOMI, PERRL, nl conjunctiva, No icteric ENMT: nl external ears & nose, nl lips & teeth, No mucosa pink and moist Neck: non-tender, No jvd Respiratory: normal air movement, No congested cough, No labored breathing Cardiovascular: regular rate and rhythm, No edema Gastrointestinal: nondistended, soft, surgical scars, improved tenderness periwound, rotund No rebound or guarding Musculoskeletal: nl extremities to inspection, No joint tenderness Extremities: normal pulses, No calf tenderness, No cyanosis Neurological: nl mental status, nl speech, nl strength Skin: nl turgor, Left lower abdomen with small open area with small creamy pink drainage, periwound erythema much improved, multiple tattoos No diaphoresis, No rash or lesions Lymph: nl lymph nodes, nontender Results Result Diagram: 04/19/17 0423 04/19/17 0423 TEJAL KAT NP Apr 18, 2017 14:45
[2017-04-18 20:00] VITALS: BP 155/71; RESP 20
--- NOTE | 2017-04-18 20:17 | QN ---
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 She reports that the right flank pain has improved. Amount of drainage is minimal.Does report a small amount of pressure in the suprapubic area.Appetite significantly better. WBC 7.3 Hgb 8.7 Plts 1831 Cr 1.48( INCREASED A BIT SINCE YESTERDAY which was 1.37!) BP today 137-155/70-77 T= 98.6 Urine cx with a low count HOWEVER it is a multidrug resistant e.coli that I would recommend treating. Incision: Left incisional area has no evidence of infection. There is no drainage noted. The skin was cleaned with betadine. A sterile Q-tip was used to probe the incision which released some serosanguinous fluid and the mckeon of the abscess area were scrubbed with the probe and a small sterile 2x2. The fascial closure still feels intact. Sterile water was then used to irrigate the inside multiple times until the water flowed out fairly clear. The skin was then washed and wiped clean a new abdominal pad taped into place. A: Wound infection with sepsis and renal failure, all improving. Great improvement in renal function but it backslid a bit today. Urine cx with a low count of e. coli HOWEVER it was multidrug resistant! Consider treating!! DM. SLE. P: D/C home tomorrow would be reasonable if creatinine, BP stable. The pt will be able to come to my office for wound care f/u. Oral antibiotics, per ID. BENJAMIN MORRISON MD Apr 18, 2017 20:17
[2017-04-18] MEDS: AMITRIPTYLINE 50 MG TAB PO SCH (20:52)
[2017-04-18] MEDS: INSULIN GLARGINE [LANtus] 3 ML PEN SC SCH (21:05)
[2017-04-18] MEDS: ZOLPIDEM 5 MG TAB PO PRN (21:15)
[2017-04-19] MEDS: ACCU-CHEK XX SCH (01:23)
[2017-04-19 02:53] VITALS: BP 148/72; RESP 18
[2017-04-19 04:52] LABS: ABNORMAL IP MESSAGE 1; BASOPHILS % 0.6 % (0.0-2.0); EOSINOPHILS # 0.2 10^3/ul (0.0-0.5); EOSINOPHILS % 2.5 % (0.0-7.0); HEMATOCRIT 27.3 % (37.0-47.0); LYMPHOCYTES # 1.4 10^3/ul (0.8-2.9); LYMPHOCYTES % 19.7 % (15.0-51.0); MEAN CORPUSCULAR HEMOGLOBIN 29.2 pg (29.0-33.0); MEAN CORPUSCULAR VOLUME 88.6 fl (82.0-101.0); MONOCYTE # 0.5 10^3/ul (0.3-0.9); MONOCYTES % 6.9 % (0.0-11.0); NEUTROPHILS % 64.5 % (39.0-77.0); PLATELET COUNT 157 10^3/UL (140-415); RED BLOOD COUNT 3.08 10^6/ul (4.20-5.40); RED CELL DISTRIBUTION WIDTH 14.1 % (11.5-14.5); WHITE BLOOD COUNT 7.1 10^3/ul (4.8-10.8)
[2017-04-19 04:55] LABS: POSITIVE DIFF @See below
[2017-04-19 05:24] LABS: ALBUMIN 3.3 g/dl (3.3-4.9); BILIRUBIN,INDIRECT 0.1 mg/dl (0-1.1); BILIRUBIN,TOTAL 0.1 mg/dl (0.2-1.3); CALCIUM 9.2 mg/dl (8.4-10.2); CREATININE 1.23 mg/dl (0.44-1.00); MAGNESIUM 1.6 mg/dl (1.7-2.5); POTASSIUM 4.2 mmol/L (3.5-5.1); TOTAL PROTEIN 6.6 g/dl (6.1-8.1)
--- NOTE | 2017-04-19 06:06 | CONS ---
Date/Time of Note Date/Time of Note DATE: 04/19/17 TIME: 06:01 Assessment/Plan Assessment/Plan Chief Complaint/Hosp Course 1) ARF no signs of obstruction but pt does have kidney stones u/a is not impressive urine cx is pending work-up per renal 04/12 - urine cx is NGTD urine output a bit improved creatinine slightly decreased 04/13 - good improvement in renal function 04/15 - pt has some R flank pain check u/a and urine cx creatinine is coming down nicely 04/16 - still has some R flank pain u/a had mild-mod pyuria, await urine cx 04/19 - urine cx is not significant and does not need treatment even if treatment was given it would not eliminate the e.coli in the stool 2) fluid collection around prior surgical site (ABSCESS) will order u/s of area to see if this is a simple fluid collection in light of her fever, elevated WBC concern would be that this is infected this will likely need to be drained, if a simple fluid collection then via IR if a complex fluid collection she may need surgical I&D continue with vanco/zosyn get nasal swab for MRSA 04/12 - pt spontaneously drained pus from around prior surgical site GNR is growing so far continue with vanco/zosyn but if only GNR will d/c vanco 04/13 - kleb and CoNS in wound cx, CoNS may not be significant, will await sensi' s on CoNS change antibiotics to vanco/unasyn 04/15 - doing well, d/c vanco when pt ready for discharge can change unasyn to po bactrim or levaquin or augmentin 04/16 - will change to po augmentin today I would prefer that wound would get packed to prevent premature closure of it and potentially re-initating an abscess 3) abd pain this seems out of proportion to the fluid collection in suprapubic area she is anemic and maybe there is some vascular insufficiency contributing to this no diarrhea and no sign of bowel wall thickening so doubt infectious colitis will order lactic acid will check ESR, complement levels to verify no lupus flair (no other clinical signs to suggest this other than ARF) 04/12 - improved ESR is very high, await complement levels but will check anti DS DNA 4) leukocytosis likely due to infection doubt this is from a strep throat urine less likely the source given the fairly benign u/a abscess is high on my list blood cx have been done and pending 04/12 - improving on current antibiotics await ID from abscess site 04/13 - resolved 5) SLE no joint pains currently but has ARF and abd pain check complement levels and ESR and consider anti-DS dna 04/12 - will check anti DS DNA 6) thrush 04/15 - start nystatin suspension 04/16 - improved Problems: Consultation Date/Type/Reason Admit Date/Time Apr 10, 2017 at 17:54 Initial Consult Date 04/10/17 Type of Consultation: ID Referring Provider: NIA GAYTAN MD Exam/Review of Systems Vital Signs Vitals Vital Signs Date Time Temp Pulse Resp B/P Pulse Ox O2 Delivery O2 Flow Rate FiO2 04/19/17 02:53 98.6 70 18 148/72 99 04/17/17 10:15 Room Air Intake and Output 04/18/17 04/18/17 04/19/17 14:59 22:59 06:59 Intake Total 106 ml 1360 ml Output Total 1500 ml Balance 106 ml -140 ml Results Result Diagram: 04/19/17 0423 04/19/17 0423 Results 24 hrs Laboratory Tests Test 04/18/17 08:37 04/18/17 12:44 04/18/17 16:41 04/18/17 18:00 Bedside Glucose 172 159 138 205 Test 04/18/17 20:51 04/19/17 04:23 Bedside Glucose 167 White Blood Count 7.1 Red Blood Count 3.08 L Hemoglobin 9.0 L Hematocrit 27.3 L Mean Corpuscular Volume 88.6 Mean Corpuscular Hemoglobin 29.2 Mean Corpuscular Hemoglobin Concent 33.0 Red Cell Distribution Width 14.1 Platelet Count 157 Mean Platelet Volume 10.0 Neutrophils % 64.5 Lymphocytes % 19.7 Monocytes % 6.9 Eosinophils % 2.5 Basophils % 0.6 Nucleated Red Blood Cells % 0.0 Neutrophils # (Manual) 4.6 Lymphocytes # 1.4 Monocytes # 0.5 Eosinophils # 0.2 Basophils # 0.0 Nucleated Red Blood Cells # 0.0 Sodium Level 142 Potassium Level 4.2 Chloride Level 103 Carbon Dioxide Level 26 Anion Gap 17 H Blood Urea Nitrogen 15 Creatinine 1.23 H Glucose Level 165 Calcium Level 9.2 Magnesium Level 1.6 L Total Bilirubin 0.1 L Direct Bilirubin 0.00 Indirect Bilirubin 0.1 Aspartate Amino Transf (AST/SGOT) 20 Alanine Aminotransferase (ALT/SGPT) 32 Alkaline Phosphatase 130 H Total Protein 6.6 Albumin 3.3 Globulin 3.30 H Albumin/Globulin Ratio 1.00 Medications Medications Current Medications Acetaminophen (Tylenol Tab) 650 mg Q6H PRN PO PAIN AND OR ELEVATED TEMP; Start 04/10/17 at 18:30 Diagnostic Test (Pha) (Accu-Chek) 1 ea 02 XX Last administered on 04/15/17 02: 00; Admin Dose 1 EA; Start 04/11/17 at 02:00 Miscellaneous Information 1 ea NOTE XX ; Start 04/10/17 at 18:30 Glucose (Glutose) 15 gm Q15M PRN PO DECREASED GLUCOSE; Start 04/10/17 at 18:30 Glucose (Glutose) 22.5 gm Q15M PRN PO DECREASED GLUCOSE; Start 04/10/17 at 18: 30 Dextrose (D50w Syringe) 25 ml Q15M PRN IV DECREASED GLUCOSE; Start 04/10/17 at 18:30 Dextrose (D50w Syringe) 50 ml Q15M PRN IV DECREASED GLUCOSE; Start 04/10/17 at 18:30 Glucagon (Glucagen) 1 mg Q15M PRN IM DECREASED GLUCOSE; Start 04/10/17 at 18:30 Glucose (Glutose) 15 gm Q15M PRN BUCCAL DECREASED GLUCOSE; Start 04/10/17 at 18 :30 Ondansetron HCl (Zofran Inj) 4 mg Q6H PRN IV NAUSEA AND/OR VOMITING; Start at 19:30 Hydromorphone HCl (Dilaudid) 0.5 mg Q4H PRN IV PAIN Last administered on 04:52; Admin Dose 0.5 MG; Start 04/10/17 at 19:30 Alprazolam (Xanax) 0.5 mg Q8H PRN PO ANXIETY Last administered on 04/17/17 12: 50; Admin Dose 0.5 MG; Start 04/10/17 at 20:00 Pantoprazole (Protonix Tab) 40 mg DAILY@06 PO Last administered on 04/18/17 06 :26; Admin Dose 40 MG; Start 04/11/17 at 06:00 Eye Lubricant (Artificial Tears Oph) 2 drop TID BOTH EYES Last administered on 04/16/17 08:45; Admin Dose 2 DROP; Start 04/11/17 at 09:00 Insulin Glargine (Lantus) 8 unit DAILY@20 SC Last administered on 04/18/17 21: 05; Admin Dose 8 UNIT; Start 04/11/17 at 20:00 Amitriptyline HCl (Elavil) 200 mg HS PO Last administered on 04/18/17 20:52; Admin Dose 200 MG; Start 04/11/17 at 21:00 Aripiprazole (Abilify) 20 mg DAILY PO Last administered on 04/18/17 08:39; Admin Dose 20 MG; Start 04/12/17 at 09:00 Acetaminophen/ Hydrocodone Bitart ([place] (10/325)) 1 tab Q4H PRN PO PAIN Last administered on 04/18/17 22:46; Admin Dose 1 TAB; Start 04/12/17 at 09:30 Epoetin [place] (Epogen (Esrd)) 10,000 units TuThSa@17 SC Last administered on 16:30; Admin Dose 10,000 UNITS; Start 04/12/17 at 17:00 Nystatin (Nystatin Susp) 5 ml QID PO Last administered on 04/18/17 20:52; Admin Dose 5 ML; Start 04/15/17 at 13:00 Hydralazine HCl (Apresoline) 25 mg Q6H PRN PO PRN Last administered on 08:51; Admin Dose 25 MG; Start 04/15/17 at 23:30 Amlodipine Besylate (Norvasc) 5 mg BID PO Last administered on 04/18/17 20:53 ; Admin Dose 5 MG; Start 04/16/17 at 09:00 Amoxicillin/ Clavulanate Potassium (Augmentin) 875 mg BID PO Last administered on 04/18/17 20:52; Admin Dose 875 MG; Start 04/16/17 at 09:00 Clonidine (Catapres) 0.1 mg Q6H PRN PO ELEVATED BLOOD PRESSURE Last administered on 04/16/17 12:36; Admin Dose 0.1 MG; Start 04/16/17 at 11:30 Potassium Chloride (Klor-Con 20) 40 meq BID PO Last administered on 04/18/17 20:52; Admin Dose 40 MEQ; Start 04/18/17 at 09:00 Zolpidem Tartrate (Ambien) 10 mg HS PRN PO INSOMNIA Last administered on 21:15; Admin Dose 10 MG; Start 04/18/17 at 20:30 DIMITRIS ALAMO MD Apr 19, 2017 06:06
[2017-04-19] MEDS: PANTOPRAZOLE (EC) 40 MG TAB PO SCH (06:27)
[2017-04-19 08:23] VITALS: BP 138/67; RESP 16
[2017-04-19] MEDS: POTASSIUM CHLORIDE (SR) 20 MEQ TAB PO SCH (08:50)
[2017-04-19] MEDS: AMLODIPINE 2.5 MG TAB PO SCH ×2 (08:53→21:37)
[2017-04-19] MEDS: NYSTATIN SUSP 5 ML CUP PO SCH ×4 (08:53→21:36)
[2017-04-19] MEDS: ARTIFICIAL TEARS 15 ML OPH BOTH EYES SCH ×2 (09:00→09:09)
[2017-04-19] MEDS: INSULIN ASPART [NOVOLOG] 3 ML PEN SC SCH ×4 (09:00→21:35)
[2017-04-19] MEDS: ARIPIPRAZOLE 10 MG TAB PO SCH ×2 (09:08→11:03)
[2017-04-19] MEDS: AMOXICILLIN/CLAV 875 MG TAB PO SCH ×2 (09:09→21:36)
[2017-04-19] MEDS: HYDROCODONE/APAP (10/325) TAB PO PRN ×2 (09:09→18:23)
--- NOTE | 2017-04-19 09:14 | PN ---
Date/Time of Note Date/Time of Note DATE: 04/19/17 TIME: 09:05 Assessment/Plan VTE Prophylaxis VTE Prophylaxis Intervention: SCD's Lines/Catheters IV Catheter Type (from Nrs): Saline Lock Urinary Cath still in place: No Assessment/Plan Chief Complaint/Hosp Course feels better however bun and creatine still elevated K low .wbc down to 13,000 however hemoglobin down to 7.5 will defer to renal for management of these problems Problems: Assessment/Plan per nephrology ,venous study lower extremity ,lung scan to r/o P.E in view of pleritic chest pain replace magnesium,await results Subjective 24 Hr Interval Summary Constitutional: improved Eyes: no complaints ENT: no complaints Respiratory: pleuritic pain Cardiovascular: no complaints Gastrointestinal: no complaints Genitourinary: no complaints Musculoskeletal: no complaints Skin: no complaints Neurologic: no complaints Exam/Review of Systems Vital Signs Vitals Vital Signs Date Time Temp Pulse Resp B/P Pulse Ox O2 Delivery O2 Flow Rate FiO2 04/19/17 08:23 98.5 78 16 138/67 96 04/17/17 10:15 Room Air Intake and Output 04/18/17 04/18/17 04/19/17 15:00 23:00 07:00 Intake Total 106 ml 1360 ml 720 ml Output Total 1500 ml Balance 106 ml -140 ml 720 ml Exam vss heent negative lungs relatively clear heart regular rhythm abdomen soft Constitutional: alert Psych: no complaints ENMT: nl external ears & nose Respiratory: normal air movement Cardiovascular: regular rate and rhythm Gastrointestinal: soft Results Result Diagram: 04/19/17 0423 04/19/17 0423 Results 24 hrs Laboratory Tests Test 04/18/17 12:44 04/18/17 16:41 04/18/17 18:00 04/18/17 20:51 Bedside Glucose 159 138 205 167 Test 04/19/17 04:23 04/19/17 08:57 White Blood Count 7.1 Red Blood Count 3.08 L Hemoglobin 9.0 L Hematocrit 27.3 L Mean Corpuscular Volume 88.6 Mean Corpuscular Hemoglobin 29.2 Mean Corpuscular Hemoglobin Concent 33.0 Red Cell Distribution Width 14.1 Platelet Count 157 Mean Platelet Volume 10.0 Neutrophils % 64.5 Lymphocytes % 19.7 Monocytes % 6.9 Eosinophils % 2.5 Basophils % 0.6 Nucleated Red Blood Cells % 0.0 Neutrophils # (Manual) 4.6 Lymphocytes # 1.4 Monocytes # 0.5 Eosinophils # 0.2 Basophils # 0.0 Nucleated Red Blood Cells # 0.0 Sodium Level 142 Potassium Level 4.2 Chloride Level 103 Carbon Dioxide Level 26 Anion Gap 17 H Blood Urea Nitrogen 15 Creatinine 1.23 H Glucose Level 165 Calcium Level 9.2 Magnesium Level 1.6 L Total Bilirubin 0.1 L Direct Bilirubin 0.00 Indirect Bilirubin 0.1 Aspartate Amino Transf (AST/SGOT) 20 Alanine Aminotransferase (ALT/SGPT) 32 Alkaline Phosphatase 130 H Total Protein 6.6 Albumin 3.3 Globulin 3.30 H Albumin/Globulin Ratio 1.00 Bedside Glucose 158 Medications Medications Current Medications Acetaminophen (Tylenol Tab) 650 mg Q6H PRN PO PAIN AND OR ELEVATED TEMP; Start 04/10/17 at 18:30 Diagnostic Test (Pha) (Accu-Chek) 1 ea 02 XX Last administered on 04/15/17 02: 00; Admin Dose 1 EA; Start 04/11/17 at 02:00 Miscellaneous Information 1 ea NOTE XX ; Start 04/10/17 at 18:30 Glucose (Glutose) 15 gm Q15M PRN PO DECREASED GLUCOSE; Start 04/10/17 at 18:30 Glucose (Glutose) 22.5 gm Q15M PRN PO DECREASED GLUCOSE; Start 04/10/17 at 18: 30 Dextrose (D50w Syringe) 25 ml Q15M PRN IV DECREASED GLUCOSE; Start 04/10/17 at 18:30 Dextrose (D50w Syringe) 50 ml Q15M PRN IV DECREASED GLUCOSE; Start 04/10/17 at 18:30 Glucagon (Glucagen) 1 mg Q15M PRN IM DECREASED GLUCOSE; Start 04/10/17 at 18:30 Glucose (Glutose) 15 gm Q15M PRN BUCCAL DECREASED GLUCOSE; Start 04/10/17 at 18 :30 Ondansetron HCl (Zofran Inj) 4 mg Q6H PRN IV NAUSEA AND/OR VOMITING; Start at 19:30 Hydromorphone HCl (Dilaudid) 0.5 mg Q4H PRN IV PAIN Last administered on 04:52; Admin Dose 0.5 MG; Start 04/10/17 at 19:30 Alprazolam (Xanax) 0.5 mg Q8H PRN PO ANXIETY Last administered on 04/17/17 12: 50; Admin Dose 0.5 MG; Start 04/10/17 at 20:00 Pantoprazole (Protonix Tab) 40 mg DAILY@06 PO Last administered on 04/19/17 06 :27; Admin Dose 40 MG; Start 04/11/17 at 06:00 Eye Lubricant (Artificial Tears Oph) 2 drop TID BOTH EYES Last administered on 04/16/17 08:45; Admin Dose 2 DROP; Start 04/11/17 at 09:00 Insulin Glargine (Lantus) 8 unit DAILY@20 SC Last administered on 04/18/17 21: 05; Admin Dose 8 UNIT; Start 04/11/17 at 20:00 Amitriptyline HCl (Elavil) 200 mg HS PO Last administered on 04/18/17 20:52; Admin Dose 200 MG; Start 04/11/17 at 21:00 Aripiprazole (Abilify) 20 mg DAILY PO Last administered on 04/18/17 08:39; Admin Dose 20 MG; Start 04/12/17 at 09:00 Acetaminophen/ Hydrocodone Bitart ([place] (10/325)) 1 tab Q4H PRN PO PAIN Last administered on 04/18/17 22:46; Admin Dose 1 TAB; Start 04/12/17 at 09:30 Epoetin [place] (Epogen (Esrd)) 10,000 units TuThSa@17 SC Last administered on 16:30; Admin Dose 10,000 UNITS; Start 04/12/17 at 17:00 Nystatin (Nystatin Susp) 5 ml QID PO Last administered on 04/19/17 08:53; Admin Dose 5 ML; Start 04/15/17 at 13:00 Hydralazine HCl (Apresoline) 25 mg Q6H PRN PO PRN Last administered on 08:51; Admin Dose 25 MG; Start 04/15/17 at 23:30 Amlodipine Besylate (Norvasc) 5 mg BID PO Last administered on 04/19/17 08:53 ; Admin Dose 5 MG; Start 04/16/17 at 09:00 Amoxicillin/ Clavulanate Potassium (Augmentin) 875 mg BID PO Last administered on 04/18/17 20:52; Admin Dose 875 MG; Start 04/16/17 at 09:00 Clonidine (Catapres) 0.1 mg Q6H PRN PO ELEVATED BLOOD PRESSURE Last administered on 04/16/17 12:36; Admin Dose 0.1 MG; Start 04/16/17 at 11:30 Potassium Chloride (Klor-Con 20) 40 meq BID PO Last administered on 04/19/17 08:50; Admin Dose 40 MEQ; Start 04/18/17 at 09:00 Zolpidem Tartrate (Ambien) 10 mg HS PRN PO INSOMNIA Last administered on 21:15; Admin Dose 10 MG; Start 04/18/17 at 20:30 KEN GANT MD Apr 19, 2017 09:14
--- NOTE | 2017-04-19 10:45 | RADRPT ---
PROCEDURE: US Lower extremity Venous. CLINICAL INDICATION: Bilateral lower extremity edema TECHNIQUE: Multiple sonographic images of the bilateral lower extremity deep venous system was obt ained utilizing grayscale, color-flow, compressive sonography and doppler imaging with augmentation. The images were reviewed on a PACS workstation. COMPARISON: None. FINDINGS: There is normal compressibility and flow within the bilateral common femoral, femoral , posterior ti bial and popliteal veins. RPTAT: AA IMPRESSION: No sonographic evidence for deep venous thrombosis. .Ravin Daugherty MD, MD Date Time Electronically viewed and signed by .Ravin Daugherty MD, on 04/19/2017 10:45 .S/
--- NOTE | 2017-04-19 10:58 | CONS ---
Date/Time of Note Date/Time of Note DATE: 04/19/17 TIME: 10:53 Assessment/Plan Assessment/Plan Additional Assessment/Plan 1. Renal fx continues to improve 2. Mag is low, will replete and ck P 3. Right sided chest pain I think musculoligamentous but has persisted, ct ( with contrast) noted, will pursue with nivvs and lung scan, if either are suggestive of PE will need ct pul angiogram. 4. Wound infection being treated. Consultation Date/Type/Reason Admit Date/Time Apr 10, 2017 at 17:54 Initial Consult Date 04/10/17 Type of Consultation: ID Referring Provider: NIA GAYTAN MD Detailed Summary Respiratory: other (pain right lat thoracic and right flank, inc with change torso position and with deep breathing, bending forward and twisting torso, has inc from yesterday ), No cough, No shortness of breath Cardiovascular: No lightheadedness, No orthopenea, No palpitations Gastrointestinal: no complaints Genitourinary: no complaints Exam/Review of Systems Vital Signs Vitals Vital Signs Date Time Temp Pulse Resp B/P Pulse Ox O2 Delivery O2 Flow Rate FiO2 04/19/17 08:23 98.5 78 16 138/67 96 04/17/17 10:15 Room Air Intake and Output 04/18/17 04/18/17 04/19/17 15:00 23:00 07:00 Intake Total 106 ml 1360 ml 720 ml Output Total 1500 ml Balance 106 ml -140 ml 720 ml Exam Neck: No jvd Respiratory: clear to auscultation, other (tender right lateral ribs and ? right upper flank) Gastrointestinal: soft, No nl liver, spleen, No non-tender Extremities: No edema (and no calf tend bilat) Results Result Diagram: 04/19/17 0423 04/19/17 0423 Results 24 hrs Laboratory Tests Test 04/18/17 12:44 04/18/17 16:41 04/18/17 18:00 04/18/17 20:51 Bedside Glucose 159 138 205 167 Test 04/19/17 04:23 04/19/17 08:57 White Blood Count 7.1 Red Blood Count 3.08 L Hemoglobin 9.0 L Hematocrit 27.3 L Mean Corpuscular Volume 88.6 Mean Corpuscular Hemoglobin 29.2 Mean Corpuscular Hemoglobin Concent 33.0 Red Cell Distribution Width 14.1 Platelet Count 157 Mean Platelet Volume 10.0 Neutrophils % 64.5 Lymphocytes % 19.7 Monocytes % 6.9 Eosinophils % 2.5 Basophils % 0.6 Nucleated Red Blood Cells % 0.0 Neutrophils # (Manual) 4.6 Lymphocytes # 1.4 Monocytes # 0.5 Eosinophils # 0.2 Basophils # 0.0 Nucleated Red Blood Cells # 0.0 Sodium Level 142 Potassium Level 4.2 Chloride Level 103 Carbon Dioxide Level 26 Anion Gap 17 H Blood Urea Nitrogen 15 Creatinine 1.23 H Glucose Level 165 Calcium Level 9.2 Magnesium Level 1.6 L Total Bilirubin 0.1 L Direct Bilirubin 0.00 Indirect Bilirubin 0.1 Aspartate Amino Transf (AST/SGOT) 20 Alanine Aminotransferase (ALT/SGPT) 32 Alkaline Phosphatase 130 H Total Protein 6.6 Albumin 3.3 Globulin 3.30 H Albumin/Globulin Ratio 1.00 Bedside Glucose 158 Medications Medications Current Medications Acetaminophen (Tylenol Tab) 650 mg Q6H PRN PO PAIN AND OR ELEVATED TEMP; Start 04/10/17 at 18:30 Diagnostic Test (Pha) (Accu-Chek) 1 ea 02 XX Last administered on 04/15/17t 02: 00; Admin Dose 1 EA; Start 04/11/17 at 02:00 Miscellaneous Information 1 ea NOTE XX ; Start 04/10/17 at 18:30 Glucose (Glutose) 15 gm Q15M PRN PO DECREASED GLUCOSE; Start 04/10/17 at 18:30 Glucose (Glutose) 22.5 gm Q15M PRN PO DECREASED GLUCOSE; Start 04/10/17 at 18: 30 Dextrose (D50w Syringe) 25 ml Q15M PRN IV DECREASED GLUCOSE; Start 04/10/17 at 18:30 Dextrose (D50w Syringe) 50 ml Q15M PRN IV DECREASED GLUCOSE; Start 04/10/17 at 18:30 Glucagon (Glucagen) 1 mg Q15M PRN IM DECREASED GLUCOSE; Start 04/10/17 at 18:30 Glucose (Glutose) 15 gm Q15M PRN BUCCAL DECREASED GLUCOSE; Start 04/10/17 at 18 :30 Ondansetron HCl (Zofran Inj) 4 mg Q6H PRN IV NAUSEA AND/OR VOMITING; Start at 19:30 Hydromorphone HCl (Dilaudid) 0.5 mg Q4H PRN IV PAIN Last administered on 04:52; Admin Dose 0.5 MG; Start 04/10/17 at 19:30 Alprazolam (Xanax) 0.5 mg Q8H PRN PO ANXIETY Last administered on 04/17/17 12: 50; Admin Dose 0.5 MG; Start 04/10/17 at 20:00 Pantoprazole (Protonix Tab) 40 mg DAILY@06 PO Last administered on 04/19/17 06 :27; Admin Dose 40 MG; Start 04/11/17 at 06:00 Eye Lubricant (Artificial Tears Oph) 2 drop TID BOTH EYES Last administered on 04/16/17 08:45; Admin Dose 2 DROP; Start 04/11/17 at 09:00 Insulin Glargine (Lantus) 8 unit DAILY@20 SC Last administered on 04/18/17 21: 05; Admin Dose 8 UNIT; Start 04/11/17 at 20:00 Amitriptyline HCl (Elavil) 200 mg HS PO Last administered on 04/18/17 20:52; Admin Dose 200 MG; Start 04/11/17 at 21:00 Aripiprazole (Abilify) 20 mg DAILY PO Last administered on 04/19/17 09:08; Admin Dose 20 MG; Start 04/12/17 at 09:00 Acetaminophen/ Hydrocodone Bitart ([place] (10/325)) 1 tab Q4H PRN PO PAIN Last administered on 04/19/17 09:09; Admin Dose 1 TAB; Start 04/12/17 at 09:30 Epoetin [place] (Epogen (Esrd)) 10,000 units TuThSa@17 SC Last administered on 16:30; Admin Dose 10,000 UNITS; Start 04/12/17 at 17:00 Nystatin (Nystatin Susp) 5 ml QID PO Last administered on 04/19/17 08:53; Admin Dose 5 ML; Start 04/15/17 at 13:00 Hydralazine HCl (Apresoline) 25 mg Q6H PRN PO PRN Last administered on 08:51; Admin Dose 25 MG; Start 04/15/17 at 23:30 Amlodipine Besylate (Norvasc) 5 mg BID PO Last administered on 04/19/17 08:53 ; Admin Dose 5 MG; Start 04/16/17 at 09:00 Amoxicillin/ Clavulanate Potassium (Augmentin) 875 mg BID PO Last administered on 04/19/17 09:09; Admin Dose 875 MG; Start 04/16/17 at 09:00 Clonidine (Catapres) 0.1 mg Q6H PRN PO ELEVATED BLOOD PRESSURE Last administered on 04/16/17 12:36; Admin Dose 0.1 MG; Start 04/16/17 at 11:30 Potassium Chloride (Klor-Con 20) 40 meq BID PO Last administered on 04/19/17 08:50; Admin Dose 40 MEQ; Start 04/18/17 at 09:00 Zolpidem Tartrate (Ambien) 10 mg HS PRN PO INSOMNIA Last administered on 21:15; Admin Dose 10 MG; Start 04/18/17 at 20:30 MAXINE HANSEN MD Apr 19, 2017 10:58
[2017-04-19] MEDS ORDERED: MAGNESIUM SULFATE 3 GM in SOD CHLORIDE 0.9% 100 ML IVPB ONE (12:00)
--- NOTE | 2017-04-19 12:16 | PN ---
Date/Time of Note Date/Time of Note DATE: 04/19/17 TIME: 12:07 Assessment/Plan Lines/Catheters IV Catheter Type (from Nrs): Saline Lock Tran in Place (from Nrs): No Assessment/Plan Chief Complaint/Hosp Course 1. 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 Acute renal failure 2nd above; cr improving; abd US noted -as above -fluid management -correct lytes -avoid nephrotoxic agents 4. Anemia: multifactorial, hx of vag bleed requiring sx, sepsis, no overt bleed ; h/h stable -monitor and transfuse prn 5. DM -diet/med control -encourage weight optimization 6. BMI 28 -diet/exercise optimization 7. Hyperlipidemia -diet/med optimization 8. DJD -medical optimization 9. Hypoalbuminemia, multifactorial -eventual diet optimization 10. Hepatosplenomegaly ? etiology -w/u per medical/heme 11. Mild coagulopathy -correct prn 12. SLE: asymptomatic -medical management 13. Hypertension: improved -weight loss -medical management 14. Interstitial pulmonary edema with ascites; breathing comfortably -further workup by medical team -gentle diuresis 15. Electrolyte imbalance (hypokalemia, hypomagnesemia) -optimize lytes 16. Positive urine culture: insignificant and no need for treatment per ID, asymptomatic 17. Right side pain: worsened by positional changes, no: cough, sob, hemoptysis , tachycardia; likely muscular, being r/o for pe, pending VQ scan and dopplers -pain management -increase in activity if PE r/o Thank you. Patient seen and examined in collaboration with Dr. Guillermo Preciado. Problems: Subjective 24 Hr Interval Summary Feels well but continues to have right side pain. No sob, congested cough, hemoptysis, dysuria, cva tenderness. No fevers, chills, n/v/d, excessive wound drainage, cp, palpitations. Pending VQ scan and bilateral leg dopplers r/o PE. Exam/Review of Systems Vital Signs Vitals Vital Signs Date Time Temp Pulse Resp B/P Pulse Ox O2 Delivery O2 Flow Rate FiO2 04/19/17 08:23 98.5 78 16 138/67 96 04/17/17 10:15 Room Air Intake and Output 04/18/17 04/18/17 04/19/17 14:59 22:59 06:59 Intake Total 106 ml 1360 ml 720 ml Output Total 1500 ml Balance 106 ml -140 ml 720 ml Exam Free Text/Dictation Constitutional: No distress Psych: nl; no anxiety Head: atraumatic, normocephalic Eyes: EOMI, PERRL, nl conjunctiva, No icteric ENMT: nl external ears & nose, nl lips & teeth, No mucosa pink and moist Neck: non-tender, No jvd Respiratory: normal air movement, breathing comfortably No congested cough, No labored breathing Cardiovascular: regular rate and rhythm, No edema Gastrointestinal: nondistended, soft, surgical scars, improved tenderness periwound, rotund No rebound or guarding Musculoskeletal: nl extremities to inspection, right side pain, worsened with positional changes; no CVA tenderness No joint tenderness Extremities: normal pulses, No calf tenderness, No cyanosis Neurological: nl mental status, nl speech, nl strength Skin: nl turgor, Left lower abdomen with small open area with scant drainage, periwound erythema much improved, multiple tattoos No diaphoresis, No rash or lesions Lymph: nl lymph nodes, nontender Results Result Diagram: 04/19/17 0423 04/19/17 0423 TEJAL KAT NP Apr 19, 2017 12:16
--- NOTE | 2017-04-19 12:46 | RADRPT ---
PROCEDURE: XR Chest. CLINICAL INDICATION: Right-sided chest pain TECHNIQUE: PA and lateral views of the chest were obtained COMPARISON: 04/17/2017 FINDINGS: No pneumothorax. Small bilateral pleural effusions. No consolidation. Bibasilar atelectasis. Stable top normal cardiomediastinal silhouette. No acute osseous abnormality. IMPRESSION: Mild bibasilar atelectasis and small bilateral pleural effusions. Overall, no convincing interval c hange compared to chest radiograph dated 04/17/2017. RPTAT: QQ Physician Delaney Date Time Electronically viewed and signed by Physician Delaney on 04/19/2017 12:45 /
--- NOTE | 2017-04-19 14:28 | RADRPT ---
PROCEDURE: Ventilation-perfusion lung scan CLINICAL INDICATION: 47 -year-old patient with chest pain. TECHNIQUE: Following the inhalation of approximately 1.0 mCi of Tc-99m stannous DTPA aerosol, vent ilation images were obtained. The patient was then given an intravenous injection of 4.0 mCi of Tc- 99m MAA, in perfusion images were obtained. COMPARISON: No prior VQ scans. Correlation was made with chest x-ray dated April 19, 2017. FINDINGS: The cardiac silhouette appears to be mildly enlarged. Ventilation images demonstrate small areas of mildly reduced ventilation in the lower lung zones ryan aterally posteriorly and, otherwise, mildly right nonhomogeneous distribution of activity in the malik gs bilaterally. Perfusion images reveal matched small areas of reduced perfusion in the lower lung zones bilaterally posteriorly. Otherwise, there is matched nonhomogeneous distribution of activity in both lungs. Given the presence of bilateral small pleural effusions on the chest x-ray dated April 19, 2017, th e findings represent low intermediate probability for pulmonary embolus. IMPRESSION: 1. Low intermediate probability for pulmonary embolus. 2. Mild cardiomegaly. A call report was made to Dr. Gonzalez at 02:24 p.m. on April 19, 2017. RPTAT: HH .Sharmila Faustin MD, Date Time Electronically viewed and signed by .Sharmila Faustin MD, on 04/19/2017 14:28 .L/
[2017-04-19 16:11] VITALS: BP 152/69; RESP 16
[2017-04-19] MEDS: EPOETIN 10000 UNITS/1 ML INJ (ESRD) SC SCH (18:06)
[2017-04-19 18:47] LABS: ADD UMIC YES; UR ASCORBIC ACID NEGATIVE (NEGATIVE); UR BILIRUBIN (Dip) NEGATIVE (NEGATIVE); UR BLOOD (Dip) 1+ mg/dL (NEGATIVE); UR CLARITY CLEAR (CLEAR); UR COLOR STRAW (YELLOW); UR GLUCOSE (Dip) 1+ mg/dL (NEGATIVE); UR KETONES (Dip) NEGATIVE (NEGATIVE); UR LEUKOCYTE ESTERASE (Dip) 2+ Leu/ul (NEGATIVE); UR NITRITE (Dip) NEGATIVE (NEGATIVE); UR RBC 4 /HPF (0-5); UR SPECIFIC GRAVITY (Dip) 1.008 (1.003-1.030); UR SQUAMOUS EPITHELIAL CELL FEW /HPF (FEW); UR TOTAL PROTEIN (Dip) NEGATIVE (NEGATIVE); UR UROBILINOGEN (Dip) NEGATIVE (NEGATIVE)
[2017-04-19 20:21] VITALS: BP 158/71; RESP 20
[2017-04-19] MEDS: INSULIN GLARGINE [LANtus] 3 ML PEN SC SCH (21:35)
[2017-04-19] MEDS: AMITRIPTYLINE 50 MG TAB PO SCH (21:36)
[2017-04-19] MEDS: ZOLPIDEM 5 MG TAB PO PRN (22:08)
[2017-04-20] MEDS: ACCU-CHEK XX SCH (02:37)
[2017-04-20 02:49] VITALS: BP 151/65; RESP 20
[2017-04-20 05:20] LABS: ABNORMAL IP MESSAGE 1; BASOPHILS % 0.5 % (0.0-2.0); EOSINOPHILS # 0.2 10^3/ul (0.0-0.5); EOSINOPHILS % 2.7 % (0.0-7.0); HEMATOCRIT 26.5 % (37.0-47.0); HEMOGLOBIN 8.9 g/dl (12.0-16.0); LYMPHOCYTES # 1.5 10^3/ul (0.8-2.9); LYMPHOCYTES % 18.9 % (15.0-51.0); MEAN CORPUSCULAR HEMOGLOBIN 30.4 pg (29.0-33.0); MEAN CORPUSCULAR HGB CONC 33.6 g/dl (32.0-37.0); MEAN CORPUSCULAR VOLUME 90.4 fl (82.0-101.0); MEAN PLATELET VOLUME 10.3 fl (7.4-10.4); MONOCYTE # 0.5 10^3/ul (0.3-0.9); MONOCYTES % 6.1 % (0.0-11.0); NEUTROPHILS % 66.3 % (39.0-77.0); PLATELET COUNT 159 10^3/UL (140-415); RED BLOOD COUNT 2.93 10^6/ul (4.20-5.40); RED CELL DISTRIBUTION WIDTH 14.8 % (11.5-14.5); WHITE BLOOD COUNT 7.7 10^3/ul (4.8-10.8)
[2017-04-20 05:25] LABS: POSITIVE DIFF @See below
[2017-04-20] MEDS: PANTOPRAZOLE (EC) 40 MG TAB PO SCH (06:07)
[2017-04-20 06:15] LABS: CREATININE 1.31 mg/dl (0.44-1.00); MAGNESIUM 1.6 mg/dl (1.7-2.5); PHOSPHORUS 4.8 mg/dl (2.5-4.9); POTASSIUM 4.1 mmol/L (3.5-5.1)
--- NOTE | 2017-04-20 07:56 | PDOCDIS ---
Discharge Instructions DIAGNOSIS Discharge Diagnosis discharge home CONDITION Patient Condition: Fair HOME CARE INSTRUCTIONS: Diet Instructions: Special Diet: 1800Your diet recommendation is: 1800 calorie ada diet 3gm sodium ACTIVITY: Activity Restrictions: Slowly Increase Activity Bathing Restrictions: Shower FOLLOW UP/APPOINTMENTS Follow-up Plan office visit sundayapril 24 OTHER ORDERS: Other Orders: contiue home meds hold metfgormin and losartan for now SCHOOL/WORK RELEASE May return to School/Work on: Apr 30, 2017 May return to School/Work with: No Restrictions KEN GANT MD Apr 20, 2017 07:56
[2017-04-20] MEDS ORDERED: NYST1000 PO (08:04)
[2017-04-20] MEDS ORDERED: AMOX1TAB10 PO (08:04)
[2017-04-20] MEDS ORDERED: AMLO2.5T78 PO (08:04)
--- NOTE | 2017-04-20 08:42 | DS ---
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 Acute renal failure 2nd above; cr improving; abd US noted -as above -fluid management -correct lytes -avoid nephrotoxic agents 4. Anemia: multifactorial, hx of vag bleed requiring sx, sepsis, no overt bleed ; h/h stable -monitor and transfuse prn 5. DM -diet/med control -encourage weight optimization 6. BMI 28 -diet/exercise optimization 7. Hyperlipidemia -diet/med optimization 8. DJD -medical optimization 9. Hypoalbuminemia, multifactorial -eventual diet optimization 10. Hepatosplenomegaly ? etiology -w/u per medical/heme 11. Mild coagulopathy -correct prn 12. SLE: asymptomatic -medical management 13. Hypertension: improved -weight loss -medical management 14. Interstitial pulmonary edema with ascites; breathing comfortably -further workup by medical team -gentle diuresis 15. Electrolyte imbalance (hypokalemia, hypomagnesemia) -optimize lytes 16. Positive urine culture: insignificant and no need for treatment per ID, asymptomatic 17. Right side pain: worsened by positional changes, no: cough, sob, hemoptysis , tachycardia; likely muscular, being r/o for pe, pending VQ scan and dopplers -pain management -increase in activity if PE r/o Thank you. Patient seen and examined in collaboration with Dr. Guillermo Preciado. Home Meds Active Scripts Amlodipine Besylate* (Amlodipine Besylate*) 2.5 Mg Tablet, 5 MG PO BID for 30 Days, #60 TAB 3 Refills Prov:KEN RUSSELL MD 04/20/17 Nystatin (Nystatin) 100,000 Unit/1 Ml Oral.susp, 5 ML PO QID for 7 Days, #10 APPFUL 1 Refill Prov:KEN RUSSELL MD 9/1/17 Amoxicillin/Potassium Clav (Amox-Clav 875-125 mg Tablet) 875-125 mg Tab, 875 MG PO BID for 7 Days, #14 TAB 1 Refill Prov:KEN RUSSELL MD 04/20/17 [Oxycodone/Acetamin (5/325)] 1 TAB TAB No Conflict Check, 1 TAB PO Q4H Y for PAIN LEVEL 6-10, #30 Prov:BENJAMIN MORRISON MD 03/16/17 Ibuprofen* (Ibuprofen*) 800 Mg Tablet, 800 MG PO Q6, #30 TAB Prov:BENJAMIN MORRISON MD 03/16/17 Dextran 70/Hypromellose (Tears Naturale Free Drops) 32 Ea Droperette, 2 DROP OP TID, #1 BOTTLE Prov:SHIRLEY JIMENEZ MD 04/25/15 Reported Medications Insulin Glargine,Hum.rec.anlog ([place] Solostar) 300 Unit/1 Ml Insuln.pen, 300 UNIT SQ 03/12/17 Losartan Potassium* (Losartan Potassium*) 25 Mg Tablet, 25 MG PO DAILY, TAB 03/12/17 Hydroxychloroquine Sulfate* (Hydroxychloroquine Sulfate*) 200 Mg Tablet, 200 MG PO BID, TAB 03/12/17 Pantoprazole* (Pantoprazole*) 40 Mg Tablet.dr, 40 MG PO DAILY, TAB 03/12/17 [Abilify] No Conflict Check 03/14/16 [Protonix] No Conflict Check 03/14/16 [Humalog] No Conflict Check 03/14/16 Alprazolam* (Xanax*) 0.5 Mg Tab, 0.5 MG PO Q8H Y for ANXIETY, TAB 04/25/15 Rosuvastatin Calcium* (Crestor*) 20 Mg Tablet, 20 MG PO HS, TAB 04/25/15 Gemfibrozil* (Gemfibrozil*) 600 Mg Tablet, 600 MG PO BID, TAB 04/25/15 Amitriptyline Hcl* (Amitriptyline Hcl*) 100 Mg Tablet, 100 MG PO HS, TAB 04/25/15 Metformin Hcl* (Metformin Hcl*) 500 Mg Tablet, 500 MG PO DAILY, TAB 04/25/15 Diclofenac Sodium* (Diclofenac Sodium*) 75 Mg Tablet.dr, 75 MG PO BID, TAB 04/25/15 Follow-up Plan f/u office 04/24/17 instructions given re diet activity etc Primary Care Provider Ken Russell MD Time spent on discharge: > 30 minutes Pending Labs Laboratory Tests Test 04/19/17 08:57 04/19/17 13:28 04/19/17 17:40 04/19/17 17:53 Bedside Glucose 158mg/dL (70-220) 156mg/dL (70-220) 186mg/dL (70-220) Urine Color STRAW (YELLOW) Urine Clarity CLEAR (CLEAR) Urine pH 6.0 (5.0-9.0) Urine Specific [place] 1.008 (1.003-1.030) Urine Ketones NEGATIVEmg/dL (NEGATIVE) Urine Nitrite NEGATIVEmg/dL (NEGATIVE) Urine Bilirubin NEGATIVEmg/dL (NEGATIVE) Urine Urobilinogen NEGATIVEmg/dL (NEGATIVE) Urine Leukocyte Esterase 2+Linda/ul (NEGATIVE) Urine Microscopic RBC 4/HPF (0-5) Urine Microscopic WBC 19/HPF (0-5) Urine Squamous Epithelial Cells FEW/HPF (FEW) Urine Hemoglobin 1+mg/dL (NEGATIVE) Urine Glucose 1+mg/dL (NEGATIVE) Urine Total Protein NEGATIVEmg/dl (NEGATIVE) Test 04/19/17 21:31 04/20/17 01:51 04/20/17 04:39 Bedside Glucose 189mg/dL (70-220) 194mg/dL (70-220) White Blood Count 7.710^3/ul (4.8-10.8) Red Blood Count 2.9310^6/ul (4.20-5.40) Hemoglobin 8.9g/dl (12.0-16.0) Hematocrit 26.5% (37.0-47.0) Mean Corpuscular Volume 90.4fl (82.0-101.0) Mean Corpuscular Hemoglobin 30.4pg (29.0-33.0) Mean Corpuscular Hemoglobin Concent 33.6g/dl (32.0-37.0) Red Cell Distribution Width 14.8% (11.5-14.5) Platelet Count 74933^3/UL (140-415) Mean Platelet Volume 10.3fl (7.4-10.4) Neutrophils % 66.3% (39.0-77.0) Lymphocytes % 18.9% (15.0-51.0) Monocytes % 6.1% (0.0-11.0) Eosinophils % 2.7% (0.0-7.0) Basophils % 0.5% (0.0-2.0) Nucleated Red Blood Cells % 0.0/100WBC (0.0-0.0) Neutrophils # (Manual) 5.110^3/ul (1.7-7.5) Lymphocytes # 1.510^3/ul (0.8-2.9) Monocytes # 0.510^3/ul (0.3-0.9) Eosinophils # 0.210^3/ul (0.0-0.5) Basophils # 0.010^3/ul (0.0-0.1) Nucleated Red Blood Cells # 0.010^3/ul (0.0-0.0) Sodium Level 141mmol/L (135-144) Potassium Level 4.1mmol/L (3.5-5.1) Chloride Level 107mmol/L (97-110) Carbon Dioxide Level 25mmol/L (21-31) Anion Gap 13 (8-16) Blood Urea Nitrogen 13mg/dl (7-20) Creatinine 1.31mg/dl (0.44-1.00) Glucose Level 159mg/dl (70-220) Calcium Level 9.0mg/dl (8.4-10.2) Phosphorus Level 4.8mg/dl (2.5-4.9) Magnesium Level 1.6mg/dl (1.7-2.5) KEN RUSSELL MD Apr 20, 2017 08:42
[2017-04-20 08:43] VITALS: BP 153/73; RESP 20
[2017-04-20] MEDS: AMOXICILLIN/CLAV 875 MG TAB PO SCH (09:07)
[2017-04-20] MEDS: AMLODIPINE 2.5 MG TAB PO SCH (09:09)
[2017-04-20] MEDS: NYSTATIN SUSP 5 ML CUP PO SCH ×2 (09:09→13:22)
[2017-04-20] MEDS: INSULIN ASPART [NOVOLOG] 3 ML PEN SC SCH ×2 (09:11→13:12)
--- NOTE | 2017-04-20 10:08 | CONS ---
Date/Time of Note Date/Time of Note DATE: 04/20/17 TIME: 10:04 Assessment/Plan Assessment/Plan Additional Assessment/Plan 1. Acute renal failure resolving, sl rise in Scr noted and needs to be followed as OP 2. Mag is again low, will replete 3. DM, sugars noted 4. Right flank pain and now SI pain I think musculoligamentous, V/Q scan noted, cxr and nivvs. 5. Can be dc'd Consultation Date/Type/Reason Admit Date/Time Apr 10, 2017 at 17:54 Initial Consult Date 04/10/17 Type of Consultation: ID Referring Provider: NIA GAYTAN MD Detailed Summary Respiratory: other (right lat flank and right si pain is present, she is most comfortable supine, twisting her torso or bending at the waist inc pain), No cough, No shortness of breath Cardiovascular: No chest pain (no ant chest discomfort) Gastrointestinal: No nausea (and no ant abd pain or epig pain), No vomiting Genitourinary: No dysuria Exam/Review of Systems Vital Signs Vitals Vital Signs Date Time Temp Pulse Resp B/P Pulse Ox O2 Delivery O2 Flow Rate FiO2 04/20/17 08:43 98.8 85 20 153/73 93 04/17/17 10:15 Room Air Intake and Output 04/19/17 04/19/17 04/20/17 14:59 22:59 06:59 Intake Total 1626 ml 600 ml Output Total 1500 ml Balance 126 ml 600 ml Exam Neck: No jvd Respiratory: clear to auscultation, diminished breath sounds Cardiovascular: regular rate and rhythm Gastrointestinal: soft Musculoskeletal: other (right si tend right lateral flow flank tend and right rib tend) Results Result Diagram: 04/20/17 0439 04/20/17 0439 Results 24 hrs Laboratory Tests Test 04/19/17 13:28 04/19/17 17:40 04/19/17 17:53 04/19/17 21:31 Bedside Glucose 156 186 189 Urine Color STRAW Urine Clarity CLEAR Urine pH 6.0 Urine Specific [place] 1.008 Urine Ketones NEGATIVE Urine Nitrite NEGATIVE Urine Bilirubin NEGATIVE Urine Urobilinogen NEGATIVE Urine Leukocyte Esterase 2+ H Urine Microscopic RBC 4 Urine Microscopic WBC 19 H Urine Squamous Epithelial Cells FEW Urine Hemoglobin 1+ H Urine Glucose 1+ H Urine Total Protein NEGATIVE Test 04/20/17 01:51 04/20/17 04:39 04/20/17 09:06 Bedside Glucose 194 160 White Blood Count 7.7 Red Blood Count 2.93 L Hemoglobin 8.9 L Hematocrit 26.5 L Mean Corpuscular Volume 90.4 Mean Corpuscular Hemoglobin 30.4 Mean Corpuscular Hemoglobin Concent 33.6 Red Cell Distribution Width 14.8 H Platelet Count 159 Mean Platelet Volume 10.3 Neutrophils % 66.3 Lymphocytes % 18.9 Monocytes % 6.1 Eosinophils % 2.7 Basophils % 0.5 Nucleated Red Blood Cells % 0.0 Neutrophils # (Manual) 5.1 Lymphocytes # 1.5 Monocytes # 0.5 Eosinophils # 0.2 Basophils # 0.0 Nucleated Red Blood Cells # 0.0 Sodium Level 141 Potassium Level 4.1 Chloride Level 107 Carbon Dioxide Level 25 Anion Gap 13 Blood Urea Nitrogen 13 Creatinine 1.31 H Glucose Level 159 Calcium Level 9.0 Phosphorus Level 4.8 Magnesium Level 1.6 L Medications Medications Current Medications Acetaminophen (Tylenol Tab) 650 mg Q6H PRN PO PAIN AND OR ELEVATED TEMP; Start 04/10/17 at 18:30 Diagnostic Test (Pha) (Accu-Chek) 1 ea 02 XX Last administered on 04/20/17t 02: 37; Admin Dose 1 EA; Start 04/11/17 at 02:00 Miscellaneous Information 1 ea NOTE XX ; Start 04/10/17 at 18:30 Glucose (Glutose) 15 gm Q15M PRN PO DECREASED GLUCOSE; Start 04/10/17 at 18:30 Glucose (Glutose) 22.5 gm Q15M PRN PO DECREASED GLUCOSE; Start 04/10/17 at 18: 30 Dextrose (D50w Syringe) 25 ml Q15M PRN IV DECREASED GLUCOSE; Start 04/10/17 at 18:30 Dextrose (D50w Syringe) 50 ml Q15M PRN IV DECREASED GLUCOSE; Start 04/10/17 at 18:30 Glucagon (Glucagen) 1 mg Q15M PRN IM DECREASED GLUCOSE; Start 04/10/17 at 18:30 Glucose (Glutose) 15 gm Q15M PRN BUCCAL DECREASED GLUCOSE; Start 04/10/17 at 18 :30 Ondansetron HCl (Zofran Inj) 4 mg Q6H PRN IV NAUSEA AND/OR VOMITING; Start at 19:30 Hydromorphone HCl (Dilaudid) 0.5 mg Q4H PRN IV PAIN Last administered on 04:52; Admin Dose 0.5 MG; Start 04/10/17 at 19:30 Alprazolam (Xanax) 0.5 mg Q8H PRN PO ANXIETY Last administered on 04/17/17 12: 50; Admin Dose 0.5 MG; Start 04/10/17 at 20:00 Pantoprazole (Protonix Tab) 40 mg DAILY@06 PO Last administered on 04/20/17 06: 07; Admin Dose 40 MG; Start 04/11/17 at 06:00 Insulin Glargine (Lantus) 8 unit DAILY@20 SC Last administered on 04/19/17 21: 35; Admin Dose 8 UNIT; Start 04/11/17 at 20:00 Amitriptyline HCl (Elavil) 200 mg HS PO Last administered on 04/19/17 21:36; Admin Dose 200 MG; Start 04/11/17 at 21:00 Aripiprazole (Abilify) 20 mg DAILY PO Last administered on 04/19/17 11:03; Admin Dose 20 MG; Start 04/12/17 at 09:00 Acetaminophen/ Hydrocodone Bitart ([place] (10/325)) 1 tab Q4H PRN PO PAIN Last administered on 04/19/17 18:23; Admin Dose 1 TAB; Start 04/12/17 at 09:30 Epoetin [place] (Epogen (Esrd)) 10,000 units TuThSa@17 SC Last administered on 18:06; Admin Dose 10,000 UNITS; Start 04/12/17 at 17:00 Nystatin (Nystatin Susp) 5 ml QID PO Last administered on 04/20/17 09:09; Admin Dose 5 ML; Start 04/15/17 at 13:00 Hydralazine HCl (Apresoline) 25 mg Q6H PRN PO PRN Last administered on 08:51; Admin Dose 25 MG; Start 04/15/17 at 23:30 Amlodipine Besylate (Norvasc) 5 mg BID PO Last administered on 04/20/17 09:09; Admin Dose 5 MG; Start 04/16/17 at 09:00 Amoxicillin/ Clavulanate Potassium (Augmentin) 875 mg BID PO Last administered on 04/20/17 09:07; Admin Dose 875 MG; Start 04/16/17 at 09:00 Clonidine (Catapres) 0.1 mg Q6H PRN PO ELEVATED BLOOD PRESSURE Last administered on 04/16/17 12:36; Admin Dose 0.1 MG; Start 04/16/17 at 11:30 Zolpidem Tartrate 10 mg 10 mg HS PRN PO INSOMNIA Last administered on 22:08; Admin Dose 10 MG; Start 04/18/17 at 20:30 Magnesium Sulfate/ Sodium Chloride (Magnesium Sulfate/NS) 106 ml @ 35.333 mls/ hr ONCE ONCE IVPB ; Start 04/20/17 at 11:00; Stop 04/20/17 at 13:59 MAXINE HANSEN MD Apr 20, 2017 10:08
--- NOTE | 2017-04-20 10:13 | PN ---
Date/Time of Note Date/Time of Note DATE: 04/20/17 TIME: 10:06 Assessment/Plan Lines/Catheters IV Catheter Type (from Nrs): Saline Lock Tran in Place (from Nrs): No Assessment/Plan Chief Complaint/Hosp Course 1. Abdominal wall collection abscess: scant drainage; cultures noted; s/p daily washout by obgyn nurse -abx per sensitivities -per obgyn nurse 2. Acute renal failure 2nd above; abd US noted +uop without dysuria, CVA tenderness -as above -fluid management -correct lytes -avoid nephrotoxic agents 4. Anemia: multifactorial, hx of vag bleed requiring sx, sepsis, no overt bleed ; h/h stable -monitor and transfuse prn 5. DM -diet/med control -encourage weight optimization 6. BMI 28 -diet/exercise optimization 7. Hyperlipidemia -diet/med optimization 8. DJD -medical optimization 9. Hypoalbuminemia, multifactorial -eventual diet optimization 10. Hepatosplenomegaly ? etiology -w/u per medical/heme 11. Mild coagulopathy -correct prn 12. SLE: asymptomatic -medical management 13. Hypertension: improved -weight loss -medical management 14. Interstitial pulmonary edema with ascites; breathing comfortably -further workup by medical team -gentle diuresis 15. Electrolyte imbalance (hypomagnesemia) -optimize lytes 16. Positive urine culture: insignificant and no need for treatment per ID, asymptomatic 17. Right side pain, now migrated to right hip: worsened by positional changes , no: cough, sob, hemoptysis, tachycardia; likely muscular, being r/o for pe, pending VQ scan and dopplers -pain management; may benefit from topical pain management in light of #2 -increase in activity if PE r/o Thank you. Patient seen and examined in collaboration with Dr. Guillermo Preciado. Problems: Subjective 24 Hr Interval Summary Feels well. Min yellow malodorous drainage from wound. No discomfort noted from patient. Continues to have pain in right side but has migrated lower towards the hip. No fevers, chills, sob, cp, palpitations, wooten, dizziness, n/v/d/ dysuria. VQ scan negative Exam/Review of Systems Vital Signs Vitals Vital Signs Date Time Temp Pulse Resp B/P Pulse Ox O2 Delivery O2 Flow Rate FiO2 04/20/17 08:43 98.8 85 20 153/73 93 04/17/17 10:15 Room Air Intake and Output 04/19/17 04/19/17 04/20/17 15:00 23:00 07:00 Intake Total 1626 ml 600 ml Output Total 1500 ml Balance 126 ml 600 ml Exam Free Text/Dictation Constitutional: No distress Psych: nl; no anxiety, pleasant Head: atraumatic, normocephalic Eyes: EOMI, PERRL, nl conjunctiva, No icteric ENMT: nl external ears & nose, nl lips & teeth, No mucosa pink and moist Neck: non-tender, No jvd Respiratory: normal air movement, breathing comfortably No congested cough, No labored breathing Cardiovascular: regular rate and rhythm, No edema Gastrointestinal: nondistended, soft, surgical scars, improved tenderness periwound, rotund No rebound or guarding Musculoskeletal: nl extremities to inspection, right side pain migrated towards hip area, worsened with positional changes; no CVA tenderness No joint tenderness Extremities: normal pulses, No calf tenderness, No cyanosis Neurological: nl mental status, nl speech, nl strength Skin: nl turgor, Left lower abdomen with small open area with scant yellow malodorous drainage, periwound erythema much improved, multiple tattoos No diaphoresis, No rash or lesions Lymph: nl lymph nodes, nontender Results Result Diagram: 04/20/17 0439 04/20/17 0439 TEJAL KAT NP Apr 20, 2017 10:13
[2017-04-20] MEDS ORDERED: MAGNESIUM SULFATE 3 GM in SOD CHLORIDE 0.9% 100 ML IVPB ONE (11:00)
[2017-04-20] MEDS: HYDROCODONE/APAP (10/325) TAB PO PRN (11:27)
--- NOTE | 2017-04-20 11:31 | CONS ---
Date/Time of Note Date/Time of Note DATE: 04/20/17 TIME: : Assessment/Plan Assessment/Plan Chief Complaint/Hosp Course 1) ARF no signs of obstruction but pt does have kidney stones u/a is not impressive urine cx is pending work-up per renal 04/12 - urine cx is NGTD urine output a bit improved creatinine slightly decreased 04/13 - good improvement in renal function 04/15 - pt has some R flank pain check u/a and urine cx creatinine is coming down nicely 04/16 - still has some R flank pain u/a had mild-mod pyuria, await urine cx 04/19 - urine cx is not significant and does not need treatment even if treatment was given it would not eliminate the e.coli in the stool 04/20 - repeat u/a shows less pyuria and some blood, but cx remains NGTD no symptoms of UTI with dysuria or frequency no need to treat for UTI 2) fluid collection around prior surgical site (ABSCESS) will order u/s of area to see if this is a simple fluid collection in light of her fever, elevated WBC concern would be that this is infected this will likely need to be drained, if a simple fluid collection then via IR if a complex fluid collection she may need surgical I&D continue with vanco/zosyn get nasal swab for MRSA 04/12 - pt spontaneously drained pus from around prior surgical site GNR is growing so far continue with vanco/zosyn but if only GNR will d/c vanco 04/13 - kleb and CoNS in wound cx, CoNS may not be significant, will await sensi' s on CoNS change antibiotics to vanco/unasyn 04/15 - doing well, d/c vanco when pt ready for discharge can change unasyn to po bactrim or levaquin or augmentin 04/16 - will change to po augmentin today I would prefer that wound would get packed to prevent premature closure of it and potentially re-initating an abscess 04/20 - no pain over prior abscess site no redness, ok to d/c all antibiotics 3) abd pain this seems out of proportion to the fluid collection in suprapubic area she is anemic and maybe there is some vascular insufficiency contributing to this no diarrhea and no sign of bowel wall thickening so doubt infectious colitis will order lactic acid will check ESR, complement levels to verify no lupus flair (no other clinical signs to suggest this other than ARF) 04/12 - improved ESR is very high, await complement levels but will check anti DS DNA 4) leukocytosis likely due to infection doubt this is from a strep throat urine less likely the source given the fairly benign u/a abscess is high on my list blood cx have been done and pending 04/12 - improving on current antibiotics await ID from abscess site 04/13 - resolved 5) SLE no joint pains currently but has ARF and abd pain check complement levels and ESR and consider anti-DS dna 04/12 - will check anti DS DNA 04/20 DS DNA was neg 6) thrush 04/15 - start nystatin suspension 04/16 - improved Problems: Consultation Date/Type/Reason Admit Date/Time Apr 10, 2017 at 17:54 Initial Consult Date 04/10/17 Type of Consultation: ID Referring Provider: NIA GAYTAN MD 24 HR Interval Summary Free Text/Dictation pt denies F, C, NS, dysuria no lower abd pain but she still has some R flank pain that comes and goes no N, V, D Exam/Review of Systems Vital Signs Vitals Vital Signs Date Time Temp Pulse Resp B/P Pulse Ox O2 Delivery O2 Flow Rate FiO2 04/20/17 08:43 98.8 85 20 153/73 93 04/17/17 10:15 Room Air Intake and Output 04/19/17 04/19/17 04/20/17 15:00 23:00 07:00 Intake Total 1626 ml 600 ml Output Total 1500 ml Balance 126 ml 600 ml Exam Constitutional: alert, oriented Head: normocephalic Eyes: nl sclera ENMT: mucosa pink and moist Respiratory: clear to auscultation Cardiovascular: regular rate and rhythm Gastrointestinal: other (slight R flank pain, no pain over prior abscess site or over bladder), soft Results Result Diagram: 04/20/17 0439 04/20/17 0439 Results 24 hrs Laboratory Tests Test 04/19/17 13:28 04/19/17 17:40 04/19/17 17:53 04/19/17 21:31 Bedside Glucose 156 186 189 Urine Color STRAW Urine Clarity CLEAR Urine pH 6.0 Urine Specific [place] 1.008 Urine Ketones NEGATIVE Urine Nitrite NEGATIVE Urine Bilirubin NEGATIVE Urine Urobilinogen NEGATIVE Urine Leukocyte Esterase 2+ H Urine Microscopic RBC 4 Urine Microscopic WBC 19 H Urine Squamous Epithelial Cells FEW Urine Hemoglobin 1+ H Urine Glucose 1+ H Urine Total Protein NEGATIVE Test 04/20/17 01:51 04/20/17 04:39 04/20/17 09:06 Bedside Glucose 194 160 White Blood Count 7.7 Red Blood Count 2.93 L Hemoglobin 8.9 L Hematocrit 26.5 L Mean Corpuscular Volume 90.4 Mean Corpuscular Hemoglobin 30.4 Mean Corpuscular Hemoglobin Concent 33.6 Red Cell Distribution Width 14.8 H Platelet Count 159 Mean Platelet Volume 10.3 Neutrophils % 66.3 Lymphocytes % 18.9 Monocytes % 6.1 Eosinophils % 2.7 Basophils % 0.5 Nucleated Red Blood Cells % 0.0 Neutrophils # (Manual) 5.1 Lymphocytes # 1.5 Monocytes # 0.5 Eosinophils # 0.2 Basophils # 0.0 Nucleated Red Blood Cells # 0.0 Sodium Level 141 Potassium Level 4.1 Chloride Level 107 Carbon Dioxide Level 25 Anion Gap 13 Blood Urea Nitrogen 13 Creatinine 1.31 H Glucose Level 159 Calcium Level 9.0 Phosphorus Level 4.8 Magnesium Level 1.6 L Medications Medications Current Medications Acetaminophen (Tylenol Tab) 650 mg Q6H PRN PO PAIN AND OR ELEVATED TEMP; Start 04/10/17 at 18:30 Diagnostic Test (Pha) (Accu-Chek) 1 ea 02 XX Last administered on 04/20/17t 02: 37; Admin Dose 1 EA; Start 04/11/17 at 02:00 Miscellaneous Information 1 ea NOTE XX ; Start 04/10/17 at 18:30 Glucose (Glutose) 15 gm Q15M PRN PO DECREASED GLUCOSE; Start 04/10/17 at 18:30 Glucose (Glutose) 22.5 gm Q15M PRN PO DECREASED GLUCOSE; Start 04/10/17 at 18: 30 Dextrose (D50w Syringe) 25 ml Q15M PRN IV DECREASED GLUCOSE; Start 04/10/17 at 18:30 Dextrose (D50w Syringe) 50 ml Q15M PRN IV DECREASED GLUCOSE; Start 04/10/17 at 18:30 Glucagon (Glucagen) 1 mg Q15M PRN IM DECREASED GLUCOSE; Start 04/10/17 at 18:30 Glucose (Glutose) 15 gm Q15M PRN BUCCAL DECREASED GLUCOSE; Start 04/10/17 at 18 :30 Ondansetron HCl (Zofran Inj) 4 mg Q6H PRN IV NAUSEA AND/OR VOMITING; Start at 19:30 Hydromorphone HCl (Dilaudid) 0.5 mg Q4H PRN IV PAIN Last administered on 04:52; Admin Dose 0.5 MG; Start 04/10/17 at 19:30 Alprazolam (Xanax) 0.5 mg Q8H PRN PO ANXIETY Last administered on 04/17/17 12: 50; Admin Dose 0.5 MG; Start 04/10/17 at 20:00 Pantoprazole (Protonix Tab) 40 mg DAILY@06 PO Last administered on 04/20/17 06: 07; Admin Dose 40 MG; Start 04/11/17 at 06:00 Insulin Glargine (Lantus) 8 unit DAILY@20 SC Last administered on 04/19/17 21: 35; Admin Dose 8 UNIT; Start 04/11/17 at 20:00 Amitriptyline HCl (Elavil) 200 mg HS PO Last administered on 04/19/17 21:36; Admin Dose 200 MG; Start 04/11/17 at 21:00 Aripiprazole (Abilify) 20 mg DAILY PO Last administered on 04/19/17 11:03; Admin Dose 20 MG; Start 04/12/17 at 09:00 Acetaminophen/ Hydrocodone Bitart (Etters (10/325)) 1 tab Q4H PRN PO PAIN Last administered on 04/19/17 18:23; Admin Dose 1 TAB; Start 04/12/17 at 09:30 Epoetin [place] (Epogen (Esrd)) 10,000 units TuThSa@17 SC Last administered on 18:06; Admin Dose 10,000 UNITS; Start 04/12/17 at 17:00 Nystatin (Nystatin Susp) 5 ml QID PO Last administered on 04/20/17 09:09; Admin Dose 5 ML; Start 04/15/17 at 13:00 Hydralazine HCl (Apresoline) 25 mg Q6H PRN PO PRN Last administered on 08:51; Admin Dose 25 MG; Start 04/15/17 at 23:30 Amlodipine Besylate (Norvasc) 5 mg BID PO Last administered on 04/20/17 09:09; Admin Dose 5 MG; Start 04/16/17 at 09:00 Amoxicillin/ Clavulanate Potassium (Augmentin) 875 mg BID PO Last administered on 04/20/17 09:07; Admin Dose 875 MG; Start 04/16/17 at 09:00 Clonidine (Catapres) 0.1 mg Q6H PRN PO ELEVATED BLOOD PRESSURE Last administered on 04/16/17 12:36; Admin Dose 0.1 MG; Start 04/16/17 at 11:30 Zolpidem Tartrate 10 mg 10 mg HS PRN PO INSOMNIA Last administered on 22:08; Admin Dose 10 MG; Start 04/18/17 at 20:30 Magnesium Sulfate/ Sodium Chloride (Magnesium Sulfate/NS) 106 ml @ 35.333 mls/ hr ONCE ONCE IVPB Last administered on 04/20/17 11:15; Admin Dose 35.333 MLS/ HR; Start 04/20/17 at 11:00; Stop 04/20/17 at 13:59 DIMITRIS ALAMO MD Apr 20, 2017 11:31
[2017-04-20 13:50] VITALS: BP 151/69; RESP 18
== END 2017-04-20 15:50 | disposition home or self-care (01) | DRG 862 ==
LOC: MS1 17:54
PROVIDERS: ADMIT Internal Medicine; ATTEND Internal Medicine
DX: T81.4XXA Infection following a procedure, initial encounter (principal); A41.9 Sepsis, unspecified organism; R65.20 Severe sepsis without septic shock; N17.0 Acute kidney failure with tubular necrosis; G93.40 Encephalopathy, unspecified; J81.1 Chronic pulmonary edema; R18.8 Other ascites; D68.9 Coagulation defect, unspecified; L02.211 Cutaneous abscess of abdominal wall; D64.9 Anemia, unspecified; E11.9 Type 2 diabetes mellitus without complications; E78.5 Hyperlipidemia, unspecified; M32.9 Systemic lupus erythematosus, unspecified; M19.90 Unspecified osteoarthritis, unspecified site; Z90.710 Acquired absence of both cervix and uterus; Z79.4 Long term (current) use of insulin; F31.9 Bipolar disorder, unspecified; Z87.891 Personal history of nicotine dependence; E88.09 Other disorders of plasma-protein metabolism, not elsewhere classified; R16.2 Hepatomegaly with splenomegaly, not elsewhere classified; I10 Essential (primary) hypertension; E87.6 Hypokalemia; E83.42 Hypomagnesemia; R82.79 Other abnormal findings on microbiological examination of urine; B96.1 Klebsiella pneumoniae [K. pneumoniae] as the cause of diseases classified elsewhere; B95.8 Unspecified staphylococcus as the cause of diseases classified elsewhere; B37.9 Candidiasis, unspecified; R07.9 Chest pain, unspecified; N20.0 Calculus of kidney; E86.0 Dehydration
CPT/HCPCS: 36430; 71020; 71250; 74176; 76536; 76700; 78582; 80048; 80053; 80076; 80202; 81001; 82150; 82728; 82962; 83010; 83540; 83605; 83690; 83735; 84100; 84155; 84300; 85025; 85045; 85610; 85651; 85730; 86160; 86226; 86644; 86850; 86870; 86900; 86901; 86902; 86920; 87040; 87070; 87081; 87086; 93005; 93970; A9540; J0295; J0400; J1170; J1815; J1940; J2543; J2916; J3370; J3475; J3480; J7030; J7050; J7070; P9016; Q4081

== ENCOUNTER 2019-01-02 18:30 | Inpatient (IN) | payer BC ==
[~2019-01-02] VITALS: Ht 162.6 cm; Wt 88.0 kg
[~2019-01-02 18:30] MED LIST changes: +AMLO2.5T78 PO; +AMOX1TAB10 PO; +CRES20 PO; -GEMF600T60 PO; +GEMF600T8 PO; +IBUP-1544 PO; -IBUP800T25 PO; +LOSA25TA12 PO; -LOSA25TA5 PO; +METF500T24 PO; -METF500T4 PO; +NYST1000 PO; -ROSU20TA PO
[2019-01-02] MEDS ORDERED: SODIUM CHLORIDE 0.9% 1L BAG IV* STA (19:09)
[2019-01-02] MEDS ORDERED: AZTREONAM 1 GM/NS (PMX) 50 ML IVPB STA (19:09)
[2019-01-02] MEDS ORDERED: VANCOMYCIN 1 GM (PMX) 250 ML IVPB STA (19:09)
[2019-01-02] MEDS ORDERED: morphine 4 MG/ML VIAL IV STA (19:13)
[2019-01-02] MEDS ORDERED: ONDANSETRON 4 MG INJ IV STA (19:13)
[2019-01-02] MEDS ORDERED: ACETAMINOPHEN 325 MG TAB PO ONE (19:30)
[2019-01-02] MEDS ORDERED: NACL 0.9% 3 ML SYG IV SCH (21:30)
[2019-01-02] MEDS ORDERED: OXYCODONE/ACETAMINOPHEN (5/325) TAB PO PRN (21:30)
[2019-01-02] MEDS ORDERED: VANCOMYCIN IV PER PHARMACY XX SCH (21:30)
[2019-01-02] MEDS ORDERED: NA PHOSPHATE/BIPHOS 133 ML ENEMA PR PRN (21:30)
[2019-01-02] MEDS ORDERED: DOCUSATE SODIUM 100 MG CAP PO PRN (21:30)
[2019-01-02] MEDS ORDERED: ACETAMINOPHEN 325 MG TAB PO PRN (21:30)
[2019-01-02] MEDS ORDERED: BISACODYL (EC) 5 MG TAB PO PRN (21:30)
[2019-01-02] MEDS ORDERED: ONDANSETRON 4 MG INJ IV PRN ×2 (21:30)
[2019-01-02] MEDS ORDERED: ALPRAZOLAM 0.25 MG TAB PO PRN (21:30)
--- NOTE | 2019-01-02 21:34 | ERD ---
ER Documentation Chief Complaint Chief Complaint R FLANK PAIN; HX OF KIDNEY STONES HPI Patient is a 48-year-old female with kidney stones and high cholesterol as well as diabetes who presents with right-sided flank pain. The patient has fevers. The patient started at 3 PM with the symptoms. The patient has had constant pain. He was initially on 9 and now is a 7 out of 10. She has pain with urination. She feels the pain "pulsates". She is a history of kidney stones. Her primary doctor is Dr. Russell but she does not have a urologist. ROS All systems reviewed and are negative except as per history of present illness. Medications Home Meds Active Scripts Amlodipine Besylate* (Amlodipine Besylate*) 2.5 Mg Tablet, 5 MG PO BID for 30 Days, #60 TAB 3 Refills Prov:KEN RUSSELL MD 04/20/17 Nystatin (Nystatin) 100,000 Unit/1 Ml Oral.susp, 5 ML PO QID for 7 Days, #10 APPFUL 1 Refill Prov:KEN RUSSELL MD 04/20/17 Amoxicillin/Potassium Clav (Amox-Clav 875-125 mg Tablet) 875-125 mg Tab, 875 MG PO BID for 7 Days, #14 TAB 1 Refill Prov:KEN RUSSELL MD 04/20/17 [Oxycodone/Acetamin (5/325)] 1 TAB TAB No Conflict Check, 1 TAB PO Q4H PRN for PAIN LEVEL 6-10, #30 Prov:BENJAMIN MORRISON MD 03/16/17 Ibuprofen* (Ibuprofen*) 800 Mg Tablet, 800 MG PO Q6, #30 TAB Prov:BENJAMIN MORRISON MD 03/16/17 Dextran 70/Hypromellose (Tears Naturale Free Drops) 32 Ea Droperette, 2 DROP OP TID, #1 BOTTLE Prov:SHIRLEY JIMENEZ MD 04/25/15 Reported Medications Insulin Glargine,Hum.rec.anlog (Rodrigo Solis) 300 Unit/1 Ml Insuln.pen, 300 UNIT SQ 03/12/17 Losartan Potassium* (Losartan Potassium*) 25 Mg Tablet, 25 MG PO DAILY, TAB 03/12/17 Hydroxychloroquine Sulfate* (Hydroxychloroquine Sulfate*) 200 Mg Tablet, 200 MG PO BID, TAB 03/12/17 Pantoprazole* (Pantoprazole*) 40 Mg Tablet.dr, 40 MG PO DAILY, TAB 03/12/17 [Abilify] No Conflict Check 03/14/16 [Protonix] No Conflict Check 03/14/16 [Humalog] No Conflict Check 03/14/16 Alprazolam* (Xanax*) 0.5 Mg Tab, 0.5 MG PO Q8H PRN for ANXIETY, TAB 04/25/15 Rosuvastatin Calcium* (Crestor*) 20 Mg Tablet, 20 MG PO HS, TAB 04/25/15 Gemfibrozil* (Gemfibrozil*) 600 Mg Tablet, 600 MG PO BID, TAB 04/25/15 Amitriptyline Hcl* (Amitriptyline Hcl*) 100 Mg Tablet, 100 MG PO HS, TAB 04/25/15 Metformin Hcl* (Metformin Hcl*) 500 Mg Tablet, 500 MG PO DAILY, TAB 04/25/15 Diclofenac Sodium* (Diclofenac Sodium*) 75 Mg Tablet.dr, 75 MG PO BID, TAB 04/25/15 Allergies Allergies: Coded Allergies: cefepime (Verified Allergy, Severe, CAN'T BREATH, 03/12/17) latex (Verified Allergy, Severe, SEVERE HIVES, 03/12/17) Cephalosporins (Verified Allergy, Unknown, UNKNOWN, 03/12/17) PMhx/Soc History of Surgery: Yes Anesthesia Reaction: No Hx Neurological Disorder: No Hx Respiratory Disorders: No Hx Cardiac Disorders: No Hx Psychiatric Problems: No Hx Miscellaneous Medical Probl: No Hx Alcohol Use: Yes Hx Substance Use: No Hx Tobacco Use: No Smoking Status: Never smoker FmHx Patient is adopted and does not know family history Physical Exam Vitals Vital Signs Date Temp Pulse Resp B/P (MAP) Pulse Ox O2 O2 Flow FiO2 Time Delivery Rate 01/02/19 100.7 20:09 01/02/19 99.9 107 18 165/76 97 Room Air 19:20 (105) 01/02/19 100.7 112 18 188/86 97 19:02 (120) Physical Exam Const: Mild distress Head: Atraumatic Eyes: Normal Conjunctiva ENT: Normal External Ears, Nose and Mouth. Neck: Full range of motion. No meningismus. Resp: Clear to auscultation bilaterally Cardio: Tachycardic rate without murmur Abd: Soft, non tender, non distended. Normal bowel sounds Skin: No petechiae or rashes Back: Right-sided CVA punch tenderness Ext: No cyanosis, or edema Neur: Awake and alert Psych: Normal Mood and Affect Result Diagram: 01/02/19193001/02/191930 Results 24 hrs Laboratory Tests Test 01/02/19 19:30 01/02/19 19:31 01/02/19 19:44 Urine Test NEGATIVE White Blood Count 10.2 10^3/ul Red Blood Count 4.14 10^6/ul Hemoglobin 12.9 g/dl Hematocrit 37.0 % Mean Corpuscular Volume 89.4 fl Mean Corpuscular Hemoglobin 31.2 pg Mean Corpuscular 34.9 g/dl Hemoglobin Concent Red Cell Distribution Width 13.2 % Platelet Count 169 10^3/UL Mean Platelet Volume 11.3 fl Immature Granulocytes % 0.700 % Neutrophils % 75.4 % Lymphocytes % 17.1 % Monocytes % 4.8 % Eosinophils % 1.5 % Basophils % 0.5 % Nucleated Red Blood Cells % 0.0 /100WBC Immature Granulocytes # 0.070 10^3/ul Neutrophils # 7.7 10^3/ul Lymphocytes # 1.7 10^3/ul Monocytes # 0.5 10^3/ul Eosinophils # 0.2 10^3/ul Basophils # 0.1 10^3/ul Nucleated Red Blood Cells # 0.0 10^3/ul Prothrombin Time 12.3 Sec Prothrombin Time Ratio 1.0 INR International 0.90 Normalized Ratio Activated Partial Thromboplast 34.3 Sec Time Urine Color YELLOW Urine Clarity CLOUDY Urine pH 6.0 Urine Specific [place] 1.015 Urine Ketones NEGATIVE mg/dL Urine Nitrite POSITIVE mg/dL Urine Bilirubin NEGATIVE mg/dL Urine Urobilinogen NEGATIVE mg/dL Urine Leukocyte Esterase 2+ Linda/ul Urine Microscopic RBC 122 /HPF Urine Microscopic WBC > 182 /HPF Urine Bacteria FEW /HPF Urine Hemoglobin 2+ mg/dL Urine Glucose 2+ mg/dL Urine Total Protein 3+ mg/dl Sodium Level 139 mmol/L Potassium Level 3.7 mmol/L Chloride Level 105 mmol/L Carbon Dioxide Level 21 mmol/L Anion Gap 13 Blood Urea Nitrogen 13 mg/dl Creatinine 0.68 mg/dl Est Glomerular Filtrat > 60 mL/min Rate mL/min Glucose Level 204 mg/dl Calcium Level 9.8 mg/dl Total Bilirubin 0.3 mg/dl Direct Bilirubin 0.00 mg/dl Indirect Bilirubin 0.3 mg/dl Aspartate Amino Transf (AST/SGOT) 61 IU/L Alanine 53 IU/L Aminotransferase (ALT/SGPT) Alkaline Phosphatase 138 IU/L Troponin I < 0.012 ng/ml Total Protein 7.2 g/dl Albumin 4.3 g/dl Globulin 2.90 g/dl Albumin/Globulin Ratio 1.48 POC Venous Lactate 3.6 mmol/L Current Medications Medications Dose Sig/Chetan Start Time Status Last (Trade) Ordered Route PRN Stop Time Admin Dose Reason Admin Sodium 2,630 ml BOLUS OVER 2 01/02/19 DC 01/02/19 Chloride HOURS STAT 19:09 20:09 (NS) IV* 01/02/19 19:11 Aztreonam 50 ml @ ONCE STAT 01/02/19 DC 01/02/19 100 mls/hr IVPB 19:09 19:09 01/02/19 19:56 Vancomycin 250 ml @ ONCE STAT 01/02/19 DC 01/02/19 HCl 125 mls/hr IVPB 19:09 20:10 01/02/19 21:08 650 mg ONCE ONCE 01/02/19 DC 01/02/19 Acetaminophen PO 19:30 20:09 (Tylenol 01/02/19 19:56 Tab) Morphine 4 mg ONCE STAT 01/02/19 DC 01/02/19 Sulfate IV 19:13 20:08 (morphine) 01/02/19 19:15 Ondansetron 4 mg ONCE STAT 01/02/19 DC 01/02/19 HCl (Zofran IV 19:13 20:08 Inj) 01/02/19 19:15 Ondansetron 4 mg BRIDGE ORDER 01/02/19 HCl (Zofran PRN IV 21:30 Inj) NAUSEA/VOMITI 01/03/19 21:29 NG 650 mg ER BRIDGE 01/02/19 Acetaminophen PRN PO 21:30 (Tylenol .MILD PAIN 01/03/19 21:29 Tab) 1-3 OR TEMP Alprazolam 0.5 mg Q8H PRN 01/02/19 UNV (Xanax) PO ANXIETY 21:30 100 mg HS PO 01/03/19 UNV Amitriptyline 21:00 HCl (Elavil) Amlodipine 5 mg BID PO 01/03/19 UNV Besylate 09:00 (Norvasc) Diclofenac 75 mg BID PO 01/03/19 UNV Sodium 09:00 (Voltaren) Gemfibrozil 600 mg BID PO 01/03/19 UNV (Lopid) 09:00 200 mg BID PO 01/03/19 UNV Hydroxychloro 09:00 quine Sulfate (Plaquenil) Losartan 25 mg DAILY PO 01/03/19 UNV Potassium 09:00 (Cozaar) Metformin 500 mg DAILY PO 01/03/19 UNV HCl 09:00 (Glucophage) 40 mg DAILY PO 01/03/19 UNV Pantoprazole 09:00 (Protonix Tab) Eye 2 drop QID BOTH 01/03/19 UNV Lubricant EYES 09:00 (Artificial Tears Oph) 40 mg DAILY PO 01/03/19 UNV Atorvastatin 09:00 Calcium (Lipitor) 5 mg DAILY PO 01/03/19 DC Aripiprazole 09:00 (Abilify) 01/03/19 09:00 40 mg DAILY PO 01/03/19 UNV Pantoprazole 09:00 (Protonix Tab) IV Flush 3 ml PER 01/02/19 UNV (NS 3 ml) PROTOCOL IV 21:30 Ondansetron 4 mg Q6H PRN 01/02/19 UNV HCl (Zofran IV 21:30 Inj) NAUSEA/VOMITI NG Oxycodone/ 1 tab Q6H PRN 01/02/19 UNV Acetaminophen PO .MOD PAIN 21:30 (Percocet 4-6 (5/ 325)) Oxycodone/ 2 tab Q6H PRN 01/02/19 UNV Acetaminophen PO .SEVERE 21:30 (Percocet PAIN 7-10 (5/ 325)) Docusate 100 mg Q12H PRN 01/02/19 UNV Sodium PO 21:30 (Colace) .CONSTIPATION Bisacodyl 5 mg DAILY PRN 01/02/19 UNV (Dulcolax) PO 21:30 .CONSTIPATION Sodium 133 ml DAILY PRN 01/02/19 UNV Biphosphate/ TN 21:30 Sodium .CONSTIPATION Phosphate (Fleet Enema) Enoxaparin 30 mg DAILY SC 01/03/19 UNV Sodium 09:00 (Lovenox) Discontinue ONCE ONCE 01/02/19 UNV Miscellaneous current oral XX 21:30 sulfonylur... 01/02/19 21:31 Information (* Miscellaneous Pharmacy Order) Diagnostic 1 ea 02 XX 01/03/19 UNV Test (Pha) 02:00 (Accu-Chek) Insulin 18 units DAILY@199901/03/19 UNV Glargine SC 20:00 (Lantus) Insulin 7 unit WITH MEALS 01/03/19 UNV Aspart SC 08:00 (Novolog Insulin Pen) ONCE ONCE 01/02/19 UNV Miscellaneous HYPOGLYCEMIA XX 21:30 PROTOCOL 01/02/19 21:31 Information w... (* Miscellaneous Pharmacy Order) Insulin NOVOLOG WITH MEALS 01/03/19 UNV Aspart *MILD* BEDTIME SC 08:00 (Novolog ALGORITHM Insulin Pen) Discontinue ONCE ONCE 01/02/19 UNV Miscellaneous all previ... XX 21:30 01/02/19 21:31 Information (* Miscellaneous Pharmacy Order) 500 mg DAILY PO 01/03/19 UNV Levofloxacin 09:00 (Levaquin) Vancomycin VANCOMYCIN PER 01/02/19 UNV HCl (Vanco PER PHARMACY PROTOCOL XX 21:30 Iv Per Pharmacy) 20 mg DAILY PO 01/03/19 UNV Aripiprazole 09:00 (Abilify) Procedures/MDM Chest x-ray read by radiology. CT abdomen pelvis is pending radiology read at this time. Sepsis Documentation: Patient's infectious symptoms have not stabilized and the patient is at risk of rapid decompensation. The patient will be admitted for careful hydration, antibiotic therapy, and infectious source control. SEVERE SEPSIS CRITERIA: Infectious source: Pyelonephritis End organ damage indicated by: Lactate greater than 2 SEPSIS MANAGEMENT Time of recognition of sepsis: 1943. Time of recognition of severe sepsis: 1943. Time of recognition of septic shock: No septic shock at this time. 3 HOUR BUNDLE Blood cultures x 2 before broad-spectrum antibiotics: Yes 30 ml/kg NS bolus completed Initial lactate 3.6 Repeat lactate pending SEPTIC SHOCK ASSESSMENT: No lactic acid > 4.0 No persistent hypotension (SBP < 90 or 40 mmHg drop, MAP < 65) despite 30 mL/kg IV fluid bolus VOLUME REASSESSMENT FOR SEPTIC SHOCK: No septic shock at this time PERSISTENT HYPOTENSION TREATMENT: Comfort care no Central line not Required Vasopressor started not required I considered further perfusion assessment with CVP measurement, SCVO2, bedside ultrasound volume assessment, passive leg raise, trial of further fluid bolus. And proceeded with 30 ml/kg fluid bolus of NSS, broad spectrum antibiotics, and admission. I spoke with Dr. Roque who is covering for Dr. Russell and will admit the patient to a medical surgical bed. CRITICAL CARE Critical care time 35 minutes Emergent fluid management while maintaining close respiratory support. Provision of immediate and broad-spectrum antibiotic therapy. Simultaneous assessment for possible sources in order to direct targeted therapy. Consideration for invasive and chemical support to prevent cardiopulmonary collapse. Critical care time is independent of procedures performed. Departure Diagnosis: Primary Impression: Severe sepsis Additional Impressions: Flank pain Pyelonephritis Condition: OLAF Krishnan MD January 02, 2019 21:33
[2019-01-02] MEDS ORDERED: GLUCAGON 1 MG INJ IM PRN (22:30)
[2019-01-02] MEDS ORDERED: GLUCOSE GEL 15 GRAM TUBE PO PRN ×2 (22:30)
[2019-01-02] MEDS ORDERED: GLUCOSE GEL 15 GRAM TUBE BUCCAL PRN (22:30)
[2019-01-02] MEDS ORDERED: DEXTROSE 50% 50 ML SYRINGE IV PRN ×2 (22:30)
[2019-01-02 23:15] VITALS: BP 155/72; PULSE 93; RESP 18
[2019-01-02 23:40] VITALS: Ht 162.6 cm; Wt 88.0 kg
[2019-01-03] MEDS: ACCU-CHEK XX SCH (02:00)
[2019-01-03 02:21] VITALS: BP 150/66; PULSE 86; RESP 18
[2019-01-03] MEDS: OXYCODONE/ACETAMINOPHEN (5/325) TAB PO PRN ×3 (04:45→17:58)
[2019-01-03] MEDS: LEVOFLOXACIN 500 MG TAB PO SCH (05:28)
[2019-01-03] MEDS: PANTOPRAZOLE (EC) 40 MG TAB PO SCH (05:28)
[2019-01-03 07:45] VITALS: BP 133/61; PULSE 80; RESP 18
[2019-01-03] MEDS ORDERED: metFORMIN 500 MG TAB PO SCH (08:00)
[2019-01-03] MEDS: VANCOMYCIN 1 GM 250 ML IVPB SCH ×2 (08:31→19:53)
[2019-01-03] MEDS: ARTIFICIAL TEARS 15 ML OPH BOTH EYES SCH ×4 (08:31→20:39)
[2019-01-03] MEDS: GEMFIBROZIL 600 MG TAB PO SCH ×2 (08:31→20:39)
[2019-01-03] MEDS: ARIPIPRAZOLE 5 MG TAB PO SCH (08:32)
[2019-01-03] MEDS: DICLOFENAC (EC) 75 MG TAB PO SCH ×2 (08:32→09:00)
[2019-01-03] MEDS: HYDROXYCHLOROQUINE 200 MG TAB PO SCH ×2 (08:32→09:00)
[2019-01-03] MEDS: INSULIN ASPART [NOVOLOG] 3 ML PEN SC SCH ×7 (08:39→20:41)
[2019-01-03] MEDS: ENOXAPARIN 30 MG/0.3 ML SYG SC SCH (08:40)
[2019-01-03] MEDS ORDERED: ARIPIPRAZOLE 5 MG TAB PO SCH (09:00)
[2019-01-03] MEDS ORDERED: AMLODIPINE 2.5 MG TAB PO SCH ×2 (09:00→21:00)
[2019-01-03] MEDS ORDERED: LOSARTAN 25 MG TAB PO SCH ×2 (09:00→21:00)
[2019-01-03] MEDS ORDERED: PANTOPRAZOLE (EC) 40 MG TAB PO SCH (09:00)
--- NOTE | 2019-01-03 14:25 | RADRPT ---
Vent Rate: 110 bpm RR Interval: 0 msec VT Interval: 160 msec QRS Duration: 80 msec QT Interval: 324 msec QTC Interval: 438 msec P-R-T [place]: 43 - 7 - 53 degrees Sinus tachycardia Possible Anterior infarct , age undetermined Abnormal ECG Electronically Signed By: [facility]
--- NOTE | 2019-01-03 14:25 | RADRPT ---
Vent Rate: 109 bpm RR Interval: 0 msec MO Interval: 164 msec QRS Duration: 80 msec QT Interval: 316 msec QTC Interval: 425 msec P-R-T [place]: 41 - 9 - 37 degrees Sinus tachycardia Anterior infarct , age undetermined Abnormal ECG Electronically Signed By: [facility]
[2019-01-03 14:41] VITALS: BP 119/58; PULSE 84; RESP 18
--- NOTE | 2019-01-03 15:15 | HP ---
Date/Time of Note Date/Time of Note DATE: 01/03/19 TIME: 15:06 Assessment/Plan VTE Prophylaxis Risk score (from [facility] [place] risk: 1 SCD applied (from [facility] [place]): Yes Pharmacological prophylaxis: heparin Lines/Catheters IV Catheter Type (from [facility]): Saline Lock Assessment/Plan Problems: (1) Pyelonephritis Status: Acute Comment: She is clinically improving. Continue with IV antibiotics pending cultures. Anticipate that she will be able to be discharged in the next 24 hours. (2) Severe sepsis Status: Acute Comment: Resolving nicely (3) Type 2 diabetes mellitus without complications Status: Chronic Comment: She is doing well at this time. Place her back on her outpatient full dose regimen and follow her closely. Qualifiers: Diabetes mellitus penitentiary insulin use: with joint terminal attack controller use Qualified Codes: E11.9 - Type 2 diabetes mellitus without complications; Z79.4 - retirement (current) use of insulin (4) Essential (primary) hypertension Status: Chronic Comment: Noted. Less dihydropyridine calcium channel renita more angiotensin II receptor renita (5) Hyperlipidemia Status: Chronic Comment: Continue with treatment using her outpatient protocol Qualifiers: Hyperlipidemia type: mixed hyperlipidemia Qualified Codes: E78.2 - Mixed hyperlipidemia (6) Bipolar disorder Status: Chronic Comment: Stable at this time Qualifiers: Active/Remission status: in full remission Most recent bipolar episode type: hypomanic Qualified Codes: F31.72 - Bipolar disorder, in full remission, most recent episode hypomanic (7) History of sarcoidosis Status: Chronic Comment: Noted and presently quiescent (8) Cigarette nicotine dependence, uncomplicated Status: Chronic Comment: Counseling (9) Overweight Status: Chronic Comment: Calorie restriction diet Result Diagram: 01/03/19 0459 01/03/19 0459 Results 24hrs Laboratory Tests Test 01/02/19 19:30 01/02/19 19:31 01/02/19 19:44 01/02/19 22:42 Urine Test NEGATIVE White Blood Count 10.2 # Red Blood Count 4.14 #L Hemoglobin 12.9 # Hematocrit 37.0 # Mean Corpuscular 89.4 Volume Mean Corpuscular 31.2 Hemoglobin Mean Corpuscular 34.9 Hemoglobin Concent Red Cell 13.2 Distribution Width Platelet Count 169 Mean Platelet Volume 11.3 H Immature 0.700 H Granulocytes % Neutrophils % 75.4 Lymphocytes % 17.1 Monocytes % 4.8 Eosinophils % 1.5 Basophils % 0.5 Nucleated Red Blood 0.0 Cells % Immature 0.070 H Granulocytes # Neutrophils # 7.7 H Lymphocytes # 1.7 Monocytes # 0.5 Eosinophils # 0.2 Basophils # 0.1 Nucleated Red Blood 0.0 Cells # Prothrombin Time 12.3 Prothrombin Time 1.0 Ratio INR International 0.90 Normalized Ratio Activated 34.3 Partial Thromboplast Time Urine Color YELLOW Urine Clarity CLOUDY A Urine pH 6.0 Urine Specific 1.015 [place] Urine Ketones NEGATIVE Urine Nitrite POSITIVE A Urine Bilirubin NEGATIVE Urine Urobilinogen NEGATIVE Urine Leukocyte 2+ H Esterase Urine Microscopic 122 H RBC Urine Microscopic > 182 H WBC Urine Bacteria FEW A Urine Hemoglobin 2+ H Urine Glucose 2+ H Urine Total Protein 3+ H Sodium Level 139 Potassium Level 3.7 Chloride Level 105 Carbon Dioxide Level 21 Anion Gap 13 Blood Urea Nitrogen 13 Creatinine 0.68 Est Glomerular > 60 Filtrat Rate mL/min Glucose Level 204 Calcium Level 9.8 Total Bilirubin 0.3 Direct Bilirubin 0.00 Indirect Bilirubin 0.3 Aspartate Amino 61 H Transf (AST/SGOT) Alanine 53 Aminotransferase (AL T/SGPT) Alkaline Phosphatase 138 H Troponin I < 0.012 Total Protein 7.2 Albumin 4.3 Globulin 2.90 Albumin/Globulin 1.48 Ratio POC Venous Lactate 3.6 *H 1.9 Test 01/03/19 04:59 01/03/19 08:09 01/03/19 13:01 White Blood Count 10.0 Red Blood Count 3.60 L Hemoglobin 11.4 L Hematocrit 33.1 L Mean Corpuscular 91.9 Volume Mean Corpuscular 31.7 Hemoglobin Mean Corpuscular 34.4 Hemoglobin Concent Red Cell 13.7 Distribution Width Platelet Count 148 Mean Platelet Volume 11.5 H Immature 0.700 H Granulocytes % Neutrophils % 76.4 Lymphocytes % 15.2 Monocytes % 5.7 Eosinophils % 1.6 Basophils % 0.4 Nucleated Red Blood 0.0 Cells % Immature 0.070 H Granulocytes # Neutrophils # 7.7 H Lymphocytes # 1.5 Monocytes # 0.6 Eosinophils # 0.2 Basophils # 0.0 Nucleated Red Blood 0.0 Cells # Sodium Level 138 Potassium Level 4.3 Chloride Level 107 Carbon Dioxide Level 22 Anion Gap 9 Blood Urea Nitrogen 11 Creatinine 0.65 Est Glomerular > 60 Filtrat Rate mL/min Glucose Level 259 H Hemoglobin A1c 8.2 H Calcium Level 8.9 Total Bilirubin 0.5 Direct Bilirubin 0.00 Indirect Bilirubin 0.5 Aspartate Amino 42 Transf (AST/SGOT) Alanine 45 Aminotransferase (AL T/SGPT) Alkaline Phosphatase 132 H Total Protein 6.9 Albumin 3.8 Globulin 3.10 Albumin/Globulin 1.22 Ratio Bedside Glucose 218 229 H CC: KEN GANT MD ; HPI/ROS Admit Date/Time Admit Date/Time January 02, 2019 at 21:03 Hx of Present Illness 48-year-old right-handed female admitted to the hospital for sepsis. She had been in her usual state of health but in the last 3 days prior to admission developed some symptoms of bladder infection with some dysuria and frequency without hematuria. On the day of admission she was awakened with a sensation of shaking chills and also had sweats and fever. She was not feeling well and came to work. She did not have nausea or vomiting but ultimately was advised to go home. Instead she was feeling poorly enough she presented herself to the emergency room whereupon she was found to have a slightly elevated lactic acid level. Her urinalysis is abnormal she was treated with antibiotics and admitted to the hospital. Blood cultures so far are negative, preliminary urine cultures showing gram-negative rods. These note the patient is allergic to cephalosporins, and is being treated with tentative medications ROS Constitutional: chills, diaphoresis, febrile Eyes: no complaints ENT: no complaints Respiratory: no complaints Cardiovascular: no complaints Gastrointestinal: no complaints Genitourinary: dysuria, flank pain (Right flank pain x24 hours), other (Frequency) Musculoskeletal: no complaints Skin: no complaints Neurologic: no complaints Endocrine: no complaints Lymphatic: no complaints Psychological: no complaints, nl mood/affect Immunologic: no complaints PMH/Family/Social Past Medical History Medical History: diabetes (Type II), high cholesterol (Hyperlipidemia), hypertension, urinary tract infection (Currently), other (Sarcoidosis;) Medications Home medications amitriptyline 100 mg nightly; gemfibrozil 600 twice daily; rosuvastatin 20 mg daily; metformin 1 g twice daily; please note that Plaquenil, Xanax, and some other medications have been previously discontinued; she is on Toujeo insulin 32 units nightly and Humalog insulin prior to meals on a sliding scale; Abilify 20 mg a day Current Medications Ondansetron HCl (Zofran Inj) 4 mg BRIDGE ORDER PRN IV NAUSEA/VOMITING; Start 01/02/19 at 21:30; Stop 01/03/19 at 21:29 Acetaminophen (Tylenol Tab) 650 mg ER BRIDGE PRN PO .MILD PAIN 1-3 OR TEMP; St art 01/02/19 at 21:30; Stop 01/03/19 at 21:29 Alprazolam (Xanax) 0.5 mg Q8H PRN PO ANXIETY; Start 01/02/19 at 21:30 Amitriptyline HCl (Elavil) 100 mg HS PO ; Start 01/03/19 at 21:00 Gemfibrozil (Lopid) 600 mg BID PO Last administered on 01/03/19at 08:31; Admin Dose 600 MG; Start 01/03/19 at 09:00 Metformin HCl (Glucophage) 500 mg WITH BREAKFAST PO Last administered on 01/03/19at 08:31; Admin Dose 500 MG; Start 01/03/19 at 08:00 Pantoprazole (Protonix Tab) 40 mg DAILY@0600 PO Last administered on 01/03/19at 05:28; Admin Dose 40 MG; Start 01/03/19 at 06:00 Eye Lubricant (Artificial Tears Oph) 2 drop QID BOTH EYES Last administered on 01/03/19at 13:06; Admin Dose 2 DROP; Start 01/03/19 at 09:00 Atorvastatin Calcium (Lipitor) 40 mg DAILY@2100 PO ; Start 01/03/19 at 21:00 IV Flush (NS 3 ml) 3 ml PER PROTOCOL IV ; Start 01/02/19 at 21:30 Ondansetron HCl (Zofran Inj) 4 mg Q6H PRN IV NAUSEA/VOMITING; Start 01/02/19 at 21:30 Oxycodone/ Acetaminophen (Percocet (5/ 325)) 1 tab Q6H PRN PO .MOD PAIN 4-6 Last administered on 01/02/19at 22:49; Admin Dose 1 TAB; Start 01/02/19 at 21:30 Oxycodone/ Acetaminophen (Percocet (5/ 325)) 2 tab Q6H PRN PO .SEVERE PAIN 7-10 Last administered on 01/03/19at 11:28; Admin Dose 2 TAB; Start 01/02/19 at 21:30 Docusate Sodium (Colace) 100 mg Q12H PRN PO .CONSTIPATION; Start 01/02/19 at 21:30 Bisacodyl (Dulcolax) 5 mg DAILY PRN PO .CONSTIPATION; Start 01/02/19 at 21:30 Sodium Biphosphate/ Sodium Phosphate (Fleet Enema) 133 ml DAILY PRN [place] .CONSTIPATION; Start 01/02/19 at 21:30 Enoxaparin Sodium (Lovenox) 30 mg DAILY SC Last administered on 01/03/19at 0 8:40; Admin Dose 30 MG; Start 01/03/19 at 09:00 Diagnostic Test (Pha) (Accu-Chek) 1 ea 02 XX ; Start 01/03/19 at 02:00 Insulin Glargine (Lantus) 18 units DAILY@2000 SC ; Start 01/03/19 at 20:00 Insulin Aspart (Novolog Insulin Pen) 7 unit WITH MEALS SC Last administered on 01/03/19at 13:04; Admin Dose 7 UNIT; Start 01/03/19 at 08:00 Insulin Aspart (Novolog Insulin Pen) NOVOLOG *MILD* ALGORITHM WITH MEALS BEDTIME SC Last administered on 01/03/19at 13:05; Admin Dose 3 UNIT; Start 01/03/19 at 08:00 Levofloxacin (Levaquin) 500 mg DAILY@0600 PO Last administered on 01/03/19at 05:28; Admin Dose 500 MG; Start 01/03/19 at 06:00 Vancomycin HCl (Vanco Iv Per Pharmacy) VANCOMYCIN PER PHARMACY PER PROTOCOL XX ; Start 01/02/19 at 21:30 Aripiprazole (Abilify) 20 mg DAILY PO Last administered on 01/03/19at 08:32; Admin Dose 20 MG; Start 01/03/19 at 09:00 Miscellaneous Information 1 ea NOTE XX ; Start 01/02/19 at 22:30 Glucose (Glutose) 15 gm Q15M PRN PO DECREASED GLUCOSE; Start 01/02/19 at 22:30 Glucose (Glutose) 22.5 gm Q15M PRN PO DECREASED GLUCOSE; Start 01/02/19 at 22:30 Dextrose (D50w Syringe) 25 ml Q15M PRN IV DECREASED GLUCOSE; Start 01/02/19 at 22:30 Dextrose (D50w Syringe) 50 ml Q15M PRN IV DECREASED GLUCOSE; Start 01/02/19 at 22:30 Glucagon (Glucagen) 1 mg Q15M PRN IM DECREASED GLUCOSE; Start 01/02/19 at 22:30 Glucose (Glutose) 15 gm Q15M PRN BUCCAL DECREASED GLUCOSE; Start 01/02/19 at 22:30 Vancomycin HCl 250 ml @ 125 mls/hr Q12H IVPB Last administered on 01/03/19at 08:31; Admin Dose 125 MLS/HR; Start 01/03/19 at 08:00 Miscellaneous Information (*Rx Drug Level Order Reminder*) VANCOMYCIN TROUGH AT 0700 ONCE ONCE XX ; Start 01/04/19 at 07:00; Stop 01/04/19 at 07:01 Coded Allergies: cefepime (Verified Allergy, Severe, CAN'T BREATH, 03/12/17) latex (Verified Allergy, Severe, SEVERE HIVES, 03/12/17) Cephalosporins (Verified Allergy, Unknown, UNKNOWN, 03/12/17) Past Surgical History Past Surgical Hx: noncontributory Family History Significant Family History: no pertinent family hx, diabetes Social History Alcohol Use: rarely Smoking Status: Current every day smoker Drug Use: none Exam/Review of Systems Vital Signs Vitals Vital Signs Date Temp Pulse Resp B/P (MAP) Pulse Ox O2 O2 Flow FiO2 Time Delivery Rate 01/03/19 98.3 84 18 119/58 96 Room Air 14:41 (78) Exam Constitutional: alert, oriented Head: normocephalic, atraumatic Eyes: nl conjunctiva, EOMI, nl lids ENMT: nl external ears & nose, nl lips & teeth, nl nasal mucosa & septum Neck: supple, non-tender Respiratory: clear to auscultation, normal air movement Cardiovascular: regular rate and rhythm, nl pulses Gastrointestinal: soft, nl liver, spleen, tender (Tender right mid quadrant and especially right flank) Genitourinary - Female: CVA tenderness (Right flank tenderness) Musculoskeletal: nl extremities to inspection, nl gait and stance, other (Many tattoos no evidence of cellulitis) Extremities: normal pulses Neurological: LOAN UNDERWRITER II-XII intact, nl mental status, nl speech, nl strength Skin: nl DARCI Gomez MD January 03, 2019 15:15
[2019-01-03] MEDS: metFORMIN 500 MG TAB PO SCH (17:52)
[2019-01-03 19:30] VITALS: BP 150/70; PULSE 80; RESP 16
[2019-01-03] MEDS ORDERED: INSULIN GLARGINE [LANTus] (100 UNITS/ML) SYG SC SCH ×2 (20:00)
[2019-01-03] MEDS ORDERED: AMITRIPTYLINE 50 MG TAB PO SCH (21:00)
[2019-01-03] MEDS ORDERED: ATORVASTATIN 40 MG TAB PO SCH (21:00)
[2019-01-03] MEDS ORDERED: SOD FERRIC GLUC COMPLX 125 MG in SOD CHLORIDE 0.9% 100 ML IVPB ONE (21:30)
[2019-01-04] MEDS: OXYCODONE/ACETAMINOPHEN (5/325) TAB PO PRN ×3 (00:01→14:12)
[2019-01-04] MEDS: ACCU-CHEK XX SCH (01:47)
[2019-01-04 01:55] VITALS: BP 131/63; PULSE 77; RESP 16
[2019-01-04] MEDS: PANTOPRAZOLE (EC) 40 MG TAB PO SCH (05:36)
[2019-01-04] MEDS: LEVOFLOXACIN 500 MG TAB PO SCH (05:36)
[2019-01-04 07:32] VITALS: BP 136/72; PULSE 75; RESP 17
[2019-01-04] MEDS: INSULIN ASPART [NOVOLOG] 3 ML PEN SC SCH ×3 (08:07→12:55)
--- NOTE | 2019-01-04 08:14 | PN ---
Date/Time of Note Date/Time of Note DATE: 01/04/19 TIME: 08:10 Assessment/Plan VTE Prophylaxis Risk score (from [facility])>0 risk: 1 SCD applied (from [facility]): Yes Pharmacological prophylaxis: heparin Lines/Catheters IV [facility]from [facility] Saline Lock Assessment/Plan Problems: (1) E. coli pyelonephritis Status: Acute Comment: On appropriate antibiotics and responding to therapy. 1 more day of IV antibiotics as well as cleaning up other medical issues, and she should be able to have outpatient treatment. (2) Severe sepsis Status: Resolved Comment: Resolved with treatment (3) Type 2 diabetes mellitus without complications Status: Chronic Comment: Blood sugars coming under control with resolution of the infection and aggressively treating with her medications from outpatient Qualifiers: Diabetes mellitus terminal clerk insulin use: with terminal clerk use Qualified Codes: E11.9 - Type 2 diabetes mellitus without complications; Z79.4 - terminal operator (current) use of insulin (4) Essential (primary) hypertension Status: Chronic Comment: Improved with usage of full dose angiotensin to receptor renita agent allowing us to decrease the amount of dihydropyridine calcium channel renita. Please note that the interpretation of the EKG from the emergency room is not an interpretation that I agree with. This is a normal EKG! (5) Hyperlipidemia Status: Chronic Comment: Stable on treatment Qualifiers: Hyperlipidemia type: mixed hyperlipidemia Qualified Codes: E78.2 - Mixed hyperlipidemia (6) Bipolar disorder Status: Chronic Comment: Remains on treatment without flare Qualifiers: Active/Remission status: in full remission Most recent bipolar episode type: hypomanic Qualified Codes: F31.72 - Bipolar disorder, in full remission, most recent episode hypomanic (7) Sarcoidosis Status: Chronic Comment: Presently quiescent Result Diagram: 01/04/19 0438 01/04/19 0438 Results 24hrs Laboratory Tests Test 01/03/19 13:01 01/03/19 17:50 01/03/19 20:37 01/04/19 04:38 Bedside Glucose 229 H 188 171 White Blood Count 7.2 # Red Blood Count 3.60 L Hemoglobin 11.3 L Hematocrit 33.4 L Mean Corpuscular 92.8 Volume Mean Corpuscular 31.4 Hemoglobin Mean Corpuscular 33.8 Hemoglobin Concent Red Cell 14.1 Distribution Width Platelet Count 152 Mean Platelet Volume 11.7 H Immature 0.800 H Granulocytes % Neutrophils % 61.7 Lymphocytes % 28.4 Monocytes % 5.9 Eosinophils % 2.6 Basophils % 0.6 Nucleated Red Blood 0.0 Cells % Immature 0.060 H Granulocytes # Neutrophils # 4.5 Lymphocytes # 2.1 Monocytes # 0.4 Eosinophils # 0.2 Basophils # 0.0 Nucleated Red Blood 0.0 Cells # Sodium Level 140 Potassium Level 4.5 Chloride Level 105 Carbon Dioxide Level 27 Anion Gap 8 Blood Urea Nitrogen 16 Creatinine 0.79 Est Glomerular > 60 Filtrat Rate mL/min Glucose Level 180 Calcium Level 9.2 Phosphorus Level 3.8 Magnesium Level 1.8 Total Bilirubin 0.5 Direct Bilirubin 0.00 Indirect Bilirubin 0.5 Aspartate Amino 37 Transf (AST/SGOT) Alanine 38 Aminotransferase (AL T/SGPT) Alkaline Phosphatase 139 H Total Protein 7.0 Albumin 3.7 Globulin 3.30 H Albumin/Globulin 1.12 Ratio CC: KINJAL BERMUDEZ MD ; Subjective 24 Hr Interval Summary Free Text/Dictation Patient reports she is still having pain but feels somewhat better. Constitutional: no complaints (No fevers no shaking chills no drenching sweats) Respiratory: no complaints Cardiovascular: no complaints Genitourinary: flank pain (Flank pain persists but is modestly less) Musculoskeletal: no complaints Endocrine: no complaints (Hypoglycemia) Exam/Review of Systems Exam Vitals Vital Signs Date Temp Pulse Resp B/P (MAP) Pulse Ox O2 O2 Flow FiO2 Time Delivery Rate 01/04/19 98.1 75 17 136/72 91 Room Air 07:32 (93) Intake and Output 01/03/19 01/03/19 01/04/19 1515:00 23:00 07:00 IntakeIntake Total 250 ml 250 ml 100 ml OutputOutput Total 2000 ml BalanceBalance 250 ml -1750 ml 100 ml Constitutional: alert, oriented Neck: supple, non-tender Respiratory: clear to auscultation, normal air movement Cardiovascular: regular rate and rhythm, nl pulses Gastrointestinal: soft, nl liver, spleen, non-tender Genitourinary - Female: CVA tenderness (Right-sided) Results Results 24hrs Laboratory Tests Test 01/03/19 13:01 01/03/19 17:50 01/03/19 20:37 01/04/19 04:38 Bedside Glucose 229 H 188 171 White Blood Count 7.2 # Red Blood Count 3.60 L Hemoglobin 11.3 L Hematocrit 33.4 L Mean Corpuscular 92.8 Volume Mean Corpuscular 31.4 Hemoglobin Mean Corpuscular 33.8 Hemoglobin Concent Red Cell 14.1 Distribution Width Platelet Count 152 Mean Platelet Volume 11.7 H Immature 0.800 H Granulocytes % Neutrophils % 61.7 Lymphocytes % 28.4 Monocytes % 5.9 Eosinophils % 2.6 Basophils % 0.6 Nucleated Red Blood 0.0 Cells % Immature 0.060 H Granulocytes # Neutrophils # 4.5 Lymphocytes # 2.1 Monocytes # 0.4 Eosinophils # 0.2 Basophils # 0.0 Nucleated Red Blood 0.0 Cells # Sodium Level 140 Potassium Level 4.5 Chloride Level 105 Carbon Dioxide Level 27 Anion Gap 8 Blood Urea Nitrogen 16 Creatinine 0.79 Est Glomerular > 60 Filtrat Rate mL/min Glucose Level 180 Calcium Level 9.2 Phosphorus Level 3.8 Magnesium Level 1.8 Total Bilirubin 0.5 Direct Bilirubin 0.00 Indirect Bilirubin 0.5 Aspartate Amino 37 Transf (AST/SGOT) Alanine 38 Aminotransferase (AL T/SGPT) Alkaline Phosphatase 139 H Total Protein 7.0 Albumin 3.7 Globulin 3.30 H Albumin/Globulin 1.12 Ratio Medications Medication Current Medications Amitriptyline HCl (Elavil) 100 mg HS PO Last administered on 01/03/19at 20:41; Admin Dose 100 MG; Start 01/03/19 at 21:00 Gemfibrozil (Lopid) 600 mg BID PO Last administered on 01/03/19at 20:39; Admin Dose 600 MG; Start 01/03/19 at 09:00 Pantoprazole (Protonix Tab) 40 mg DAILY@0600 PO Last administered on 01/04/19at 05:36; Admin Dose 40 MG; Start 01/03/19 at 06:00 Eye Lubricant (Artificial Tears Oph) 2 drop QID BOTH EYES Last administered on 01/03/19at 20:39; Admin Dose 2 DROP; Start 01/03/19 at 09:00 Atorvastatin Calcium (Lipitor) 40 mg DAILY@2100 PO Last administered on 01/03/19at 20:39; Admin Dose 40 MG; Start 01/03/19 at 21:00 IV Flush (NS 3 ml) 3 ml PER PROTOCOL IV ; Start 01/02/19 at 21:30 Ondansetron HCl (Zofran Inj) 4 mg Q6H PRN IV NAUSEA/VOMITING Last administered on 01/03/19at 19:53; Admin Dose 4 MG; Start 01/02/19 at 21:30 Oxycodone/ Acetaminophen (Percocet (5/ 325)) 1 tab Q6H PRN PO .MOD PAIN 4-[address] administered on 01/02/19at 22:49; Admin Dose 1 TAB; Start 01/02/19 at 21:30 Oxycodone/ Acetaminophen (Percocet (5/ 325)) 2 tab Q6H PRN PO .SEVERE PAIN 7-10 Last administered on 01/04/19at 07:21; Admin Dose 2 TAB; Start 01/02/19 at 21:30 Docusate Sodium (Colace) 100 mg Q12H PRN PO .CONSTIPATION; Start 01/02/19 at 21:30 Bisacodyl (Dulcolax) 5 mg DAILY PRN PO .CONSTIPATION; Start 01/02/19 at 21:30 Sodium Biphosphate/ Sodium Phosphate (Fleet Enema) 133 ml DAILY PRN [place] .CONSTIPATION; Start 01/02/19 at 21:30 Enoxaparin Sodium (Lovenox) 30 mg DAILY SC Last administered on 01/03/19at 08:40; Admin Dose 30 MG; Start 01/03/19 at 09:00 Diagnostic Test (Pha) (Accu-Chek) 1 ea 02 XX ; Start 01/03/19 at 02:00 Insulin Aspart (Novolog Insulin Pen) NOVOLOG *MILD* ALGORITHM WITH MEALS BEDTIME SC Last administered on 01/04/19at 08:07; Admin Dose 1 UNIT; Start 01/03/19 at 08:00 Levofloxacin (Levaquin) 500 mg DAILY@0600 PO Last administered on 01/04/19at 05:36; Admin Dose 500 MG; Start 01/03/19 at 06:00 Vancomycin HCl (Vanco Iv Per Pharmacy) VANCOMYCIN PER PHARMACY PER PROTOCOL XX ; Start 01/02/19 at 21:30 Aripiprazole (Abilify) 20 mg DAILY PO Last administered on 01/03/19at 08:32; Admin Dose 20 MG; Start 01/03/19 at 09:00 Miscellaneous Information 1 ea NOTE XX ; Start 01/02/19 at 22:30 Glucose (Glutose) 15 gm Q15M PRN PO DECREASED GLUCOSE; Start 01/02/19 at 22:30 Glucose (Glutose) 22.5 gm Q15M PRN PO DECREASED GLUCOSE; Start 01/02/19 at 22:30 Dextrose (D50w Syringe) 25 ml Q15M PRN IV DECREASED GLUCOSE; Start 01/02/19 at 22:30 Dextrose (D50w Syringe) 50 ml Q15M PRN IV DECREASED GLUCOSE; Start 01/02/19 at 22:30 Glucagon (Glucagen) 1 mg Q15M PRN IM DECREASED GLUCOSE; Start 01/02/19 at 22:30 Glucose (Glutose) 15 gm Q15M PRN BUCCAL DECREASED GLUCOSE; Start 01/02/19 at 22:30 Vancomycin HCl 250 ml @ 125 mls/hr Q12H IVPB Last administered on 01/03/19at 19:53; Admin Dose 125 MLS/HR; Start 01/03/19 at 08:00 Amlodipine Besylate (Norvasc) 2.5 mg BID PO Last administered on 01/03/19at 20 :40; Admin Dose 2.5 MG; Start 01/03/19 at 21:00 Insulin Aspart (Novolog Insulin Pen) 10 unit WITH MEALS SC Last administered on 01/04/19 08:08; Admin Dose 10 UNIT; Start 01/03/19 at 18:00 Insulin Glargine (Lantus) 24 units DAILY@2000 SC Last administered on 01/03/19at 20:43; Admin Dose 24 UNITS; Start 01/03/19 at 20:00 Losartan Potassium (Cozaar) 25 mg BID PO Last administered on 01/03/19at 20:41; Admin Dose 25 MG; Start 01/03/19 at 21:00 Metformin HCl (Glucophage) 1,000 mg AC BREAKFAST DINNER PO Last administered on 01/03/19 17:52; Admin Dose 1,000 MG; Start 01/03/19 at 17:30 DARCI MOFFETT MD January 04, 2019 08:14
[2019-01-04] MEDS: ARTIFICIAL TEARS 15 ML OPH BOTH EYES SCH ×2 (08:34→12:44)
[2019-01-04] MEDS: metFORMIN 500 MG TAB PO SCH (08:34)
[2019-01-04] MEDS: GEMFIBROZIL 600 MG TAB PO SCH (08:35)
[2019-01-04] MEDS: ARIPIPRAZOLE 5 MG TAB PO SCH (08:35)
[2019-01-04] MEDS: ENOXAPARIN 30 MG/0.3 ML SYG SC SCH (08:41)
[2019-01-04] MEDS ORDERED: AMLODIPINE 2.5 MG TAB PO SCH (09:00)
[2019-01-04] MEDS ORDERED: CELECOXIB 200 MG CAP PO ONE (09:00)
[2019-01-04] MEDS ORDERED: LOSARTAN 50 MG TAB PO SCH (09:00)
[2019-01-04] MEDS ORDERED: VANCOMYCIN HCL 1.25 GM in SOD CHLORIDE 0.9% 250 ML IVPB SCH (10:30)
--- NOTE | 2019-01-04 10:37 | PDOCDIS ---
Discharge Instructions DIAGNOSIS Discharge Diagnosis E. coli pyelonephritis; history of renal stone; essential hypertension; diabetes mellitus type 2 with fair control; obesity CONDITION [id number] Patient Condition: [id number] Fair HOME CARE INSTRUCTIONS: [id number] Diet Instructions: [id number] Reduced Calorie ACTIVITY: [id number] Activity Restrictions: [id number] Slowly Increase Activity FOLLOW UP/APPOINTMENTS Follow-up Plan Primary care physician in 1 week DARCI MOFFETT MD January 04, 2019 10:37
[2019-01-04] MEDS ORDERED: METF-849 PO (10:42)
[2019-01-04] MEDS ORDERED: LOSA50TA2 PO (10:42)
[2019-01-04] MEDS ORDERED: AMLO2.5T78 PO (10:42)
[2019-01-04] MEDS ORDERED: DICL75TA2 PO (10:42)
[2019-01-04] MEDS ORDERED: LEVO500T48 PO (10:42)
[2019-01-04] MEDS ORDERED: ARIP5TAB14 PO (10:42)
[2019-01-04] MEDS ORDERED: OXYC-438 PO (10:42)
--- NOTE | 2019-01-04 10:46 | DS ---
Date/Time of Note Date/Time of Note DATE: 01/04/19 TIME: 10:44 Discharge Summary Admission/Discharge Info Admit Date/Time January 02, 2019 at 21:03 Discharge Date/Time January 04, 2019 Discharge Diagnosis E. coli pyelonephritis; history of renal stone; essential hypertension; diabetes mellitus type 2 with fair control; obesity Patient Condition: Fair Procedures CT scan abdomen and pelvis Hx of Present Illness 48-year-old right-handed female admitted to the hospital for sepsis. She had been in her usual state of health but in the last 3 days prior to admission developed some symptoms of bladder infection with some dysuria and frequency without hematuria. On the day of admission she was awakened with a sensation of shaking chills and also had sweats and fever. She was not feeling well and came to work. She did not have nausea or vomiting but ultimately was advised to go home. Instead she was feeling poorly enough she presented herself to the emergency room whereupon she was found to have a slightly elevated lactic acid level. Her urinalysis is abnormal she was treated with antibiotics and admitted to the hospital. Blood cultures so far are negative, preliminary urine cultures showing gram-negative rods. These note the patient is allergic to cephalosporins, and is being treated with tentative medications Hospital Course 48-year-old female admitted with sepsis and E. coli right- sided pyelonephritis. Fortunately the bacteria demonstrates cardoso sensitivity. Please note this patient is allergic to cephalosporins. She is now stable and markedly improved. As such she can be discharged home on oral antibiotic therapy to follow-up as an outpatient. She will have a 10-day course of levofloxacin 500 mg once a day. The other remaining questions are that on her CT scan of the abdomen pelvis she had modest hepatosplenomegaly likely on the basis of fatty liver disease. This can be followed up as an outpatient. In addition adjustments were made to her diabetes regimen with improved glycemic control and her blood pressure regimen as well. See the medication reconciliation Home Meds Active Scripts Metformin* (Glucophage*) 500 Mg Tab, 1000 MG PO AC BREAKFAST DINNER for 30 Days, #120 TAB Prov:DARCI MOFFETT MD 01/04/19 Oxycodone HCl/Acetaminophen (Oxycodone-Acetaminophen 5-325) 1 Each Tablet, 1 TAB PO Q6H PRN for .MOD PAIN 4-6 for 7 Days, #10 TAB Prov:DARCI MOFFETT MD 01/04/19 Aripiprazole* (Abilify*) 5 Mg Tab, 20 MG PO DAILY for 30 Days, #30 TAB Prov:DARCI MOFFETT MD 01/04/19 Losartan Potassium* (Cozaar*) 50 Mg Tablet, 50 MG PO BID for 30 Days, #60 TAB Prov:DARCI MOFFETT MD 01/04/19 Amlodipine Besylate* (Amlodipine Besylate*) 2.5 Mg Tablet, 2.5 MG PO QAM for 30 Days, #30 TAB Prov:DARCI MOFFETT MD 01/04/19 Levofloxacin* (Levaquin*) 500 Mg Tablet, 500 MG PO DAILY@0600 for 10 Days, #10 TAB Prov:DARCI MOFFETT MD 01/04/19 Diclofenac Sodium* (Diclofenac Sodium*) 75 Mg Tablet.dr, 75 MG PO BID for 30 Days, #60 TAB Prov:DARCI MOFFETT MD 01/04/19 Amlodipine Besylate* (Amlodipine Besylate*) 2.5 Mg Tablet, 5 MG PO BID for 30 Days, #60 TAB 3 Refills Prov:KEN RUSSELL MD 04/20/17 Nystatin (Nystatin) 100,000 Unit/1 Ml Oral.susp, 5 ML PO QID for 7 Days, #10 APPFUL 1 Refill Prov:KEN RUSSELL MD 04/20/17 Amoxicillin/Potassium Clav (Amox-Clav 875-125 mg Tablet) 875-125 mg Tab, 875 MG PO BID for 7 Days, #14 TAB 1 Refill Prov:KEN RUSSELL MD 04/20/17 [Oxycodone/Acetamin (5/325)] 1 TAB TAB No Conflict Check, 1 TAB PO Q4H PRN for PAIN LEVEL 6-10, #30 Prov:BENJAMIN MORRISON MD 03/16/17 Ibuprofen* (Ibuprofen*) 800 Mg Tablet, 800 MG PO Q6, #30 TAB Prov:BENJAMIN MORRISON MD 03/16/17 Dextran 70/Hypromellose (Tears Naturale Free Drops) 32 Ea Droperette, 2 DROP OP TID, #1 BOTTLE Prov:ZOHRABIAN,SHIRLEY MD 04/25/15 Reported Medications Insulin Glargine,Hum.rec.anlog (Toujeo Solostar) 300 Unit/1 Ml Insuln.pen, 300 UNIT SQ 03/12/17 Losartan Potassium* (Losartan Potassium*) 25 Mg Tablet, 25 MG PO DAILY, TAB 03/12/17 Hydroxychloroquine Sulfate* (Hydroxychloroquine Sulfate*) 200 Mg Tablet, 200 MG PO BID, TAB 03/12/17 Pantoprazole* (Pantoprazole*) 40 Mg Tablet.dr, 40 MG PO DAILY, TAB 03/12/17 [Abilify] No Conflict Check 03/14/16 [Protonix] No Conflict Check 03/14/16 [Humalog] No Conflict Check 03/14/16 Alprazolam* (Xanax*) 0.5 Mg Tab, 0.5 MG PO Q8H PRN for ANXIETY, TAB 04/25/15 Rosuvastatin Calcium* (Crestor*) 20 Mg Tablet, 20 MG PO HS, TAB 04/25/15 Gemfibrozil* (Gemfibrozil*) 600 Mg Tablet, 600 MG PO BID, TAB 04/25/15 Amitriptyline Hcl* (Amitriptyline Hcl*) 100 Mg Tablet, 100 MG PO HS, TAB 04/25/15 Metformin Hcl* (Metformin Hcl*) 500 Mg Tablet, 500 MG PO DAILY, TAB 04/25/15 Follow-up Plan Primary care physician in 1 week Primary Care Provider Ken Russell MD Pending Labs Laboratory Tests Test 01/03/19 13:01 01/03/19 17:50 01/03/19 20:37 01/04/19 04:38 Bedside 229 188 171 Glucose mg/dL (70-220) mg/dL (70-220) mg/dL (70-220) White Blood 7.2 Count 10^3/ul (4.8-1 0.8) Red Blood 3.60 Count 10^6/ul (4.20- 5.40) Hemoglobin 11.3 g/dl (12.0-16. 0) Hematocrit 33.4 % (37.0-47.0) Mean 92.8 Corpuscular fl (82.0-101.0 Volume ) Mean 31.4 Corpuscular pg (29.0-33.0) Hemoglobin Mean 33.8 Corpuscular g/dl (32.0-37. Hemoglobin Conc 0) ent Red Cell 14.1 Distribution % (11.5-14.5) Width Platelet Count 152 10^3/UL (140-4 15) Mean Platelet 11.7 Volume fl (7.4-10.4) Immature 0.800 Granulocytes % % (0.001-0.429 ) Neutrophils % 61.7 % (39.0-77.0) Lymphocytes % 28.4 % (15.0-51.0) Monocytes % 5.9 % (0.0-11.0) Eosinophils % 2.6 % (0.0-7.0) Basophils % 0.6 % (0.0-2.0) Nucleated Red 0.0 Blood Cells % /100WBC (0.0-0 .0) Immature 0.060 Granulocytes # 10^3/ul (0.0-0 .031) Neutrophils # 4.5 10^3/ul (1.6-7 .5) Lymphocytes # 2.1 10^3/ul (0.8-2 .9) Monocytes # 0.4 10^3/ul (0.3-0 .9) Eosinophils # 0.2 10^3/ul (0.0-0 .5) Basophils # 0.0 10^3/ul (0.0-0 .1) Nucleated Red 0.0 Blood Cells # 10^3/ul (0.0-0 .0) Sodium Level 140 mmol/L (135-14 4) Potassium 4.5 Level mmol/L (3.5-5. 1) Chloride Level 105 mmol/L (97-110 ) Carbon Dioxide 27 Level mmol/L (21-31) Anion Gap 8 (5-13) Blood Urea 16 Nitrogen mg/dl (7-20) Creatinine 0.79 mg/dl (0.44-1. 00) Est Glomerular > 60 Filtrat mL/min (>60) Rate mL/min Glucose Level 180 mg/dl (70-220) Calcium Level 9.2 mg/dl (8.4-10. 2) Phosphorus 3.8 Level mg/dl (2.5-4.9 ) Magnesium 1.8 Level mg/dl (1.7-2.5 ) Total 0.5 Bilirubin mg/dl (0.2-1.3 ) Direct 0.00 Bilirubin mg/dl (0.00-0. 20) Indirect 0.5 Bilirubin mg/dl (0-1.1) Aspartate Amino 37 Transf (AST/SGO IU/L (15-46) T) Alanine 38 Aminotransferas IU/L (13-69) e (ALT/SGPT) Alkaline 139 Phosphatase IU/L (42-121) Total Protein 7.0 g/dl (6.1-8.1) Albumin 3.7 g/dl (3.3-4.9) Globulin 3.30 g/dl (1.3-3.2) Albumin/Globuli 1.12 n Ratio Test 01/04/19 07:10 01/04/19 08:03 Vancomycin 9.0 Level Trough ug/ml (10.0-20. 0) Bedside 176 Glucose mg/dL (70-220) Copies To: CC: KINJAL BERMUDEZ MD ; DARCI MOFFETT MD January 04, 2019 10:46
[2019-01-04] MEDS ORDERED: INSULIN ASPART [NOVOLOG] 3 ML PEN SC SCH (12:00)
[2019-01-04 14:34] VITALS: BP 126/61; PULSE 83; RESP 17
[2019-01-04] MEDS ORDERED: INSULIN GLARGINE [LANTus] (100 UNITS/ML) SYG SC SCH (20:00)
== END 2019-01-04 16:00 | disposition home or self-care (01) | DRG 872 ==
LOC: E/R 18:30 → 2NE 21:03
PROVIDERS: ADMIT Internal Medicine; ATTEND Internal Medicine
DX: A41.9 Sepsis, unspecified organism (principal); N10 Acute pyelonephritis; E11.9 Type 2 diabetes mellitus without complications; I10 Essential (primary) hypertension; E78.5 Hyperlipidemia, unspecified; F31.9 Bipolar disorder, unspecified; D86.9 Sarcoidosis, unspecified; Z72.0 Tobacco use; E66.3 Overweight; Z68.33 Body mass index [BMI] 33.0-33.9, adult; B96.20 Unspecified Escherichia coli [E. coli] as the cause of diseases classified elsewhere
CPT/HCPCS: 36415; 71045; 74176; 80053; 80202; 81001; 82962; 83036; 83540; 83605; 83735; 84100; 84484; 84703; 85025; 85610; 85730; 86803; 87086; 93005; 96365; 96375; J1650; J1815; J2270; J2405; J2916; J3370; J7030; J7050

== ENCOUNTER 2019-06-20 22:55 | Emergency (ER) | payer BC ==
[~2019-06-20] VITALS: Ht 167.6 cm; Wt 85.0 kg
[~2019-06-20 22:55] MED LIST changes: -ALPR0.5T PO; -AMOX1TAB10 PO; +ARIP5TAB14 PO; -HYDR200T39 PO; -IBUP-1544 PO; +LEVO500T48 PO; -LOSA25TA12 PO; +LOSA50TA2 PO; +METF-849 PO; -METF500T24 PO; +OXYC-438 PO
[2019-06-20 23:00] VITALS: Ht 167.6 cm; Wt 85.0 kg
[2019-06-21 00:49] VITALS: BP 136/87; PULSE 88; RESP 18
== END 2019-06-21 00:52 | disposition home or self-care (01) ==
LOC: E/R 22:55
DX: J06.9 Acute upper respiratory infection, unspecified (principal); F17.210 Nicotine dependence, cigarettes, uncomplicated; I10 Essential (primary) hypertension; Z91.040 Latex allergy status
CPT/HCPCS: 71045; 87400; 99283